=== PATIENT | male | born 1980 | race Caucasian/White ===

== ENCOUNTER → 2018-09-09 14:21 | Outpatient (BNVA) | payer MEDICARE, MEDICAID, SELFPAY | PROVIDERS: PCP Specialist/Technologist Athletic Trainer; Visit Provider Urology | DX: Z87.438 Personal history of other diseases of male genital organs (principal); R45.0 Nervousness | CPT/HCPCS: 99213 ==

== ENCOUNTER 2018-11-23 12:49 | Emergency (ER) | payer MEDICARE, MEDICAID, SELFPAY ==
[2018-11-23 13:04] VITALS: BP 133/83; PULSE 92; RESP 16; TEMP 37.4; O2SAT 95
--- NOTE | 2018-11-23 13:19 | ED.GENADUL_ITS ---
Discharge Plan Disposition Patient Disposition: HOME Condition: Improving Discharge Details Chief Complaint: RespSymp Clinical Impression: Acute bronchitis Primary Care Provider: Geovanny Cuba ED Provider: Provider,Temporary Home Meds and New Rx's Prescriptions: New azithromycin 250 mg tablet See Rx Instructions .ROUTE .COMPLEX Qty: 6 RF: 0 benzonatate [Tessalon Perles] 100 mg capsule 100 mg PO TID PRN (Reason: cough) Qty: 10 RF: 0 No Action Zyrtec 10 MG capsule 10 mg PO DAILY Qty: 1 RF: 0 propranolol 10 MG tablet 20 mg PO as directed Qty: 180 RF: 11 docusate sodium [Colace] 100 MG capsule 100 mg PO HS RF: 0 quetiapine [Seroquel] 200 MG tablet 200 mg PO BID RF: 0 magnesium oxide 400 MG tablet 400 mg PO HS RF: 0 quetiapine [Seroquel] 300 MG tablet 250 mg PO HS RF: 0 omeprazole [Prilosec] 20 MG capsule,delayed release(DR/EC) 40 mg PO DAILY RF: 0 famotidine [Pepcid] 20 MG tablet 20 mg PO DAILY Qty: 20 RF: 0 Ventolin HFA 60 PUFF HFA aerosol inhaler 90 mcg Inhalation PRN PRNRF: 0 ProAir HFA 200 PUFF HFA aerosol inhaler 115 mcg Inhalation RF: 0 fluticasone 16 GM spray,suspension 16 gm Intranasal DAILY RF: 0 Flovent HFA 12 GM HFA aerosol inhaler 165 mcg Inhalation BID RF: 0 loratadine 10 mg Tablet 10 mg PO DAILY RF: 0 Multi-Day Plus Minerals 18 mg iron-400 mcg-25 mcg Tablet 1 tab PO DAILY RF: 0 Discharge Instructions Instructions: Acute Bronchitis (ED) Additional Instructions: Take medications as prescribed. Please put your Zofran on hold while taking azithromycin. Continue all other medications. Tessalon as needed for cough. A teaspoon of honey can also help to decrease the cough. Return for any acute concerns Medical Decision Making 38-year-old male presents from home with cough, congestion, sinus pain and pressure. His exam is consistent with acute bronchitis with a component of sinusitis. Will treat with a course of azithromycin and Tessalon. He is stable for outpatient management HPI General Mode of arrival: ambulatory . Date/Time Provider Initiated Documentation: 11/23/18 13:11 . Limitations to Documentation: no limitations . Information obtained by: patient . History of Present Illness 38 year old M presents to the emergency department with the chief complaint of Cough, congestion, sinus pressure, production of sputum, described as moderate, Quality is described as aching, and is localized to the chest. Patient reports no radiation. Patient started experiencing this day(s) and it has been constant. No relieving factors improve symptom(s), No exacerbating factors reported . Patient notes no other symptoms.. Patient did receive the following treatments prior to arrival, none Related Data Home Medications Medication Instructions Recorded Confirmed docusate sodium [Colace] 100 mg PO HS 11/22/13 11/23/18 magnesium oxide 400 mg PO HS 11/22/13 11/23/18 quetiapine [Seroquel] 200 mg PO BID 11/22/13 11/23/18 quetiapine [Seroquel] 250 mg PO HS 04/22/14 11/23/18 Zyrtec 10 mg PO DAILY #1 04/27/14 11/23/18 omeprazole [Prilosec] 40 mg PO DAILY 09/17/15 11/23/18 famotidine [Pepcid] 20 mg PO DAILY #20 tablet 05/23/17 11/23/18 propranolol 20 mg PO as directed #180 tab-cap 06/26/17 11/23/18 Flovent HFA 165 mcg INHALATION BID 11/21/17 11/23/18 ProAir HFA 115 mcg INHALATION 11/21/17 Ventolin HFA 90 mcg INHALATION PRN PRN 11/21/17 11/23/18 fluticasone 16 gm INTRANASAL DAILY 11/21/17 11/23/18 azithromycin See Rx Instructions .ROUTE 11/23/18 .COMPLEX #6 tab benzonatate [Tessalon Perles] 100 mg PO TID PRN #10 cap 11/23/18 loratadine 10 mg PO DAILY 11/23/18 11/23/18 [id number]-vit K 1 tab PO DAILY 11/23/18 11/23/18 [Multi-Day Plus Minerals] Previous Rx's Medication Instructions Recorded famotidine [Pepcid] 20 mg PO DAILY #20 tablet 05/23/17 azithromycin See Rx Instructions .ROUTE 11/23/18 .COMPLEX #6 tab benzonatate [Tessalon Perles] 100 mg PO TID PRN #10 cap 11/23/18 Allergies Allergy/AdvReac Type Severity Reaction Status Date / Time oxycodone [From Percocet] AdvReac CRANKY Unverified 11/23/18 13:07 environmental Allergy Mild Rhinitis Uncoded 11/23/18 13:07 General Stated Complaint: RespSymp ABHILASH: 4 Review of Systems Review of Systems 8 systems reviewed and otherwise negative PFSH Social History Smoking/Tobacco Use Status: Former Tobacco Use Exam Narrative Exam Narrative: GEN: awake, alert, oriented 3. Pleasant, well groomed, interactive. HEAD: Normocephalic, atraumatic ENT: Mucous membranes moist, oropharynx unremarkable, External ear exam unremarkable. Slightly distended and erythematous left tympanic membrane. Bilateral maxillary sinus tenderness to percussion EYES: PERRL, EOMI NECK: Full ROM, no LEONIDAS, no menigismus CHEST/RESP: Nontender, clear to auscultation bilateral, no wheeze/rhonchi/rales, cough noted CARDIOVASCULAR: RRR, no murmur, rub pal. 2+ Rad pulse bilateral ABDOMEN: Soft, nontender, no mass. +Bowel sounds EXT: Full ROM, no edema, no rash Neuro: Grossly normal neurologic exam, conversant, interactive. Psych: Speech fluent, thoughts congruent, affect normal Course Vital Signs Temperature 37.4 C 11/23/18 13:04 Pulse 92 H 11/23/18 13:04 Respiratory Rate 16 11/23/18 13:04 Blood Pressure 133/83 11/23/18 13:04 Pulse Oximetry 95 11/23/18 13:04 Temperature 37.4 C 11/23/18 13:04 Temperature Source Temporal Artery Scan 11/23/18 13:04 Pulse 92 H 11/23/18 13:04 Respiratory Rate 16 11/23/18 13:04 Respiratory Effort Non-Labored 11/23/18 13:15 Respiratory Depth Normal 11/23/18 13:15 Blood Pressure 133/83 11/23/18 13:04 Blood Pressure Position Sitting 11/23/18 13:04 Pulse Oximetry 95 11/23/18 13:04 Oxygen Delivery Method Room Air 11/23/18 13:04 Oxygen Flow Rate 0 02/03/19 13:04 Pain Level 6 11/23/18 13:04
== END 2018-11-23 13:40 | disposition home or self-care (01) ==
PROVIDERS: Emergency Provider Emergency Medicine; PCP Specialist/Technologist Athletic Trainer
DX: J20.9 Acute bronchitis, unspecified (principal); J01.90 Acute sinusitis, unspecified
CPT/HCPCS: 99283

== ENCOUNTER 2019-01-28 16:14 | Outpatient (REF) | payer MEDICARE, MEDICAID, SELFPAY ==
[2019-01-28 21:44] LABS: Anion Gap 13.2 mmol/L (3-11); BUN 18 mg/dL (7-18); CO2 24.8 mmol/L (21.0-32.0); CREATININE 1.14 mg/dL (0.70-1.30); Calcium 9.6 mg/dL (8.5-10.1); Chloride 103 mmol/L (98-107); Cholesterol 174 mg/dL (50-200); Glucose 101 mg/dL (70-100); HDL Cholesterol 42 mg/dL (40-60); LDL CHOLESTEROL 113 mg/dL (<100); Potassium 3.9 mmol/L (3.5-5.1); Sodium 141 mmol/L (136-145); TSH (W/Ref FT4) 2.84 uIU/mL (0.358-3.74); Triglyceride 144 mg/dL (30-150)
== END 2019-01-28 16:34 ==
LOC: NCHCN 16:14
PROVIDERS: PCP Specialist/Technologist Athletic Trainer; Visit Provider Specialist/Technologist Athletic Trainer
DX: R73.9 Hyperglycemia, unspecified (principal); I10 Essential (primary) hypertension
CPT/HCPCS: 80048; 80061; 83721; 84443

== ENCOUNTER 2019-03-24 18:41 | Emergency (ER) | payer MEDICARE, MEDICAID, SELFPAY ==
[2019-03-24 18:50] VITALS: BP 151/82; PULSE 71; RESP 20; TEMP 36.8; O2SAT 96
--- NOTE | 2019-03-24 18:58 | W.ED.GENAD ---
Discharge Plan Disposition Patient Disposition: HOME Condition: Good Discharge Details Chief Complaint: Orthopedic Clinical Impression: Closed fracture of fourth toe of right foot Primary Care Provider: Elvia Camargo ED Provider: Jamie Tyler Home Meds and New Rx's Prescriptions: No Action Zyrtec 10 MG capsule 10 mg PO DAILY Qty: 1 RF: 0 propranolol 10 MG tablet 20 mg PO as directed Qty: 180 RF: 11 docusate sodium [Colace] 100 MG capsule 100 mg PO HS RF: 0 quetiapine [Seroquel] 200 MG tablet 200 mg PO BID RF: 0 magnesium oxide 400 MG tablet 400 mg PO HS RF: 0 quetiapine [Seroquel] 300 MG tablet 250 mg PO HS RF: 0 omeprazole [Prilosec] 20 MG capsule,delayed release(DR/EC) 40 mg PO DAILY RF: 0 famotidine [Pepcid] 20 MG tablet 20 mg PO DAILY Qty: 20 RF: 0 albuterol sulfate [Ventolin HFA] 60 PUFF HFA aerosol inhaler 90 mcg Inhalation PRN PRNRF: 0 ProAir HFA 200 PUFF HFA aerosol inhaler 115 mcg Inhalation RF: 0 fluticasone propionate 16 GM spray,suspension 16 gm Intranasal DAILY RF: 0 Flovent HFA 12 GM HFA aerosol inhaler 165 mcg Inhalation BID RF: 0 loratadine 10 mg Tablet 10 mg PO DAILY RF: 0 Multi-Day Plus Minerals 18 mg iron-400 mcg-25 mcg Tablet 1 tab PO DAILY RF: 0 azithromycin 250 mg tablet See Rx Instructions .ROUTE .COMPLEX Qty: 6 RF: 0 benzonatate [Tessalon Perles] 100 mg capsule 100 mg PO TID PRN (Reason: cough) Qty: 10 RF: 0 Discharge Instructions Instructions: Toe Fracture (ED) Additional Instructions: Your fourth toe is broken area please keep your toes ramez taped, use the walking boot at all times and the crutches to keep weight off the foot. 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 if you notice any worsening of your symptoms, or any new symptoms such as vomiting, diarrhea, fever, chills, shortness of breath, chest pain, numbness, weakness, or fainting , please return immediately to the emergency department for reevaluation. Please follow up with your primary care provider as soon as possible for reassessment and reevaluation. As always, it was a pleasure participating in your medical care today. Referrals: Elvia Camargo [Primary Care Provider] - Medical Decision Making This is a 38-year-old male who presents for evaluation of pain in his right fourth toe. He kicked a wall 4 days ago, and has had mild pain since then. Minimal swelling is present, patient is able to flex and extend his toe well. No pain over the foot itself. Capillary refill is brisk, sensation is intact. Suspect mild fracture contusion. We will get an x-ray for further evaluation, and recommend continued ramez taping. 7:36 PM X-ray results reveal evidence of a oblique fracture of the fourth proximal phalangeal diaphysis. Minimal angulation. We will continue to ramez tape, give a walking boot and crutches. Recommend orthopedic follow-up. Discussed red flags which to return I have extensively reviewed the treatment plan and discharge instructions with the patient and their family. I have addressed all patient concerns at this time. The patient and family was made aware of what symptoms to monitor for that would warrant a return to the emergency department. Discussed the plan with the patient and family, they demonstrate verbal understanding and agreement with our assessment and plan at this time. TECHNIQUE: Imaging protocol: XR Right foot. Views: 3 or more views. COMPARISON: CR RIGHT ANKLE 2 VIEW 04/27/2014 09:30 FINDINGS: Bones/joints: Acute oblique fracture of fourth proximal phalangeal diaphysis, minimal lateral angulation of the distal fracture fragment. Degenerative changes are partially seen in the hindfoot. Minimal hallux valgus. Plantar calcaneal spur. Posterior calcaneal spur. Soft tissues: Digital soft tissue swelling. IMPRESSION: Acute oblique fracture of fourth proximal phalangeal diaphysis, minimal lateral angulation of the distal fracture fragment. Dictated and Authenticated by: Laureen Ramirez MD. Ordering:TIFF Ayala MD HPI General Date/Time Provider Initiated Documentation: 03/24/19 18:53. HPI Narrative: This is a 38-year-old male who presents today for evaluation of right toe pain. He states that 4 days ago he kicked a wall and hit his right fourth toe. He has had mild pain since then. He has been walking with only mild discomfort. He denies any numbness or tingling. He has not been taking any NSAIDs for pain control. Comes in today for further evaluation. Swelling is very minimal. He denies any fever chills history of diabetes or previous injury to this toe. Related Data Home Medications Medication Instructions Recorded Confirmed docusate sodium [Colace] 100 mg PO HS 11/22/13 03/24/19 magnesium oxide 400 mg PO HS 11/22/13 03/24/19 quetiapine [Seroquel] 200 mg PO BID 11/22/13 03/24/19 quetiapine [Seroquel] 250 mg PO HS 04/22/14 03/24/19 Zyrtec 10 mg PO DAILY #1 04/27/14 03/24/19 omeprazole [Prilosec] 40 mg PO DAILY 09/17/15 03/24/19 famotidine [Pepcid] 20 mg PO DAILY #20 tablet 05/23/17 03/24/19 propranolol 20 mg PO as directed #180 tab-cap 06/26/17 03/24/19 Flovent HFA 165 mcg INHALATION BID 11/21/17 11/23/18 ProAir HFA 115 mcg INHALATION 11/21/17 albuterol sulfate [Ventolin HFA] 90 mcg INHALATION PRN PRN 11/21/17 03/24/19 fluticasone propionate 16 gm INTRANASAL DAILY 11/21/17 03/24/19 azithromycin See Rx Instructions .ROUTE 11/23/18 03/24/19 .COMPLEX #6 tab benzonatate [Tessalon Perles] 100 mg PO TID PRN #10 cap 11/23/18 03/24/19 loratadine 10 mg PO DAILY 11/23/18 03/24/19 qedbonsnjwfh-[id number]-djyo-FA-vit K 1 tab PO DAILY 11/23/18 03/24/19 [Multi-Day Plus Minerals] Previous Rx's Medication Instructions Recorded famotidine [Pepcid] 20 mg PO DAILY #20 tablet 05/23/17 azithromycin See Rx Instructions .ROUTE 11/23/18 .COMPLEX #6 tab benzonatate [Tessalon Perles] 100 mg PO TID PRN #10 cap 11/23/18 Allergies Allergy/AdvReac Type Severity Reaction Status Date / Time oxycodone [From Percocet] AdvReac CRANKY Unverified 03/24/19 18:51 environmental Allergy Mild Rhinitis Uncoded 03/24/19 18:51 General Stated Complaint: Orthopedic ABHILASH: 3 Review of Systems Review of Systems All systems reviewed & are unremarkable except as noted in HPI and below PFSH Social History Smoking/Tobacco Use Status: Former Tobacco Use Alcohol Intake: current Alcohol Intake frequency: a few times a week Drug use: Never Substance use type: does not use Do you feel safe at home: Yes Do you feel safe in your relationship?: Yes Exam Narrative Exam Narrative: 1.Const: Well-nourished, Well-developed, appearing stated age 2.Eyes: PERRL, no conjunctival injection, and symmetrical lids. 3.ENT: Atraumatic external nose and ears. Moist MM. Neck: Symmetric, trachea midline, No thyromegaly. 4.CVS: +S1/S2, No murmurs or gallops. Peripheral pulses 2+ and equal in all extremities. Brisk capillary refill in all extremities. 5.RESP: Unlabored respiratory effort. Clear to auscultation bilaterally. No wheezes rales or rhonchi 6.GI: Soft, Nontender/Nondistended, No hepatosplenomegaly. No guarding or rebound. 7.MSK: Normocephalic/Atraumatic, Extremities w/o deformity. No cyanosis or clubbing, Normal movement of all extremities. Patient has +5 out of 5 strength in the lower extremities in dorsiflexion and plantarflexion, knee flexion and extension, hip flexion and extension. There is +2 over 2 dorsalis pedis pulses bilaterally. There is normal sensation to the skin with light touch at the foot knee and hip. Patient has mild evidence of minimal swelling over the fourth toe on the right foot, he is able to flex and extend. Reproducible tenderness over all aspects of the fourth toe. Minimal bruising is present. Sensation is intact throughout the toe. Brisk capillary refill. 8.Skin: Warm, Dry. No rashes or lesions. 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 Sensation grossly intact, no focal neurologic deficits. 10.Psych: (AAO) x3. Appropriate mood and affect Course Vital Signs Temperature 36.8 C 03/24/19 18:50 Pulse 71 03/24/19 18:50 Respiratory Rate 20 03/24/19 18:50 Blood Pressure 151/82 H 03/24/19 18:50 Pulse Oximetry 96 03/24/19 18:50 Temperature 36.8 C 03/24/19 18:50 Temperature Source Temporal Artery Scan 03/24/19 18:50 Pulse 71 03/24/19 18:50 Respiratory Rate 20 03/24/19 18:50 Respiratory Effort Non-Labored 03/24/19 18:50 Blood Pressure 151/82 H 03/24/19 18:50 Blood Pressure Position Sitting 03/24/19 18:50 Pulse Oximetry 96 03/24/19 18:50 Oxygen Delivery Method Room Air 03/24/19 18:50 Oxygen Flow Rate 0 03/24/19 18:50
--- NOTE | 2019-03-24 19:15 | DI.RAD_ITS ---
SYMPTOM/DIAGNOSIS: PAIN 4TH TOE, ? FX RIGHT FOOT: Three views. There is an oblique fracture of the proximal phalanx of the right fourth toe. There is mild lateral displacement of the distal fracture. No other fracture or dislocation is seen. There is soft tissue swelling of the right fourth toe. IMPRESSION: Mildly displaced oblique fracture of the proximal phalanx of the right fourth toe.
--- NOTE | 2019-03-24 19:22 | DI.VRAD_ITS ---
EXAM: XR Right Foot Complete EXAM DATE/TIME: 03/24/2019 18:57 CLINICAL HISTORY: 38 years old, male; Right; Patient HX: Pain in toes and distal foot after kicking a wall TECHNIQUE: Imaging protocol: XR Right foot. Views: 3 or more views. COMPARISON: CR RIGHT ANKLE 2 VIEW 04/27/2014 09:30 FINDINGS: Bones/joints: Acute oblique fracture of fourth proximal phalangeal diaphysis, minimal lateral angulation of the distal fracture fragment. Degenerative changes are partially seen in the hindfoot. Minimal hallux valgus. Plantar calcaneal spur. Posterior calcaneal spur. Soft tissues: Digital soft tissue swelling. IMPRESSION: Acute oblique fracture of fourth proximal phalangeal diaphysis, minimal lateral angulation of the distal fracture fragment. Dictated and Authenticated by: Laureen Ramirez MD. Ordering:TIFF Ayala MD
[2019-03-24 19:53] VITALS: BP 151/82; PULSE 71; RESP 20
== END 2019-03-24 19:52 | disposition home or self-care (01) ==
PROVIDERS: Emergency Provider Student in an Organized Health Care Education/Training Program; PCP Nurse Practitioner Family
DX: S92.511A Displaced fracture of proximal phalanx of right lesser toe(s), initial encounter for closed fracture (principal); W22.8XXA Striking against or struck by other objects, initial encounter
CPT/HCPCS: 28510; 73630; E0114; L4361

== ENCOUNTER 2019-07-29 11:29 | Outpatient (REF) | payer MEDICARE, MEDICAID, SELFPAY ==
[2019-07-29 20:31] LABS: Abs Immature Grans 0.01 k/cumm (0.0-0.09); Absolute Basophil Count 0.02 k/cumm (0.0-0.2); Absolute Eosinophil Count 0.13 k/cumm (0.0-0.7); Absolute Lymphocyte Count 1.66 k/cumm (1.2-3.4); Absolute Monocyte Count 0.43 k/cumm (0.11-0.7); Basophils % 0.5; Eosinophils % 3.3; HCT 48.5 % (40.0-50.0); HGB 16.4 g/dL (13.5-17.5); Immature Grans % 0.3; Mean Corp. HGB Concentration 33.8 g/dL (32.0-36.0); Mean Corpuscular Hemoglobin 30.2 pg (27.0-33.0); Mean Corpuscular Volume 89.3 fL (80-95); Mean Platelet Volume 10.5 fL (8.0-11.0); Monocytes % 10.9; Platelet Count 218 x1000/uL (130-400); RBC 5.43 m/cumm (4.50-6.00); White Blood Cell Count 3.95 k/cumm (4.4-10.8)
[2019-07-29 20:38] LABS: Magnesium 1.9 mg/dL (1.8-2.4)
== END 2019-07-29 11:49 ==
LOC: NCHCN 11:29
PROVIDERS: PCP Nurse Practitioner Family; Visit Provider Nurse Practitioner Family
DX: F31.9 Bipolar disorder, unspecified (principal); Z79.899 Other long term (current) drug therapy; J45.40 Moderate persistent asthma, uncomplicated; G47.33 Obstructive sleep apnea (adult) (pediatric); F71 Moderate intellectual disabilities; K59.00 Constipation, unspecified
CPT/HCPCS: 83735; 85025

== ENCOUNTER 2019-10-19 14:49 | Emergency (ER) | payer MEDICARE, MEDICAID, SELFPAY ==
[2019-10-19 14:52] VITALS: BP 135/84; PULSE 100; RESP 16; TEMP 37.2; O2SAT 96
--- NOTE | 2019-10-19 15:01 | W.ED.GENAD ---
Discharge Plan Disposition Patient Disposition: HOME Condition: Stable Discharge Details Chief Complaint: Nausea/Vomit/Diar Clinical Impression: Nausea & vomiting Primary Care Provider: Elvia Camargo ED Provider: Celio Mccall Home Meds and New Rx's Prescriptions: New ondansetron 4 mg tablet,disintegrating 4 mg PO Q8H PRN (Reason: nausea and vomiting) Qty: 30 RF: 0 Continued Zyrtec 10 MG capsule 10 mg PO DAILY Qty: 1 RF: 0 propranolol 10 MG tablet 20 mg PO as directed Qty: 180 RF: 11 docusate sodium [Colace] 100 MG capsule 100 mg PO HS RF: 0 quetiapine [Seroquel] 200 MG tablet 200 mg PO BID RF: 0 magnesium oxide 400 MG tablet 400 mg PO HS RF: 0 quetiapine [Seroquel] 300 MG tablet 250 mg PO HS RF: 0 omeprazole [Prilosec] 20 MG capsule,delayed release(DR/EC) 40 mg PO DAILY RF: 0 famotidine [Pepcid] 20 MG tablet 20 mg PO DAILY Qty: 20 RF: 0 albuterol sulfate [Ventolin HFA] 60 PUFF HFA aerosol inhaler 90 mcg Inhalation PRN PRNRF: 0 albuterol sulfate [ProAir HFA] 200 PUFF HFA aerosol inhaler 115 mcg Inhalation RF: 0 fluticasone propionate 16 GM spray,suspension 16 gm Intranasal DAILY RF: 0 Flovent HFA 12 GM HFA aerosol inhaler 165 mcg Inhalation BID RF: 0 loratadine 10 mg Tablet 10 mg PO DAILY RF: 0 Multi-Day Plus Minerals 18 mg iron-400 mcg-25 mcg Tablet 1 tab PO DAILY RF: 0 Discharge Instructions Instructions: Acute Nausea and Vomiting (ED) Additional Instructions: your lab work showed mild elevation in your liver function tests follow up with your primary care provider in 1-2 weeks to possibly have your liver function tests repeated if you feel more ill, have high fevers or abdominal pain return to the emergency department Medical Decision Making 39 yo male with hx of migraines comes in with n/v since noon and abdominal cramping. Denies any sharp pain, fevers, recent travel. No known new foods and no other people in house sick. He states since he has started to have the n/v he has had a slowly worsening generalized head pain similar to his prior migraines and denies worst of his life and no fevers or meningismus on exam. He is in no distress speaking in full sentences with no vomit on exam. Has mild tenderness in all quadrants without gurading or rebound. Suspect gastroenteritis and dehydration which has led to his headache. Will treat with toradol, compazine and fluids and reasssess. Given not worst of his life and not thunderclap do not feel sah likely and do not feel imaging of the head indicated, no findings on hx or physical to suggest production assembler infection, subdural, other ich, cavernous sinus thrombosis or cerebral venous thrombosis pt's has very mild increase in lfts otherwise benign labs. He feels much better and has no abdominal pain, negative guardado's sign. He is requesting d/c. Given he feels better and has no abdominal tendeness at this point feel he can be d/c'd and f/u with his pcp. Will add on hepatitis pane. Return pecautions given Differential Diagnosis Differential Diagnosis: gastroenteritis, food illness, miraine Lab Data Lab results reviewed: Yes I reviewed the patient's lab results. HPI General Mode of arrival: ambulatory. Date/Time Provider Initiated Documentation: 10/19/19 14:54. Limitations to Documentation: no limitations. Information obtained by: patient. History of Present Illness 39 year old M presents to the emergency department with the chief complaint of n/v, described as moderate, Patient started experiencing this hour(s) (3) and it has been constant. No relieving factors improve symptom(s), No exacerbating factors reported . Patient did receive the following treatments prior to arrival, none Related Data Home Medications Medication Instructions Recorded Confirmed docusate sodium [Colace] 100 mg PO HS 11/22/13 10/19/19 magnesium oxide 400 mg PO HS 11/22/13 10/19/19 quetiapine [Seroquel] 200 mg PO BID 11/22/13 10/19/19 quetiapine [Seroquel] 250 mg PO HS 04/22/14 10/19/19 Zyrtec 10 mg PO DAILY #1 04/27/14 10/19/19 omeprazole [Prilosec] 40 mg PO DAILY 09/17/15 10/19/19 famotidine [Pepcid] 20 mg PO DAILY #20 tablet 05/23/17 10/19/19 propranolol 20 mg PO as directed #180 tab-cap 06/26/17 10/19/19 Flovent HFA 165 mcg INHALATION BID 11/21/17 10/19/19 albuterol sulfate [ProAir HFA] 115 mcg INHALATION 11/21/17 albuterol sulfate [Ventolin HFA] 90 mcg INHALATION PRN PRN 11/21/17 10/19/19 fluticasone propionate 16 gm INTRANASAL DAILY 11/21/17 10/19/19 Multi-Day Plus Minerals 1 tab PO DAILY 11/23/18 10/19/19 loratadine 10 mg PO DAILY 11/23/18 10/19/19 ondansetron 4 mg PO Q8H PRN #30 tab 10/19/19 Previous Rx's Medication Instructions Recorded famotidine [Pepcid] 20 mg PO DAILY #20 tablet 05/23/17 ondansetron 4 mg PO Q8H PRN #30 tab 10/19/19 Allergies Allergy/AdvReac Type Severity Reaction Status Date / Time oxycodone [From Percocet] AdvReac CRANKY Unverified 10/19/19 14:54 environmental Allergy Mild Rhinitis Uncoded 10/19/19 14:54 General Stated Complaint: Nausea/Vomit/Diar ABHILASH: 3 Review of Systems All systems reviewed & are unremarkable except as noted in HPI and below Constitutional Constitutional: Denies chills, Denies fever(s) and Denies weakness Eyes Eyes: Denies loss of vision Cardiovascular Cardiovascular: Denies chest pain and Denies dyspnea Respiratory Respiratory: Denies cough and Denies dyspnea Musculoskeletal Musculoskeletal: Denies joint swelling Integumentary/Breasts Skin/Breast: Denies rash Neurologic Neurologic: Denies loss of vision and Denies weakness [facility] Social History Smoking/Tobacco Use Status: Former Tobacco Use Alcohol Intake: current Alcohol Intake frequency: a few times a week Drug use: Never Substance use type: does not use Do you feel safe at home: Yes Do you feel safe in your relationship?: Yes Exam Const General: no acute distress Orientation: alert HENMT Head: normal to inspection Ears: external ears normal General nose exam: external nose normal Mouth: moist mucous membranes Eyes General: appearance normal, both eyes and all related structures Neck Neck: normal visual inspection Resp Effort & Inspection: normal respiratory effort and able to speak in complete sentences Cardio Rate: regular rate Skin General skin exam: no rashes or lesions noted Neuro General: alert and oriented x3 Extrem General: normal to inspection Psych Mental Status: mental status grossly normal Course Vital Signs Vital signs: Vital Signs Temperature 37.2 C 10/19/19 14:52 Pulse 100 H 10/19/19 14:52 Respiratory Rate 16 10/19/19 14:52 Blood Pressure 135/84 10/19/19 14:52 Pulse Oximetry 96 10/19/19 14:52 Temperature 37.2 C 10/19/19 14:52 Temperature Source Temporal Artery Scan 10/19/19 14:52 Pulse 100 H 10/19/19 14:52 Respiratory Rate 16 10/19/19 14:52 Respiratory Effort Non-Labored 10/19/19 14:53 Blood Pressure 135/84 10/19/19 14:52 Blood Pressure Position Sitting 10/19/19 14:52 Pulse Oximetry 96 10/19/19 14:52 Oxygen Delivery Method Room Air 10/19/19 14:52 Oxygen Flow Rate 0 10/19/19 14:52 Pain Level 0 10/19/19 14:52
[2019-10-19] MEDS: Normal Saline Flush 10 ML SYR IVP (15:20)
[2019-10-19 15:30] LABS: Abs Immature Grans 0.02 k/cumm (0.0-0.09); Absolute Basophil Count 0.01 k/cumm (0.0-0.2); Absolute Eosinophil Count 0.07 k/cumm (0.0-0.7); Absolute Lymphocyte Count 0.53 k/cumm (1.2-3.4); Absolute Monocyte Count 0.26 k/cumm (0.11-0.7); Absolute Neutrophil Count 6.34 k/cumm (1.2-6.7); Basophils % 0.1; HGB 17.1 g/dL (13.5-17.5); Immature Grans % 0.3; Lymphocytes % 7.3; Mean Corp. HGB Concentration 34.9 g/dL (32.0-36.0); Mean Corpuscular Hemoglobin 31.4 pg (27.0-33.0); Mean Corpuscular Volume 89.9 fL (80-95); Mean Platelet Volume 9.9 fL (8.0-11.0); Monocytes % 3.6; Neutrophils % 87.7; Platelet Count 205 x1000/uL (130-400); RBC 5.45 m/cumm (4.50-6.00); White Blood Cell Count 7.23 k/cumm (4.4-10.8)
[2019-10-19] MEDS: Prochlorperazine 10 MG/2 ML VIAL IVP (15:31)
[2019-10-19] MEDS: Ketorolac 15 MG/ML VIAL IVP (15:31)
[2019-10-19] MEDS: Normal Saline 1,000 ML 1000 ML IV (15:32)
[2019-10-19 15:45] LABS: ALT 223 U/L (16-63); AST 131 U/L (15-37); Albumin 4.2 g/dL (3.4-5.0); Alkaline Phosphatase 95 U/L (46-116); Anion Gap 9.2 mmol/L (3-11); BUN 15 mg/dL (7-18); Bilirubin, Total 1.1 mg/dL (0.2-1.0); CO2 27.8 mmol/L (21.0-32.0); CREATININE 0.95 mg/dL (0.70-1.30); Calcium 9.1 mg/dL (8.5-10.1); Chloride 102 mmol/L (98-107); Glucose 115 mg/dL (74-106); Lipase 80 U/L (73-393); Magnesium 1.6 mg/dL (1.8-2.4); Potassium 3.9 mmol/L (3.5-5.1); Sodium 139 mmol/L (136-145); Total Protein 8.6 g/dL (6.4-8.2)
[2019-10-20 11:25] LABS: Hepatitis A Antibody IgM Negative (Negative); Hepatitis B Core Antibody Negative (Negative); Hepatitis B surface Ag Negative (Negative); Hepatitis C Ab w Rflx HCV PCR Negative (Negative)
== END 2019-10-19 16:10 | disposition home or self-care (01) ==
PROVIDERS: Emergency Provider Emergency Medicine; PCP Nurse Practitioner Family
DX: R11.2 Nausea with vomiting, unspecified (principal); R51 Headache; R74.8 Abnormal levels of other serum enzymes
CPT/HCPCS: 36415; 80053; 83690; 86704; 86709; 86803; 87340; 96361; 96374; 96375; 99284; 83735; 85025; 99283; J0780; J1885

== ENCOUNTER 2020-02-26 10:37 | Outpatient (REF) | payer MEDICARE, MEDICAID, SELFPAY ==
[2020-02-26 19:00] LABS: HCT 45.5 % (40.0-50.0); HGB 16.1 g/dL (13.5-17.5); Mean Corp. HGB Concentration 35.4 g/dL (32.0-36.0); Mean Corpuscular Hemoglobin 31.1 pg (27.0-33.0); Mean Platelet Volume 10.8 fL (8.0-11.0); Platelet Count 202 x1000/uL (130-400); RBC 5.17 m/cumm (4.50-6.00); RBC Distribution Width 12.6 % (11.8-14.1); White Blood Cell Count 4.36 k/cumm (4.4-10.8)
[2020-02-26 19:14] LABS: ALT 145 U/L (16-63); AST 53 U/L (15-37); Albumin 4.1 g/dL (3.4-5.0); Alkaline Phosphatase 197 U/L (46-116); Anion Gap 5.7 mmol/L (3-11); BUN 8 mg/dL (7-18); Bilirubin, Total 0.6 mg/dL (0.2-1.0); CO2 28.3 mmol/L (21.0-32.0); CREATININE 1.24 mg/dL (0.70-1.30); Calcium 9.2 mg/dL (8.5-10.1); Chloride 98 mmol/L (98-107); Glucose 357 mg/dL (74-106); Potassium 4.5 mmol/L (3.5-5.1); Sodium 132 mmol/L (136-145); Total Protein 7.9 g/dL (6.4-8.2)
== END 2020-02-26 10:57 ==
LOC: NCHCN 10:37
PROVIDERS: PCP Nurse Practitioner Family; Visit Provider Nurse Practitioner Family
DX: R73.9 Hyperglycemia, unspecified (principal)
CPT/HCPCS: 80053; 85027; 83036

== ENCOUNTER 2020-03-09 01:20 | Outpatient (CLI) | payer MEDICARE, MEDICAID, SELFPAY ==
--- NOTE | 2020-03-09 15:00 | DIABASSESS_ITS ---
DESCRIPTION/ASSESSMENT: Referral for DM EDU from [facility]. 39 y/o male newly diagnosed DM2. Arrived w/ caregiver Katey who manages his meals and assists him r/t comprehension issues r/t mild mental retardation. Caregiver reports he has a tendency to overeat at meals that he likes. She will be recording his BG 4x/day and recording food and beverage intake x 7 days. Today his weight was 307lbs. Height is 74. IBW is 190 indicating obesity. He has started walking and light exercise with supervision from caregiver. This RD reviewed risks and benefits of DM diet and medication compliance, explained CHO and CHO counting techniques, desired BG ranges and goals, provided record keeping materials and educational literature to help with self management. Dez's hearing care professional reports that his BG has been~180. Noted: Patient is on seroquel which may effect BG levels. He is also on metformin. INTERVENTION: Recommend Haja contact his PCP to report f/u on this DM consult visit. unix analyst and patient agreed to arrange for followup appointment with RD for monitoring and evaluating food record and BG. Provided DM education and take-home literature along with menu planning advice and materials. unix analyst agreed to help Haja avoid processed foods and eat Protein whenever consuming CHO. She is aware of the 65-70g/meal period guidelines on CHO consumption to help with BG levels. ACTION PLAN: Haja will complete his food record and BG tracking with his hearing care professional and schedule follow up appointment with RD for next week. Haja will continue mild exercise program and take metformin according to MD orders. Individual DSME/T __2__ units billed TIME IN:1500 OUT:1530 No DM group education series being offered at this time.
== END 2020-03-09 01:40 ==
PROVIDERS: PCP Nurse Practitioner Family; Visit Provider Dietitian, Registered
DX: E11.9 Type 2 diabetes mellitus without complications (principal); Z79.84 Long term (current) use of oral hypoglycemic drugs; E66.9 Obesity, unspecified; Z71.3 Dietary counseling and surveillance
CPT/HCPCS: G0108

== ENCOUNTER 2020-03-30 13:43 | Outpatient (REF) | payer MEDICARE, MEDICAID, SELFPAY ==
[2020-03-30 20:58] LABS: Iron 148 ug/dL (65-175); Total Iron Binding Capacity 317 ug/dL (250-450); Transferrin Sat 47 % (20-55)
[2020-03-30 21:06] LABS: Ferritin 546 ng/mL (26-388); TSH (W/Ref FT4) 1.85 uIU/mL (0.36-3.74)
[2020-04-01 09:23] LABS: Hepatitis B Surface Ag Negative (Negative)
== END 2020-03-30 14:03 ==
LOC: NCHCN 13:43
PROVIDERS: PCP Nurse Practitioner Family; Visit Provider Nurse Practitioner Family
DX: E11.9 Type 2 diabetes mellitus without complications (principal); R74.8 Abnormal levels of other serum enzymes
CPT/HCPCS: 87340; 82728; 83540; 83550; 84443

== ENCOUNTER 2020-06-15 11:31 | Outpatient (REF) | payer MEDICARE, MEDICAID, SELFPAY ==
[2020-06-15 21:44] LABS: Abs Immature Grans 0.02 10^3/uL (0.0-0.06); Absolute Basophil Count 0.03 10^3/uL (0.0-0.2); Absolute Eosinophil Count 0.17 10^3/uL (0.0-0.7); Absolute Lymphocyte Count 1.53 10^3/uL (1.2-3.4); Absolute Monocyte Count 0.38 10^3/uL (0.1-0.8); Absolute Neutrophil Count 2.13 10^3/uL (1.2-6.7); Basophils % 0.7; HCT 48.6 % (40.0-50.0); HGB 16.1 g/dL (13.5-17.5); Immature Grans % 0.5; Lymphocytes % 35.9; MCH 30.6 pg (27.0-33.0); MCHC 33.1 % (32.0-36.0); MCV 92.2 fL (80-95); MPV 10.5 fL (8.0-11.0); Monocytes % 8.9; Nucleated RBC 0 %; Platelet Count 225 10^3/uL (130-400); RBC 5.27 10^6/uL (4.36-5.78); RDW 11.9 % (11.8-14.1); RDW-SD 41.1 fL; WBC 4.26 10^3/uL (4.4-10.8)
[2020-06-15 21:58] LABS: ALT 140 U/L (16-63); AST 54 U/L (15-37); Albumin 4.1 g/dL (3.4-5.0); Alkaline Phosphatase 86 U/L (46-116); Amylase 54 U/L (25-115); Anion Gap 9.6 mmol/L (3-11); BUN 17 mg/dL (7-18); Bilirubin, Total 0.6 mg/dL (0.2-1.0); CO2 26.4 mmol/L (21.0-32.0); CREATININE 1.11 mg/dL (0.70-1.30); Calcium 9.4 mg/dL (8.5-10.1); Chloride 102 mmol/L (98-107); Glucose 126 mg/dL (74-106); Lipase 76 U/L (73-393); Potassium 4.5 mmol/L (3.5-5.1); Sodium 138 mmol/L (136-145); Total Protein 7.8 g/dL (6.4-8.2)
== END 2020-06-15 11:51 ==
LOC: NCHCN 11:31
PROVIDERS: PCP Nurse Practitioner Family; Visit Provider Nurse Practitioner Family
DX: R11.2 Nausea with vomiting, unspecified (principal)
CPT/HCPCS: 80053; 83690; 82150; 85025

== ENCOUNTER 2020-07-06 11:01 | Outpatient (REF) | payer MEDICARE, MEDICAID, SELFPAY ==
[2020-07-06 20:35] LABS: Abs Immature Grans 0.04 10^3/uL (0.0-0.06); Absolute Eosinophil Count 0.11 10^3/uL (0.0-0.7); Absolute Lymphocyte Count 1.88 10^3/uL (1.2-3.4); Basophils % 0.3; Eosinophils % 0.9; HGB 16.5 g/dL (13.5-17.5); Immature Grans % 0.3; MCH 30.9 pg (27.0-33.0); MCHC 33.7 % (32.0-36.0); MCV 91.8 fL (80-95); MPV 10.8 fL (8.0-11.0); Monocytes % 6.5; Nucleated RBC 0 %; Platelet Count 201 10^3/uL (130-400); RBC 5.34 10^6/uL (4.36-5.78); RDW 12.2 % (11.8-14.1); RDW-SD 41.4 fL; WBC 11.78 10^3/uL (4.4-10.8)
[2020-07-06 20:41] LABS: Absolute Basophil Count 0.04 10^3/uL (0.0-0.2); Absolute Monocyte Count 0.77 10^3/uL (0.1-0.8); Absolute Neutrophil Count 8.95 10^3/uL (1.2-6.7)
[2020-07-06 20:57] LABS: Uric Acid 6.1 mg/dL (3.5-7.2)
[2020-07-07 17:55] LABS: CRP, High Sensitivity >15.00 mg/L (See Note)
== END 2020-07-06 11:21 ==
LOC: NCHCN 11:01
PROVIDERS: PCP Nurse Practitioner Family; Visit Provider Physician Assistant Medical
DX: M71.021 Abscess of bursa, right elbow (principal)
CPT/HCPCS: 86141; 84550; 85025

== ENCOUNTER 2020-07-07 01:04 | Outpatient (CLI) | payer MEDICARE, MEDICAID, SELFPAY ==
--- NOTE | 2020-07-07 11:00 | DI.RAD_ITS ---
EXAM: XR ELBOW RT COMPLETE CLINICAL HISTORY: ABSCESS OF [place], RT ELBOW,M17.021 TECHNIQUE: COMPARISON: CR RIGHT ELBOW COMPLETE from 07/02/2013 FINDINGS: Three views were obtained. There is marked soft tissue swelling of the elbow which appears to be bot h intra and extra-articular. There are prominent marginal osteophytes the articular margins of the o n its flexor side. There is an apparent fractured osteophyte of the olecranon. IMPRESSION: Degenerative changes and marked soft tissue swelling. RADIATION DOSE DELIVERED: Total DLP
== END 2020-07-07 01:24 ==
PROVIDERS: PCP Nurse Practitioner Family; Visit Provider Physician Assistant Medical
DX: M19.021 Primary osteoarthritis, right elbow (principal); M71.021 Abscess of bursa, right elbow
CPT/HCPCS: 73080

== ENCOUNTER 2020-10-04 10:56 | Emergency (ER) | payer MEDICARE, MEDICAID, SELFPAY ==
[2020-10-04] VITALS (43 sets, daily range): BP systolic 121–166; BP diastolic 68–146; PULSE 60–83; RESP 13–29; TEMP 36.8; O2SAT 93–97
--- NOTE | 2020-10-04 10:45 | RT.EKG_ITS ---
APPROVED REPORT Exam: Resting ECG Patient Location: E HR:70 bpm ECG Measurements Heart Rate 70 AXIS MT 166 P 31 QRSd 115 QRS -14 QT 390 T 16 QTc 421 Conclusion Sinus rhythm...normal P axis, V-rate 60- 99 Nonspecific intraventricular conduction delay
--- NOTE | 2020-10-04 11:15 | ED.GENADUL_ITS ---
Discharge Plan Disposition Patient Disposition: HOME Condition: Improving Discharge Details Clinical Impression: Gastritis Primary Care Provider: Elvia Camargo ED Provider: Kale Kirk Home Meds and New Rx's Prescriptions: Continued propranolol 10 MG tablet 20 mg PO DAILY AM Qty: 180 RF: 11 docusate sodium [Colace] 100 MG capsule 100 mg PO HS RF: 0 quetiapine [Seroquel] 200 MG tablet 400 mg PO HS RF: 0 quetiapine [Seroquel] 300 MG tablet 300 mg PO DAILY AM RF: 0 omeprazole [Prilosec] 20 MG capsule,delayed release(DR/EC) 40 mg PO DAILY RF: 0 albuterol sulfate [ProAir HFA] 200 PUFF HFA aerosol inhaler 115 mcg Inhalation RF: 0 Flovent HFA 12 GM HFA aerosol inhaler 165 mcg Inhalation BID RF: 0 ondansetron 4 mg tablet,disintegrating 4 mg PO Q8H PRN (Reason: nausea and vomiting) Qty: 30 RF: 0 metformin 500 mg Tablet 500 mg PO BID RF: 0 loratadine 10 mg Tablet 10 mg PO DAILY RF: 0 Multi-Day Plus Minerals 18 mg iron-400 mcg-25 mcg Tablet 1 tab PO DAILY RF: 0 Discharge Instructions Instructions: Gastritis (ED) Additional Instructions: Continue your regularly prescribed medications. May add [id number] Tums to be taken with the morning and evening meals. Off work the remainder of the day. Return to the ER for any acute concerns. 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 States that felt in his left side and upper abdomen and feels similar to previous episode of GERD. He did not have diaphoresis, nor shortness of breath. He now is feeling improved. Vital signs are normal and his exam is reassuring with some mild discomfort to palpation of the left upper quadrant. Differential diagnosis includes gastritis, somewhat atypical presentation of acute coronary syndrome, chest wall strain. Patient IV access established, placed on a potline monitor, referred for chest x-ray, EKG, laboratory testing. EKG and chest x-ray unremarkable. CBC within normal limits and chemistries are reassuring. Note magnesium of 1.4. Troponin is negative. Magnesium supplemented patient kept on a potline monitor with repeat troponin obtained and negative. We will have him add Tums to morning and evening meals. He will continue previously prescribed omeprazole. He is stable and appropriate for outpatient management at this time. HPI General Mode of arrival: ambulatory . Date/Time Provider Initiated Documentation: 10/04/20 10:56 . Limitations to Documentation: no limitations . Information obtained by: patient . History of Present Illness 40 year old M presents to the emergency department with the chief complaint of Chest pain and abdominal pain at work today, described as moderate, Quality is described as dull and constant, and is localized to the chest, abdomen and left. Patient reports no radiation. and it has been constant. Rest improves symptom(s), Other factors that worsen symptoms (Worse with lifting heavy objects) . Patient notes denies loss of appetite, nausea/vomiting, shortness of breath, syncope and weakness. Patient did receive the following treatments prior to arrival, other (Tylenol) Related Data Home Medications Medication Instructions Recorded Confirmed docusate sodium [Colace] 100 mg PO HS 11/22/13 10/04/20 quetiapine [Seroquel] 400 mg PO HS 11/22/13 10/04/20 quetiapine [Seroquel] 300 mg PO DAILY AM 04/22/14 10/04/20 omeprazole [Prilosec] 40 mg PO DAILY 09/17/15 10/04/20 propranolol 20 mg PO DAILY AM #180 tab-cap 06/26/17 10/04/20 Flovent HFA 165 mcg INHALATION BID 11/21/17 10/19/19 albuterol sulfate [ProAir HFA] 115 mcg INHALATION 11/21/17 Multi-Day Plus Minerals 1 tab PO DAILY 11/23/18 10/19/19 loratadine 10 mg PO DAILY 11/23/18 10/04/20 ondansetron 4 mg PO Q8H PRN #30 tab 10/19/19 10/04/20 metformin 500 mg PO BID 10/04/20 10/04/20 Previous Rx's Medication Instructions Recorded ondansetron 4 mg PO Q8H PRN #30 tab 10/19/19 Allergies Allergy/AdvReac Type Severity Reaction Status Date / Time oxycodone [From Percocet] AdvReac CRANKY Unverified 10/04/20 11:10 environmental Allergy Mild Rhinitis Uncoded 10/04/20 11:10 General Stated Complaint: Chest Pain ABHILASH: 2 Review of Systems Narrative: No recent illness. No fever, chills, cough. No fall or injury. Feels similar to previous GERD. 8 systems reviewed and otherwise negative. [facility] Social History Smoking/Tobacco Use Status: Former Tobacco Use Smoking risk assessment performed?: Yes Alcohol Intake: current Alcohol Intake frequency: a few times a month Drug use: Never Substance use type: does not use Do you feel safe at home: Yes Do you feel safe in your relationship?: Yes Exam Narrative Exam Narrative: GEN: awake, alert, oriented 3. Pleasant, well groomed, interactive. HEAD: Normocephalic, atraumatic ENT: Mucous membranes moist, oropharynx unremarkable, External ear exam unremarkable EYES: PERRL, EOMI NECK: Full ROM, no LEONIDAS, no menigismus CHEST/RESP: Nontender, clear to auscultation bilateral, no wheeze/rhonchi/rales CARDIOVASCULAR: RRR, no murmur, rub pal. 2+ Rad pulse bilateral ABDOMEN: Soft, tender in the left upper quadrant without rebound or guarding, no mass. +Bowel sounds EXT: Full ROM, no edema, no rash Neuro: Grossly normal neurologic exam, conversant, interactive. Psych: Speech fluent, thoughts congruent, affect normal Course Vital Signs Vital signs: Vital Signs Temperature 36.8 C 10/04/20 11:00 Pulse 71 10/04/20 11:00 Respiratory Rate 20 10/04/20 11:00 Blood Pressure 124/73 10/04/20 11:00 Pulse Oximetry 93 10/04/20 11:00 Temperature 36.8 C 10/04/20 11:00 Temperature Source Temporal Artery Scan 10/04/20 11:00 Pulse 71 10/04/20 11:00 Respiratory Rate 20 10/04/20 11:00 Respiratory Effort Non-Labored 10/04/20 11:07 Blood Pressure 124/73 10/04/20 11:00 Blood Pressure Position Sitting 10/04/20 11:00 Pulse Oximetry 93 10/04/20 11:00 Oxygen Delivery Method Room Air 10/04/20 11:00 Oxygen Flow Rate 0 10/04/20 11:00 Pain Level 7 10/04/20 11:00
[2020-10-04 11:45] LABS: Abs Immature Grans 0.02 10^3/uL (0.0-0.06); Absolute Basophil Count 0.04 10^3/uL (0.0-0.2); Absolute Eosinophil Count 0.19 10^3/uL (0.0-0.7); Absolute Lymphocyte Count 2.08 10^3/uL (1.2-3.4); Absolute Monocyte Count 0.38 10^3/uL (0.1-0.8); Absolute Neutrophil Count 2.53 10^3/uL (1.2-6.7); Basophils % 0.8; Eosinophils % 3.6; HCT 45.8 % (40.0-50.0); HGB 15.6 g/dL (13.5-17.5); Immature Grans % 0.4; Lymphocytes % 39.7; MCH 30.5 pg (27.0-33.0); MCHC 34.1 % (32.0-36.0); MCV 89.5 fL (80-95); MPV 10.2 fL (8.0-11.0); Monocytes % 7.3; Neutrophils % 48.2; Nucleated RBC 0 %; Platelet Count 229 10^3/uL (130-400); RBC 5.12 10^6/uL (4.36-5.78); RDW 12.5 % (11.8-14.1); RDW-SD 41.4 fL; WBC 5.24 10^3/uL (4.4-10.8)
--- NOTE | 2020-10-04 11:45 | DI.RAD_ITS ---
EXAM: XR CHEST 2V PA LATERAL CLINICAL HISTORY: Central to L chest/abd pain TECHNIQUE: 2D digital imaging was performed. COMPARISON: No exams were available for comparison FINDINGS: MEDIASTINUM: Normal. HEART: Normal. PULMONARY VASCULATURE: Normal. LUNGS: Clear. PLEURAL SPACE: No pleural effusion or pneumothorax. BONE:Within normal limits for the patient's age. OTHER FINDINGS:Normal. IMPRESSION: No acute pulmonary findings. DATA REPOSITORY: RADIATION DOSE DELIVERED:
[2020-10-04 12:01] LABS: ALT 94 U/L (16-63); AST 36 U/L (15-37); Alkaline Phosphatase 133 U/L (46-116); Anion Gap 8.8 mmol/L (3-11); BUN 18 mg/dL (7-18); Bilirubin, Total 0.5 mg/dL (0.2-1.0); CO2 24.2 mmol/L (21.0-32.0); CREATININE 1.23 mg/dL (0.70-1.30); Calcium 9.1 mg/dL (8.5-10.1); Chloride 104 mmol/L (98-107); Glucose 162 mg/dL (74-106); Magnesium 1.4 mg/dL (1.8-2.4); Potassium 4.1 mmol/L (3.5-5.1); Sodium 137 mmol/L (136-145); Total Protein 8.1 g/dL (6.4-8.2); Troponin I < 0.05 ng/mL (<0.06)
[2020-10-04] MEDS: Pantoprazole 40 MG VIAL IVP (12:03)
[2020-10-04] MEDS: Ketorolac 15 MG/ML VIAL IVP (12:38)
[2020-10-04] MEDS: MAGNESIUM SULFATE 1 GM/100 ML BAG IVPB (12:41)
[2020-10-04 15:11] LABS: Troponin I < 0.05 ng/mL (<0.06)
== END 2020-10-04 15:38 | disposition home or self-care (01) ==
PROVIDERS: Emergency Provider Emergency Medicine; PCP Nurse Practitioner Family
DX: K29.00 Acute gastritis without bleeding (principal); E83.42 Hypomagnesemia
CPT/HCPCS: 36415; 80053; 93005; 96365; 96375; 99285; 71046; 83735; 84484; 85025; 93010; 99284; J1885; J3475

== ENCOUNTER 2021-03-31 11:10 | Outpatient (REF) | payer MEDICARE, MEDICAID, SELFPAY ==
[2021-03-31 14:46] LABS: ALT 74 U/L (16-63); AST 34 U/L (15-37); Alkaline Phosphatase 114 U/L (46-116); Amylase 54 U/L (25-115); Anion Gap 8.7 mmol/L (3-11); BUN 23 mg/dL (7-18); Bilirubin, Total 0.6 mg/dL (0.2-1.0); CO2 26.3 mmol/L (21.0-32.0); CREATININE 1.1 mg/dL (0.70-1.30); Calcium 9.1 mg/dL (8.5-10.1); Chloride 106 mmol/L (98-107); Glucose 142 mg/dL (74-106); Lipase 90 U/L (73-393); Potassium 4.4 mmol/L (3.5-5.1); Sodium 141 mmol/L (136-145); Total Protein 7.8 g/dL (6.4-8.2)
[2021-03-31 15:05] LABS: Calculated LDL 90 mg/dL (<100); Cholesterol 148 mg/dL (<200); HDL Cholesterol 42 mg/dL (40-60); Triglyceride 80 mg/dL (<150)
[2021-03-31 16:45] LABS: Hemoglobin A1C 6.5 % (<5.7)
== END 2021-03-31 11:11 | disposition home or self-care (01) ==
LOC: NCHCN 11:10
PROVIDERS: PCP Nurse Practitioner Family; Visit Provider Nurse Practitioner Family
DX: E11.9 Type 2 diabetes mellitus without complications (principal); R74.8 Abnormal levels of other serum enzymes; E66.9 Obesity, unspecified
CPT/HCPCS: 80053; 80061; 83690; 82150; 83036

== ENCOUNTER 2021-08-03 08:36 | Emergency (ER) | payer MEDICARE, MEDICAID, SELFPAY ==
[2021-08-03] VITALS (30 sets, daily range): BP systolic 130–136; BP diastolic 79–85; PULSE 65–80; RESP 1–23; TEMP 36.5–37.3; O2SAT 92–99
--- NOTE | 2021-08-03 08:45 | RT.EKG_ITS ---
APPROVED REPORT Exam: Resting ECG Reason for Exam: sob Patient Location: E HR:74 bpm ECG Measurements Heart Rate 74 AXIS KS 170 P 53 QRSd 115 QRS -16 QT 381 T 24 QTc 422 Conclusion Sinus rhythm...normal P axis, V-rate 60- 99 Nonspecific intraventricular conduction delay...QRSd >115mS, not LBBB/RBBB. Sinus. No STEMI. I have reviewed and interpreted ECG and agree with software generated interpretation.
--- NOTE | 2021-08-03 08:51 | ED.GENADUL_ITS ---
Discharge Plan Disposition Patient Disposition: HOME Condition: Stable Discharge Details Clinical Impression: Chest wall pain, Abdominal pain, Arm and leg pain Primary Care Provider: Elvia Camargo ED Provider: Tatyana Manzano Home Meds and New Rx's Prescriptions: Continued propranolol 10 MG tablet 20 mg PO DAILY AM Qty: 180 RF: 11 docusate sodium [Colace] 100 MG capsule 100 mg PO HS RF: 0 quetiapine [Seroquel] 200 MG tablet 400 mg PO HS RF: 0 quetiapine [Seroquel] 300 MG tablet 300 mg PO DAILY AM RF: 0 omeprazole [Prilosec] 20 MG capsule,delayed release(DR/EC) 40 mg PO DAILY RF: 0 albuterol sulfate [ProAir HFA] 200 PUFF HFA aerosol inhaler 115 mcg Inhalation RF: 0 Flovent HFA 12 GM HFA aerosol inhaler 165 mcg Inhalation BID RF: 0 ondansetron 4 mg tablet,disintegrating 4 mg PO Q8H PRN (Reason: nausea and vomiting) Qty: 30 RF: 0 metformin 500 mg Tablet 500 mg PO BID RF: 0 loratadine 10 mg Tablet 10 mg PO DAILY RF: 0 Multi-Day Plus Minerals 18 mg iron-400 mcg-25 mcg Tablet 1 tab PO DAILY RF: 0 Discharge Instructions Instructions: Abdominal Pain (ED), Chest Wall Pain (ED) Additional Instructions: Your lab work, EKGs and CAT scan imaging were reassuring today and did not note evidence of any acute significant findings. Drink plenty of fluids and get plenty of rest. Alternate tylenol and motrin as needed and directed for pain. You were given Valium to go for home to take as needed and directed for pain or muscle spasm. Call your primary care doctor's office today to schedule a follow-up appointment for reevaluation within the next week and for referral for outpatient stress test if your chest pain persists or worsens. You can also consider follow-up with general surgery if your abdominal pain persists for further evaluation and for consideration for upper endoscopy. Return immediately to the emergency department if you develop any worsening or new concerning symptoms. Stand Alone Forms: Work Release Referrals: Tonie Rashid DO [OSTEOPATHIC DOCTOR] - Discharge Data Discharge Date/Time-TO BE ENTERED AT DEPARTURE: 08/03/21 13:20 Discharge Physician: Tatyana Manzano Medical Decision Making 0850 -- 40-year-old male with a history of anxiety, bipolar, asthma, ADHD, migraine, obesity, obstructive sleep apnea, PTSD presents for chest and abdominal pain and shortness of breath that started while driving 2 hours ago. EKG notes a rate of 74, sinus, no STEMI and nondiagnostic. Patient appears comfortable and nontoxic. Oxygen saturation 94% on RA. Slightly diminished breath sounds throughout. No wheezing or crackles. Anterior chest and abdomen tender throughout. No rigidity or guarding. Differential diagnosis includes anxiety, muscular strain, asthma exacerbation. History and presentation not consistent with PE, dissection or ACS, but considering patient's age and comorbidities, will obtain screening labs, CT chest, abdomen and pelvis and give DuoNeb, Toradol and Ativan and reassess. 1000 -- Labs and imaging reviewed and unremarkable. Troponin negative. CT chest abdomen pelvis negative. 1210 -- Patient agreeable to stay for repeat troponin which was negative and and EKG which was unchanged. Patient reassessed and he felt much better. Patient feels comfortable going home. He was sent with Valium to help for feelings of anxiety or muscle strain or spasm. Advised to call his PCP today for follow-up for reevaluation and for referral for outpatient stress test if his chest pain persists or worsens. Usual and customary return precautions given prior to discharge. Medical Records Medical records reviewed: Yes I reviewed the patient's medical records. Imaging Data Radiologic Study: Radiologist's impression: CT CHEST PE ABD PELVIS W TECHNIQUE: CT angiography of the chest, abdomen and pelvis was performed with bolus infusion of 100 cc of Omnipaque 350. Axial CT angiography was performed with multi-slice acquisition and multi-planar and/or 3D reconstructions. COMPARISON: CT ABD PELVIS WO CONTRAST from 05/26/2017 FINDINGS: The lungs are clear. No pleural effusion. No evidence of pulmonary embolic disease. No thoracic aortic dissection or aneurysm. Major branches of the thoracic aorta appear normal. No pleural effusion. No mediastinal or hilar adenopathy. Tracheobronchial tree appears intact. No focal hepatic or renal abnormality seen. Note is made hepatic steatosis. Gallbladder and bile ducts are CT normal. Pancreas is unremarkable. Spleen is unremarkable. No abdominal aortic aneurysm or dissection. Major branches of the abdominal aorta appear normal. No abdominal or pelvic adenopathy. Normal appendix. No significant abdominal wall hernia. No focal bowel pathology. IMPRESSION: No evidence of acute vascular abnormality of the chest, abdomen or pelvis. Hepatic steatosis noted. No other abnormalities are seen. Lab Data Lab results reviewed: Yes I reviewed the patient's lab results. Labs: Laboratory Tests Range/Units 08/03/21 08/03/21 08/03/21 09:05 09:05 09:10 WBC (4.4-10.8) 10^3/uL 5.01 RBC (4.36-5.78) 10^6/uL 5.12 Hgb (13.5-17.5) g/dL 15.4 Hct (40.0-50.0) % 46.6 MCV (80-95) fL 91.0 MCH (27.0-33.0) pg 30.1 MCHC (32.0-36.0) % 33.0 RDW (11.8-14.1) % 12.2 Plt Count (130-400) 10^3/uL 211 MPV (8.0-11.0) fL 9.8 Immature Gran % 0.6 Neutrophils % 58.9 Lymphocytes % 29.3 Monocytes % 8.0 Eosinophils % 2.6 Basophils % 0.6 Nucleated RBC % % 0 Absolute Neutrophils (1.2-6.7) 10^3/uL 2.95 Absolute Lymphocytes (1.2-3.4) 10^3/uL 1.47 Absolute Monocytes (0.1-0.8) 10^3/uL 0.40 Absolute Eosinophils (0.0-0.7) 10^3/uL 0.13 Absolute Basophils (0.0-0.2) 10^3/uL 0.03 Sodium (136-145) mmol/L 138 Potassium (3.5-5.1) mmol/L 4.3 Chloride (98-107) mmol/L 103 Carbon Dioxide (21.0-32.0) mmol/L 27.3 Anion Gap (3-11) mmol/L 7.7 BUN (7-18) mg/dL 17 Creatinine (0.70-1.30) mg/dL 1.3 Estimated GFR/1.73 m2 (mL/min/1.73m2) >= 60.00 Glucose (74-106) mg/dL 221 H Calcium (8.5-10.1) mg/dL 9.1 Magnesium (1.8-2.4) mg/dL 1.7 L Total Bilirubin (0.2-1.0) mg/dL 0.7 AST (15-37) U/L 30 ALT (16-63) U/L 70 H Alkaline Phosphatase (46-116) U/L 101 Troponin I (<0.06) ng/mL < 0.05 Total Protein (6.4-8.2) g/dL 8.1 Albumin (3.4-5.0) g/dL 4.0 Lipase (73-393) U/L 83 COVID-19 Source Nasal/Nares SARS-CoV-2 (PCR) (Negative) Negative Range/Units 08/03/21 12:05 WBC (4.4-10.8) 10^3/uL RBC (4.36-5.78) 10^6/uL Hgb (13.5-17.5) g/dL Hct (40.0-50.0) % MCV (80-95) fL MCH (27.0-33.0) pg MCHC (32.0-36.0) % RDW (11.8-14.1) % Plt Count (130-400) 10^3/uL MPV (8.0-11.0) fL Immature Gran % Neutrophils % Lymphocytes % Monocytes % Eosinophils % Basophils % Nucleated RBC % % Absolute Neutrophils (1.2-6.7) 10^3/uL Absolute Lymphocytes (1.2-3.4) 10^3/uL Absolute Monocytes (0.1-0.8) 10^3/uL Absolute Eosinophils (0.0-0.7) 10^3/uL Absolute Basophils (0.0-0.2) 10^3/uL Sodium (136-145) mmol/L Potassium (3.5-5.1) mmol/L Chloride (98-107) mmol/L Carbon Dioxide (21.0-32.0) mmol/L Anion Gap (3-11) mmol/L BUN (7-18) mg/dL Creatinine (0.70-1.30) mg/dL Estimated GFR/1.73 m2 (mL/min/1.73m2) Glucose (74-106) mg/dL Calcium (8.5-10.1) mg/dL Magnesium (1.8-2.4) mg/dL Total Bilirubin (0.2-1.0) mg/dL AST (15-37) U/L ALT (16-63) U/L Alkaline Phosphatase (46-116) U/L Troponin I (<0.06) ng/mL < 0.05 Total Protein (6.4-8.2) g/dL Albumin (3.4-5.0) g/dL Lipase (73-393) U/L COVID-19 Source SARS-CoV-2 (PCR) (Negative) ECG Data Attestation: I personally reviewed and interpreted this ECG (s) as follows: Interpretation: #1 -- Rate of 39, sinus, no acute ST elevation or depression. NE 170. QTc 422. #2 -- Rate of 63, sinus, no acute ST elevation or depression. NE 189. QTc 408. HPI General Mode of arrival: ambulatory . Date/Time Provider Initiated Documentation: 08/03/21 08:45 . Limitations to Documentation: no limitations . Information obtained by: patient . HPI Narrative: Pt is a 40 yo M who presents to the ED w/ a c/o chest and abdominal pain and shortness of breath that started 2 hours ago while driving in a car this morning. Patient describes the pain as intermittent, stabbing and sharp without aggravating factors. He states he took Tylenol this morning without significant relief. He states his pain also radiates to both arms and legs. He is vaccinated for Covid and denies any known exposure to COVID-19. He denies fever, cough, nausea, vomiting, diarrhea or urinary symptoms. Related Data Home Medications Medication Instructions Recorded Confirmed docusate sodium [Colace] 100 mg PO HS 11/22/13 08/03/21 quetiapine [Seroquel] 400 mg PO HS 11/22/13 08/03/21 quetiapine [Seroquel] 300 mg PO DAILY AM 04/22/14 08/03/21 omeprazole [Prilosec] 40 mg PO DAILY 09/17/15 08/03/21 propranolol 20 mg PO DAILY AM #180 tab-cap 06/26/17 08/03/21 Flovent HFA 165 mcg INHALATION BID 11/21/17 08/03/21 albuterol sulfate [ProAir HFA] 115 mcg INHALATION 11/21/17 Multi-Day Plus Minerals 1 tab PO DAILY 11/23/18 08/03/21 loratadine 10 mg PO DAILY 11/23/18 08/03/21 ondansetron 4 mg PO Q8H PRN #30 tab 10/19/19 08/03/21 metformin 500 mg PO BID 10/04/20 08/03/21 Previous Rx's Medication Instructions Recorded ondansetron 4 mg PO Q8H PRN #30 tab 10/19/19 Allergies Allergy/AdvReac Type Severity Reaction Status Date / Time oxycodone [From Percocet] AdvReac CRANKY Unverified 08/03/21 08:51 environmental Allergy Mild Rhinitis Uncoded 08/03/21 08:51 General Stated Complaint: SOB ABHILASH: 3 Review of Systems All systems reviewed & are unremarkable except as noted in HPI and below Constitutional Constitutional: Reports as per HPI, Denies chills and Denies fever(s) Eyes Eyes: Denies blurry vision ENT Ears, Nose, Mouth, and Throat: Denies dizziness, Denies sore throat and Denies throat swelling Cardiovascular Cardiovascular: Reports chest pain and Reports dyspnea Respiratory Respiratory: Denies cough and Reports dyspnea Gastrointestinal Gastrointestinal: Reports abdominal pain, Denies diarrhea and Denies vomiting Genitourinary Genitourinary: Denies hematuria and Denies dysuria Musculoskeletal Musculoskeletal: Denies back pain and Denies numbness Integumentary/Breasts Skin/Breast: Denies lesions and Denies rash Neurologic Neurologic: Denies dizziness, Denies localized weakness and Denies numbness Allergic/Immunologic Allergic/Immunologic: Denies throat swelling PFSH Medical History (Updated 08/03/21 @ 13:14 by Tatyana Manzano DO) ADHD Anxiety Asthma Bipolar affective disorder Migraine Obesity Obstructive sleep apnea PTSD (post-traumatic stress disorder) Surgical History (Updated 08/03/21 @ 09:08 by Tatyana Manzano DO) History of ankle surgery History of elbow surgery History of knee surgery History of surgical removal of pilonidal cyst Social History Smoking/Tobacco Use Status: Former Tobacco Use Smoking risk assessment performed?: Yes Alcohol Intake: current Alcohol Intake frequency: a few times a month Drug use: Never Substance use type: does not use Do you feel safe at home: Yes Do you feel safe in your relationship?: Yes Exam Const General: cooperative and no acute distress HENMT Head: normal to inspection Face and sinus: normal facial exam Eyes General: appearance normal, both eyes and all related structures EOM: EOM intact bilaterally Neck Neck: normal visual inspection and No submandibular swelling Lymphatic: no lymphadenopathy noted Chest Chest: normal inspection of the chest and tenderness (anterior chest) Resp Effort & Inspection: normal respiratory effort and able to speak in complete sentences Auscultation: diminished lung sounds bilaterally throughout Cardio Rate: regular rate Rhythm: regular rhythm GI Inspection: normal to inspection Palpation: soft, not firm, not rigid and nontender Auscultation: normal bowel sounds Skin General skin exam: no rashes or lesions noted Neuro General: patient alert, patient awake and patient oriented x3 Cognition: normal cognition Speech: speech normal Motor: muscle tone normal throughout Sensory Exam: no sensory deficits noted Extrem General: normal to inspection, full ROM, capillary refill normal, no calf tenderness bilaterally and no edema Psych Appearance: grossly normal Mental Status: mental status grossly normal Speech and Movement: speech and movement normal Affect: normal affect Course Vital Signs Vital signs: Vital Signs Temperature 99.1 F 08/03/21 08:43 Pulse 75 08/03/21 08:43 Respiratory Rate 18 08/03/21 08:43 Blood Pressure 130/79 08/03/21 08:43 Pulse Oximetry 94 08/03/21 08:43 Temperature 99.1 F 08/03/21 08:43 Temperature Source Temporal Artery Scan 08/03/21 08:43 Pulse 75 08/03/21 08:43 Respiratory Rate 18 08/03/21 08:48 Respiratory Effort Non-Labored 08/03/21 08:48 Respiratory Depth Normal 08/03/21 08:48 Respiratory Pattern Normal 08/03/21 08:48 Blood Pressure 130/79 08/03/21 08:43 Blood Pressure Position Sitting 08/03/21 08:43 Pulse Oximetry 94 08/03/21 08:43 Oxygen Delivery Method Room Air 08/03/21 08:43 Oxygen Flow Rate 0 08/03/21 08:43 Pain Level 8 08/03/21 08:48
[2021-08-03 09:17] LABS: Abs Immature Grans 0.03 10^3/uL (0.0-0.06); Absolute Basophil Count 0.03 10^3/uL (0.0-0.2); Absolute Eosinophil Count 0.13 10^3/uL (0.0-0.7); Absolute Lymphocyte Count 1.47 10^3/uL (1.2-3.4); Absolute Neutrophil Count 2.95 10^3/uL (1.2-6.7); Basophils % 0.6; Eosinophils % 2.6; HCT 46.6 % (40.0-50.0); HGB 15.4 g/dL (13.5-17.5); Immature Grans % 0.6; Lymphocytes % 29.3; MCH 30.1 pg (27.0-33.0); MPV 9.8 fL (8.0-11.0); Neutrophils % 58.9; Nucleated RBC 0 %; Platelet Count 211 10^3/uL (130-400); RBC 5.12 10^6/uL (4.36-5.78); RDW 12.2 % (11.8-14.1); RDW-SD 40.9 fL; WBC 5.01 10^3/uL (4.4-10.8)
--- NOTE | 2021-08-03 09:30 | DI.CT_ITS ---
Exam(s) CT CHEST PE ABD PELVIS W EXAM: CT CHEST PE ABD PELVIS W TECHNIQUE: CT angiography of the chest, abdomen and pelvis was performed with bolus infusion of 100 cc of Omnipaque 350. Axial CT angiography was performed with multi-slice acquisition and multi-planar and/or 3D reconstruc tions. COMPARISON: CT ABD PELVIS WO CONTRAST from 05/26/2017 FINDINGS: The lungs are clear. No pleural effusion. No evidence of pulmonary embolic disease. No thoracic aort ic dissection or aneurysm. Major branches of the thoracic aorta appear normal. No pleural effusion. No mediastinal or hilar adenopathy. Tracheobronchial tree appears intact. No focal hepatic or renal abnormality seen. Note is made hepatic steatosis. Gallbladder and bile du cts are CT normal. Pancreas is unremarkable. Spleen is unremarkable. No abdominal aortic aneurysm or dissection. Major branches of the abdominal aorta appear normal. No a bdominal or pelvic adenopathy. Normal appendix. No significant abdominal wall hernia. No focal bowel pathology. IMPRESSION: No evidence of acute vascular abnormality of the chest, abdomen or pelvis. Hepatic steatosis noted. No other abnormalities are seen. RADIATION DOSE DELIVERED: 2,174.05mGy.cm Total DLP 2,174.05mGy.cm Total DLP 26.48mGy CTDIvol DATA REPOSITORY: All CT scans at this facility are submitted to the National Radiology Data Registry (NRDR) Dose Index Registry (DIR) with the [employer] ([employer]). RADIATION OPTIMIZATION: All CT scans at this facility use at least one of these dose optimization te chniques: automated exposure control; mA and/or kV adjustment per patient size (includes targeted exa ms where dose is matched to clinical indication); or iterative reconstruction.
[2021-08-03 09:35] LABS: ALT 70 U/L (16-63); AST 30 U/L (15-37); Alkaline Phosphatase 101 U/L (46-116); Anion Gap 7.7 mmol/L (3-11); BUN 17 mg/dL (7-18); Bilirubin, Total 0.7 mg/dL (0.2-1.0); CO2 27.3 mmol/L (21.0-32.0); CREATININE 1.3 mg/dL (0.70-1.30); Calcium 9.1 mg/dL (8.5-10.1); Chloride 103 mmol/L (98-107); Glucose 221 mg/dL (74-106); Lipase 83 U/L (73-393); Magnesium 1.7 mg/dL (1.8-2.4); Potassium 4.3 mmol/L (3.5-5.1); Sodium 138 mmol/L (136-145); Total Protein 8.1 g/dL (6.4-8.2)
[2021-08-03 09:36] LABS: Troponin I < 0.05 ng/mL (<0.06)
[2021-08-03] MEDS: LORazepam 2 MG/ML VIAL 1 MG IVP (09:47)
[2021-08-03] MEDS: Albuterol/Ipratropium 3 ML UPD VIAL UPD (09:48)
[2021-08-03] MEDS: Ketorolac 30 MG/ML VIAL IVP (09:48)
[2021-08-03] MEDS: Normal Saline 1,000 ML 1000 ML IV (09:48)
[2021-08-03] MEDS: Omnipaque 350 MG/ML 100 ML BTL IJ (10:00)
[2021-08-03] MEDS: Normal Saline - Diluent 50 ML VIAL IV (10:01)
[2021-08-03 10:04] LABS: Source Nasal/Nares
[2021-08-03] MEDS: MAGNESIUM SULFATE 1 GM/100 ML BAG IVPB (10:33)
--- NOTE | 2021-08-03 10:45 | RT.EKG_ITS ---
APPROVED REPORT Exam: Resting ECG Reason for Exam: chest pain Patient Location: E HR:64 bpm ECG Measurements Heart Rate 64 AXIS FL 184 P 43 QRSd 115 QRS -17 QT 404 T 15 QTc 418 Conclusion Sinus rhythm...normal P axis, V-rate 60- 99 Nonspecific intraventricular conduction delay...QRSd >115mS, not LBBB/RBBB. Sinus. No STEMI. I have reviewed and interpreted ECG and agree with software generated interpretation.
[2021-08-03 11:07] LABS: COVID-19 PCR Negative (Negative)
--- NOTE | 2021-08-03 12:15 | RT.EKG_ITS ---
APPROVED REPORT Exam: Resting ECG Reason for Exam: chest pain Patient Location: E HR:63 bpm ECG Measurements Heart Rate 63 AXIS MS 189 P 44 QRSd 118 QRS -17 QT 399 T 9 QTc 408 Conclusion Sinus rhythm...normal P axis, V-rate 60- 99 Nonspecific intraventricular conduction delay...QRSd >115mS, not LBBB/RBBB. Sinus. No STEMI. I have reviewed and interpreted ECG and agree with software generated interpretation.
[2021-08-03 12:29] LABS: Troponin I < 0.05 ng/mL (<0.06)
[2021-08-03] MEDS: diazePAM 5 MG TAB 15 MG PO (13:23)
== END 2021-08-03 13:20 | disposition home or self-care (01) ==
PROVIDERS: Emergency Provider Physician Assistant; PCP Nurse Practitioner Family
DX: R07.89 Other chest pain (principal); R06.02 Shortness of breath; R10.9 Unspecified abdominal pain
CPT/HCPCS: 36415; 71275; 74177; 80053; 83690; 87635; 93005; 94640; 96361; 96365; 96375; 99285; 83735; 84484; 85025; 93010; 99284; J1885; J2060; J3475; J3490; J7620

== ENCOUNTER 2021-10-11 08:14 | Outpatient (CLI) | payer MEDICARE, MEDICAID, SELFPAY ==
--- NOTE | 2021-10-11 | DI.RAD_ITS ---
Exam(s) XR WRIST LT COMPLETE EXAM: XR WRIST LT COMPLETE CLINICAL HISTORY: LT WRIST PAIN, M25.532. TECHNIQUE: 2D digital imaging was performed of the left wrist. Three images were obtained. PA, obl ique and lateral views were obtained. COMPARISON: CR LEFT WRIST COMPLETE from 03/03/2013 CR LEFT HAND COMPLETE from 03/03/2013 CR LEFT HAND COMPLETE from 03/03/2013 CR LEFT WRIST COMPLETE from 03/03/2013 FINDINGS: BONES: No acute fracture is present. No bony destructive lesion is seen. There are tiny cysts again s een within the lunate. There unchanged dating back to 03/03/2013. JOINTS: The carpal bones are normally aligned. The articular surfaces are well maintained. SOFT TISSUE: Normal. IMPRESSION: Unremarkable radiographs of the left wrist. DATA REPOSITORY: RADIATION DOSE DELIVERED:
== END 2021-10-11 08:34 ==
PROVIDERS: PCP Nurse Practitioner Family; Visit Provider Family Medicine
DX: M25.532 Pain in left wrist (principal)
CPT/HCPCS: 73110

== ENCOUNTER 2022-11-17 06:28 | Emergency (ER) | payer MEDICARE, MEDICAID, SELFPAY ==
[2022-11-17 06:31] VITALS: BP 129/79; PULSE 112; RESP 20; TEMP 36.8; O2SAT 95
--- NOTE | 2022-11-17 06:48 | ED.GENADUL_ITS ---
Discharge Plan Disposition Patient Disposition: Home Condition: Improving Discharge Details Clinical Impression: Gastroenteritis Primary Care Provider: Elvia Camargo ED Provider: Kale Kirk Home Meds and New Rx's Prescriptions: Continued propranolol 10 MG tablet 20 mg PO DAILY AM Qty: 180 Rx Instructions: Take 20 mg in the morning and 40 mg at bedtime docusate sodium [Colace] 100 MG capsule 100 mg PO HS quetiapine [Seroquel] 200 MG tablet 400 mg PO HS quetiapine [Seroquel] 300 MG tablet 300 mg PO DAILY AM omeprazole [Prilosec] 20 MG capsule,delayed release(DR/EC) 40 mg PO DAILY albuterol sulfate [ProAir HFA] 200 PUFF HFA aerosol inhaler 115 mcg Inhalation Label Comments: UNKNOWN DOSE 1-2 PUFFS PRN Flovent HFA 12 GM HFA aerosol inhaler 165 mcg Inhalation BID ondansetron 4 mg tablet,disintegrating 4 mg PO Q8H PRN (Reason: nausea and vomiting) Qty: 30 0RF metformin 500 mg Tablet 500 mg PO BID loratadine 10 mg Tablet 10 mg PO DAILY Multi-Day Plus Minerals 18 mg iron-400 mcg-25 mcg Tablet 1 tab PO DAILY Discharge Instructions Instructions: Gastroenteritis (ED) Additional Instructions: Home to rest today. Small, frequent sips of fluids to maintain adequate hydration. May use previously prescribed ondansetron as needed for nausea. Slowly advance a bland diet. Your work-up in the emergency department included CT imaging of the abdomen and pelvis, negative influenza test, screening blood work and urinalysis. Follow-up with regular doctor if not improving in 3 days time. Return for any acute concerns. Discharge Data Discharge Date/Time-TO BE ENTERED AT DEPARTURE: 11/17/22 09:31 Medical Decision Making <Tatyana Manzano DO - Last Filed: 11/21/22 12:36> Dr. Manzano 0720 -- 42-year-old male with a history of developmental delay, obesity, an xiety, depression, PTSD, sleep apnea, migraines presents for vomiting and abdominal pain since yesterday after eating pizza. Endorses that his abdominal pain is mainly in the upper quadrants but on exam is diffusely tender, worse across upper abdomen. His abdomen is obese but otherwise soft without rigidity or guarding. His heart rate is elevated into the 110s. Remainder of vitals within normal limits. Would suspect relation to food, gastritis or food poisoning as he had no symptoms prior to eating pizza, but also consider other viral illness as he recently traveled out of the [place]. We will place an IV, bolus IV fluids, screening labs, CT abdomen and pelvis and give IV Tylenol, IV Pepcid, IV Zofran and reassess. 0800 -- Case endorsed to Dr. Kirk to follow-up on labs and imaging and final disposition. Dr. Kirk Addendum: I assumed care of the patient from Dr. Manzano, please see her comments above. The patient improved, CT imaging was without acute intra-abdominal findings. Patient's laboratories were reassuring with a white count of 10, hematocrit that appeared slightly hemoconcentrated at 53, platelets 236. Electrolytes unremarkable, BUN 20, creatinine 1.1. The patient has had previous mild transaminitis and this is again demonstrated today. Lipase was negative. Urinalysis notes ketones. Patient was able to tolerate p.o. with a popsicle. His abdomen was examined and found to be soft without tenderness. He is stable and appropriate for discharge to home. Medical Records Medical records reviewed: Yes I reviewed the patient's medical records. Lab Data Lab results reviewed: Yes I reviewed the patient's lab results. Labs: Laboratory Tests Range/Units 11/17/22 11/17/22 11/17/22 07:40 07:40 07:40 WBC (4.4-10.8) 10^3/uL 10.54 RBC (4.36-5.78) 10^6/uL 6.03 H Hgb (13.5-17.5) g/dL 17.9 H Hct (40.0-50.0) % 53.6 H MCV (80-95) fL 89 MCH (27.0-33.0) pg 29.7 MCHC (32.0-36.0) % 33.4 RDW (11.8-14.1) % 12.4 Plt Count (130-400) 10^3/uL 236 MPV (8.0-11.0) fL 10.3 Immature Gran % 0.4 Neutrophils % 88.4 Lymphocytes % 5.9 Monocytes % 3.7 Eosinophils % 1.3 Basophils % 0.3 Nucleated RBC % (0.0-0.3) % 0.0 Absolute Neutrophils (1.2-6.7) 10^3/uL 9.32 H Absolute Lymphocytes (1.2-3.4) 10^3/uL 0.62 L Absolute Monocytes (0.1-0.8) 10^3/uL 0.39 Absolute Eosinophils (0.0-0.7) 10^3/uL 0.14 Absolute Basophils (0.0-0.2) 10^3/uL 0.03 Sodium (136-145) mmol/L 138 Potassium (3.5-5.1) mmol/L 3.9 Chloride (98-107) mmol/L 103 Carbon Dioxide (21.0-32.0) mmol/L 24.3 Anion Gap (3-11) mmol/L 10.7 BUN (7-18) mg/dL 20 H Creatinine (0.70-1.30) mg/dL 1.1 Est GFR (CKD-EPI 2020) (mL/min/1.73m2) 86.49 Glucose (74-106) mg/dL 164 H Calcium (8.5-10.1) mg/dL 9.2 Total Bilirubin (0.2-1.0) mg/dL 1.1 H AST (15-37) U/L 42 H ALT (16-63) U/L 84 H Alkaline Phosphatase (46-116) U/L 98 Total Protein (6.4-8.2) g/dL 8.5 H Albumin (3.4-5.0) g/dL 4.5 Lipase (73-393) U/L 60 Urine Color (Yellow) Yellow Urine Clarity (Clear) Clear Urine pH (5-8) 5.5 Ur Specific [place] (1.005-1.025) 1.020 Urine Protein (Negative) mg/dL Trace H Urine Ketones (Negative) mg/dL 40 H Urine Blood (Negative) Negative Urine Nitrite (Negative) Negative Urine Bilirubin (Negative) Negative Urine Urobilinogen (Up TO 0.2) EU/dL 0.2 Ur Leukocyte Esterase (Negative) Negative Urine RBC (0-2) HPF 0-2 Urine WBC (0-5) HPF 3-5 Ur Epithelial Cells (Negative) HPF Few Urine Crystals (Negative) HPF Negative Urine Bacteria (Negative) HPF Negative Urine Casts (Negative) LPF Negative Urine Mucus (Negative) Trace Ur Culture Indicated? No Urine Glucose (Negative) mg/dL >=1000 H Path Cons Comment SEE COMMENT <Kale Kirk MD - Last Filed: 11/17/22 08:49> 0720 -- 42-year-old male with a history of developmental delay, obesity, anxiety, depression, PTSD, sleep apnea, migraines presents for vomiting and abdominal pain since yesterday after eating [employer] pizza. Endorses that his abdominal pain is mainly in the upper quadrants but on exam is diffusely tender, worse across upper abdomen. His abdomen is obese but otherwise soft without rigidity or guarding. His heart rate is elevated into the 110s. Remainder of vitals within normal limits. Would suspect relation to food, gastritis or food poisoning as he had no symptoms prior to eating pizza, but also consider other viral illness as he recently traveled out of the country. We will place an IV, bolus IV fluids, screening labs, CT abdomen and pelvis and give IV Tylenol, IV Pepcid, IV Zofran and reassess. 0800 --is endorsed to Dr. Kirk to follow-up on labs and imaging and final disposition. Addendum: I assumed care of the patient from Dr. Manzano, please see her comments above. The patient improved, CT imaging was without acute intra-abdominal findings. Patient's laboratories were reassuring with a white count of 10, hematocrit that appeared slightly hemoconcentrated at 53, platelets 236. Electrolytes unremarkable, BUN 20, creatinine 1.1. The patient has had previous mild transaminitis and this is again demonstrated today. Lipase was negative. Urinalysis notes ketones. Patient was able to tolerate p.o. with a popsicle. His abdomen was examined and found to be soft without tenderness. He is stable and appropriate for discharge to home. HPI <Tatyana Manzano DO - Last Filed: 11/21/22 12:36> General Mode of arrival: ambulatory . Date/Time Provider Initiated Documentation: 11/17/22 06:45 . Limitations to Documentation: no limitations . Information obtained by: patient . HPI Narrative: Patient is a 42-year-old male with history of developmental delay, obesity, anxiety, depression, ADHD, PTSD, sleep apnea, migraines presents for nausea vomiting and abdominal pain since yesterday since eating [employer]. Patient states he and his ate Maddie morris yesterday afternoon and he has been vomiting since then. She vomited for a short period of time but is now improved. Patient states he has vomited multiple times and noticed that had been red but does not appear consistent with blood. Denies any bilious vomiting. He has not taken any medication for his symptoms. He denies any diarrhea or urinary symptoms. Home caregiver at bedside states that patient was in the [facility] earlier this month. Patient denies any recent antibiotics. Related Data Home Medications Medication Instructions Recorded Confirmed docusate sodium 100 mg capsule 100 mg PO HS 11/22/13 08/03/21 (Colace) quetiapine 200 mg tablet (Seroquel) 400 mg PO HS 11/22/13 08/03/21 quetiapine 300 mg tablet (Seroquel) 300 mg PO DAILY AM 04/22/14 08/03/21 omeprazole 20 mg capsule,delayed 40 mg PO DAILY 09/17/15 08/03/21 release (Prilosec) propranolol 10 mg tablet 20 mg PO DAILY AM #180 tab-caps 06/26/17 08/03/21 albuterol sulfate 90 mcg/actuation 115 mcg inhalation 11/21/17 aerosol inhaler (ProAir HFA) fluticasone propionate 110 165 mcg inhalation BID 11/21/17 08/03/21 mcg/actuation HFA aerosol inhaler (Flovent HFA) loratadine 10 mg tablet 10 mg PO DAILY 11/23/18 08/03/21 multivit with minerals-iron 18 1 tab PO DAILY 11/23/18 08/03/21 mg-folic ac 400 mcg-vit K 25 mcg tablet (Multi-Day Plus Minerals) ondansetron 4 mg disintegrating 4 mg PO Q8H PRN nausea and 10/19/19 08/03/21 tablet vomiting #30 tabs metformin 500 mg tablet 500 mg PO BID 10/04/20 08/03/21 Previous Rx's Medication Instructions Recorded ondansetron 4 mg disintegrating 4 mg PO Q8H PRN nausea and 10/19/19 tablet vomiting #30 tabs Allergies Allergy/AdvReac Type Severity Reaction Status Date / Time oxycodone [From Percocet] AdvReac CRANKY Unverified 08/03/21 08:51 environmental Allergy Mild Rhinitis Uncoded 08/03/21 08:51 General Stated Complaint: Abd Prob ABHILASH: 3 Review of Systems <Tatyana Manzano DO - Last Filed: 11/21/22 12:36> All systems reviewed & are unremarkable except as noted in HPI and below Constitutional Constitutional: Reports as per HPI, Denies chills and Denies fever(s) Eyes Eyes: Denies blurry vision ENT Ears, Nose, Mouth, and Throat: Denies dizziness, Denies sore throat and Denies throat swelling Cardiovascular Cardiovascular: Denies chest pain and Denies dyspnea Respiratory Respiratory: Denies cough and Denies dyspnea Gastrointestinal Gastrointestinal: Reports abdominal pain, Denies diarrhea and Denies vomiting Genitourinary Genitourinary: Denies hematuria and Denies dysuria Musculoskeletal Musculoskeletal: Denies back pain and Denies numbness Integumentary/Breasts Skin/Breast: Denies lesions and Denies rash Neurologic Neurologic: Denies dizziness, Denies localized weakness and Denies numbness Allergic/Immunologic Allergic/Immunologic: Denies throat swelling PFSH <Tatyana Manzano DO - Last Filed: 11/21/22 12:36> All Active Problems (Updated 11/17/22 @ 08:48 by Kale Kirk MD) Chest wall pain (Acute) Abdominal pain (Acute) Arm and leg pain (Acute) Gastroenteritis (Acute) Right varicocele (Acute 10/22/17) Migraine without aura and without status migrainosus, not intractable (Acute 08/22/16) Maxillary pain (Acute 10/04/16) Medical History (Updated 11/17/22 @ 08:48 by Kale Kirk MD) ADHD Anxiety Asthma Bipolar affective disorder Migraine Obesity Obstructive sleep apnea PTSD (post-traumatic stress disorder) Surgical History (Updated 08/03/21 @ 09:08 by Tatyana Manzano DO) History of ankle surgery History of elbow surgery History of knee surgery History of surgical removal of pilonidal cyst Social History Smoking/Tobacco Use Status: Former Tobacco Use Smoking risk assessment performed?: Yes Alcohol Intake: current Alcohol Intake frequency: a few times a month Drug use: Never Substance use type: does not use Do you feel safe at home: Yes Do you feel safe in your relationship?: Yes Exam <DO Ismael Wilhelm Last Filed: 11/21/22 12:36> Const General: cooperative and uncomfortable (mildly, appears mostly related to nausea, holding vomit bag) Orientation: alert, awake and oriented x3 HENMT Head: normal to inspection Face and sinus: normal facial exam Eyes General: appearance normal, both eyes and all related structures Pupils: PERRL EOM: EOM intact bilaterally Neck Neck: normal visual inspection and No submandibular swelling Lymphatic: no lymphadenopathy noted Chest Chest: normal inspection of the chest and no tenderness Resp Effort & Inspection: normal respiratory effort and able to speak in complete sentences Auscultation: clear to auscultation bilaterally Cardio Rate: regular rate Rhythm: regular rhythm GI Inspection: normal to inspection and obesity Palpation: soft, not firm, not rigid and tender (diffuse, worse across upper abdomen) Auscultation: hypoactive bowel sounds Skin General skin exam: no rashes or lesions noted Neuro General: patient alert, patient awake and patient oriented x3 Cognition: normal cognition Speech: speech normal Motor: muscle tone normal throughout Sensory Exam: no sensory deficits noted Extrem General: normal to inspection, full ROM, capillary refill normal, no calf tenderness bilaterally and no edema Psych Appearance: grossly normal Mental Status: mental status grossly normal Speech and Movement: speech and movement normal Affect: blunted Course <DO Ismael Wilhelm Last Filed: 11/21/22 12:36> Vital Signs Vital signs: Vital Signs Temperature 98.2 F 11/17/22 06:31 Pulse 112 H 11/17/22 06:31 Respiratory Rate 20 11/17/22 06:31 Blood Pressure 129/79 11/17/22 06:31 Pulse Oximetry 95 11/17/22 06:31 Temperature 98.2 F 11/17/22 06:31 Temperature Source Oral 11/17/22 06:31 Pulse 112 H 11/17/22 06:31 Respiratory Rate 20 11/17/22 06:31 Blood Pressure 129/79 11/17/22 06:31 Blood Pressure Position Sitting 11/17/22 06:31 Pulse Oximetry 95 11/17/22 06:31 Oxygen Delivery Method Room Air 11/17/22 06:31 Oxygen Flow Rate 0 11/17/22 06:31 Pain Level 9 11/17/22 06:31 Sign Out <DO Ismael Wilhelm Last Filed: 11/21/22 12:36> Sign Out Data: Sign Out Comment: Upper abdominal pain and vomiting since eating pizza yesterday. Follow-up on labs and CT imaging and final disposition. Last updated by Tatyana Manzano DO at 11/17/22 07:57
--- OUTSIDE RECORDS SUMMARY | 2022-11-17 06:49 | XMS_ITS ---
:1980 Author Organization [facility] Address [address] [place], [place] [id number] Care Team Providers Name Role Phone Diego Ruiz Unavailable Unavailable PROBLEMS Type Condition ICD9-CM Code [id number] Onset Condition SNOMED Code Code Dates Status Problem Impacted H61.23 Active 34479924 cerumen, bilateral Problem History of Z78.9 Active excessive cerumen Problem Maxillary pain R68.84 Active 69119 7000 Problem Referred H92.03 Active [id number] 582477 otalgia of both ears ALLERGIES Substance Reaction Event Type Date Status pollen Unknown Non Drug Allergy Nov, Active ENCOUNTERS Encounter Location Date Diagnosis [address] Nov, Excessive cerumen in Otolaryngology [address] [place], [place] both ear canals H61.23 [id number] and Ear itch L29 .[address] Aug, Otolaryngology [address] [place], [place] [id number] [address] Jul, Otolaryngology [address] [place], [place] [id number] [address] Jul, Cerumen im paction Otolaryngology [address] [place], [place] H61.20 ; Abnormal [id number] auditory percept ion H93.299 ; Histor y of excessive cerume n Z78.9 and Dysfunction of both eustachian tubes H69.[address] February, Referred o talgia of Otolaryngology [address] [place], [place] both ears H92.03 and [id number] History of exces sive cerumen Z78.9 [facility] [address] [facility] Nov, Impacted c erumen, Otolaryngology [address] [place], [place] bilateral H61.23 [id number] [facility] [address] Oct, Otolaryngology [address] [place], [place] [id number] [address] Aug, Impacted c erumen, Otolaryngology [address] [place], [place] bilateral H61.[id number] Jun, Impacted c erumen, Otolaryngology [address] [place], [place] bilateral H61.[id number] Mar, Referred o talgia of Otolaryngology [address] [place], [place] both ears H92.[id number], Sep, Maxill turner pain R68.84 [facility] [address] [place], [place] [id number] [address], Aug, [facility] [address] [place], [place] [id number] IMMUNIZATIONS No Known Immunizations SOCIAL HISTORY Qualifiers Date Former Smoker 1999 REASON FOR REFERRAL FUNCTIONAL STATUS PLAN OF CARE Activity Details Follow Up 3 Months Reason:Cerumen VITAL SIGNS Height 6 ft 1 in in 2021-12-11 Height 6 ft 1 in in 2021-07-21 Height 6 ft 1 in in 2021-03-01 Height 6 ft 1 in in 2019-12-02 Height 6 ft 1 in in 2019-09-02 Height 6 ft 1 in in 2019-07-13 Height 6 ft 1 in in 2018-04-16 Height 6 ft 1 in in 2016-10-04 Weight 290 lbs 2021-12-11 Weight 294 lbs 2021-07-21 Weight 294 lbs 2021-03-01 Weight 290 lbs 2019-12-02 Weight 290 stated lbs 2019-09-02 Weight 280 stated lbs 2019-07-13 Weight 280 lbs 2018-04-16 Weight 268 lbs 2016-10-04 Temperature 98.3 degrees Fahrenheit 2021-07-21 Heart Rate 80 /min 2021-07-21 Heart Rate 82 /min 2021-03-01 Heart Rate 72 /min 2019-12-02 Heart Rate 67 /min 2019-09-02 Heart Rate 80 /min 2019-07-13 Heart Rate 72 /min 2018-04-16 Oximetry 94 2021-07-21 Oximetry 95 2021-03-01 Oximetry 97 2019-09-02 Respiratory Rate 18 /min 2021-07-21 Respiratory Rate 16 /min 2019-07-13 BMI 38.26 kg/m2 2021-12-11 BMI 38.78 kg/m2 2021-07-21 BMI 38.78 kg/m2 2021-03-01 BMI 38.26 kg/m2 2019-12-02 BMI 38.26 kg/m2 2019-09-02 BMI 36.94 kg/m2 2018-04-16 BMI 35.35 kg/m2 2016-10-04 Blood pressure systolic 128 mm Hg 2021-12-11 Blood pressure diastolic 82 mm Hg 2021-12-11 MEDICATIONS Medication Instructions Dosage Frequency Start End Duration Statu s Date Date ZyrTEC Allergy 10 Orally Once a 1 tablet 24h Active MG day Fluticasone Nasally bid 1 spray in 12h Jul, day(s) Act nia Propionate 50 each nostril 2020 MCG/ACT Naproxen 375 MG Orally Twice a 1 tablet 12h Active day Vitamin B-1 100 MG Orally Once a 1 tablet 24h Active day Fiber Laxative 625 Orally Four 1 tablet as 6h Active MG times a day needed Omeprazole 20 MG Orally Once a 1 capsule 24h Active day Colace 100 MG Orally Once a 1 capsule as 24h Active day needed Magnesium Oxide Orally Once a 1 tablet 24h A ctive 400 MG day Tylenol 325 MG Orally every 6 2 tablets as 6h Active hrs needed Excedrin Extra Orally every 6 2 tablets as 6h Active Strength hrs needed 250-250-65 MG SEROquel 100 MG Orally three 2 tabs am, 2 8h Active times a day tabs noon, 3 tabs pm Nystatin 509079 Externally 1 application 12h Active UNIT/GM Twice a day to affected area Tums 500 MG Orally Four 1 tablet 6h Active times a day Propranolol HCl 10 Orally Twice a 2 tablet 12h Active MG day Senna 8.6 MG Orally Once a 1 tablets at 24h Active day bedtime as needed Bisacodyl 10 MG Rectal Once a 1 suppository 24h Active day as needed ProAir HFA 108 (90 Inhalation 2 puffs as 4h Active Base) MCG/ACT every 4 hrs needed Fish Oil 1000 MG Orally three 1 capsule 8h Active times a day Pseudoephedrine Orally qd 1 tablet 24h 07 Jul, 7 days Activ e HCl 60 MG 2020 QUEtiapine TAKE ONE 30 Active Fumarate 200 MG TABLET BY MOUTH THREE TIMES A DAY Fluocinolone APPLY 5 DROPS 32 Activ e Acetonide 0.01 % INTO AFFECTED EAR TWO TIMES A DAY FOR 7 DAYS PROCEDURES Procedure Date Ordered Result Body Site CERUMEN DEBRIDE - UNILATERIAL Jul 21, 2021 CERUMEN DEBRIDE - UNILATERIAL Jul 21, 2021 CERUMEN DEBRIDE - UNILATERIAL Nov 17, 2021 CERUMEN DEBRIDE - UNILATERIAL February 23, 2022 CERUMEN DEBRIDE - UNILATERIAL February 23, 2022 CERUMEN DEBRIDE - UNILATERIAL Nov 17, 2021 RESULTS No Results REASON FOR VISIT ENT Cerumen removal, ENT cerumen, ENT CERUMEN, PFP Est Patient (L), PFP Cerumen, ENT Ear cleaning, *ENT n/s #09/11/21, ENT- bilateral ear pain, Nasal [place]-want script sent, ENT ear cleaning, ENT 4MO F/U, Ear discomfort, ENT 3 month follow up, ent 6 mo fu , Ears are beginning to feel waxy, ENT-continued right ear pain, ear pain , Ears feel full, ears feel full, bilateral otalgia, left maxillary pain - intermittent, preload chart Insurance Providers [facility] Member Patient Patient Patient Patient Patient Subscriber Subscriber Subscriber Group Insurance Plan Plan Plan Plan ID Relationship Address Phone Name Date of ID Name Date of No Type Insurance Insurance Insurance Coverage to Subscriber Address Phone Name Dates [place] [phone] [place] lizett Smyth [id number] [place] [address] [place] [id number] MEDICARE [address] MEDICARE self [place] 30 [id number] [place] [address] MEDICARE [address] MEDICARE self [place] [id number] [place] [address]
--- NOTE | 2022-11-17 07:15 | DI.CT_ITS ---
Exam(s) CT ABDOMEN PELVIS W EXAM: CT ABDOMEN PELVIS W CLINICAL HISTORY: diffuse abd pain, worse in epigastric area. TECHNIQUE: Imaging Protocol: Axial computed tomography images with coronal and sagittal reformatted images were created and reviewed CONTRAST MATERIAL: Intravenous: Omnipaque 350 Contrast volume:100 ml Oral: no COMPARISON: No exams were available for comparison FINDINGS: ABDOMEN: Lung Bases: Normal where visualized. Mild bilateral gynecomastia. Liver: Enlarged with moderate to severe steatosis. No measurable mass. Gallbladder and biliary tract: No radiodense calculus or dilation. Pancreas: Normal density, no abnormal calcifications or inflammatory process. Spleen: Normal. Kidneys: Normal size, contour and axis. No radiodense stones or obstructive uropathy. No masses seen. Retroaortic left renal vein. Adrenal glands: No masses seen. Abdominal Aorta: Abdominal portion non-dilated. PELVIS: Bladder: No gross wall thickening. No calculi.No focal mass. Bowel: No obstruction or bowel wall thickening. Appendix normal. Peritoneal cavity: No ascites, collection or mesenteric inflammatory response. Bones: Degenerative changes in the lumbar spine with prominent osteophytes projecting posteriorly at L1-2 through L3-4. Reproductive organs: Within normal limits. Lymph nodes: Unremarkable. Impression: Hepatic steatosis. No acute abnormality RADIATION DOSE DELIVERED: 1,559.46mGy.cm Total DLP DATA REPOSITORY: All CT scans at this facility are submitted to the National Radiology Data Registry (NRDR) Dose Index Registry (DIR) with the [employer] (A[employer]). RADIATION OPTIMIZATION: All CT scans at this facility use at least one of these dose optimization te chniques: automated exposure control; mA and/or kV adjustment per patient size (includes targeted exa ms where dose is matched to clinical indication); or iterative reconstruction.
[2022-11-17] MEDS: Omnipaque 350 MG/ML 100 ML BTL IJ (07:46)
[2022-11-17] MEDS: Normal Saline - Diluent 50 ML VIAL IV (07:47)
[2022-11-17 07:48] LABS: Bilirubin Negative (Negative); Blood Negative (Negative); Clarity Clear (Clear); Glucose >=1000 mg/dL (Negative); Ketones 40 mg/dL (Negative); Leukocyte Esterase Negative (Negative); Nitrite Negative (Negative); Urobilinogen 0.2 EU/dL (Up TO 0.2); pH 5.5 (5-8)
[2022-11-17] MEDS: Normal Saline Flush 10 ML SYR IVP ×2 (07:48→07:55)
[2022-11-17] MEDS: Normal Saline 1,000 ML 1000 ML IV (07:53)
[2022-11-17] MEDS: Famotidine 20 MG/2 ML VIAL IVP (07:54)
[2022-11-17] MEDS: Normal Saline 50 ML 200 ML (07:54)
[2022-11-17] MEDS: ACETAMINOPHEN 1,000 MG/100 ML BTL 400 MG IVPB (07:54)
[2022-11-17] MEDS: Ondansetron 4 MG/2 ML VIAL IVP (07:55)
[2022-11-17 07:57] LABS: Bacteria Negative HPF (Negative); Crystals Negative HPF (Negative); Epithelial Cells Few HPF (Negative); RBC 0-2 HPF (0-2)
[2022-11-17 07:58] LABS: C & S Indicated? No; Casts Negative LPF (Negative); Mucus Trace (Negative)
--- NOTE | 2022-11-17 08:08 | DI.VRAD_ITS ---
PROCEDURE INFORMATION: Exam: CT Abdomen And Pelvis With Contrast Exam date and time: 11/17/2022 7:38 AM Age: 42 years old Clinical indication: Other: Diffuse abd pain, worse in epigastric area TECHNIQUE: Imaging protocol: Computed tomography of the abdomen and pelvis with contrast. Radiation optimization: All CT scans at this facility use at least one of these dose optimization techniques: automated exposure control; mA and/or kV adjustment per patient size (includes targeted exams where dose is matched to clinical indication); or iterative reconstruction. Contrast material: OMNIPAQUE 350; Contrast volume: 100 ml; Contrast route: INTRAVENOUS (IV); COMPARISON: CT CHEST PE ABD PELVIS W 08/03/2021 10:13 AM FINDINGS: Liver: Hepatic steatosis is present. Gallbladder and bile ducts: Normal. No calcified stones. No ductal dilation. Pancreas: Normal. No ductal dilation. Spleen: Normal. No splenomegaly. Adrenal glands: Normal. No mass. Kidneys and ureters: Normal. No hydronephrosis. Stomach and bowel: Unremarkable. No obstruction. No mucosal thickening. Appendix: No evidence of appendicitis. Intraperitoneal space: Unremarkable. No free air. No significant fluid collection. Vasculature: Unremarkable. No abdominal aortic aneurysm. Lymph nodes: Unremarkable. No enlarged lymph nodes. Urinary bladder: Unremarkable as visualized. Reproductive: Unremarkable as visualized. Bones/joints: No aggressive appearing bony lesions. Soft tissues: Unremarkable. IMPRESSION: No CT findings of an acute intra-abdominal process Dictated and Authenticated by: Jimmy Reyes MD. Ordering:MARIAA Joe MD
[2022-11-17 08:10] LABS: Abs Immature Grans 0.04 10^3/uL (0.0-0.06); Absolute Basophil Count 0.03 10^3/uL (0.0-0.2); Absolute Eosinophil Count 0.14 10^3/uL (0.0-0.7); Absolute Lymphocyte Count 0.62 10^3/uL (1.2-3.4); Absolute Monocyte Count 0.39 10^3/uL (0.1-0.8); Absolute Neutrophil Count 9.32 10^3/uL (1.2-6.7); Basophils % 0.3; Eosinophils % 1.3; HCT 53.6 % (40.0-50.0); HGB 17.9 g/dL (13.5-17.5); Immature Grans % 0.4; Lymphocytes % 5.9; MCH 29.7 pg (27.0-33.0); MCHC 33.4 % (32.0-36.0); MCV 89 fL (80-95); MPV 10.3 fL (8.0-11.0); Monocytes % 3.7; Neutrophils % 88.4; Platelet Count 236 10^3/uL (130-400); RBC 6.03 10^6/uL (4.36-5.78); RDW 12.4 % (11.8-14.1); WBC 10.54 10^3/uL (4.4-10.8)
[2022-11-17 08:29] LABS: ALT 84 U/L (16-63); AST 42 U/L (15-37); Albumin 4.5 g/dL (3.4-5.0); Alkaline Phosphatase 98 U/L (46-116); Anion Gap 10.7 mmol/L (3-11); BUN 20 mg/dL (7-18); Bilirubin, Total 1.1 mg/dL (0.2-1.0); CO2 24.3 mmol/L (21.0-32.0); CREATININE 1.1 mg/dL (0.70-1.30); Calcium 9.2 mg/dL (8.5-10.1); Chloride 103 mmol/L (98-107); Estimated GFR 86.49 (mL/min/1.73m2); Glucose 164 mg/dL (74-106); Lipase 60 U/L (73-393); Potassium 3.9 mmol/L (3.5-5.1); Sodium 138 mmol/L (136-145); Total Protein 8.5 g/dL (6.4-8.2)
[2022-11-17 09:19] VITALS: BP 126/76; PULSE 102; TEMP 37.1; O2SAT 92
== END 2022-11-17 09:31 | disposition home or self-care (01) ==
PROVIDERS: Physician Assistant; Emergency Provider Emergency Medicine; PCP Nurse Practitioner Family
DX: K52.9 Noninfective gastroenteritis and colitis, unspecified (principal); R00.0 Tachycardia, unspecified; R74.01 Elevation of levels of liver transaminase levels; J45.909 Unspecified asthma, uncomplicated; Z79.51 Long term (current) use of inhaled steroids
CPT/HCPCS: 80053; 83690; 96361; 96365; 99285; 74177; 81003; 81015; 85025; 99284; J0131; J2405; J3490

== ENCOUNTER 2023-02-11 20:02 | Emergency (ER) | payer MEDICARE, MEDICAID, SELFPAY ==
[2023-02-11 20:05] VITALS: BP 116/75; PULSE 89; RESP 16; TEMP 35.8; O2SAT 96
--- NOTE | 2023-02-11 20:12 | ED.GENADUL_ITS ---
Discharge Plan Disposition Patient Disposition: Home Condition: Good Discharge Details Clinical Impression: Bilateral knee pain Primary Care Provider: Elvia Camargo ED Provider: Bailee Guzman Home Meds and New Rx's Prescriptions: Continued propranolol 10 MG tablet 20 mg PO DAILY AM Qty: 180 Rx Instructions: Take 20 mg in the morning and 40 mg at bedtime docusate sodium [Colace] 100 MG capsule 100 mg PO HS quetiapine [Seroquel] 200 MG tablet 400 mg PO HS quetiapine [Seroquel] 300 MG tablet 300 mg PO DAILY AM omeprazole [Prilosec] 20 MG capsule,delayed release(DR/EC) 40 mg PO DAILY albuterol sulfate [ProAir HFA] 200 PUFF HFA aerosol inhaler 115 mcg Inhalation PRN Patient Comments: UNKNOWN DOSE 1-2 PUFFS PRN fluticasone propionate [Flovent HFA] 12 GM HFA aerosol inhaler 165 mcg Inhalation BID ondansetron 4 mg tablet,disintegrating 4 mg PO Q8H PRN (Reason: nausea and vomiting) Qty: 30 0RF metformin 500 mg Tablet 500 mg PO BID loratadine 10 mg Tablet 10 mg PO DAILY Multi-Day Plus Minerals 18 mg iron-400 mcg-25 mcg Tablet 1 tab PO DAILY Discharge Instructions Instructions: Knee Pain (ED) Additional Instructions: Your exam is reassuring here today. Do not have suspicion at this time for fracture, dislocation or ligament tear. Please encourage rest, ice, elevation. Tylenol and ibuprofen as needed for discomfort. Attached is a referral for physical therapy. Please continue to work and perform your normal activities of daily living to help increase your range of motion and leg strength. If you develop fever/chills, swelling, increased pain or other new/worsening symptoms please seek care urgently once again. Stand Alone Forms: Physical Therapy Referral Referrals: Elvia Camargo [Primary Care Provider] - Medical Decision Making Patient is a pleasant 42-year-old male with past medical history pertinent for ADHD, anxiety, asthma, bipolar, obesity, GAUTAM, PTSD, presenting today with friend with chief complaint of bilateral knee pain. Reports that the bilateral knee pain began about 2 weeks ago and has been consistent particular when walking. Has intermittently taken some medications, last took ibuprofen this morning. Denies any trauma. No fevers or chills. States that he did have previous s urgery which she believes is on the left knee but he is not sure what this was as it occurred when he was in high school. Had not had any complications postoperatively or continued discomfort until recently. On exam, patient appears anxious but otherwise nontoxic. He is neurovascularly intact bilaterally extremities. No evidence of ligamentous injury. Did not see any evidence of acute fracture, dislocation or ligament tear. Advised that with this being bilateral over the past several weeks, this is likely associated with overuse to her being overweight. I encouraged him to do gentle exercising. Encourage elevation, compression, Tylenol and ibuprofen to help with discomfort. We discussed physical therapy and patient has had good luck with this historically, will refer today. Encourage follow-up with primary care. Return precautions discussed. All of his questions and concerns were addressed and he is in agreement this plan. At this time, given the chronicity of this discomfort as well as physical exam findings, I do not feel that imaging is warranted at this point. HPI General Date/Time Provider Initiated Documentation: 02/11/23 20:05 . Limitations to Documentation: no limitations . Information obtained by: patient, family (with friend that works with him) and RN notes reviewed . History of Present Illness 42 year old M presents to the emergency department with the chief complaint of bilateral knee pain, described as moderate, with intensity rated at 7. Quality is described as aching, and is localized to the left, right and lower extremity. Patient reports no radiation. Patient started experiencing this week(s) and it has been constant. Immobilization improves symptom(s), Movement worsens symptoms . Patient notes no other symptoms.. Patient did receive the following treatments prior to arrival, NSAID (one dose of Ibuprofen this AM) Related Da ta Home Medications Medication Instructions Recorded Confirmed docusate sodium 100 mg capsule 100 mg PO HS 11/22/13 02/11/23 (Colace) quetiapine 200 mg tablet (Seroquel) 400 mg PO HS 11/22/13 02/11/23 quetiapine 300 mg tablet (Seroquel) 300 mg PO DAILY AM 04/22/14 02/11/23 omeprazole 20 mg capsule,delayed 40 mg PO DAILY 09/17/15 02/11/23 release (Prilosec) propranolol 10 mg tablet 20 mg PO DAILY AM #180 tab-caps 06/26/17 02/11/23 albuterol sulfate 90 mcg/actuation 115 mcg inhalation PRN 11/21/17 aerosol inhaler (ProAir HFA) fluticasone propionate 110 165 mcg inhalation BID 11/21/17 02/11/23 mcg/actuation HFA aerosol inhaler (Flovent HFA) loratadine 10 mg tablet 10 mg PO DAILY 11/23/18 02/11/23 multivit with minerals-iron 18 1 tab PO DAILY 11/23/18 02/11/23 mg-folic ac 400 mcg-vit K 25 mcg tablet (Multi-Day Plus Minerals) ondansetron 4 mg disintegrating 4 mg PO Q8H PRN nausea and 10/19/19 02/11/23 tablet vomiting #30 tabs metformin 500 mg tablet 500 mg PO BID 10/04/20 02/11/23 Previous Rx's Medication Instructions Recorded ondansetron 4 mg disintegrating 4 mg PO Q8H PRN nausea and 10/19/19 tablet vomiting #30 tabs Allergies Allergy/AdvReac Type Severity Reaction Status Date / Time oxycodone [From Percocet] AdvReac CRANKY Unverified 08/03/21 08:51 environmental Allergy Mild Rhinitis Uncoded 08/03/21 08:51 General Stated Complaint: Orthopedic ABHILASH: 5 Review of Systems Constitutional Constitutional: Reports as per HPI, Denies chills, Denies fever(s) and Denies weakness Respiratory Respiratory: Reports as per HPI and Denies cough Musculoskeletal Musculoskeletal: Reports as per HPI and Denies tingling Integumentary/Breasts Skin/Breast: Reports as per HPI, Denies rash and Denies wounds Neurologic Neurologic: Reports as per HPI, Denies tingling, Denies paresthesias and Denies weakness PFSH All Active Problems (Updated 02/11/23 @ 20:35 by ASHIA Devlin) Chest wall pain (Acute) Abdominal pain (Acute) Arm and leg pain (Acute) Bilateral knee pain (Acute) Right varicocele (Acute 10/22/17) Migraine without aura and without status migrainosus, not intractable (Acute 08/22/16) Maxillary pain (Acute 10/04/16) Medical History (Updated 02/11/23 @ 20:35 by ASHIA Devlin) ADHD Anxiety Asthma Bipolar affective disorder Migraine Obesity Obstructive sleep apnea PTSD (post-traumatic stress disorder) Surgical History (Updated 08/03/21 @ 09:08 by Tatyana Manzano DO) History of ankle surgery History of elbow surgery History of knee surgery History of surgical removal of pilonidal cyst Social History Smoking/Tobacco Use Status: Never Smoking risk assessment performed?: Yes Alcohol Intake: current Alcohol Intake frequency: a few times a month Drug use: Never Substance use type: does not use Do you feel safe at home: Yes Do you feel safe in your relationship?: Yes Exam Const General: cooperative, healthy appearing, comfortable, no acute distress, well developed and well groomed Nutritional Appearance: average body habitus and well nourished Orientation: alert and awake Resp Effort & Inspection: normal respiratory effort, able to speak in complete sentences and no respiratory distress Cardio Rate: regular rate Rhythm: regular rhythm Skin General skin exam: no rashes or lesions noted Lesions: no lesions Rashes: no rashes Trauma: no lacerations or abrasions Neuro General: patient alert and patient awake Cognition: normal cognition Speech: speech normal Gait: normal gait Motor: muscle tone normal throughout Sensory Exam: no sensory deficits noted Extrem General: normal to inspection, full ROM, capillary refill normal, no joint enlargement, no clubbing, cyanosis or edema, no pedal edema, no calf tenderness, normal gait and no calf tenderness bilaterally Knee images: 1. 2. Patient has bilateral knee pain. He has 2+ distal pulses. Intact reflexes, full range of motion of the knee, hip, ankle and toes. Sensation is intact. Calf is soft and nontender with no palpable cord, negative Homans' sign, no edema. Patient has no effusion bilaterally. No erythema or warmth. No break in the skin. No surgical incision sites are noted. Again, full range of motion. Ligamentously intact bilaterally with varus valgus stress testing as well as with anterior posterior drawer testing. Able to straight leg raise bilaterally. The left side does have some discomfort along the anterior joint line both medially and laterally but no palpable defect or point tenderness is elicited. Psych Appearance: grossly normal and well kempt Mental Status: mental status grossly normal Speech and Movement: speech and movement normal Course Vital Signs Vital signs: Vital Signs Temperature 35.8 C L 02/11/23 20:05 Pulse 89 02/11/23 20:05 Respiratory Rate 16 02/11/23 20:05 Blood Pressure 116/75 02/11/23 20:05 Pulse Oximetry 96 02/11/23 20:05 Temperature 35.8 C L 02/11/23 20:05 Temperature Source Temporal Artery Scan 02/11/23 20:05 Pulse 89 02/11/23 20:05 Respiratory Rate 16 02/11/23 20:05 Blood Pressure 116/75 02/11/23 20:05 Blood Pressure Position Supine 02/11/23 20:05 Pulse Oximetry 96 02/11/23 20:05 Oxygen Delivery Method Room Air 02/11/23 20:05 Oxygen Flow Rate 0 02/11/23 20:05 Pain Level 7 02/11/23 20:05
--- OUTSIDE RECORDS SUMMARY | 2023-02-11 20:12 | XMS_ITS ---
Author Name Diego Ruiz Address [address], [place] [id number] Organization [facility] Address [address], [place] [id number] Care Team Providers Care Manager [place] Name Role Phone Diego Ruiz Unavailable [phone] PROBLEMS Type Condition ICD9-CM Code PUZ22-UG Code Onset Dates Condition Status SNOMED Code Problem Impacted cerumen, bilateral H61.23 Active 43779502 Problem History of excessive cerumen Z78.9 Active Problem Maxillary pain R68.84 Active 294859896 Problem Referred otalgia of both ears H92.03 Active [id number] 6 ALLERGIES Substance Reaction Event Type Date Status pollen Unknown Non Drug Allergy Nov, Active ENCOUNTERS Encounter Location Date Diagnosis [facility] [address] [place] [id number] Nov, Excessive cerumen in both ear canals H61.23 and Ear itch L29.9 [facility] [address] [place] [id number] Aug, [facility] [address] [place] [id number] Jul, [facility] [address] [place] [id number] Jul, Cerumen impaction H61.20 ; Abnormal auditory perception H93.299 ; History of excessive cerumen Z78.9 and Dysfunction of both eustachian tubes H69.83 [facility] [address] [place], [place] [id number] February, Referred otalgia of both ears H92.03 and History of excessive cerumen Z78.9 [facility] [address] [place], [place] [id number] Nov, Impacted cerumen, bilateral H61.23 [facility] [address] [place], [place] [id number] Oct, [facility] [address] [place] [address] [address] [place], [place] [id number] Aug, Impacted cerumen, bilateral H61.23 [facility] [address] [place] [address] [address] [place], [place] [id number] Jun, Impacted cerumen, bilateral H61.23 [facility] [place], [place] [id number] Mar, Referred otalgia of both ears H92.03 [facility] [address], [address] [place], [place] [id number] Sep, Maxillary pain R68.84 [facility] [address] [place], [place] [id number] Aug, IMMUNIZATIONS No Known Immunizations SOCIAL HISTORY Qualifiers Date Former Smoker 1999 REASON FOR REFERRAL FUNCTIONAL STATUS PLAN OF CARE Activity Details VITAL SIGNS Height 6 ft 1 in [...] 268 lbs 2016-10-04 Temperature 98.3 degrees Fahrenheit Heart Rate 80 /min 2021-07-21 Heart Rate [...] 2016-10-04 Blood pressure systolic 128 mm Hg Blood pressure diastolic 82 mm Hg 2021-11 MEDICATIONS Medication Instructions Dosage Frequency Start Date End Date Duration Status ZyrTEC Allergy 10 MG Orally Once a day 1 tablet 24h Active Fluticasone Propionate 50 MCG/ACT Nasally bid 1 spray in each nostril 12h Jul, 30 day(s) Active Naproxen 375 MG Orally Twice a day 1 tablet 12h Active Vitamin B-1 100 MG Orally Once a day 1 tablet 24h Active Fiber Laxative 625 MG Orally Four times a day 1 tablet as needed 6h Active Omeprazole 20 MG Orally Once a day 1 capsule 24h Active Colace 100 MG Orally Once a day 1 capsule as needed 24h Active Magnesium Oxide 400 MG Orally Once a day 1 tablet 24h Active Tylenol 325 MG Orally every 6 hrs 2 tablets as needed 6h Active Excedrin Extra Strength 250-250-65 MG Orally every 6 hrs 2 tablets as needed 6h Active SEROquel 100 MG Orally three times a day 2 tabs am, 2 tabs noon, 3 tabs pm 8h Active Nystatin 648160 UNIT/GM Externally Twice a day 1 application to affected area 12h Active Tums 500 MG Orally Four times a day 1 tablet 6h Active Propranolol HCl 10 MG Orally Twice a day 2 tablet 12h Active Senna 8.6 MG Orally Once a day 1 tablets at bedtime as needed 24h Active Bisacodyl 10 MG Rectal Once a day 1 suppository as needed 24h Active ProAir HFA 108 (90 Base) MCG/ACT Inhalation every 4 hrs 2 puffs as needed 4h Active Fish Oil 1000 MG Orally three times a day 1 capsule 8h Active Pseudoephedrine HCl 60 MG Orally qd 1 tablet 24h Jul, 7 days Active QUEtiapine Fumarate 200 MG TAKE ONE TABLET BY MOUTH THREE TIMES A DAY 30 Active Fluocinolone Acetonide 0.01 % APPLY 5 DROPS INTO AFFECTED EAR TWO TIMES A DAY FOR 7 DAYS 32 Active PROCEDURES Procedure Date Ordered Result Body Site CERUMEN DEBRIDE - UNILATERIAL February 23, 2022 CERUMEN DEBRIDE - UNILATERIAL February 23, 2022 CERUMEN DEBRIDE - UNILATERIAL Nov 17, 2021 CERUMEN DEBRIDE - UNILATERIAL Jul 21, 2021 CERUMEN DEBRIDE - UNILATERIAL Nov 17, 2021 CERUMEN DEBRIDE - UNILATERIAL Jul 21, 2021 RESULTS No Results REASON FOR VISIT ENT Cerumen removal, ENT cerumen, ENT CERUMEN, PFP Est Patient (L), PFP Cerumen, ENT Ear cleaning, *ENT n/s #09/11/21, ENT- bilateral ear pain, Nasal [place]-want script sent, ENT ear cleaning, ENT 4MOF/U, Ear discomfort, ENT 3 month follow up, ent 6 mo fu , Ears are beginning to feel waxy, ENT-continued right ear pain, ear pain , Ears feel full, ears feel full, bilateral otalgia, left maxillary pa in - intermittent, preload chart Insurance Providers Health Insurance Type Health Plan Insurance Address Health Plan Insurance Phone Health Plan Insurance Name Health Plan Coverage Dates Member ID Patient Relationship to Subscriber Patient Address Patient Phone Patient Name Patient Date of Subscriber ID Subscriber Name Subscriber Date of Group No [place] [address] [facility] [id number] [place] self [place] Walker [id number] MEDICARE [address] [place] [address] MEDICARE self [place]aja Walker [id number] MEDICARE [address] [place] [id number] MEDICARE self Haja Walker [id number]
== END 2023-02-11 20:44 | disposition home or self-care (01) ==
PROVIDERS: Emergency Provider Physician Assistant; PCP Nurse Practitioner Family
DX: M25.561 Pain in right knee (principal); M25.562 Pain in left knee
CPT/HCPCS: 99281; 99282

== ENCOUNTER 2023-08-12 09:34 | Emergency (ER) | payer MEDICARE, MEDICAID, SELFPAY ==
[2023-08-12 09:52] VITALS: BP 136/101; PULSE 72; RESP 18; TEMP 37.1; O2SAT 97
--- NOTE | 2023-08-12 11:00 | DI.RAD_ITS ---
Exam(s) XR KNEE RT 3V AP,LAT,BRAXTON EXAM: XR KNEE RT 3V AP,LAT,BRAXTON CLINICAL HISTORY: right knee pain. TECHNIQUE: 2D digital imaging was performed. COMPARISON: No exams were available for comparison FINDINGS: 3 views No evidence of fracture but there does appear to be a small joint effusion. No joint space narrowing . Bone density normal. No osseous lesions. IMPRESSION: No acute osseous findings but there does appear to be a joint effusion which may signify an internal derangement. DATA REPOSITORY: RADIATION DOSE DELIVERED:
--- NOTE | 2023-08-12 11:14 | ED.GENADUL_ITS ---
Discharge Plan Disposition Patient Disposition: Home Condition: Good Discharge Details Clinical Impression: Right knee sprain Primary Care Provider: Elvia Camargo ED Provider: Jud eBthea Home Meds and New Rx's Prescriptions: No Action propranolol 10 MG tablet 20 mg PO DAILY AM Qty: 180 Rx Instructions: Take 20 mg in the morning and 40 mg at bedtime docusate sodium [Colace] 100 MG capsule 100 mg PO HS quetiapine [Seroquel] 200 MG tablet 400 mg PO HS quetiapine [Seroquel] 300 MG tablet 300 mg PO DAILY AM omeprazole [Prilosec] 20 MG capsule,delayed release(DR/EC) 40 mg PO DAILY albuterol sulfate [ProAir HFA] 200 PUFF HFA aerosol inhaler 115 mcg Inhalation PRN PRN Patient Comments: UNKNOWN DOSE 1-2 PUFFS PRN fluticasone propionate [Flovent HFA] 12 GM HFA aerosol inhaler 115 mcg Inhalation BID ondansetron 4 mg tablet,disintegrating 4 mg PO Q8H PRN (Reason: nausea and vomiting) Qty: 30 0RF metformin 500 mg Tablet 500 mg PO BID cetirizine 10 mg tablet 10 mg PO DAILY Patient Comments: TAKE 1 TABLET BY MOUTH DAILY famotidine 40 mg tablet 40 mg PO DAILY rosuvastatin 5 mg tablet 5 mg PO DAILY Jardiance 10 mg tablet 10 mg PO DAILY loratadine 10 mg Tablet 10 mg PO DAILY Multi-Day Plus Minerals 18 mg iron-400 mcg-25 mcg Tablet 1 tab PO DAILY Discharge Instructions Instructions: Knee Sprain (ED) Additional Instructions: Take tylenol and ibuprofen at home for pain. You can use ice. Use the knee brace. Call your primary care doctor today to schedule an appointment within one week to followup on your visit here. Return to the emergency department for new or worsening symptoms, including inability to walk, worsening pain, or if you have any other concerns. Stand Alone Forms: Work Release Referrals: Elvia Camargo [Primary Care Provider] - Medical Decision Making 42yo M with T2DM, asthma, presenting with right knee pain. History from patient and home care provider; 3 days ago twisted his right knee and fell. Right knee pain, no pain or injury elsewhere. Able to ambulate since then. Vital signs a nd physical exam reassuring, does have knee tenderness and effusion. Not concerning for septic joint; would not get CBC/ESR/CRP. Given toradol here. Knee xray independently reviewed, no displaced fracture on my view, agree with radiology read below. On reassessment pain improved, remains non-toxic appearing. Advised continued symptomatic treatment at home, PCP followup. Discharged home; discharge instructions including return precautions were reviewed with patient who verbalized understanding. All questions were answered and they are in full agreement with the plan. Imaging Data Radiologic Study: Imaging: X-Ray Radiologist's impression: IMPRESSION: No acute osseous findings but there does appear to be a joint effusion which may signify an internal derangement. HPI General Mode of arrival: ambulatory . Date/Time Provider Initiated Documentation: 08/12/23 10:03 . Limitations to Documentation: no limitations . Information obtained by: patient (and home care provider) . HPI Narrative: 42yo M with T2DM, asthma, presenting with right knee pain. History from patient and home care provider. 3 days ago twisted his right knee and fell, landed on his buttocks. Able to walk after the event. Since then has had pain and s welling in his right knee, pain worse with ambulation. Has been using a knee brace and taking ibuprofen at home which has been helping. No numbness, tingling, or weakness. He is otherwise in his usual state of health with no fevers, chills, rash, chest pain, shortness of breath, malaise, or other concerns. Related Data Home Medications Medication Instructions Recorded Confirmed docusate sodium 100 mg capsule 100 mg PO HS 11/22/13 08/12/23 (Colace) quetiapine 200 mg tablet (Seroquel) 400 mg PO HS 11/22/13 08/12/23 quetiapine 300 mg tablet (Seroquel) 300 mg PO DAILY AM 04/22/14 08/12/23 omeprazole 20 mg capsule,delayed 40 mg PO DAILY 09/17/15 08/12/23 release (Prilosec) propranolol 10 mg tablet 20 mg PO DAILY AM #180 tab-caps 06/26/17 08/12/23 albuterol sulfate 90 mcg/actuation 115 mcg inhalation PRN PRN 11/21/17 08/12/23 aerosol inhaler (ProAir HFA) fluticasone propionate 110 115 mcg inhalation BID 11/21/17 08/12/23 mcg/actuation HFA aerosol inhaler (Flovent HFA) loratadine 10 mg tablet 10 mg PO DAILY 11/23/18 08/12/23 multivit with minerals-iron 18 1 tab PO DAILY 11/23/18 08/12/23 mg-folic ac 400 mcg-vit K 25 mcg tablet (Multi-Day Plus Minerals) ondansetron 4 mg disintegrating 4 mg PO Q8H PRN nausea and 10/19/19 08/12/23 tablet vomiting #30 tabs metformin 500 mg tablet 500 mg PO BID 10/04/20 08/12/23 cetirizine 10 mg tablet 10 mg PO DAILY 08/12/23 08/12/23 empagliflozin 10 mg tablet 10 mg PO DAILY 08/12/23 08/12/23 (Jardiance) famotidine 40 mg tablet 40 mg PO DAILY 08/12/23 08/12/23 rosuvastatin 5 mg tablet 5 mg PO DAILY 08/12/23 08/12/23 Previous Rx's Medication Instructions Recorded ondansetron 4 mg disintegrating 4 mg PO Q8H PRN nausea and 10/19/19 tablet vomiting #30 tabs Allergies Allergy/AdvReac Type Severity Reaction Status Date / Time oxycodone [From Percocet] AdvReac CRANKY Unverified 08/12/23 09:55 environmental Allergy Mild Rhinitis Uncoded 08/12/23 09:55 General Stated Complaint: Orthopedic ABHILASH: 4 Review of Systems Narrative: see HPI PFSH All Active Problems (Updated 08/12/23 @ 12:03 by Jud Bethea MD) Right knee sprain (Acute) Arm and leg pain (Acute) Abdominal pain (Acute) Chest wall pain (Acute) Right varicocele (Acute 10/22/17) Migraine without aura and without status migrainosus, not intractable (Acute 08/22/16) Maxillary pain (Acute 10/04/16) Medical History (Updated 08/12/23 @ 12:03 by Jud Bethea MD) ADHD PTSD (post-traumatic stress disorder) Obstructive sleep apnea Obesity Migraine Bipolar affective disorder Anxiety Asthma Surgical History (Updated 08/03/21 @ 09:08 by Tatyana Manzano DO) History of surgical removal of pilonidal cyst History of ankle surgery History of elbow surgery History of knee surgery Social History Smoking/Tobacco Use Status: Never Smoking risk assessment performed?: Yes Alcohol Intake: current Alcohol Intake frequency: a few times a month Drug use: Never Substance use type: does not use Do you feel safe at home: Yes Do you feel safe in your relationship?: Yes Exam Narrative Exam Narrative: General: Alert, well appearing, well nourished, in no acute distress. Head: Normocephalic, atraumatic Neck: Trachea midline, Neck supple. Cardiac: No cyanosis. Resp: No respiratory distress. Speaking in full sentences. Abd: Non-distended Extremities: No deformities. No peripheral edema. Anterior ight knee mildly TTP with palpable superior-medial swelling, mild pain with passive ROM. No warmth or erythema. Distal pulses, sensation, and motion intact. Neurologic: GCS 15. Moves all extremities freely against gravity. Ambulates steadily independently. Course Vital Signs Vital signs: Vital Signs Temperature 37.1 C 08/12/23 09:52 Pulse 72 08/12/23 09:52 Respiratory Rate 18 08/12/23 09:52 Blood Pressure 136/101 H 08/12/23 09:52 Pulse Oximetry 97 08/12/23 09:52 Temperature 37.1 C 08/12/23 09:52 Temperature Source Temporal Artery Scan 08/12/23 09:52 Pulse 72 08/12/23 09:52 Respiratory Rate 18 08/12/23 09:52 Respiratory Effort Normal, Non-Labored 08/12/23 09:55 Blood Pressure 136/101 H 08/12/23 09:52 Blood Pressure Position Sitting 08/12/23 09:52 Pulse Oximetry 97 08/12/23 09:52 Oxygen Delivery Method Room Air 08/12/23 09:52 Oxygen Flow Rate 0 08/12/23 09:52 Pain Level 6 08/12/23 11:06
[2023-08-12] MEDS: Acetaminophen 325 MG TAB 650 MG PO (11:17)
[2023-08-12] MEDS: Ketorolac 15 MG/ML VIAL IM (11:18)
[2023-08-12 12:16] VITALS: BP 126/84; PULSE 72; RESP 18; TEMP 37.1; O2SAT 97
== END 2023-08-12 12:18 | disposition home or self-care (01) ==
PROVIDERS: Emergency Provider Student in an Organized Health Care Education/Training Program; PCP Nurse Practitioner Family
DX: M25.561 Pain in right knee (principal); M25.462 Effusion, left knee; S83.92XA Sprain of unspecified site of left knee, initial encounter; X50.1XXA Overexertion from prolonged static or awkward postures, initial encounter; Y93.89 Activity, other specified; Y92.018 Other place in single-family (private) house as the place of occurrence of the external cause; Y99.9 Unspecified external cause status; E11.9 Type 2 diabetes mellitus without complications; Z79.84 Long term (current) use of oral hypoglycemic drugs
CPT/HCPCS: 73562; 96372; 99283; J1885

== ENCOUNTER 2024-03-02 14:03 | Outpatient (REF) | payer MEDICARE, MEDICAID, SELFPAY ==
[2024-03-02 20:06] LABS: COMMENT (LAB VIEW ONLY) 25.59 mg/dL; Microalb ug/mg Crea 31.7 ug/mg Cr
[2024-03-02 20:25] LABS: ALT 38 U/L (16-63); AST 18 U/L (15-37); Albumin 4.4 g/dL (3.4-5.0); Alkaline Phosphatase 178 U/L (46-116); Anion Gap 11.1 mmol/L (3-11); BUN 13 mg/dL (7-18); Bilirubin, Total 0.9 mg/dL (0.2-1.0); CO2 28.9 mmol/L (21.0-32.0); CREATININE 1.1 mg/dL (0.70-1.30); Calcium 9.6 mg/dL (8.5-10.1); Calculated LDL 70 mg/dL (<100); Chloride 98 mmol/L (98-107); Cholesterol 144 mg/dL (<200); Estimated GFR 85.95 (mL/min/1.73m2); Glucose 296 mg/dL (74-106); HDL Cholesterol 45 mg/dL (40-60); Potassium 4.3 mmol/L (3.5-5.1); Sodium 138 mmol/L (136-145); Total Protein 8.3 g/dL (6.4-8.2); Triglyceride 149 mg/dL (<150); Vitamin B12 642 pg/mL (193-986)
[2024-03-02 20:47] LABS: Hemoglobin A1C > 13.0 % (<5.7)
== END 2024-03-02 14:04 | disposition home or self-care (01) ==
LOC: NCHCN 14:03
PROVIDERS: PCP Nurse Practitioner Family; Visit Provider Nurse Practitioner Family
DX: E11.9 Type 2 diabetes mellitus without complications (principal); K76.0 Fatty (change of) liver, not elsewhere classified; Z79.899 Other long term (current) drug therapy; Z86.39 Personal history of other endocrine, nutritional and metabolic disease
CPT/HCPCS: 80053; 80061; 87491; 87591; 82043; 82570; 82607; 83036; 87480; 87510; 87660

== ENCOUNTER 2024-05-20 20:10 | Emergency (ER) | payer MEDICARE, MEDICAID, SELFPAY ==
[2024-05-20 20:12] VITALS: BP 127/70; PULSE 86; RESP 16; TEMP 37.3; O2SAT 98
--- NOTE | 2024-05-20 20:42 | DI.RAD_ITS ---
Exam(s) XR FINGER LT INDEX EXAM: XR FINGER LT INDEX CLINICAL HISTORY: Crush injury. TECHNIQUE: 2D digital imaging was performed. Three views. COMPARISON: None. FINDINGS: BONES: No acute fracture is present. No bony destructive lesion is seen. JOINTS: No dislocation present. SOFT TISSUE: Swelling over the nail bed. No for IMPRESSION: Soft tissue swelling. DATA REPOSITORY: RADIATION DOSE DELIVERED:
--- OUTSIDE RECORDS SUMMARY | 2024-05-20 20:52 | XMS_ITS | Encounter Summary ---
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 05/31/2009 194 EDT Music Group : Patient in music group for 60min Patient listened, played guitar some, sang and socialized with peers. A. Engaged, social and pleasant, enjoys singing and playing the guital. * Sita Alfaro MD - 05/31/2009 9868 EDT Attending Progress Note Date: Sunday, May 31, 2009 Chief Complaint: Self Harm, Placement Status: Voluntary Locus Risk of Harm: 4 Observation Level: Constant (history of sexual aggression) Attending: Dr. Alfaro Subjective Clinical Update: Pt. is affable and says it is intermittently hard to be here but he is weathering it well. Looks forward to the visit by Gaudencio, his social media developer later today. Has no complaints. Going to groups and socializing appropriately. Ate more reasonably this AM (just some extra saltines, not a whole extra meal). Medication Ziprasodone 20mg qHS Olanzapine 5mg qHS Trazodone 50mg qHS Pramoxine/Mineral Oil/Zinc, Rectal, BID Mental Status Exam: Tall young man with glasses, dressed casually with some abdominal weight. Affect euthymic and smiles easily. Appropriate behavior. TC: no SI. No delusions. Perc: no hallucinations. Insight/judgment: good Assessment Patient is a 28 y.o. year old male who has impulse control disorder combined with mild/moderate MR.Remains in control of his behaviors at this time. Awaiting placement with various levels of understandable frustration with the process. [place] I: Impulse Control d/o, ADHD [place] II: Moderate MR [place] III: Anal fissure, healing self inflicted cuts to R hand and R foot. Plan 1. Impulse Control - Cross-taper to Geodon (reduce Olazapine to 2.5mg with increase Geodon to 20 BID), with additional Olanzapine 5mg given PO for aggressive behaviors. Changing regimen to Ziprasidone to avoid weight gain. 2. Anxiety - con't PRN Lorazepam 3. Sleep Disturbance - con't Trazodone 150mg 4. Anal Fissure - Pramoxine/Mineral Oil/Zinc per rectum, Dr. Damon to see 5. Await placement at appropriate facility, con't milieu therapy and 1:1 for safety of unit. Disposition: Awaiting discharge to appropriate facility. I have seen and examined the patient. I agree with the findings and plan of care as documented in the resident's note. I personally spent 25 minutes on this patient, greater than 50% time spent in counseling and/or coordination of care. Sita Castanon M.D. Attending, Inpatient Psychiatry, [address] * Iraida Ortiz - 05/31/2009 1610 EDT Pt attended Garden Group. Pt played friTittate. Pt laughed, socialized and engaged in group. Very supportive to others. Pt talked about being ready to leave on Saturday and going back to his home until they find him a new place to live. Pt talked with another pt about movies and related around jobs. * Jud Villalobos RN - 05/31/2009 1452 EDT Active Multi-Disciplinary problems: HIGH RISK FOR VIOLENCE TOWARD SELF OR OTHERS [[id number]] () Pain Data: Ct reported no pain this morning at 0830 but at around 1300 c/o 10/10 pain in right sided anterior rib cage. He stated that he does not know what it is from but started two days ago and that MD's are aware. Action: gave ct heating pad and 500mg Tylenol Response: Ct reported 5/10 pain at 1500. Jud Villalobos RN 05/31/2009 2:53 PM * Iraida Ortiz - 05/31/2009 1307 EDT Pt attended Process group around fear and Anger this Group focused on how anger effects our behaviors and how fear can make a person isolate, display anger, sadness, all emotions and feel unsafe with themselves. Learning Coping Skills on better ways to take care of self. Increasing strategies anddecreasing anger and Feelings of being out of control. Pt reports he need to distract himself or keep busy because if not his thoughts ruminate and he cant control them. Pt reported I finally talked with my dad and told him that I am hurt when he doesn't see me, I could of just got angry and that would of not worked. * Cassi Lyle. - 05/31/2009 0614 EDT Active Multi-Disciplinary problems: HIGH RISK FOR VIOLENCE TOWARD SELF OR OTHERS [[id number]] () Data: Pt asleep for majority of shift, awake only for toileting. Action: Continue to monitor on constant obs. Response: Pt asleep for 8 + hour, appeared comfortable. Cassi Lyle RN 05/31/2009 6:14 AM * Heather Fleming - 05/30/2009 1511 EDT Seeking Safety: Patient in group for 55min. Patient states that he would like to be back to work and also be kinder. He was interactive and jovial with peers. A. Patient responded well to activity and positive activity. . * Akash Damon MD - 05/30/2009 1046 EDT TP rectal Bleeding Chest pain Onset of rt sided chest pain yesterday. Hurts with deep inspiration and stretch Obj- clear lungs, point tenderness under rt nipple Normal vitals A- chest wall pain. Plan- hot pack as needed Reassure Onset last few days rectal bleeding on paper and stool. Had previous anal fissure repair. Feels thesame Obj. Blood on paper. Has small posterior fissure. A. Small fissure Plan Hydrocortisone 0.5% cream qid, colace 100 mg day to soften stool May need surgicall consul at OP * Iraida Ortiz - 05/30/2009 1026 EDT Pt attended Open Art Pt worked on building a truck.Pt at the beginning of working on it felt frustrated and felt he couldn't do it another pt said to him you can do this just take your time. Pt smiled and started to work on it and pt was able to finish it. Pt reported I feel really good for doing this and glad I did it . Brighter affect. * Ryan Up RN - 05/30/2009 0944 EDT Active Multi-Disciplinary problems: HIGH RISK FOR VIOLENCE TOWARD SELF OR OTHERS [[id number]] () Data: Patient has not had any violent outbursts this morning, he has been clear and appropriet withgood bounderies Action: Will continue to monitor patient Response: Patient is at [employer] group doing a project and socializing RYAN FELDMAN RN 05/30/2009 9:44 AM * Sita Alfaro MD - 05/30/2009 0845 EDT Cripple Worker Progress Note Date: Saturday, May 30, 2009 Chief Complaint: Self Harm, Placement Status: Voluntary Locus Risk of Harm: 4 Observation Level: Constant (history of sexual aggression) Attending: Dr. Alfaro Subjective Clinical Update: The patient today states he is well, but still frustrated with not knowing where he will end up after this admission. He has been talking to his OP team daily with no success in finding any locations that will take him. There is some hope for placement at a facility that meets his needs, but it is not in [place]. He reports anxiety levels rise and fall throughout the day, with nopredictable pattern to it. He has no urges towards violence or self harm at this point, and he recognizes that if he had any impulses, he'd act on them without any foresight. Eager to have his anal fissure examined by Dr. Damon's team, and have it taken care of. ROS: Pain with bowel movements and uncomfortable when sitting. Positive for anxiety. No fatigue. Appetite good. Describes vague right sided abd pain. Objective Blood pressure 114/65, pulse 78, temperature 36.3 ??C (97.3 ??F), temperature source Tympanic, resp. rate 18, height 1.88 m (6' 2), weight 116.121 kg (256 lb), SpO2 96%. Medication Ziprasodone 20mg qHS Olanzapine 5mg qHS Trazodone 50mg qHS Pramoxine/Mineral Oil/Zinc, Rectal, BID Mental Status Exam: Tall male presenting with scruffy hartley and mustache, attired in dirty clothes and with appropriate behavior. Some mild psychomotor agitation. Constant shifts weight, constantly standing. Gait stable. Speech is baseline dysarthric, of normal rate and volume. Alert and Oriented. Mood Worried about after I leave Affect broad and euthymic. Thought Process is goal oriented, but anxious when placements are mentioned. Denies HI and SI, denies any aggressive thoughts. Denies AVH.No obvious delusional content. Concentration intact. Attends well to discussion. Insight and Judgement remain poor. Assessment Patient is a 28 y.o. year old male who has impulse control disorder combined with mild/moderate MR.Remains in control of his behaviors at this time, which is a critical for his safety and unit safety. His primary concern at this time are placement to a facility appropriate to his needs. Risk Evaluation: Moderate. Patient has been safe over the weekend, but has significant potential toact out. [place] I: Impulse Control d/o, ADHD [place] II: Moderate MR [place] III: Anal fissure, healing self inflicted cuts to R hand and R foot. Plan 1. Impulse Control - Cross-taper Ziprasodone 20mg qHS and Olanzapine 5mg qHS, with additional Olanzapine 5mg given PO for aggressive behaviors. Changing regimen to Ziprasidone to avoid weight gain. 2. Anxiety - con't PRN Lorazepam 3. Sleep Disturbance - con't Trazodone 150mg 4. Anal Fissure - Pramoxine/Mineral Oil/Zinc per rectum, Dr. Damon to see 5. Await placement at appropriate facility, con't milieu therapy and 1:1 for safety of unit. Disposition: Awaiting discharge to appropriate facility. Case discussed and plan reviewed with Dr. Dominic Blancas, DO PGY1, [phone] I have seen and examined the patient. I agree with the findings and plan of care as documented in the resident's note. I personally spent 25 minutes on this patient, greater than 50% time spent in counseling and/or coordination of care. Sita Castanon M.D. Attending, Inpatient Psychiatry, [address] * Kitty Allen RN - 05/30/2009 0453 EDT Active Multi-Disciplinary problems: HIGH RISK FOR VIOLENCE TOWARD SELF OR OTHERS [[id number]] () Data: Patient on 1:1 observations and has been asleep all shift so far. No complaints heard. Action: Obvserve, Monitor for s/s of pain, behaviors. Response: Slept. Kitty Allen RN 05/30/2009 4:53 AM * Lakshmi Walker - 05/29/2009 2053 EDT Active Multi-Disciplinary problems: HIGH RISK FOR VIOLENCE TOWARD SELF OR OTHERS [[id number]] () Data: Patient denied SI/HI. Around 16:15 he began to make many requests: to use a guitar, to have his shoes & at 1630 he requested prn ativan and zyprexa -- saying he was restless and agitated. After eating a large dinner he had complaints of RUQ abdominal pain and was given tums and mylanta. He agreed to rest in bed at 1830 in order to calm his abdominal pain. After one hour he said he felt a lot better.He has been mostly resting ever since. Action: On 1:1 constant. Offered 1:1. Administered medications. Response: Patient is asleep and appears not to be in pain. He has remained nonviolent to himself and others. Will continue to monitor t/o shift. Lakshmi Walker RN 05/29/2009 8:53 PM * Iraida Ortiz - 05/29/2009 1619 EDT Pt attended Pet therapy. Pt played with Polar Bear. Pt engaged with the volunteer and others aroundtalking about love of animals. improved mood. Socialized, engaged. Laughing, got on the floor and played with polar bear. * Iraida Ortiz - 05/29/2009 1248 EDT Pt attended Self refection. Pt worked on a collage around positive affirmations.Pt also put golf pictures and talked with others about loving to play golf also pt had a picture of snow where reportedthe winter is always calming like the kayaks picture I picked. I am trying to find things that bring calming to myself. Pt worked really hard on his collage and was insightful around his affirmations. * Charo Crane RN - 05/29/2009 1128 EDT Active Multi-Disciplinary problems: HIGH RISK FOR VIOLENCE TOWARD SELF OR OTHERS [[id number]] () Data: Pt A&Ox3. Pt denies SI/HI. Pt pleasant and cooperative. Pt social with peers. Pt played cards in the milieu this am. Pt reports RUQ pain, chest pain. Pt has been eating multiple entrees per meal. notified. Pt also reports mucus/a little blood with his BM. Pt restless and anxious for his father to visit today. Action: Encourage groups. Encourage decrease in food intake. Monitor for safety. Continue 1:1 due to impulsive aggressive and sexual history of behavior. Response: Pt wants to go outside for group later. Pt dealing with his anxiety r/t his father visiting. Pt received a call from his father, and his father is not able to come visit today. Pt dealing with his disappointment r/t this by talking to staff and distracting himself. Pt played with a hacky-sack with peers. Pt received bid tucks and prn Pepto chewable at 1313. Pt went outside to garden group for 45 minutes. Pt played cards with peers. Pt also played frisbee. Pt slightly intrusive, but appropriate. Pt affect indifferent. Mood bright. Charo CraneJONH 05/29/2009 11:28 AM * Markos Vicente - 05/29/2009 0637 EDT Active Multi-Disciplinary problems: HIGH RISK FOR VIOLENCE TOWARD SELF OR OTHERS [[id number]] () Data:Pt awake X 1,up for food and fluids. Action: constant observation Response:cont Constant observation. Markos Vicente RN 05/29/2009 6:38 AM * Eduardo Davis - 05/28/2009 1848 EDT Active Multi-Disciplinary problems: HIGH RISK FOR VIOLENCE TOWARD SELF OR OTHERS [[id number]] () Data: Pt quietly used T. V room, also in his room looking at reading material, Patiently waiting for a charged telephone to contact his father about visiting tomorrow. Asked about discharge he said he was waiting for a new place to live. Action: Continue 1:1 as pt remains a high risk for harmful behavior. Response: Accepting limits on behavior while in tx, Quiet day so far. Eduardo Davis RN 05/28/2009 6:48 PM * Sandra Boss - 05/28/2009 1229 EDT S/O/A: Pt participated in the last 20 min of open art. Pt came in after taking a nap and asked to join. Pt worked on coloring a earth science professor. Pt mostly quiet, but interactive at times with peers. Pt engaged in coloring, affect bright, behavior appropriate. * Charo Crane RN - 05/28/2009 1115 EDT Active Multi-Disciplinary problems: HIGH RISK FOR VIOLENCE TOWARD SELF OR OTHERS [[id number]] () Data: Pt A&Ox3. Pt denies SI/HI. Pt pleasant and cooperative. Pt social with peers. Pt out in milieu. Pt ate 2 breakfasts and reported he was still hungry. Action: Pt encouraged to attend groups. Pt encouraged to continue to control his behavior and use coping skills. Monitor for safety. Response: Pt played cards in the milieu. Pt attended open art group. Pt keeping behavior in control. Pt continues to be social and pleasant, joking around with certain patients. Pt slept after lunch. Charo Crane RN 05/28/2009 11:15 AM * Markos Vicente - 05/28/2009 0637 EDT Active Multi-Disciplinary problems: HIGH RISK FOR VIOLENCE TOWARD SELF OR OTHERS [[id number]] () Data: Pt. Awake @ 02 and 0230. Action:constant observation Response: cont with constant observation Markos Vicente RN 05/28/2009 6:38 AM * Cheryl Culver RN - 05/27/2009 2301 EDT Active Multi-Disciplinary problems: HIGH RISK FOR VIOLENCE TOWARD SELF OR OTHERS [[id number]] () Data: No violence this evening . Occassional anxiety and restlessness noted. Action: Continues constant observation. Ativan 2 mg x 1 for restlessness and anxiety. Response: Pt's behaviour acceptable this evening with continuing presence of constant obs. Occassional reminders by staff of plans for future, and behaviour expected in the meantime. Ativan x 1 effective to help pt control restlessness and anxiety. Cheryl Culver RN 05/27/2009 11:02 PM * Imelda Price - 05/27/2009 1434 EDT S/O Pt went out to the Garden and played Speaktoit and then sat and Socialized. At the end of the group pt stated that he really enjoyed being out in the garden. A/ engagedabel in activity, improvedmoabel sanchez in relaxation. * Ryan Up, JONH - 05/27/2009 1330 EDT Active Multi-Disciplinary problems: HIGH RISK FOR VIOLENCE TOWARD SELF OR OTHERS [[id number]] () Data: PT has been appropriate and polite today with good boundaries, no violent outbursts. Action: Offered patient positive feedback for his good behavior this shift, will continue to monitor. Response: Patient is waiting with 1:1 to go to [facility]in. RYAN FELDMAN RN 05/27/2009 1:51 PM * Luz Rondon - 05/27/2009 1114 EDT Social Work Progress Note Intervention/Service: Coordination of care and Discharge planning Phone call to [facility]. He spoke with Haja to update him about housing and that he would not be out of the hospital by the weekend. [facility] is still waiting to hear back about the [facility].He call back this afternoon with an update. Spoke with Simone. He was asking if there was anywhere he could go temporarily. Reminded him that he spoke with [facility]hat Hunter earlier and that the plan is to find a permanent place for him. I informedhim that as soon as I knew more I would update him. Received call back from [facility]. He said that they are hopeful that Simone will be in his new residence early next week. Luz Rondon, COAL TRIMMER MACHINE OPERATOR [id number] * Sita Alfaro MD - 05/27/2009 0828 EDT Cripple Worker Progress Note Date: Wednesday, May 27, 2009 Chief Complaint: Self harm Status: Voluntary Locus Risk of Harm: 4 Observation: Constant Attending: Dr. Alfaro Clinical Update: Violent outburst yesterday featuring chair throwing and threatening staff. Reported stressor leading to this behavior was frustration about not knowing where he will be living after discharge. Per social work, who spoke to his outpatient team, they simply do not have a secure housing arrangement for him at this juncture, but are working to develop a plan. The patient calmed aftera time in locked seclusion and receiving Olanzapine 5mg and Lorazepam 2mg. This AM he reports still being frustrated about the lack of progress on establishing housing, but he says he will be more patient today and over the weekend. He recognizes today that these things take time and that he will be here over the weekend. States that he ideally would like his own supervised apartment. I took some time to encourage him to have controlled behavior so that others will see him as being able to handle responsibility of taking care of himself. He expresses no aggressive, violent or homicidal intent at the time of interview. Objective: Blood pressure 118/65, pulse 78, temperature 36.3 ??C (97.3 ??F), temperature source Tympanic, resp. rate 16, height 1.88 m (6' 2), weight 109.317 kg (241 lb), SpO2 97%. Medicine: Olanzapine 10mg qHS Trazodone 50mg qHS Olanzapine Zydis 5mg BID PRN for agitation Lorazepam 2mg q6h PRN for anxiety/agitation Mental Status Exam: Patient is a tall male with glasses and some mild gynecomastia. Cleanly shaved today, but in unwashed clothes. Manner is conversational, with good bounderies at this time. His behavior is appropriatethroughout the interview but has some psychomotor agitation and visible anxiety. Gait is stable. Speech is slightly dysarthric (which is his baseline), but of normal rate and volume. Fund of knowledge excellent for his diagnosed level of MR. Mood: I still don't know, and it makes me worry and affect is restricted and dysthymic. Process is goal- oriented with no pathology evident. Content displays no current SI or HI, and no violent or self harm behavior. No obvious AVH. No obvious paranoia or delusion. Attends well to exam and concentration appropriate Insight fair, Judgement poor. Assessment: Patient is a 28 y.o. year old male with mild to moderate MR, impulse control disorder and a historyof sexual aggression against targets of opportunity. No medication modification is indicated at this time. The patient has been calm prior to last nights outburst. It is clear that he is becoming frustrated with this current hospitalization and his ability to control his behavior is significantly impaired. Risk assessment: Moderate-high. Recent outburst with episode of violence against property. No acuterisk of further self harm, however, patient historically is quite violent, aggressive and a sexual predator. Plan: Our goal is to maintain patient safety and improve his capacity for impulse control. 1. Impulse Control - Continue scheduled olanzapine, add Olanzapine Zydis 5mg BID to allow for better management of any future aggressive outbursts. 2. Anxiety - increase Lorazepam to 2mg q6h PRN for anxiety/agitation. 3. Behavioral - 1:1 due to history of violence and sexual predation 4. Sleep disorder - stable, con't Trazodone 5. Continue therapy in the milieu as tolerated. Disposition: Continue therapy on this unit. Attempt to find placement for patient per SW. Case discussed and plan reviewed with Dr. Dominic Blancas, PGY1, [phone] I have seen and examined the patient. I agree with the findings and plan of care as documented in the resident's note. I personally spent 25 minutes on this patient, greater than 50% time spent in counseling and/or coordination of care. Sita Castanon M.D. Attending, Inpatient Psychiatry, [address] * Mckenzie Gonzales - 05/27/2009 0672 EDT Active Multi-Disciplinary problems: HIGH RISK FOR VIOLENCE TOWARD SELF OR OTHERS [[id number]] () Data: pt slept all night Action: pt being monitored on constant observation Response: pt sleeping, no signs of distress. Will continue to monitor Mckenzie Gonzales RN 05/27/2009 5:39 AM * Cheryl Culver RN - 05/26/2009 6117 EDT Active Multi-Disciplinary problems: HIGH RISK FOR VIOLENCE TOWARD SELF OR OTHERS [[id number]] () Data: Pt continuing on constant observation at start of shift. At about 1600 pt threw chair in hallway in an aggressive manner and was deemed to be a threat to others . Code 8 called -security here. Pt initially uncooperative but allowed security to escort him to the seclusion room where he took ativan 1 mg po and zyprexa zydis 5 mg po x 1 as well. Action: Pt remained in locked seclusion until 1637 until his behaviour was calmer and he was able to state he would not throw anything else and would not be a threat to himself or others. He was released from the seclusion room at that time and went to his room, still on constant observation. Pt spent short time in the milieu, behaviour acceptable, but ate his supper in room and fell asleep soon after eating meal. Response: Pt took hs meds as scheduled . He was easy to awake at that time and went back to sleep following meds. Slept for remainder of shift. Cheryl Culver RN 05/26/2009 10:59 PM * Luz Rondon - 05/26/2009 1551 EDT Social Work Progress Note Intervention/Service: Coordination of care and Discharge planning Left message with Simone Dietrich's case maker re: temporary housing. Received call from [facility]hat [facility] at the [facility]. He reports that there is no secure temporary housing option for Simone. They are still looking at placement and do not have a specific place yet. Apparently Simone called Medhat to ask him about placement and he informed him that they are still working on it but there was no temporary housing. Luz Rondon, COAL TRIMMER MACHINE OPERATOR 0429 Spoke with Medhat Hunter after the Code 8. He had not spoke with Simone about housing. He will not call until he hears from me tomorrow. Simone asked me if I had spoken with Kaur but I informed him that I had left a message but not heardback from her. * Iraida Ortiz - 05/26/2009 1116 EDT Pt attended [employer]. Pt sang songs and interacted with others. Pt singing in front of group. Dancing and interacting with others. Improved mood. * Tash Dennis RN - 05/26/2009 0903 EDT Active Multi-Disciplinary problems: HIGH RISK FOR VIOLENCE TOWARD SELF OR OTHERS [[id number]] () Data: pt noted to be kicking trash can in his room. Action: Give patient 1:1 time and give space for patient to voice concerns. Response: pt has gone to groups, has constant observation, took PRN's, without complaints. Took napin room. Tash Dennis RN 05/26/2009 9:03 AM * Sita Alfaro MD - 05/26/2009 0837 EDT Cripple Worker Progress Note Date: , May 26, 2009 Chief Complaint: Self harm Status: Voluntary Locus Risk of Harm: 4 Observation: Constant Attending: Dr. Alfaro Clinical Update: Patient becoming somewhat frustrated with his inpatient stay. Feels on edge because he wishes he knew what was going to happen with his living situation. Still expressing wishes that [facility]. He is hopeful that we will find him a better living arrangement. States that he feels like he would still continue NSSH if he was outside and had the chance, but no suicidal or homicidal ideation. Objective: Blood pressure 109/66, pulse 77, temperature 36.8 ??C (98.2 ??F), temperature source Tympanic, resp. rate 20, height 1.88 m (6' 2), weight 109.317 kg (241 lb), SpO2 96%. Medicine: Olanzapine 10mg qHS Trazodone 50mg qHS Mental Status Exam: Patient is a tall male with glasses, scruffy hartley and some mild gynecomastia. Manner is open and friendly, with good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 5 mg 5 mg, oral, Once (Without Time Specified), 1 dose, Starting on Nieves 05/26/09 at 1614, Until Nieves 05/26/09 at 1615, Routine Given 05/26/2009 16:15 EDT 5 mg Pramoxine-Mineral Oil-Zinc 1-12.5 % Oint rectal, 2 TIMES DAILY, First dose on 05/29/09 at 1230, Until Discontinued Given 06/03/2009 9:00 EDT Given 06/02/2009 21:00 EDT Given 06/02/2009 9:00 EDT senna (SENOKOT) tablet 1 Tab 1 Tablet, oral, AT BEDTIME, First dose on Sat05/30/09 at 2100, Until Discontinued, Routine Given 06/02/2009 21:0 0 EDT 1 Tablet Given 06/01/2009 21:26 EDT 1 Tablet Given 05/31/2009 21:59 EDT 1 Tablet trazodone (DESYREL) tablet 50 mg 50 mg, oral, AT BEDTIME, First dose on Sat05/22/09 at 2100, Until Discontinued, Routine Given 06/02/2009 21:00 EDT 50 mg Given 06/01/2009 21:26 EDT 50 mg Given 05/31/2009 21:59 EDT 50 mg ziprasidone (GEODON) capsule 20 mg 20 mg, oral, AT BEDTIME, First dose on Sat05/30/09 at 2100, Until Discontinued, Routine Given 05/31/2009 21:59 EDT 2 0 mg Given 05/30/2009 20:37 EDT 20 mg ziprasidone (GEODON) capsule 20 mg 20 mg, oral, 2 TIMES DAILY, First dose (after last modification) on Sat06/01/09 at 1015, Until Discontinued, Routine Given 06/03/2009 9:00 EDT 20 mg Given 06/02/2009 21:00 EDT 20 mg Given 06/02/2009 9:00 EDT 20 mg documented in this encounter Discontinued Medications Medication Sig Discontinue Reason Start Date End Da te olanzapine (ZYPREXA) 10 mg tablet Take 1 Tab by mouth at bedtime. 05/17/2009 06/03/2009 olanzapine (ZYPREXA) 5 mg tablet Take 1 Tab by mouth daily as needed. 05/17/2009 06/03/2009 documented as of this encounter Active and Recently Administered Medications Times are shown in EDT. Scheduled Medication Order 06/01/2009 06/02/2009 06/03/2009 docusate sodium (COLACE) capsule 100 mg (CANCELED) 100 mg, oral, DAILY, First dose on Sat05/30/09 at 1200, Until Discontinued, Routine 0900 (Given - Provider: Jud Villalobos RN) 0900 (Given - Provider: Charo Crane RN) 0900 (Given - Provider: Charo Crane RN) hydrocortisone 0.5 % cream (CANCELED) topical (top), 4 TIMES DAILY, First dose on Sat05/30/09 at 1200, Until Discontinued 0900 (Not Given - Provider: Jud Villalobos RN - Reason: Patient/family refused)1200 (Not Given - Provider: Jud Villalobos RN - Reason: Patient/family refused)1700 (Not Given - Provider: Dharmesh Watters - Reason: Patient/family refused)2127 (Given - Provider: Dharmesh Watters) 0800 (Given - Provider: Charo Crane RN)1200 (Given - Provider: Charo Crane RN)1645 (Given - Provider: Jeff Saucedo)2100 (Given - Provider: Jeff Saucedo) 0800 (Given - Provider: Charo Crane RN)1200 (Given - Provider: Charo Crane RN) olanzapine (ZYPREXA) tablet 2.5 mg (CANCELED) 2.5 mg, oral, AT BEDTIME, First dose on Sat06/01/09 at 2100, Until Discontinued, Routine 2125 (Given - Provider: Dharmesh Watters) 2100 (Given - Provider: Jeff Saucedo) Pramoxine-Mineral Oil-Zinc 1-12.5 % Oint (CANCELED) rectal, 2 TIMES DAILY, First dose on Sat05/29/09 at 1230, Until Discontinued 0900 (Not Given - Provider: Jud Villalobos RN - Reason: Patient/family refused)2125 (Given - Provider: Dharmesh Watters) 0900 (Given - Provider: Charo Crane, JONH)2099 (Given - Provider: Jeff Saucedo) 0900 (Given - Provider: Charo Crane, JONH) senna (SENOKOT) tablet 1 Tab (CANCELED) 1 Tablet, oral, AT BEDTIME, First dose on Sat05/30/09 at 2100, Until Discontinued, Routine 2125 (Given - Provider: Dharmesh Watters) 2099 (Given - Provider: Jeff Saucedo) trazodone (DESYREL) tablet 50 mg (CANCELED) 50 mg, oral, AT BEDTIME, First dose on Sat05/22/09 at 2100, Until Discontinued, Routine 2125 (Given - Provider: Dharmesh Watters) 2100 (Given - Provider: Jeff Saucedo) ziprasidone (GEODON) capsule 20 mg 20 mg, oral, 2 TIMES DAILY, First dose (after last modification) on Sat06/01/09 at 1015, Until Discontinued, Routine 1210 (Given - Provider: Jud Villalobos RN)2125 (Given - Provider: Dharmesh Watters) 09 (Given - Provider: Charo Crane, JONH)2099 (Given - Provider: Jeff Saucedo) 0900 (Given - Provider: Charo Crane, JONH) documented in this encounter Orders Medications Ordered That Teddy ht Not Have Been Administered Count Last Ordered Date First Ordered Date docusate sodium (COLACE) capsule 100 mg 1 0 05/30/2009 lorazepam (ATIVAN) tablet 1 mg 1 05/26/2009 olanzapine zydis (ZYPREXA) d isintegrating tablet 5 mg 1 05/26/2009 Diet Count Last Ordered Date First Orde red Date DIET REGULAR 1 05/24/2009 Nursing Count Last Ordered Date First Orde red Date APPLY HEAT TO AFFECTED AREA 1 05/30/2009 CONSTANT OBSERVATION PSYCHIATRY 1 9 NURSING COMMUNICATION 1 05/23/2009 Admission Count Last Ordered Date First Orde red Date NOTIFY PPS OF DISCHARGE COMPLETE 1 06/03/20 09 ADMIT TO INPATIENT 1 05/24/2009 PPS NOTIFICATION OF PATIENT ARRIVAL ON UNIT 1 05/22/2009 Transfer Count Last Ordered Date First Orde red Date CHANGE ATTENDING TO: 05/23/2009 documented in this encounter Care Teams Care Provider Relationship Specialty Start Date End Date Se Smith MD 1 [facility] [address] [place] [id number] PCP - General 02/24/09 02/11/13 documented as of this encounter
--- OUTSIDE RECORDS SUMMARY | 2024-05-20 20:52 | XMS_ITS | Encounter Summary ---
Author Organization [facility] Address [address] [place] [address] Care Team Providers Care Healthcare Economics Manager Name Role Phone Se Smith MD Primary Care Provider [phone] Encounter Details Date Type Department Care Team (Late st Contact Info) Description 10/31/2009 Abstract [facility] Adult Primary Care - [address] [address] Se Smith MD 1 [facility] [address] [place] [id number] ADHD (attention deficit hyperactivity disorder); HSV-1 infection; Allergic rhinitis; Syncopal episodes Social History Tobacco Use Types Packs/Day Years Used Date Smoking Tobacco: Never Alcohol Use Standard Drinks/Week Comments No 0 (1 standard drink = 0.6 oz pur e alcohol) Sex and Gender Information Value Date Recorded Sex Assigned at Not on file Gender Identity Not on file Sexual Orientation Not on file documented as of this encounter Functional Status Cognitive Status Response Date of Assessm ent Because of a physical, menta l, or emotional condition, do you have serious difficulty concentrating, remembering, or making decisions? (5 years old or older) Yes 05/22/2009 documented as of this encounter Plan of Treatment Not on file documented as of this encounter Visit Diagnoses Diagnosis ADHD (attention deficit hyperactivity disorder) Attention deficit disorder with hyperactivity HSV-1 infection Herpes simplex without mention of complication Allergic rhinitis Allergic rhinitis, cause unspecified Syncopal episodes Syncope and collapse documented in this encounter Historical Medications * This list may reflect changes made after this encounter. Medication Sig Dispensed Refills Start Date End Date acetaminophen (APAP) 325 mg tablet Take 325 mg by mouth as needed for Pain. CALCIUM CARBONATE (CALCIUM 500 ORAL) Take by mouth 2 times daily. leuprolide (LUPRON DEPOT) 3.75 mg injection Inject 3.75 mg into the muscle every 30 days. quetiapine (SEROQUEL) 50 mg tablet Take 50 mg by mouth at bedtime. METHYLCELLULOSE (CITRUCEL ORAL) Take by mouth 2 times daily. 1 tsp. 11/11/2009 added in this encounter Care Teams Healthcare Economics Manager Relationship Specialty Start Date End Date Se Smith MD 1 [facility] [address] [place] [phone] PCP - General 02/24/09 02/11/13 documented as of this encounter
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
--- OUTSIDE RECORDS SUMMARY | 2024-05-20 20:52 | XMS_ITS | Referral Summary ---
Author Organization [facility] Address [address] [place] [address] Care Team Providers Care Pediatric Dental Assistant Name Role Phone Unknown, Provider Primary Care Provider [phone] Allergies No known active allergies Medications Medication Sig Dispensed Refills Start Date End Date Status fluoxetine (PROZAC) 10 mg capsule Take 40 mg by mouth daily. Active trazodone (DESYREL) 50 mg tablet Take 50 mg by mouth at bedtime. Active lorazepam (ATIVAN) 1 mg tablet Take 1 mg by mouth daily as needed for Anxiety. Active ziprasidone (GEODON) 20 mg capsule Take 1 Cap by mouth 2 times daily. 60 0 06/01/2009 Active quetiapine (SEROQUEL) 50 mg tablet Take 50 mg by mouth at bedtime. Active leuprolide (LUPRON DEPOT) 3.75 mg injection Inject 3.75 mg into the muscle every 30 days. Active CALCIUM CARBONATE (CALCIUM 500 ORAL) Take by mouth 2 times daily. Active acetaminophen (APAP) 325 mg tablet Take 325 mg by mouth as needed for Pain. Active witch pratima-glycerin (TUCKS) pad Place 1 Each rectally as needed for Pain. 20 Each 3 11/09/2009 Active Hydrocortisone Acetate (ANUSOL HC-1) 1 % Oint Place 1 Inch rectally 2 times daily. 1 Tube 0 11/09/2009 Active docusate sodium (COLACE) 100 mg capsule Take 1 Cap by mouth daily. 30 Cap 11 11/09/2009 Active valacyclovir (VALTREX) 1 g tablet Take 2 Tabs by mouth 2 times daily. 4 Tab 0 02/10/2010 Active Active Problems Problem Noted Date Diagnosed Date ADHD (attention deficit hyperactivity disorder) 10/31/2009 Overview: Mental delay, hx behavorial issues, OCD, sexual fantasies, paraphilic. Herpes simplex type 1 infection 10/31/2009 Overview: Oral. Allergic rhinitis 10/31/2009 Impulse control disorder 06/02/2009 Anal fissure 06/01/2009 Overview: Posterior Superficial Lacerations to Hands and Legs 2008 Syncope 03/21/2001 Immunizations Name Administration Dates Next Due Influenza (whole) 09/10/2008 Td 05/12/2009 Tetanus Vaccine IM, Historical 10/21/2006 Social History Tobacco Use Types Packs/Day Years Used Date Smoking Tobacco: Never Alcohol Use Standard Drinks/Week Comments No 0 (1 standard drink = 0.6 oz pur e alcohol) Sex and Gender Information Value Date Recorded Sex Assigned at Not on file Gender Identity Not on file Sexual Orientation Not on file Last Filed Vital Signs Vital Sign Reading Time Taken Comments Blood Pressure 140/78 06/13/20092051 EDT Pulse 91 06/13/20092051 EDT Temperature 37.1 ??C (98.8 ??F) 06/13/20092051 EDT Respiratory Rate 18 06/13/20092051 EDT Oxygen Saturation 97% 06/03/2009 0806 EDT Inhaled Oxygen Concentration - - Weight 116.1 kg (256 lb) 05/29/2009 1020 EDT Height 188 cm (6' 2) 05/22/2009 1654 EDT Body Mass Index 32.87 05/22/2009 1654 EDT Functional Status Cognitive Status Response Date of Assessm ent Because of a physical, menta l, or emotional condition, do you have serious difficulty concentrating, remembering, or making decisions? (5 years old or older) Yes 05/22/2009 Plan of Treatment Not on file Advance Directives For more information, please contact: [phone] * Full Code (Latest Code Status on File) Date Activated Date Inactivated Comments 05/24/2009 14:24 06/03/2009 17:31 * Full Code Date Activated Date Inactivated Comments 05/22/2009 12:53 05/24/2009 14:24 * Full Code Date Activated Date Inactivated Comments 05/12/2009 23:41 05/17/2009 15:15 Care Teams Pediatric Dental Assistant Relationship Specialty Start Date End Date Unknown, Provider, PCP - General 10/09/13
--- OUTSIDE RECORDS SUMMARY | 2024-05-20 20:52 | XMS_ITS | Encounter Summary ---
Author Organization [facility] Address [address] [place] [address] Care Team Providers Care Flying I Instructor Name Role Phone Unknown, Provider Primary Care Provider [phone] Encounter Details Date Type Department Care Team (Late st Contact Info) Description 10/19/2019 Lab Requisition [facility] Pathology & Laboratory Medicine - [facility] [address] [place] [address] Unknown, Provider, Social History Tobacco Use Types Packs/Day Years [...] Procedure Name Priority Date/Time Associated Diagnosis Comments ACUTE HEPATITIS PROFILE Routine 10/19/2019 15:20 EST documented in this encounter Results * ACUTE HEPATITIS PROFILE (10/19/2019 15:20 EST) Hep B Surface Ag Negative Negative 10/20/2019 11:21 EST [facility] Hep C Antibody Negative Negative 10/20/2019 11:21 EST [facility] Hepatitis A Antibody, IgM Negative Negative 10/20/2019 11:21 EST [facility] Hepatitis B Core Ab, Total Negative Negative 10/20/2019 11:21 EST [facility] Blood VENOUS BLOOD / Unknown 10/19/2019 15:20 EST 10/19/2019 21:22 EST Provider Unknown CHEMISTRY & BLOOD GA S ORDERABLES Performing Organization Address City/State/[facility] Co de Phone Number [facility] [address] [place] [address] documented in this encounter Visit Diagnoses Not on filedocumented in this encounter Care Teams Flying I Instructor Relationship Specialty Start Date End Date Unknown, Provider, PCP - General 10/09/13 documented as of this encounter
--- OUTSIDE RECORDS SUMMARY | 2024-05-20 20:52 | XMS_ITS | Continuity of Care Document ---
Author Organization [facility] Address [address] [place] [address] Care Team Providers Care Sulky Driver Name Role Phone Polly Bradley Primary Care Physician [phone] Encounter [facility] Date(s): 02/19/24 - 02/19/24 [facility] [address] [place] [address] Discharge Disposition: Home Allergies, Adverse Reactions, Alerts Substance Reaction Severity Status POLLEN EXTRACTS Unknown Active Assessment and Plan Future Appointments Medications acetaminophen 325 mg oral tablet 650 mg = 2 tab, Oral, every 6 hr Start Date: 07/02/22 Status: Ordered Advair HFA 115 mcg-21 mcg/inh inhalation aerosol 2 puffs, Inhale, BID Start Date: 07/02/22 Status: Ordered calcium (as carbonate) 500 mg oral tablet 500 mg = 1 tab, Oral, Daily Start Date: 07/02/22 Status: Ordered cetirizine 10 mg oral tablet 10 mg = 1 tab, Oral, Daily Start Date: 07/02/22 Status: Ordered EMBRACE TALK TEST STRIP EMBRACE TALK TEST STRIP, See Instructions, use 1 strip two times a day as directed, 0 Refill(s) Start Date: 07/02/22 Status: Ordered famotidine 40 mg oral tablet 40 mg = 1 tab, Oral, As Directed, Take every day 30 minutes before dinner time. Start Date: 07/02/22 Status: Ordered Fiberlax 625 mg oral tablet 625 mg = 1 tab, Oral, Daily Start Date: 07/02/22 Status: Ordered Jardiance 10 mg oral tablet Start Date: 07/02/22 Status: Ordered magnesium oxide 1 tab, Oral, Daily Start Date: 07/02/22 Status: Ordered MetFORMIN (Eqv-Glucophage XR) 500 mg oral tablet, extended release 1,000 mg = 2 tab, Oral, Daily Start Date: 07/02/22 Status: Ordered mineral oil Daily Start Date: 07/02/22 Status: Ordered omeprazole 40 mg oral delayed release capsule 40 mg = 1 cap, Oral, Daily Start Date: 07/02/22 Status: Ordered propranolol 20 mg oral tablet take one tablet by mouth every morning and 2 tablets in the evening Start Date: 07/02/22 Status: Ordered QUEtiapine 400 mg oral tablet 400 mg = 1 tab, Oral, every night at bedtime Start Date: 07/02/22 Status: Ordered SM MELATONIN 3 MG TABLET SM MELATONIN 3 MG TABLET, 1 tab, Oral, every evening, PRN for sleep Start Date: 07/02/22 Status: Ordered Tab-A-Alan oral tablet Start Date: 07/02/22 Status: Ordered Vitamin B-1 100 mg tablet Vitamin B-1 100 mg tablet, 1 tab, Oral, Daily Start Date: 07/02/22 Status: Ordered Vitamin D 2,000 unit capsule Vitamin D 2,000 unit capsule, 1 cap, Oral, Daily Start Date: 07/02/22 Status: Ordered ZyrTEC 10 mg oral tablet 10 mg = 1 tab, Oral, Daily Start Date: 07/02/22 Status: Ordered Problem List Condition Confirmation Course Effective Dates Status H ealth Status Informant Anxiety disorder Confirmed 11/21/18 Active Attention deficit hyperactivity disorder Confirmed 11/21/18 Active FH: Manic-depressive state Confirmed 11/21/18 Active Foot pain Confirmed 11/21/18 Active Indigestion Confirmed 11/21/18 Active Intellectual functioning disability Confirmed 11/21/18 Active Low back pain Confirmed 11/21/18 Active Obesity Confirmed 11/21/18 Active Obstructive sleep apnea syndrome Confirmed Active Posttraumatic stress disorder Confirmed 11/21/18 Active Sexualized behavior Confirmed 11/21/18 Active History of tobacco use Confirmed 11/21/18 Active Social History Social History Type Response Tobacco Never tobacco user T obacco Use:. Sex Male Patient Care team information Care Team Personnel Name: Polly Bradley Position: No Access Member Role: Primary Care Physician Address: Address: [address] [place] [address]- Care Team Related Persons Name: RORO WILSON Name: REBEKA ALMANZAR
--- OUTSIDE RECORDS SUMMARY | 2024-05-20 20:52 | XMS_ITS | Encounter Summary ---
Author Organization [facility] Address [address] [place] [address] Care Team Providers Care Sap Bw Architect Name Role Phone Se Smith MD Primary Care Provider [phone] Reason for Visit * Reason Onset Date Comments Anal Itching 11/08/2009 Encounter Details Date Type Department Care Team (Late st Contact Info) Description 11/08/2009 Telephone [facility] Adult Primary Care - [address] [address] Se Smith MD 1 [facility] [address] [place] [id number] Anal Itching Social History Tobacco Use Types Packs/Day Years [...] Yes 05/22/2009 documented as of this encounter Ordered Prescriptions Prescription Sig Dispensed Refills Start Date End Da te docusate sodium (COLACE) 100 mg capsule Take 1 Cap by mouth daily. 30 Cap 11 11/09/2009 Hydrocortisone Acetate (ANUSOL HC-1) 1 % Oint Place 1 Inch rectally 2 times daily. 1 Tube 0 11/09/2009 witch pratima-glycerin (TUCKS) pad Place 1 Each rectally as needed for Pain. 20 Each 3 11/09/2009 documented in this encounter Miscellaneous Notes * Telephone Encounter - Claudia Bass, RN - 11/09/2009 0940 EST Talked with Mary Gupta, case management rn for the patient. She is requesting a stool softener that his insurance will cover. I suggested to the caregiver that she treat the fissure with otc anusol cream and witch pratima pads as needed for comfort. she will monitor the situation and call us if no improvement after a few dayson the stool softener. Patient Education Topic: anal fissure Method: Verbal Taught to: Caregiver Barriers: None Outcomes: independent. Signature: * Telephone Encounter - Sophia Shetty LPN - 11/08/2009 1538 EST Called and left message for caregiver to call back and please give name of caregiver. * Telephone Encounter - Earline Ruth - 11/08/2009 1448 EST Is having symptoms of anal itching. 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 documented in this encounter Plan of Treatment Not on file documented as of this encounter Visit Diagnoses Not on filedocumented in this encounter Care Teams Sap Bw Architect Relationship Specialty Start Date End Date Se Smith MD 1 [facility] [address] [place] [address] PCP - General 02/24/09 02/11/13 documented as of this encounter
--- OUTSIDE RECORDS SUMMARY | 2024-05-20 20:52 | XMS_ITS | Encounter Summary ---
Author Organization [facility] Address [address] [place] [address] Care Team Providers Care Material Man Name Role Phone Se Smith MD Primary Care Provider [phone]- [phone] Reason for Visit * Reason Onset Date Comments Medication Problem 11/11/2009 Citracal not covered by insurance. Wants to try Metamucil Capsule Encounter Details Date Type Department Care Team (Late st Contact Info) Description 11/11/2009 Refill [facility] Adult Primary Care - [place] [address] [place] [address] Se Smith MD 1 [facility] [address] [place] [address] Medication Problem (Citracal not covered by insurance. Wants to try Metamucil Capsule) Social History Tobacco Use Types Packs/Day Years [...] Dispensed Refills Start Date End Da te polycarbophil (FIBERCON) 625 mg tablet Take 1 Tab by mouth daily. 30 Tab 2 11/11/2009 02/16/2010 documented in this encounter Miscellaneous Notes * Telephone Encounter - Claudia Bass RN - 11/11/2009 1324 EST Left message for Mary. We will call in rx for metamucil. call and let us know if we need anything. * Telephone Encounter - Radha Walker - 11/11/2009 1246 EST Metamucil not covered. Wants to try Metamucil Capsules. documented in this encounter Plan of Treatment Not on file documented as of this encounter Visit Diagnoses Not on filedocumented in this encounter Discontinued Medications Medication Sig Discontinue Reason Start Date End Da te METHYLCELLULOSE (CITRUCEL ORAL) Take by mouth 2 times daily. 1 tsp. 11/11/2009 documented as of this encounter Care Teams Material Man Relationship Specialty Start Date End Date Se Smith MD 1 [facility] [address] [place] [address] PCP - General 02/24/09 02/11/13 documented as of this encounter
--- OUTSIDE RECORDS SUMMARY | 2024-05-20 20:52 | XMS_ITS | Encounter Summary ---
Author Organization [facility] Address [address] [place] [address] Care Team Providers Care Central Service Supply Distributor Name Role Phone Unavailable Primary Care Provider Unavailabl e Encounter Details Date Type Department Care Team (Late st Contact Info) Description 01/25/2009 10:07 EDT Hospital Encounter [address] [address] Kale Schuster MD MPH [address] [place] [phone] Social History Tobacco Use Types Packs/Day Years Used Date Smoking Tobacco: Never Alcohol Use Standard Drinks/Week Comments No 0 (1 standard drink = 0.6 oz pur e alcohol) Sex and Gender Information Value Date Recorded Sex Assigned at Not on file Gender Identity Not on file Sexual Orientation Not on file documented as of this encounter Plan of Treatment Not on file documented as of this encounter Visit Diagnoses Not on filedocumented in this encounter
--- OUTSIDE RECORDS SUMMARY | 2024-05-20 20:52 | XMS_ITS | Encounter Summary ---
Author Organization [facility] Address [address] [place] [address] Care Team Providers Care Fire Control Technician Name Role Phone Se Smith MD Primary Care Provider [phone]- [phone] Reason for Visit * Reason Onset Date Comments Medications Refill 02/10/2010 Herpes 02/10/2010 Encounter Details Date Type Department Care Team (Late st Contact Info) Description 02/10/2010 Telephone [facility] Adult Primary Care - [address] [id number] Se Smith MD 1 [facility] Level [address] [place] [phone] Medications Refill; Herpes Social History Tobacco Use Types Packs/Day Years [...] Dispensed Refills Start Date End Da te valacyclovir (VALTREX) 1 g tablet Take 2 Tabs by mouth 2 times daily. 4 Tab 0 02/10/2010 documented in this encounter Miscellaneous Notes * Telephone Encounter - Emma Mahmood, RN - 02/10/2010 1600 EDT Called RX into pharmacy. Called and spoke with Mary and gave her info about medication. 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 Can this be called in? Patient is in [place] and it is very difficult for him to come in. Please call Mary to discuss this or let her know when it is done. documented in this encounter Plan of Treatment Not on file documented as of this encounter Visit Diagnoses Not on filedocumented in this encounter Care Teams Fire Control Technician Relationship Specialty Start Date End Date Se Smith MD 1 [facility] [address] [place] [address] PCP - General 02/24/09 02/11/13 documented as of this encounter
--- OUTSIDE RECORDS SUMMARY | 2024-05-20 20:52 | XMS_ITS | Encounter Summary ---
Author Organization [facility] Address [address] [place] [address] Care Team Providers Care Money Market Dealer Name Role Phone Niles Smith MD Primary Care Provider +1- [phone] Reason for Visit * Reason Comments Suicidal Pt reports that he i s here to see CRISIS. He states that he is feeling suicidal and these feelings started a few minutes ago. Pt has a self inflicted lac to his left hand Encounter Details Date Type Department Care Team (Late st Contact Info) Description 06/13/2009 20:48 EDT - 06/14/2009 1:55 EDT Emergency [facility] Emergency Department - [facility] [address] [place] [address] José Ayoub MD Emergency, MD Anny Impulse Control Disorder Discharge Disposition: Home or Self Care Social [...] Respiratory Rate 18 06/13/20092051 EDT Oxygen Saturation - - Inhaled Oxygen Concentration - - Weight - - Height - - Body Mass Index - - documented in this encounter Functional Status Cognitive Status Response Date of Assessm ent Because of a physical, menta l, or emotional condition, do you have serious difficulty concentrating, remembering, or making decisions? (5 years old or older) Yes 05/22/2009 documented as of this encounter Discharge Instructions * Discharge Instructions* José Ayoub - 06/14/2009 0:58 EDT * Attachments The following attachments cannot be sent through Care Everywhere. * DEPRESSION TREATMENT: AFTER YOUR VISIT ([facility]) documented in this encounter Medications at Time [...] 0 06/01/2009 documented as of this encounter Discharge Disposition Disposition Code Departure Means Destination Home or Self Care Walk-out Other documented in this encounter Progress Notes * Inpatient, Physician - 06/15/2009 1007 EDT documented in this encounter ED Notes * Emily Jean-Baptiste RN - 06/14/2009 0154 EDT [facility] home pt resides phone number [phone]. * Emily Jean-Baptiste RN - 06/14/2009 0141 EDT Left message with [facility] for pts return to hospital to receive trazadone. * Deepika Trinh - 06/13/2009 2331 EDT LATE ENTRY: 2215- Crisis in to see pt. Offered blankets to pt. Pt refused. NAD. Will monitor. * José Ayoub - 06/13/2009 2206 EDT DOS: 06/13/2009 Chief Complaint Patient presents with ??? Suicidal Pt reports that he is here to see CRISIS. He states that he is feeling suicidal and these feelings started a few minutes ago. Pt has a self inflicted lac to his left hand Patient is a 28 y.o. male presenting with suicidal attempt. The history is provided by the patient and a caregiver. Suicidal The primary symptoms include dysphoric mood (pt cutting himself and being increasingly aggressive in senior care.). The current episode started this week. The dysphoric mood began this week. The mood has been unchanged since its onset. The mood includes feelings of sadness. The degree of incapacity that he is experiencing as a consequence of his illness is moderate. Additional symptoms of the illness include agitation. Additional symptoms of the illness do not include no headaches or no abdominal pain. He admits to suicidal ideas. He does not have a plan to commit suicide. He contemplates harming himself. He has already injured self (cut hand with pen). He does not contemplate injuring another person. Risk factors that are present for mental [...] Negative for headaches. Psychiatric/Behavioral: Positive for dysphoric mood (pt cutting himself and being increasingly aggressive in senior care.) and agitation. Negative for confusion. All other systems reviewed and are negative. Past Medical History Diagnosis Date ??? Mental Disability ??? Psychiatric Problem ??? ADHD ??? Depressed No past surgical history on file. No Known Allergies History Substance Use Topics ??? Tobacco Use: Never ??? Alcohol Use: No No family history on file. BP 140/78 Pulse 91 Temp(Src) 37.1 ??C (98.8 ??F) (Tympanic) Resp 18 Physical Exam Nursing note and vitals reviewed. [...] No tenderness. Musculoskeletal: Normal range of motion. Neurological: He is alert. He has normal strength. He is not disoriented. No sensory deficit. Skin: Skin is warm and dry. No rash noted. Psychiatric: Flat affect Radiology orders: None Procedures Consult orders: CONSULT CRISIS SERVICE ED Course: Pt seen by crisis who recommended discharge. MDM Number of Diagnoses and Management Options Impulse Control Disorder: Amount and/or Complexity of Data Reviewed Discuss the patient with other providers: yes Patient Progress Patient progress: stable Encounter Diagnoses Code Name Primary? Qualifier ??? 312.30F Impulse Control Disorder PCP: NILES SMITH MD 06/14/2009 1:03 AM * Rosa Elena Davis RN - 06/13/20092 EDT Constant observer, Frankie, with patient documented in this encounter Miscellaneous Notes * Scanned Note-Null - Inpatient, Physician - 06/15/2009 1007 EDT documented in this encounter Plan of Treatment Not on file documented as of this encounter Visit Diagnoses Diagnosis Impulse control disorder Impulse control disorder, unspecified documented in this encounter Administered Medications Inactive Administered Medications - up to 3 most recent administrations Medication Order MAR Action Action Date Dose Rate Site lorazepam (ATIVAN) tablet 1 mg 1 mg, oral, NOW X1, 1 dose, On Sat06/14/09 at 0115, STAT Given 06/14/2009 1:11 EDT 1 mg tramadol (ULTRAM) 50 mg tablet 1 dose, Starting on Sat06/14/09 at 0111, Until Sat06/14/09 at 0118 Given 06/14/2009 1:18 EDT mg documented in this encounter Active and Recently Administered Medications Times are shown in EDT. Scheduled Medication Order 06/12/2009 06/13/2009 06/14/2009 lorazepam (ATIVAN) tablet 1 mg (COMPLETED) 1 mg, oral, NOW X1, 1 dose, On 06/14/09 at 0115, STAT 0111 (Given - Provid er: Emily Jean-Baptiste RN) No Frequency Medication Order 06/12/2009 06/13/2009 06/14/2009 tramadol (ULTRAM) 50 mg tablet (COMPLETED) 1 dose, Starting on e 06/14/09 at 0111, Until e 06/14/09 at 0118 0118 (Given - Provid er: Emily Jean-Baptiste RN) documented in this encounter Orders Medications Ordered That Teddy ht Not Have Been Administered Count Last Ordered Date First Ordered Date trazodone (DESYREL) tablet 50 mg 1 06/14/20 09 Consult Count Last Ordered Date First Orde red Date CONSULT CRISIS SERVICE 1 06/13/2009 documented in this encounter Care Teams Money Market Dealer Relationship Specialty Start Date End Date Niles Smith MD 1 [facility] Level [address] [place] [address] PCP - General 02/24/09 02/11/13 documented as of this encounter
--- OUTSIDE RECORDS SUMMARY | 2024-05-20 20:52 | XMS_ITS | Encounter Summary ---
Author Organization [facility] Address [address] [place] [address] Care Team Providers Care Fabricator Foam Rubber Name Role Phone Unknown, Provider Primary Care Provider [phone] Encounter Details Date Type Department Care Team (Late st Contact Info) Description 07/07/2020 Lab Requisition [facility] Pathology & Laboratory Medicine - [facility] [address] [place] [address] Outr Resulting Lab, Provider Social History Tobacco Use Types Packs/Day Years [...] Procedure Name Priority Date/Time Associated Diagnosis Comments HIGH SENSITIVITY C-REACTIVE PROTEIN (CARDIOVASCULAR DISEASE) Routine 07/06/2020 10:05 EDT documented in this encounter Results * HIGH SENSITIVITY C-REACTIVE PROTEIN (CARDIOVASCULAR DISEASE) (07/06/2020 10:05 EDT) High Sensitivity CRP >15.00 See Note mg/L 07/07/2020 17:50 EDT [facility] Comment: Suggest ordering C-Reactive Protein Reference Range: ??Source: The [place] [employer] Clinical Practice Recommendations, 2003 ??Low Risk: ? <1.0 mg/L ??Average Risk: ?? 1.0 - 3.0 mg/L ??High Risk: ?>3.0 mg/L ??Indeterminate*: >10.0 mg/L ??*May be an indication of another source of inflammation or infection Blood VENOUS BLOOD / Unknown 07/06/2020 10:05 EDT 07/07/2020 17:32 EDT Provider Outr Resulting Lab CHEMISTRY & BLOOD GAS ORDERABLES [facility] [address] [place] [address] documented in this encounter Visit Diagnoses Not on filedocumented in this encounter Care Teams Fabricator Foam Rubber Relationship Specialty Start Date End Date Unknown, Provider, PCP - General 10/09/13 documented as of this encounter
--- OUTSIDE RECORDS SUMMARY | 2024-05-20 20:52 | XMS_ITS | Encounter Summary ---
Author Organization [facility] Address [address] [place] [address] Care Team Providers Care Personnel Interviewer Name Role Phone Se Smith MD Primary Care Provider +1- [phone] Reason for Visit * Reason Onset Date Comments Other 03/31/2010 letter for tums use Encounter Details Date Type Department Care Team (Late st Contact Info) Description 03/31/2010 Telephone [facility] Adult Primary Care - [address] [address] Se Smith MD [address] [facility] [address] [place] [phone] Other (letter for tums use) Social History Tobacco Use Types Packs/Day Years [...] Yes 05/22/2009 documented as of this encounter Miscellaneous Notes * Telephone Encounter - Danay Jackson - 03/31/2010 1618 EDT Faxed letter to the below number. * Telephone Encounter - Danay Jackson - 03/31/2010 1316 EDT Feroz the patient's community case manager with [facility]. Patient is complaining of choudhury burn. He has seen the agency's nurse. They would like to have a Notefor Tums PRN Signed by TECHNICAL BUSINESS ANALYST or doctor. They can not administer any medication without a note. Fax to :[phone] documented in this encounter Plan of Treatment Not on file documented as of this encounter Visit Diagnoses Not on filedocumented in this encounter Care Teams Personnel Interviewer Relationship Specialty Start Date End Date Se Smith MD 1 [facility] Level [address] [place] [phone] PCP - General 02/24/09 02/11/13 documented as of this encounter
--- OUTSIDE RECORDS SUMMARY | 2024-05-20 20:52 | XMS_ITS | Encounter Summary ---
Author Organization [facility] Address [address] [place] [address] Care Team Providers Care Model Maker Scale Name Role Phone Se Smith MD Primary Care Provider [phone]- [phone] Reason for Visit * Reason Onset Date Comments Medications Refill 02/16/2010 Encounter Details Date Type Department Care Team (Late st Contact Info) Description 02/16/2010 Refill [facility] Adult Primary Care - [address] [phone] Se Smith MD 1 [facility] 1 [place] [phone] Medications Refill Social History Tobacco Use Types Packs/Day Years [...] tablet Take 1 Tab by mouth daily. 90 Tab 3 02/16/2010 02/16/2011 polycarbophil (FIBERCON) 625 mg tablet Take 1 Tab by mouth daily. 90 Tab 3 02/16/2010 02/16/2010 documented in this encounter Miscellaneous Notes * Telephone Encounter - Ruby Chakraborty - 02/17/2010 0854 EDT Script was called in to [facility] pharmacy. * Telephone Encounter - Claudette Ulrich RN - 02/16/2010 1703 EDTAddended by: CLAUDETTE ULRICH on: 02/16/2010 Modules accepted: Orders * Telephone Encounter - Claudette Ulrich RN - 02/16/2010 1703 EDT Cant escribe to this pharmacy. Hard copy of rx destroyed and to be phoned in instead. * Telephone Encounter - Danay Jackson - 02/16/2010 1620 EDT Faxed request for: fiber Laxative tabs, one daily. documented in this encounter Plan of Treatment Not on file documented as of this encounter Visit Diagnoses Not on filedocumented in this encounter Discontinued Medications Medication Sig Discontinue Reason Start Date End Da te polycarbophil (FIBERCON) 625 mg tablet Take 1 Tab by mouth daily. Reorder 11/11/2009 02/16/2010 polycarbophil (FIBERCON) 625 mg tablet Take 1 Tab by mouth daily. Reorder 02/16/2010 02/16/2010 documented as of this encounter Care Teams Model Maker Scale Relationship Specialty Start Date End Date Se Smith MD 1 [facility] Level 1 [place] [address] PCP - General 02/24/09 02/11/13 documented as of this encounter
--- OUTSIDE RECORDS SUMMARY | 2024-05-20 20:52 | XMS_ITS | Clinical Summary ---
Author Organization [facility] Address [address] [place] [address] Care Team Providers Care Screen Cleaner Name Role Phone Unknown, Provider Primary Care Provider [phone] Allergies No known active allergies Medications Medication [...] Td 05/12/2009 Tetanus Vaccine IM, Historical 10/21/2006 Surgical History Surgery Date Site/Laterality Comments ELBOW SURGERY Left. VASECTOMY 2004 Medical History Medical History Date Comments Mental disability Psychiatric problem Adhd Depressed Family History Medical History Relation Comments Diabetes Father NIDDM. Cancer Mother Lung Cancer, d at age 46. Relation Status Comments Father Mother Social History Tobacco Use Types Packs/Day Years Used Date Smoking Tobacco: Never Alcohol Use Standard Drinks/Week Comments No 0 (1 standard drink = 0.6 oz pur e alcohol) Sex and Gender Information Value Date Recorded Sex Assigned at Not on file Gender Identity Not on file Sexual Orientation Not on file Obstetrics History Last Filed Vital Signs Vital Sign Reading [...] Body Mass Index 32.87 05/22/2009 1654 EDT Plan of Treatment Health Maintenance Due Date Last Done Comments Hepatitis C Screen 1981 Hepatitis B Vaccine (1 of 3 - 19+ 3-dose series) 08/19 COVID-19 Vaccine ( - 2022-24 season) 2023 Advance Directives For more information, please contact: [phone] * Full Code (Latest Code Status on File) Date Activated Date Inactivated Comments 05/24/2009 14:24 06/03/2009 17:31 * Full Code Date Activated Date Inactivated Comments 05/22/2009 12:53 05/24/2009 14:24 * Full Code Date Activated Date Inactivated Comments 05/12/2009 23:41 05/17/2009 15:15 Care Teams Screen Cleaner Relationship Specialty Start Date End Date Unknown, Provider, PCP - General 10/09/13
--- OUTSIDE RECORDS SUMMARY | 2024-05-20 20:52 | XMS_ITS | Encounter Summary ---
Author Organization [facility] Address [address] [place] [address] Care Team Providers Care Mule Operator Name Role Phone Unknown, Provider Primary Care Provider [phone] Encounter Details Date Type Department Care Team (Late st Contact Info) Description 03/31/2020 Lab Requisition [facility] Pathology & Laboratory Medicine - [facility] [address] [place] [address] Outr Resulting Lab, Provider Social History Tobacco [...] Procedure Name Priority Date/Time Associated Diagnosis Comments HEPATITIS B SURFACE ANTIGEN Routine 03/30/2020 12:30 EDT documented in this encounter Results * HEPATITIS B SURFACE ANTIGEN (03/30/2020 12:30 EDT) Hep B Surface Ag Negative Negative 04/01/2020 9:[address] [facility] Blood VENOUS BLOOD / Unknown 03/30/2020 12:30 EDT 03/31/2020 16:56 EDT Provider Outr Resulting Lab CHEMISTRY & BLOOD GAS ORDERABLES [facility] [address] [place] [address] documented in this encounter Visit Diagnoses Not on filedocumented in this encounter Care Teams Mule Operator Relationship Specialty Start Date End Date Unknown, Provider, PCP - General 10/09/13 documented as of this encounter
--- OUTSIDE RECORDS SUMMARY | 2024-05-20 20:53 | XMS_ITS | Encounter Summary ---
Author Organization [facility] Address [address] [place] [address] Care Team Providers Care Fire Control Assistant Name Role Phone Se Smith MD Primary Care Provider [phone]- [phone] Encounter Details Date Type Department Care Team (Late st Contact Info) Description 08/06/2007 Before PRISM Converted Visit (Maple) [facility] - Maple conversion [address] [place] [address] Nerissa Palma FNP 1 [place], [place] [phone] Social History Tobacco Use Types Packs/Day Years Used Date Smoking Tobacco: Never Assessed Sex and Gender Information Value Date Recorded Sex Assigned at Not on file Gender Identity Not on file Sexual Orientation Not on file documented as of this encounter Progress Notes * Nerissa Goss - 08/29/2009 0392 EST GDU?? PROGRESS/FOLLOWUP NOTE - 08/06/2007 PROBLEM: Folliculitis. PROBLEM: Tinea cruris. SUBJECTIVE Haja is complaining of a hard painful bump on his right buttock. He does have problems with a lot of bumps back there, but this one is kind of painful. He has been scratching at it. It is not draining. He says he was seen for this before. He has been using spring brand soap. He does not know if it is antibacterial or not. He also has a rash in his right groin. It is red, very sore and there is no drainage. This rash hasbeen there for several weeks and is just gettingworse. He does sweat a lot and he does not know whythis happened. He has had this before as well. I had given him a cream for this in the past and he wonders if he could have the cream again. CURRENT MEDICATIONS 1. Cetirizine 10 mg a day as needed. 2. Quetiapine: He does not know his dose. 3. Calcium 600 mg daily. 4. Lupron Depo 11 ?? mg injected every three months. Problem list was reviewed. OBJECTIVE Pleasant, cooperative, learning disabled gentleman neatly groomed. Blood pressure is 102/64, pulse 76and regular, temperature 98, respiratory rate 16, weight is 239. He is complaining of 5/10 pain inhis butt. Buttocks have scattered papules and pustules, some of which are excoriated. He also has this on his lower back. There is one area in the middle ofhis right buttock that is slightly erythematous, mildly tender to palpation. There is a firm cystic mass about five millimeters in size, round,firm, mobile. There is no drainage at this time. It is excoriated. His right groin has a bright red, moist confluent papular rash and he does have shotty inguinal adenopathy, on the right side, not the left. ASSESSMENT 1. Tinea cruris. 2. Folliculitis with a furuncle on his right buttock. PLAN 1. Patient education was done. I asked him to switch to Dial antibacterial soap. 2. He is to use a warm compress twice a day for 10-15 minutes on that cyst. I asked him not to pickit or scratch it. If it starts to drain, he can increase the frequency of the warm packs until it is cleared up. He is to let me know if it becomes more painful or increases in size. If he has recurrent furuncles, we may need to put him on prophylactic antibiotics although I prefer not to do that. 3. A prescription was provided for Nystatin cream to apply twice daily to clean dry skin. I asked him not to scrub that area. He should keep it clean and dry. Followup as needed. 4. A flu shot was given today. Signed by LEXI Horner 08/12/2007 08:33 Dictated by: LEXI Horner - LEXI Horner A - lfb Job ID: [id number] Document ID: [id number] cc: documented in this encounter Plan of Treatment Not on file documented as of this encounter Visit Diagnoses Not on filedocumented in this encounter Care Teams Fire Control Assistant Relationship Specialty Start Date End Date Se Smith MD 1 [facility] 1 [place] [phone] PCP - General 02/24/09 02/11/13 documented as of this encounter
--- OUTSIDE RECORDS SUMMARY | 2024-05-20 20:53 | XMS_ITS | Encounter Summary ---
Author Organization [facility] Address [address] [place] [address] Care Team Providers Care Clothes Ironer Name Role Phone Se Smith MD Primary Care Provider [phone]- [phone] Encounter Details Date Type Department Care Team (Late st Contact Info) Description 06/28/2007 Office Visit [facility] - Maple conversion [address] [place] [address] Ben Britton Jr., LOCKSTITCH WAISTLINE JOINER Social History Tobacco Use Types Packs/Day Years Used Date Smoking Tobacco: Never Assessed Sex and Gender Information Value Date Recorded Sex Assigned at Not on file Gender Identity Not on file Sexual Orientation Not on file documented as of this encounter Progress Notes * Ben Britton Jr., LOCKSTITCH WAISTLINE JOINER - 12/11/2009 0357 EST [facility] - Physician Summary Registration Date/Time: 06/28/2007 14:14 AMMENDED REPORT - SEE ADDENDA BELOW Time Seen: 15:51. Arrived- By private vehicle. Historian- patient. HISTORY OF PRESENT ILLNESS Chief Complaint- BOIL. This started 2 days and is still present. It is described as mildly painful.Not itchy. It has been located on the trunk (lower abdomen). The patient has had similar symptoms previously. Not recently seen/assessed. REVIEW OF SYSTEMS No fever or chills. PAST HISTORY Medications: The patient's medications have not been reviewed. Allergies: No known drug allergies. SOCIAL HISTORY Nonsmoker. PHYSICAL EXAM Skin: Rash present on the trunk (there is 1 small fluctuant superficial abscess just above the pubic hair ,there is another over the L hip crest that has already drained out.The intact lesion was prepped with betadine ,lanced with a 25g and most of contents(purulent was expressed. This was cultured). (no regional lymphadenopathy.). PROGRESS AND PROCEDURES ED Attending on duty and available for supervision (Shira Liang MD). CLINICAL IMPRESSION Superficial abscess to the abdominal wall. INSTRUCTIONS Prescription Medications: Doxycycline 100 mg: Take 1 capsule orally every 12 hours for 10 days. No refill. Follow-up: Return to the emergency department if not better. (Electronically signed by Reyna Britton P.A.-C 06/28/2007 21:19) Addenda for JACQUELINE WALKER VisitID: [id number] Date: 06/28/2007 07/03/2007 22:04 wound culture shows mod staph, coag neg. patient on doxy. awaiting sensitivities. signed by Thalia Haider N.P. - 07/03/2007 22:04) Care Center - Nursing Summary Registration Date/Time: 06/28/2007 14:14 TRIAGE Initial Assessment Triage time 14:48. BP: 120 / 82. HR: 100. RR: 18. Temp: 97.4. --1456 Sophia Castillo L.P.N.. Medications Calcium Supplement. Trazodone. --1456 Sophia Castillo L.P.N.. Allergies No known drug allergies. --1456 Yenny Thomason.P.N.. History Chief Complaint: BOIL. Reported as (abdomen (below umbilicus) and right hip). Onset (2 days ago). Pain level now: 6/10. (No drainage or bleeding. H/o similar sx in the past that resolved without treatment.). Treatment MAINTENANCE ADVISOR: None. PAST HX: Negative. No infectious disease exposure. (Left elbow fx). FAMILY HX: (Lives in [facility], followed by [facility]). SOCIAL HX: Occasional alcohol use. Nonsmoker. Abuse assessment: The patient was asked Do you feel safe in your home?. No report of abuse. Arrived by private vehicle and accompanied by friend. Historian: patient. --4252 Sophia Castillo L.P.N.. PAST HX: FAMILY HX. PHYSICAL ASSESSMENT Ambulatory to room. Alert. The patient does not appear to be in acute distress. Oriented X 3. Respirations not labored. Skin lesion with erythema and tenderness on the abdomen- right hip. --1457 Ashley Calderon. NURSING PROGRESS NOTES Patient ready for evaluation- chart flagged. --1457 Sophia Castillo L.P.N. (suprapubic wound cx sent to lab). --1552 Nupur Stewart R.N.. DISPOSITION / DISCHARGE Patient reports pain level on departure as 6/10. Condition at departure: stable. Fall risk assessment completed. No fall risk identified. No learning barriers present. Discharge instructions reviewedwith the patient and medical receptionist assistant. Reviewed medication dosing and course; prescription (s) given to the patient. Patient and medical receptionist assistant verbalized understanding. Written instructions provided in Thai.The patient was discharged home and accompanied by medical receptionist assistant. The patient left the Emergency Department ambulatory and via private vehicle. Vehicle Technician driving. Patient has no belongings. --6730 Sophia Castillo L.P.N.. Locked/Released at 06/28/2007 16:11 by Sophia Castillo L.P.N. documented in this encounter Plan of Treatment Not on file documented as of this encounter Visit Diagnoses Not on filedocumented in this encounter Care Teams Clothes Ironer Relationship Specialty Start Date End Date Se Smith MD 1 [facility] 1 [place] [address] PCP - General 02/24/09 02/11/13 documented as of this encounter
--- OUTSIDE RECORDS SUMMARY | 2024-05-20 20:53 | XMS_ITS | Encounter Summary ---
Author Organization [facility] Address [address] [place] [address] Care Team Providers Care Manufacturing Test Engineer Name Role Phone Unavailable Primary Care Provider Unavailabl e Encounter Details Date Type Department Care Team (Late st Contact Info) Description 01/10/2009 15:36 EDT Hospital Encounter [address] [address] Akash Damon MD Weaver, Curtis R, MD [facility] [address] [place] [address] Discharge Disposition: Auto Discharge Social History Tobacco Use Types Packs/Day Years Used Date Smoking Tobacco: Never Assessed Sex and Gender Information Value Date Recorded Sex Assigned at Not on file Gender Identity Not on file Sexual Orientation Not on file documented as of this encounter Discharge Disposition Disposition Code Departure Means Destination Auto Discharge documented in this encounter Plan of Treatment Not on file documented as of this encounter Visit Diagnoses Not on filedocumented in this encounter
--- OUTSIDE RECORDS SUMMARY | 2024-05-20 20:53 | XMS_ITS | Encounter Summary ---
Author Organization [facility] Address [address] [place] [address] Care Team Providers Care [employer] Maintenance Worker Name Role Phone Unavailable Primary Care Provider Unavailabl e Encounter Details Date Type Department Care Team (Latest Contact Info) Description 10/26/2006 14:[address] [facility] Hospital Encounter [address] [address] Serena Grace MD [address] [place] [phone] Ben Britton Jr., CURING PICKLING PACKER Discharge Disposition: Auto Discharge Social History Tobacco [...]
--- OUTSIDE RECORDS SUMMARY | 2024-05-20 20:53 | XMS_ITS | Encounter Summary ---
Author Organization [facility] Address [address] [place] [address] Care Team Providers Care Career Development Coordinator Name Role Phone Se Smith MD Primary Care Provider +1- [phone] Encounter Details Date Type Department Care Team (Late st Contact Info) Description 04/21/2007 Before PRISM Converted Visit (Maple) [facility] - Maple conversion [address] [place] [address] Carrie Liao MD [address] [place] [phone] Social History Tobacco Use Types Packs/Day Years Used Date Smoking Tobacco: Never Assessed Sex and Gender Information Value Date Recorded Sex Assigned at Not on file Gender Identity Not on file Sexual Orientation Not on file documented as of this encounter Plan of Treatment Not on file documented as of this encounter Visit Diagnoses * Evaluation - Carrie Liao - 08/28/2009 2116 EST DIVISION OF GENERAL SURGERY NEW PATIENT EVALUATION - 04/21/2007 PROBLEM Posterior anal fissure. SUBJECTIVE Patient is a 26-year-old male who is under the care of the [facility] and here with a staff submarine warfare officer. He had recently been seen in Dr. Roberto office for bright red blood per rectum. The natureof his symptoms are of perianal pain and bright red blood per rectum with defecation. He does have one to two bowel movements daily but does often strain to move bowels. He had been advised to increase fiber in his diet and fluids to help with straining and sitz baths and, I believe, topical hydrocortisone for perianal treatment. He has had no relief in his symptoms over the last few months. He apparently has had a history of putting foreign objects up his anus a few years ago but denied to and myself that he is currently doing that and denies any anal sex. PAST MEDICAL HISTORY Medical: Significant for injury of his arm in the past for which he had surgery. MEDICATIONS Calcium, Lupron, Seroquel, and Gabi. REVIEW OF SYSTEMS Negative for respiratory, cardiac, ENT, endocrine, GI other than HPI, urinary, skin, hematologic, or musculoskeletal problems. He does have headaches and a history of seizures which are controlled with medication. FAMILY HISTORY He has a mother with breast cancer, unknown age. No history of colonic polyps or cancer. PHYSICAL EXAM Patient is in no acute distress. Weight is 245.4, height is 73 inches. BP 126/68, pulse 68. He was placed in the knee jackknife position. The perianal exam showed no external hemorrhoids, sentinel tags, or dermatitis. Digital rectal exam showed some sphincter spasm and tenderness but no blood or brown stool in the rectal vault. No mass. Anoscopy confirmed posterior anal fissure, no distal rectal masses, or hemorrhoids. ASSESSMENT His symptomatology and physical exam findings are typical and consistent with posterior anal fissure. PLAN 1. Add Citrucel to his current regimen to decrease the straining at stool. 2. Nifedipine 0.2% ointment t.i.d. 3. Followup on a p.r.n. basis. Signed by Carrie Liao MD, FACS 04/28/2007 13:04 Deshawn Liao MD, [id number] Spaulding, MD, FACS Carrie Liao MD, FACS [phone] -Carrie Liao MD, FACS -cd Job ID: [id number] Doc ID: [id number] cc: MD Jose Enrique Ortiz MD documented in this encounter Care Teams Career Development Coordinator Relationship Specialty Start Date End Date Se Smith MD 1 [facility] 1 [place] [address] PCP - General 02/24/09 02/11/13 documented as of this encounter
--- OUTSIDE RECORDS SUMMARY | 2024-05-20 20:53 | XMS_ITS | Encounter Summary ---
Author Organization [facility] Address [address] [place] [address] Care Team Providers Care Senior Agricultural Assistant Name Role Phone Se Smith MD Primary Care Provider +1- [phone] Encounter Details Date Type Department Care Team (Late st Contact Info) Description 02/01/[address] [facility] - Maple conversion [address] [place] [address] Haim Sotelo, MARCIA [address] [address] Social History Tobacco Use Types Packs/Day Years Used Date Smoking Tobacco: Never Assessed Sex and Gender Information Value Date Recorded Sex Assigned at Not on file Gender Identity Not on file Sexual Orientation Not on file documented as of this encounter Progress Notes * Haim Sotelo - 12/09/2009 1224 EST Department - Physician Summary Registration Date/Time: 02/01/2008 11:19 Time Seen: 12:23. Arrived- By private vehicle. Historian- patient. HISTORY OF PRESENT ILLNESS Chief Complaint: RECTAL PAIN and HEMORRHOIDS. This started severalweeks ago, has been moderate and is still present. He has had rectal pain and hard stools. REVIEW OF SYSTEMS No dizziness, faintingepisodes, weakness or fever. All systems otherwise negative, except as recorded above. PAST HISTORY See nurses notes. Medications: The patient's medications have been reviewed. Allergies: The patient's allergies have been reviewed. ADDITIONAL NOTES The nursing notes have been reviewed. PHYSICAL EXAM Appearance: Alert. Oriented X3. Anxious. Patient in mild distress. Vital Signs: Have been reviewed. Respiratory:No respiratory distress. Back: Normal inspection. Rectal: Inflamed external and internal hemorrhoids. Skin: Normal skin color and turgor. Skin warm and dry. No rash. Extremities: Extremities exhibit normal ROM. No lower extremity edema. Neuro: Oriented X 3. PROGRESS AND PROCEDURES ED Attending on duty and available for supervision: Subhash March. Disposition: Condition: good. Discharged home. Discharged home in good condition. CLINICAL IMPRESSION External and internal hemorrhoids. INSTRUCTIONS Your Current Medications: Your current home medications have been reviewed by the Emergency Department physician ward assistant. No changes in your current home medications are recommended at this time. OTC Medications: Take OTC medications according to label instructions. Available over the counter (Preparation H, Tucks Medicated Pads ). Follow-up: Follow up with your doctor as needed. Understanding of the discharge instructions verbalized by patient. Discharge instructions reviewed with and understanding was verbalized by staff. (Electronically signed by Rosa Mujica 02/01/2008 15:05) Department - Nursing Summary Registration Date/Time: 02/01/2008 11:19 TRIAGE Initial Assessment Triage time 11:21 AM. Acuity: LEVEL 4. BP: 118 / 64. HR: 88. RR: 22. Temp: 36.9 tympanic. Alert. --1125 Vidhya Kirk R.N.. Medications (Calcium, Prozac, Citracel, Trazadone). --1125 Vidhya Kirk R.N.. Allergies No known drug allergies. --1125 Vidhya Kirk R.N.. History PAST HX: No infectious disease exposure. SOCIAL HX: Nonsmoker. No alcohol use. Functional assessment performed: wears glasses. Arrived by private vehicle and accompanied by (Karl lucas). Historian: patient. --1125 Vidhya Kirk R.N.. NURSING PROGRESS NOTES (first observed pt resting on stretcher , case packer and sealer from [facility] states pt herefor eval BRBPR ? hemorrhoids ). --1202 Misti Sprague R.N. (pt seen by Mandeep Weathers. --1213 Misti Sprague R.N.. DISPOSITION / DISCHARGE Condition at departure: improved. Patient reports pain level on departure as 2/10. No learning barriers present. Discharge instructions reviewed with the patient and (case packer and sealer ). Reviewed medication (OTC Preparation H or Tucks Medicated pads ). Reviewed referrals (PMD as needed). Patient verbalized understanding. Written instructions provided in Italian. The patient was discharged home and accompanied by case packer and sealer . The patient left the Emergency Department via private vehicle. Driving (case packer and sealer). --1231 Misti Sprague R.N.. Vidhya Sprague R.N. Locked/Released at 02/01/2008 15:41 by Marti Meehan R.N. documented in this encounter Plan of Treatment Not on file documented as of this encounter Visit Diagnoses Not on filedocumented in this encounter Care Teams Senior Agricultural Assistant Relationship Specialty Start Date End Date Se Smith MD 1 [facility] 1 [place] [address] PCP - General 02/24/09 02/11/13 documented as of this encounter
--- OUTSIDE RECORDS SUMMARY | 2024-05-20 20:53 | XMS_ITS | Encounter Summary ---
Author Organization [facility] Address [address] [place] [address] Care Team Providers Care Hematology Technician Name Role Phone Unavailable Primary Care Provider Unavailabl e Encounter Details Date Type Department Care Team (Late st Contact Info) Description 12/20/2008 13:14 [facility] Hospital Encounter [address] [address] Kale Schuster MD [facility] [address] [phone] Social History Tobacco Use Types Packs/Day Years [...]
--- OUTSIDE RECORDS SUMMARY | 2024-05-20 20:53 | XMS_ITS | Encounter Summary ---
Author Organization [facility] Address [address] [place] [address] Care Team Providers Care Block Splitter Operator Name Role Phone Se Smith MD Primary Care Provider +1- [phone] Encounter Details Date Type Department Care Team (Late st Contact Info) Description 09/03/2007 Before PRISM Converted Visit (Maple) [facility] - Maple conversion [address] [place] [address] Justus Watson MD [employer] [address] [place], [place] [id number] Social History Tobacco Use Types Packs/Day Years Used Date Smoking Tobacco: Never Assessed Sex and Gender Information Value Date Recorded Sex Assigned at Not on file Gender Identity Not on file Sexual Orientation Not on file documented as of this encounter Progress Notes * Justus Watson - 08/31/2009 1043 EST Primary Care Internal Medicine [address] [place], [place] [id number] PROGRESS/FOLLOWUP NOTE - 09/03/2007 CURRENT PROBLEM LIST 1. Mental delay. 2. Herpes simplex virus 1. 3. Recurrent folliculitis. CURRENT MEDICATIONS Zyrtec, trazodone at bedtime, Valtrex, and nystatin cream. SUBJECTIVE The patient is a 27-year-old male here for followup from [facility] for folliculitis on bilateral buttocks. The patient was given oral erythromycin, seven-day course, as well as advised to use antibacterial soap. The patients symptoms have improved, but not completely resolved, still with a tender area on the right buttock. REVIEW OF SYSTEMS Review of systems also significant for recent nausea and vomiting for a 48-hour period now resolved. Other people in the retirement also had similar symptoms. See previous notes for past medical, family and social history. OBJECTIVE General: Patient was alert and oriented x3. No acute distress. Cooperative with exam and affect euthymic. Extraocular eye movements are intact. Pupils are equal, round and reactive to light. Moist mucous membranes. No erythema. Neck was supple, no masses, no thyromegaly. There is no cervical or suprascapular lymphadenopathy. Cardiovascular: Regular rate and rhythm, no murmurs, rubs or gallops. Pulmonary: Lungs are clear to auscultation bilaterally. Abdomen was not tender, not distended, positive bowel sounds. Extremities: Normal bulk, 5/5 strength bilateral upper and lower extremities. Skin: There was a mild follicular rash on bilateral buttocks with area of erythema and tenderness on the right buttock. Neuro: Cranial nerves II-XII were intact grossly. Normal gait. Genitourinary: Small amount of erythema in the folds of the groin. ASSESSMENT/PLAN The patient is a 27-year-old male with recurrent folliculitis. Has improved on oral erythromycin treatment, but not completely resolved. The patient is advised to continue wearing loose-fitting clothing, to continue his antibacterial soap. Also use an astringent such as rubbing alcohol to affected area. The patient is to continue nystatin for tinea cruris, and if the folliculitis symptoms worsen, the patient will consider doing nasal swabs for methicillin resistant Staph aureus as well as possible Bactrim treatment. Also physical form was completed for the patient for his retirement. Patient is to followup in the future with Dr. Smith and considering Lupron injections. The patient was discussed with and seen by Dr. Gregg. saw and examined the patient with the resident/fellow. I agree with the findings and plan of care documented in the resident's/fellow's note. I saw and examined the patient with the resident/fellow. I agree with the findings and plan of caredocumented in the resident's/fellow's note. Signed by Deepak Gregg MD 09/10/2007 08:09 Justus Watson MD Deepak Gregg MD - Justus Watson MD - [facility] Job ID: [id number] Doc ID: [id number] cc: - Justus Watson MD - [facility] Job ID: [id number] Doc ID: [id number] cc: documented in this encounter Plan of Treatment Not on file documented as of this encounter Visit Diagnoses Not on filedocumented in this encounter Care Teams Block Splitter Operator Relationship Specialty Start Date End Date Se Smith MD 1 [facility] 1 [place] [address] PCP - General 02/24/09 02/11/13 documented as of this encounter
--- OUTSIDE RECORDS SUMMARY | 2024-05-20 20:53 | XMS_ITS | Encounter Summary ---
Author Organization [facility] Address [address] [place] [address] Care Team Providers Care Pairer Inspector Name Role Phone Se Smith MD Primary Care Provider +1- [phone] Encounter Details Date Type Department Care Team (Late st Contact Info) Description 12/07/2008 Before PRISM Converted Visit (Maple) [facility] - Maple conversion [address] [place] [address] Miri Smith MD [address] [place] [phone] Social History Tobacco Use Types Packs/Day Years Used Date Smoking Tobacco: Never Assessed Sex and Gender Information Value Date Recorded Sex Assigned at Not on file Gender Identity Not on file Sexual Orientation Not on file documented as of this encounter Progress Notes * Miri Smith MD - 05/14/2009 2320 EDT Primary Care Internal Medicine [address] [place] [id number] PROGRESS/FOLLOWUP NOTE - 12/07/2008 CHIEF COMPLAINT Ear pain. SUBJECTIVE Haja comes in today with one week of offand on ear pain in both ears, the left greater than right. Sometimes the pain disappears, but other times it returns. He is currently having some mild discomfort today. He has not had any recent URIs and has not had any fevers or chills. He does not have any change in his hearing or any tinnitus. Otherwise, he is feeling well. He is accompanied today by someone from the health center who works with him. Medical history, medications and allergies were reviewed and updated in the chart. OBJECTIVE In general he is well appearing. Temperature 97.4. Pulse 56. Respirations 12. Blood pressure 114/75. Weight 233 pounds. Pain 2/10 located in both ears. On examination his left and right tympanic membranes both appear, overall within normal limits, although there may be a small amount of fluid bilaterally. There is no erythema. The ear canals appear normal. Oropharynx is clear. There is no sinus tenderness or nasal discharge. ASSESSMENT AND PLAN Ear pain. He has had off and on ear pain over the last week. On exam he may have a very mild serousotitis, but there is no evidence for an acute otitis media at this time. He is recommended to use decongestants and/or his Gabi as needed for his symptoms. His symptoms should be resolving gradually over the next week or two. If he does not having any improving symptoms, or if he has any worsening symptoms, such as fever or increased ear pain, he will call or return. Signed by Miri Smith MD 12/16/2008 10:36 Miri Smith MD - Miri Smith MD - [facility] Job ID: [id number] Doc ID: [id number] cc: documented in this encounter Plan of Treatment Not on file documented as of this encounter Visit Diagnoses Not on filedocumented in this encounter Care Teams Pairer Inspector Relationship Specialty Start Date End Date Se Smith MD 1 [facility] 1 [place] [phone] PCP - General 02/24/09 02/11/13 documented as of this encounter
--- OUTSIDE RECORDS SUMMARY | 2024-05-20 20:53 | XMS_ITS | Encounter Summary ---
Author Organization [facility] Address [address] [place] [address] Care Team Providers Care Form Setter Name Role Phone Unavailable Primary Care Provider Unavailabl e Encounter Details Date Type Department Care Team (Late st Contact Info) Description 10/31/2006 13:32 EST Hospital Encounter [address] [address] Unknown, Provider, Social History Tobacco Use Types [...]
--- OUTSIDE RECORDS SUMMARY | 2024-05-20 20:53 | XMS_ITS | Encounter Summary ---
Author Organization [facility] Address [address] [place] [address] Care Team Providers Care Screen Operator Name Role Phone Unavailable Primary Care Provider Unavailabl e Encounter Details Date Type Department Care Team (Late st Contact Info) Description 02/04/2008 10:56 EDT Hospital Encounter [address] [address] Kale Schuster MD MPH [address] [place] [phone] Social History Tobacco Use Types Packs/Day [...]
--- OUTSIDE RECORDS SUMMARY | 2024-05-20 20:53 | XMS_ITS | Encounter Summary ---
Author Organization [facility] Address [address] [place] [address] Care Team Providers Care Blasting Clay Miner Name Role Phone Unavailable Primary Care Provider Unavailabl e Encounter Details Date Type Department Care Team (Latest Contact Info) Description 11/01/2006 13:03 [facility] Hospital Encounter [address] [address] Se Smith MD [address] [place] [phone] Discharge Disposition: Auto Discharge Social History Tobacco [...]
--- OUTSIDE RECORDS SUMMARY | 2024-05-20 20:53 | XMS_ITS | Encounter Summary ---
Author Organization [facility] Address [address] [place] [address] Care Team Providers Care Oracle Soa Consultant Name Role Phone Se Smith MD Primary Care Provider +1- [phone] Encounter Details Date Type Department Care Team (Late st Contact Info) Description 09/24/2006 Results Only [facility] Pulmonology & Critical Care - [facility] [address] [place] [address] Aleks Galo MD [address] [place] [address] Social History Tobacco Use Types Packs/Day Years Used Date Smoking Tobacco: Never Assessed Sex and Gender Information Value Date Recorded Sex Assigned at Not on file Gender Identity Not on file Sexual Orientation Not on file documented as of this encounter Plan of Treatment Not on file documented as of this encounter Procedures Procedure Name Priority Date/Time Associated Diagnosis Comments THYROID CASCADE Routine 09/24/2006 10:06 EST HIV 1/2 ANTIGEN AND ANTIBODY, 4TH GENERATION Routine 09/24/2006 10:06 EST GLUCOSE, SERUM Routine 09/24/2006 10:06 EST documented in this encounter Results * THYROID CASCADE (09/24/2006 10:06 EST) TSH 2.65 0.35 - 5.00 uIU/mL [facility] Comment: TSH cascade is not recommended for patients in which pituitary or hypothalamic disorders are suspected. 09/24/2006 10:0 6 EST 09/24/2006 10:17 EST Aleks Galo MD CHEMISTRY & BLOOD G ORDERABLES Performing Organization Address [facility] Phone Number [facility] [address] [place] [address] * GLUCOSE, SERUM (09/24/2006 10:06 EST) Glucose, Serum 95 70 - 100 mg/dl [facility] 09/24/2006 10:0 6 EST 09/24/2006 10:17 EST Aleks Galo MD CHEMISTRY & BLOOD G ORDERABLES Performing Organization Address [facility] Phone Number [facility] [address] [address] * HIV ANTIBODY (MIKALA) (09/24/2006 10:06 EST) HIV 1/2 Antibody NONREACT. NR [facility] 09/24/2006 10:0 6 EST 09/24/2006 10:17 EST Aleks Galo MD IMMUNOLOGY AND SERO LOGY ORDERABLES Performing Organization Address [facility] Phone Number [facility] [address] [address] documented in this encounter Visit Diagnoses Not on filedocumented in this encounter Care Teams Oracle Soa Consultant Relationship Specialty Start Date End Date Se Smith MD 1 [facility] 1 [place] [address] PCP - General 02/24/09 02/11/13 documented as of this encounter
--- OUTSIDE RECORDS SUMMARY | 2024-05-20 20:53 | XMS_ITS | Encounter Summary ---
Author Organization [facility] Address [address] [place] [address] Care Team Providers Care Caser [employer] Name Role Phone Unavailable Primary Care Provider Unavailabl e Encounter Details Date Type Department Care Team (Latest Contact Info) Description 06/20/2007 14:46 EDT Hospital Encounter [address] [address] Nerissa Palma FNP [address] [place] [address] Discharge Disposition: Auto Discharge Social History Tobacco [...]
--- OUTSIDE RECORDS SUMMARY | 2024-05-20 20:53 | XMS_ITS | Encounter Summary ---
Author Organization [facility] Address [address] [place] [address] Care Team Providers Care Knit Goods Press Hand Name Role Phone Unavailable Primary Care Provider Unavailabl e Encounter Details Date Type Department Care Team (Latest Contact Info) Description 03/27/2007 14:32 EDT Hospital Encounter [address] [address] Se Smith MD [address] [place] [phone] Discharge Disposition: Auto Discharge Social History Tobacco [...]
--- OUTSIDE RECORDS SUMMARY | 2024-05-20 20:53 | XMS_ITS | Encounter Summary ---
Author Organization [facility] Address [address] [place] [address] Care Team Providers Care Assistant County Attorney Name Role Phone Unavailable Primary Care Provider Unavailabl e Encounter Details Date Type Department Care Team (Latest Contact Info) Description 09/24/2006 10:01 EST - 09/24/2006 11:59 EST Hospital Encounter [address] [address] Se Smith MD [address] [place] [phone] Aleks Galo MD [address] [place] [address] [address] [place] [phone] Discharge Disposition: Auto Discharge Social History Tobacco [...]
--- OUTSIDE RECORDS SUMMARY | 2024-05-20 20:53 | XMS_ITS | Encounter Summary ---
Author Organization [facility] Address [address] [place] [address] Care Team Providers Care Help Desk Support Specialist Name Role Phone Unavailable Primary Care Provider Unavailabl e Encounter Details Date Type Department Care Team (Late st Contact Info) Description 07/02/2008 9:05 EDT - 07/02/2008 11:59 EDT Hospital Encounter [address] [address] Geovanny Garcia MD [address] [place] [address] [address] [place] [phone] Discharge Disposition: Auto Discharge Social History Tobacco [...]
--- OUTSIDE RECORDS SUMMARY | 2024-05-20 20:53 | XMS_ITS | Encounter Summary ---
Author Organization [facility] Address [address] [place] [address] Care Team Providers Care Mushroom Cultivator Name Role Phone Se Smith MD Primary Care Provider +1- [phone] Encounter Details Date Type Department Care Team (Late st Contact Info) Description 02/04/2008 Before PRISM Converted Visit (Maple) [facility] - Maple conversion [address] [place], [place] [phone] Lewis Sandoval MD [address] [place], [place] [address] Social History Tobacco Use Types Packs/Day Years Used Date Smoking Tobacco: Never Assessed Sex and Gender Information Value Date Recorded Sex Assigned at Not on file Gender Identity Not on file Sexual Orientation Not on file documented as of this encounter Progress Notes * Lewis Sandoval - 07/22/2009 0126 EDT Primary Care Internal Medicine [address] [place] [address] PROGRESS/FOLLOWUP NOTE - 02/04/2008 CHIEF COMPLAINT Hemorrhoids. SUBJECTIVE The patient was recently seen in the emergency department three days ago for a chief complaint of rectal pain. He was examination and found to have internal and external hemorrhoids. It was recommended that he use TUCKS pads. The patient reports that he has had good results with using the pads and is here as a followup to that emergency room visit. REVIEW OF SYSTEMS Resolving rectal pain, minimal bleeding. No fevers, chills, nausea, vomiting, MEDICATIONS 1. Cetirizine 10 mg a day, p.r.n. 2. Quetiapine. 3. Calcium supplement. 4. Lupron Depot 11.25 mg. OBJECTIVE Vitals: Pulse 78 and regular. Respiratory rate 20. Blood pressure 120/62. Weight 244 pounds. General: Patient is comfortable in no apparent distress, sitting in his chair. External anal exam: Shows no fissure and no hemorrhoids. Anoscopy was not performed as it was just performed three days ago. ASSESSMENT AND PLAN A 27-year-old withinternal and external hemorrhoids that is responding well to TUCKS medicated pads. I recommended that he continue using them as needed. I explained to him that should his hemorrhoids create a lot of discomfort or if they are unresponsive to TUCKS medicated pads, or if they bleed alot, then I would be happy to refer him to a surgeon. The patient was discussed with Dr. Kale Schuster. discussed the patient with the resident/fellow at the time of the visit. I agree with the findings and the plan of care. Signed by Kale Schuster MD 02/24/2008 11:08 Lewis Sandoval MD Kale Schuster MD - Lewis Sandoval MD - [facility] Job ID: [id number] Doc ID: [id number] cc: Kale Schuster MD documented in this encounter Plan of Treatment Not on file documented as of this encounter Visit Diagnoses Not on filedocumented in this encounter Care Teams Mushroom Cultivator Relationship Specialty Start Date End Date Se Smith MD 1 [facility] Level [address] [place] [address] PCP - General 02/24/09 02/11/13 documented as of this encounter
--- OUTSIDE RECORDS SUMMARY | 2024-05-20 20:53 | XMS_ITS | Encounter Summary ---
Author Organization [facility] Address [address] [place] [address] Care Team Providers Care Assistant Attorney General Name Role Phone Unavailable Primary Care Provider Unavailabl e Encounter Details Date Type Department Care Team (Late st Contact Info) Description 06/15/2008 9:30 EDT - 06/15/2008 11:59 EDT Hospital Encounter [facility] Perioperative Services- [address] [address] Geovanny Garcia MD [address] [place] [address], [address] 5 [place] [phone] Discharge Disposition: Home or Self Care Social History Tobacco Use Types Packs/Day Years Used Date Smoking Tobacco: Never Assessed Sex and Gender Information Value Date Recorded Sex Assigned at Not on file Gender Identity Not on file Sexual Orientation Not on file documented as of this encounter Discharge Disposition Disposition Code Departure Means Destination Home or Self Care documented in this encounter OR Notes * OR Surgeon - Geovanny Garcia MD - 06/15/2008 0000 EDT PROCEDURE REPORT PT TYPE: OPPROC SERVICE DATE: SURGEON: Moisés Garcia MD, FACS LEAD SCIENTIST: PREOPERATIVE DIAGNOSIS Posterior anal fissure and hematochezia. POSTOPERATIVE DIAGNOSIS Posterior anal fissure and normal flexible sigmoidoscopy. PROCEDURE 1. Lateral internal sphincterotomy and fissurectomy. 2. Flexible sigmoidoscopy. ANESTHESIA INDICATIONS Patient is a gentleman with hematochezia and a painful posterior anal fissure scheduled for surgery. FINDINGS 1. Normal flexible sigmoidoscopy to splenic flexure with good prep. 2. Hypertonic internal anal sphincter. 3. Chronic posterior anal fissure. 4. Internal sphincter cut for 5 mm. 5. No trauma to external sphincter. NARRATIVE satisfactory intravenous sedation, the patient was placed in the left lateral decubitus position and a standard local block was performed. After this, flexible sigmoidoscopy was performed to the splenic flexure without difficulty. The scope was withdrawn. The mucosa was inspected. The patient was then prepped and draped in standard fashion,and careful anal and perianal examination was performed digitally and with a Hill-Levine retractor. The fissure was identified in the posterior midline. Local anesthetic was infiltrated underneath it. Following that, local anesthetic was infiltrated in the intersphincteric groove in the left lateral position. A small incision was made in the intersphincteric groove in the left lateral position, and the internal sphincter was identified. It was grasped with an Allis, pulled through the wound, and cut for 5mm. There was no trauma to the external sphincter. The wound was left open. The fissure was then excised with electrocautery. Local anesthetic-soaked gauze and dry sterile dressing were applied. The patient tolerated the procedure well. All needle and sponge counts were correct. Signed by Geovanny Garcia MD, FACS 07/15/2008 11:57 Geovanny Gacria MD, FACS [phone] D: - Geovanny Garcia MD, FACS P - CS Job ID: [id number] Document ID: [id number] cc: Geovanny Garcia MD, FACS Se Smith MD documented in this encounter Plan of Treatment Not on file documented as of this encounter Visit Diagnoses Not on filedocumented in this encounter
--- OUTSIDE RECORDS SUMMARY | 2024-05-20 20:53 | XMS_ITS | Encounter Summary ---
Author Organization [facility] Address [address] [place] [address] Care Team Providers Care Food Production Associate Name Role Phone Se Smith MD Primary Care Provider +1- [phone] Encounter Details Date Type Department Care Team (Late st Contact Info) Description 06/15/2007 Office Visit [facility] - Maple conversion [address] [place] [address] Kale March MD Social History Tobacco Use Types Packs/Day Years Used Date Smoking Tobacco: Never Assessed Sex and Gender Information Value Date Recorded Sex Assigned at Not on file Gender Identity Not on file Sexual Orientation Not on file documented as of this encounter Progress Notes * Sheridan March MD (Richard) - 12/11/2009 1102 EST Department - Physician Summary Registration Date/Time: 06/15/2007 8:51 Time Seen: 09:15. Arrived- By private vehicle. Historian- patient. HISTORY OF PRESENT ILLNESS Chief Complaint- Injury to the left index finger. The injury happened yesterday. He sustained a laceration. Patient is experiencing mild pain. No other injury. REVIEW OF SYSTEMS No swelling, tingling or weakness. PAST HISTORY The patient's dominant hand is the right. SOCIAL HISTORY Nonsmoker. ADDITIONAL NOTES The nursing notes have been reviewed. PHYSICAL EXAM Appearance: Alert. No acute distress. Vital Signs: Have been reviewed. Extremities: Left index finger (1 cm lac on volar service). No wrist injury. No hand injury. Neuro, Vascular and Tendons: Vascular status intact. Sensation intact. Motor intact. Tendon function intact. CLINICAL IMPRESSION Laceration (mid index volar laceration). INSTRUCTIONS 1. Keep the wound clean and dry 2. Wear the splint for comfort. 3. Please take the bandage off and let your wound dry every day. 4. Recheck if swelling or pain or redness to finger.. (Electronically signed by Sheridan March M.D. 06/15/2007 10:47) Department - Nursing Summary Registration Date/Time: 06/15/2007 8:51 TRIAGE Initial Assessment Acuity: LEVEL 4. BP: 118 / 75. HR: 67. RR: 16. Temp: 36.6 tympanic. Alert. No acute distress. --58 Alyssa Batista R.N.. Medications (takes many meds, no list, meds change frequently). --857 Alyssa Batista R.N.. Allergies No known drug allergies. --857 Alyssa Batista R.N.. History Chief Complaint: INJURY TO THE LEFT INDEX FINGER. This occurred yesterday. The patient sustained a laceration (drilled finger while woodworking yesterday). Pain level now: 6/10. PAST HX: Hemorrhoids. Last tetanus: (11/1999). (mental disability). SOCIAL HX: Nonsmoker. No alcohol use. Arrived by private vehicle and accompanied by (staff from [facility]). Historian: patient. --857 Alyssa Batista R.N.. NURSING PROGRESS NOTES (Assumed care of patient at this time. Dr. March in to speak with/eval pt. ). --0903 Lacey Barrow R.N. Wound cleansed with sterile saline and Betadine. Clean dressing consisting of gauze was applied, following the application of antibiotic ointment. Secured with tape. The patient reports no complaintsand the patient is calm. Patient reports current pain level as 1/10. Overall patient status is improved- the patient states feels better. Alert. Oriented X 3. Capillary refill less than 2 seconds. Skin is warm and dry. --09 Ana GardnerN.. DISPOSITION / DISCHARGE Patient reports pain level on departure as 0/10. Condition at departure: improved. Fall risk assessment completed. No fall risk identified. No learning barriers present. Discharge instructions reviewed with the patient and cone operator. Reviewed wound care and splint care instructions. Reviewed referral to family practice for followup. Patient and cone operator verbalized understanding. Written instructions provided in Nepali. The patient was discharged home and accompanied by cone operator. The patient left the Emergency Department ambulatory and via private vehicle. Turret Punch Operator driving. Patient has no belongings. --0924 Lacey Barrow R.N.. Alyssa Lynne Barrow R.N. Locked/Released at 06/15/2007 9:24 by Lacey Barrow R.N. documented in this encounter Plan of Treatment Not on file documented as of this encounter Visit Diagnoses Not on filedocumented in this encounter Care Teams Food Production Associate Relationship Specialty Start Date End Date Se Smith MD 1 [facility] Level [address] [place] [phone] PCP - General 02/24/09 02/11/13 documented as of this encounter
--- OUTSIDE RECORDS SUMMARY | 2024-05-20 20:53 | XMS_ITS | Encounter Summary ---
Author Organization [facility] Address [address] [place] [address] Care Team Providers Care Car Lot Attendant Name Role Phone Se Smith MD Primary Care Provider +1- [phone] Encounter Details Date Type Department Care Team (Late st Contact Info) Description 04/16/2007 Results Only [facility] Adult Primary Care - [address] [address] Se Smith MD 1 [facility] 1 [place] [address] Social History Tobacco Use Types Packs/Day Years Used Date Smoking Tobacco: Never Assessed Sex and Gender Information Value Date Recorded Sex Assigned at Not on file Gender Identity Not on file Sexual Orientation Not on file documented as of this encounter Plan of Treatment Not on file documented as of this encounter Procedures Procedure Name Priority Date/Time Associated Diagnosis Comments TESTOSTERONE Routine 04/16/2007 13:02 EDT documented in this encounter Results * TESTOSTERONE (04/16/2007 13:02 EDT) Testosterone, Total 290 241 - 827 ng/dL [facility] 04/16/2007 13:0 2 EDT 04/16/2007 13:04 EDT Se Smith MD CHEMISTRY & BLOOD GAS ORDERABLES [facility] [address] [place] [address] documented in this encounter Visit Diagnoses Not on filedocumented in this encounter Care Teams Car Lot Attendant Relationship Specialty Start Date End Date Se Smith MD 1 [facility] 1 [place] [phone] PCP - General 02/24/09 02/11/13 documented as of this encounter
--- OUTSIDE RECORDS SUMMARY | 2024-05-20 20:53 | XMS_ITS | Encounter Summary ---
Author Organization [facility] Address [address] [place] [address] Care Team Providers Care Lease Buyer Name Role Phone Niles Smith MD Primary Care Provider +1- [phone] Encounter Details Date Type Department Care Team (Late st Contact Info) Description 06/01/2008 Office Visit [place] - Maple conversion [address] [place] [address] Angelito Chou MD [address] [place] [address], [address] [place] [address] Social History Tobacco Use Types Packs/Day Years Used Date Smoking Tobacco: Never Assessed Sex and Gender Information Value Date Recorded Sex Assigned at Not on file Gender Identity Not on file Sexual Orientation Not on file documented as of this encounter Progress Notes * Angelito Chou MD - 12/09/2009 1812 EST Department - Physician Summary Registration Date/Time: 06/01/2008 12:59 Time Seen: 1350. Arrived- (from [facility]). 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 Referred ([facility]). Note (h/o depression). HISTORY OF PRESENT ILLNESS Chief Complaint- SELF INJURY. This started just prior to arrival. He has exhibited a behavior change. The patient has been angryand violent. Pt got angry about not being able to buy a cell phone, went to his room, smashed a money jar and started cutting his right arm with the shards.. Has been depressed and angry. The patient has had mild visual hallucinations (4 weeks ago). An injury is present.Location- right arm. Pt feel nervous about upcoming anal fissure repair, anxious about family situation (brother in long-term) and about finding placement. Pt denies past suicide attempt, and admits that he only wanted to hurt myself, not kill myself. Pt now denies suicidal and homicidal ideation.. REVIEW OF SYSTEMS The patient has had a mild nonproductive cough (improving from cold had last week). No headache, chest pain or abdominal pain. All systems otherwise negative, except as recorded above. PAST HISTORY Depression. Depression (sexual fantasies (takes Lupron)). Medications: Calcium Supplement - (600mg BID). (Citrucel BID). Fluoxetine (30mg daily). Lupron Depot : 3.75mg (/ month). Trazodone: 50mg at bedtime. The patient's medications have been reviewed with the caregiver. Allergies: No known drug allergies. SOCIAL HISTORY Nonsmoker. No alcohol use or drug use. Has social support (lives at [facility]). Has place to stay ([facility]). FAMILY HISTORY Denies family medical history. ADDITIONAL NOTES The nursing notes have been reviewed. PHYSICAL EXAM Appearance: Alert. No acute distress. Appearance is normal. Anxious. Vital Signs: Have been reviewed. CVS: heart rate and rhythm. Heart sounds normal. Respiratory: Breath sounds normal. Chest nontender. Back: No back tenderness. Skin: Normal skin color. Skin warm and dry. Extremities: Extremities exhibit normal ROM. multiple superficial lacerations on dorsal aspect of right forearm, edges in opposition. Psych / Neuro: Oriented X 3. Speech normal. Cognition normal. Thought process normal. Appears to have visual hallucinations (1 episode of seeing two women talking to each other about him about 4 weeks ago, they went away when he asked them to.). Appears to have delusions (sexual). Denies suicidal thoughts. Patient expresses no phobias or does not express homicidal thoughts or obsessions or compulsions. Insight and judgement normal. PROGRESS AND PROCEDURES PROCEDURES Cleaned wounds on right forearm with sterile saline, applied Bacitracin and dressed withbandaids. E.D. Course: 14:40- discussed case with Kwame from [facility]- will see pt soon.. Consult obtained. Crisis. Consultation performed in ED. Old ED records reviewed. (Discussed with Lars from Crisis who agrees withpt being discharged back to [facility].). Disposition: Discharged home in stable condition (to [facility]). CLINICAL IMPRESSION Multiple superficial abrasions to the right forearm (self-inflicted). INSTRUCTIONS Warnings: GENERAL WARNINGS: Return or contact your physician immediately if your condition worsens or changesunexpectedly, if not improving as expected, or if other problems arise. Your Current Medications: Continue current medications. Follow-up: NILES SMITH MD, , [facility], [address] [place] [address]. Follow up as needed. (Electronically signed by Angelito Chou M.D. 06/02/2008 9:37) Department - Nursing Summary Registration Date/Time: 06/01/2008 12:59 TRIAGE Initial Assessment Triage time 13:01. Acuity: LEVEL 3. BP: 130 / 74. HR: 88. RR: 12. Temp: 36 C. --1302 Rhonda Kelley R.N.. Medications (trazadone 50 mg hs fluoxitine lupron inj ). --1302 Rhonda Kelley R.N.. History Chief Complaint: DEPRESSED and SELF-INJURY. This occurred just prior to arrival. Pain level now: 03/30. 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 PAST HX: Previous psychiatric treatment and suicide attempts. (with case making machine operator ). Arrived by private vehicle. --1302 Rhonda Kelley R.N.. NURSING PROGRESS NOTES ([facility] with pt to see kwame). --1314 Rhonda Kelley R.N. Pt. placed in paper scrubs, charge nurse aware of need for sitter.. --1322 Yehuda Astudillo R.N. Pt. sitting on stretcher, crisis and psychiatric social worker at bedside.. The patientreports no complaints and the patient is calm and resting quietly. --1401 Yehuda Astudillo R.N. 1:1 sitter.. --1429 Ana LionNKaushal late entry - 1600. (Pt w/ crisis team counseler). --1637 Luci Watters R.N. (Per Dr. Escobar- for d/c). The patient is calm. Patient reports current pain level as 2/10. --1637 Luci Watters R.N.. DISPOSITION / DISCHARGE BP: 140 / 70 sitting. HR: 74. RR:18. Temp: 98.4 oral. Condition at departure: stable. Patient reports pain level on departure as 2/10. Fall risk assessment completed. No fall risk identified. No learning barriers present. Discharge instructions reviewed with the patient. Reviewedwound care instructions (for abrasions on right arm). Reviewed referrals (psychiatric per crisis team). Patient verbalized understanding. Written instructions provided in Japanese. The patient was discharged home and accompanied by civil process server. The patient left the Emergency Department ambulatory and via private vehicle.Physician Office Secretary driving. --1636 Luci Watters R.N.. Evelio Bob R.N., R.N. Locked/Released at 06/02/2008 6:11 by Elaine Oliva R.N. documented in this encounter Plan of Treatment Not on file documented as of this encounter Visit Diagnoses Not on filedocumented in this encounter Care Teams Lease Buyer Relationship Specialty Start Date End Date Niles Smith MD 1 [facility] 1 [place] [phone] PCP - General 02/24/09 02/11/13 documented as of this encounter
--- OUTSIDE RECORDS SUMMARY | 2024-05-20 20:53 | XMS_ITS | Encounter Summary ---
Author Organization [facility] Address [address] [place] [address] Care Team Providers Care Shop Tailor Name Role Phone Unavailable Primary Care Provider Unavailabl e Encounter Details Date Type Department Care Team (Late st Contact Info) Description 05/24/2006 13:55 EDT Hospital Encounter [address] [address] Se Smith MD [address] [place] [phone] Social History Tobacco Use Types Packs/Day Years [...]
--- OUTSIDE RECORDS SUMMARY | 2024-05-20 20:53 | XMS_ITS | Encounter Summary ---
Author Organization [facility] Address [address] [place] [address] Care Team Providers Care Joy Operator Helper Name Role Phone Se Smith MD Primary Care Provider +1- [phone] Encounter Details Date Type Department Care Team (Late st Contact Info) Description 03/28/2008 Before PRISM Converted Visit (Maple) [facility] - Maple conversion [address] [place], [place] [address] Jc North MD [address] [place], [place] [address] Social History Tobacco Use Types Packs/Day Years Used Date Smoking Tobacco: Never Assessed Sex and Gender Information Value Date Recorded Sex Assigned at Not on file Gender Identity Not on file Sexual Orientation Not on file documented as of this encounter Progress Notes * Jc North MD - 07/22/2009 0650 EDT Primary Care Internal Medicine [address] [place] [id number] PROGRESS/FOLLOWUP NOTE - 03/28/2008 CHIEF COMPLAINT Rectal bleed. SUBJECTIVE The patient presents today for evaluation of one episode of rectal bleeding he had earlier today after taking a bowel movement. The patient has a long history of intermittent rectal bleeding and as diagnosed with internal and external hemorrhoids in January of 2008 during a visit to the [facility] emergency department. At that time he was placed on a high fiber diet, provided with fiber supplementation and had recommendation to use Tuckpads for symptomatic relief. The patient reports improvement of his symptoms, diminishment of rectal bleeding over the past two months until today. Todays episode included a ???large amount of bright red blood in the toilet.?? The patient was concerned that something different was going on and wanted to be evaluated. He denies pain either in the rectal anal region or in his abdomen. He also denies nausea, fever, chills, night sweats. REVIEW OF SYSTEMS GI see above. Constitutional no fever, chills, night sweats. Cardiovascular no chest pain, palpitations. Respiratory no cough, wheezing, shortness of breath. Neuro no weakness, numbness, tingling. Musculoskeletal friedman no arthralgias, myalgias. MEDICATIONS 1. Lupron. 2. Depo 11.25 mg every three weeks. 3. Metamucil supplementation once a day. 4. Calcium supplementation. 5. Quetiapine. OBJECTIVE Vitals: Temperature 98.9, pulse 80 and regular respiratory rate 18, blood pressure 120/70. His weight is 241??. In general the patient is a young man who appears comfortable and is appropriately interactive, somewhat blunt in affect but no apparent distress. Cardiovascular regular rate and rhythm, no murmurs, rubs or gallops. Respiratory lungs clear to auscultation bilaterally, no wheeze, rhonchi or rales. GI Abdomen is soft and nontender and nondistended, quiet bowel sounds, no hepatosplenomegaly present. Anal exam remarkable for dried blood round anal verge as well as multiple small external hemorrhoids, no fissures, ulcers, growths, red blood present however. No digital rectal exam was performed at this time. ASSESSMENT/PLAN This is a 27-year-old gentleman whose past medical history is significant for developmental delay, history of behavioral issues on Lupron for addressing behavioral issues and long history of intermittent rectal bleeding and other associated issues presenting today with one episode of bright red blood per rectum likely associated with internal hemorrhoidal bleed. The patient is currently afebrile,stable, asymptomatic but concerned about ongoing management of this problem. 1. Rectal bleed. Will increase his fiber supplementation, i.e., Metamucil to twice a day. Also encouraged patient to continue eating a diet high in fiber. Will refer patient to general surgery today for further evaluation of his hemorrhoids and assessment for possible banding. The patient is to followup in this office as necessary. His case was discussed with Dr. Ortiz. I discussed the patient with the resident/fellow at the time of the visit. I agree with the findings and the plan of care. Signed by Mathieu Ortiz MD 05/21/2008 18:24 Jc North MD Mathieu Ortiz MD - Porfirio North MD - DAVID Job ID: [id number] Doc ID: [id number] cc: - Jc North MD - david Job ID: [id number] Doc ID: [id number] cc: documented in this encounter Plan of Treatment Not on file documented as of this encounter Visit Diagnoses Not on filedocumented in this encounter Care Teams Joy Operator Helper Relationship Specialty Start Date End Date Se Smith MD 1 [facility] 1 [place] [phone] PCP - General 02/24/09 02/11/13 documented as of this encounter
--- OUTSIDE RECORDS SUMMARY | 2024-05-20 20:53 | XMS_ITS | Encounter Summary ---
Author Organization [facility] Address [address] [place] [address] Care Team Providers Care Trim Operator Name Role Phone Unavailable Primary Care Provider Unavailabl e Encounter Details Date Type Department Care Team (Latest Contact Info) Description 11/22/2008 13:06 [facility] Hospital Encounter [address] [address] Akash Damon MD [place], Heather Todd, [facility] Discharge Disposition: Auto Discharge Social History Tobacco [...]
--- OUTSIDE RECORDS SUMMARY | 2024-05-20 20:53 | XMS_ITS | Encounter Summary ---
Author Organization [facility] Address [address] [place] [address] Care Team Providers Care Auto Clocks Repairer Name Role Phone Unavailable Primary Care Provider Unavailabl e Encounter Details Date Type Department Care Team (Latest Contact Info) Description 02/01/2008 11:21 EDT - 02/01/2008 11:59 EDT Hospital Encounter [facility] Emergency Department - [facility] [address] [place] [address] Emergency, Default, MD Discharge Disposition: Home or Self Care Social History Tobacco Use Types Packs/Day Years Used Date Smoking Tobacco: Never Assessed Sex and Gender Information Value Date Recorded Sex Assigned at Not on file Gender Identity Not on file Sexual Orientation Not on file documented as of this encounter Discharge Disposition Disposition Code Departure Means Destination Home or Self Care documented in this encounter Plan of Treatment Not on file documented as of this encounter Visit Diagnoses Not on filedocumented in this encounter
--- OUTSIDE RECORDS SUMMARY | 2024-05-20 20:53 | XMS_ITS | Encounter Summary ---
Author Organization [facility] Address [address] [place] [address] Care Team Providers Care Drilling Engineering Manager Name Role Phone Unavailable Primary Care Provider Unavailabl e Encounter Details Date Type Department Care Team (Latest Contact Info) Description 09/10/2008 15:52 EST Hospital Encounter [address] [address] Se Smith MD [address] [place] [phone] Unknown, Provider, Discharge Disposition: Auto Discharge Social History Tobacco [...]
--- OUTSIDE RECORDS SUMMARY | 2024-05-20 20:53 | XMS_ITS | Encounter Summary ---
Author Organization [facility] Address [address] [place] [address] Care Team Providers Care Game Tester Name Role Phone Se Smith MD Primary Care Provider +1- [phone] Encounter Details Date Type Department Care Team (Late st Contact Info) Description 07/02/2008 Before PRISM Converted Visit (Maple) [facility] - Maple conversion [address] [place] [address] Geovanny Garcia MD [address] [facility], [address] [place] [phone] Social History Tobacco Use Types Packs/Day Years Used Date Smoking Tobacco: Never Assessed Sex and Gender Information Value Date Recorded Sex Assigned at Not on file Gender Identity Not on file Sexual Orientation Not on file documented as of this encounter Progress Notes * Geovanny Garcia MD - 05/12/2009 0951 EDT DIVISION OF GENERAL SURGERY PROGRESS/FOLLOWUP NOTE - 07/02/2008 PROBLEM Status post sphincterotomy for anal fissure. SUBJECTIVE He is doing well, less anal pain, occasional bleeding. OBJECTIVE Perianal examination reveals the sphincterotomy site to be healing with some granulation tissue. Itis treated with silver nitrate today. There is also a slightly inflamed pimple on the right buttocks. IMPRESSION/PLAN 1. Doing well status post sphincterotomy. Patient encouraged to avoid constipation and follow up p.r.n. 2. Slight red pimple in the right buttocks. Patient informed that this should resolve on itown. He states he has had several of these in the past. I have encouraged him and his care worker to perhapsfollowup with primary care and have educated him about methicillin resistant Staphylococcus aureus. Signed by Geovanny Garcia MD, FACS 07/15/2008 12:00 Geoavnny Garcia MD, FACS [phone] - Geovanny Garcia MD, FACS - Job ID: [id number] Doc ID: [id number] cc: Se Smith MD documented in this encounter Plan of Treatment Not on file documented as of this encounter Visit Diagnoses Not on filedocumented in this encounter Care Teams Game Tester Relationship Specialty Start Date End Date Se Smith MD 1 [facility] 1 [place] [phone] PCP - General 02/24/09 02/11/13 documented as of this encounter
--- OUTSIDE RECORDS SUMMARY | 2024-05-20 20:53 | XMS_ITS | Encounter Summary ---
Author Organization [facility] Address [address] [place] [address] Care Team Providers Care Bell Attendant Name Role Phone Unavailable Primary Care Provider Unavailabl e Encounter Details Date Type Department Care Team (Late st Contact Info) Description 11/27/2007 11:[address] [facility] Hospital Encounter [address] [address] Se Smith MD [address] [place] [phone] Social History Tobacco Use Types Packs/Day Years [...]
--- OUTSIDE RECORDS SUMMARY | 2024-05-20 20:53 | XMS_ITS | Encounter Summary ---
Author Organization [facility] Address [address] [place] [address] Care Team Providers Care Bleach Chlorinator Name Role Phone Se Smith MD Primary Care Provider +1- [phone] Encounter Details Date Type Department Care Team (Late st Contact Info) Description 09/10/2008 Before PRISM Converted Visit (Maple) [facility] - Maple conversion [address] [place] [address] Jose Enrique Maguire MD [address] [facility] [address] [place] [phone] Social History Tobacco Use Types Packs/Day Years Used Date Smoking Tobacco: Never Assessed Sex and Gender Information Value Date Recorded Sex Assigned at Not on file Gender Identity Not on file Sexual Orientation Not on file documented as of this encounter Plan of Treatment Not on file documented as of this encounter Visit Diagnoses * Evaluation - Jose Enrique Maguire MD - 05/14/2009 0602 EDT Primary Care Internal Medicine [address] [place] [address] [id number] HEALTH MAINTENANCE EXAMINATION - 09/10/2008 REASON FOR VISIT Physical exam, annual. 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 He presents to clinic today for his annualphysical exam. The patient has absolutely no complaints, and says he is doing quite well. He reports that he has recently had some mild chills and a mild sore throat as well as a cough without any significant production. He denies any GI or symptoms. I asked him about vaccinations and I reviewed the record. It appears that he is due for a flu shot this year, but his tetanus vaccination is completely up to date. He completed the hepatitis B vaccine series in 1994. His cholesterol was last checked in 2005, and therefore he is not due at this time. He had HIV screening in 2005, as well. Of note, in May 2008, the patient was seen by Dr Farris and had a lateral internal sphincterotomy and fissurectomy, as well as a flexible sigmoidoscopy for a posterior anal fissure. He states that he has been doing quite well since the operation and no longer has any bright red blood per rectum or anal pain, of which he had been complaining previously. 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 The patient denies any significant alcohol use at this time. MEDICATIONS 1. Cetirizine 10 mg p.o. daily. 2. Calcium 600 mg p.o. b.i.d. 3. Lupron Depot 3.75 mg IM monthly. 4. Citrucel b.i.d. 5. Trazodone 50 mg p.o. at bedtime. 6. Rubbing alcohol to buttocks b.i.d. ALLERGIES No known drug allergies. EXAM Vital signs: Pulse 80, respiratory rate 20, and blood pressure 118/62. Weight 234 pounds. HEENT: Pupils equal, round, and reactive to light. Extraocular movements intact. Mucous membranes moist. No oropharyngeal lesions. Bilateral external auditory canals are clear without significant cerumen. Bilateral tympanic membranes show evidence of scarring consistent with prior tympanostomy tubes that were removed as a child. Lungs: Clear to auscultation bilaterally; no wheezes, rales, or rhonchi appreciated. Cardiac: Regular rate and rhythm, S1 and S2; no murmurs, gallops, or rubs; no elevated JVD; no lower extremity edema. Abdomen: Soft, nontender all four quadrants, no organomegaly, normoactive bowel sounds. Neuro: Cranial nerves II-XII functionally intact. Strength, sensation, and reflexes intact, bilateral upper and lower extremities. ASSESSMENT AND PLAN The patient is a 28-year-old male with medical problems as described above who presents to clinic today for physical exam. PROBLEM 1: HEALTH MAINTENANCE. The patient has an essentially normal physical exam today. I reviewed his shot records and he is due for a flu shot today, which he will get. I discussed with the patient the importance of wearing a seatbelt while in a vehicle as well as a bike helmet while riding a bike. The patient expresses understanding. He should return in one year for a followup physical exam. I filled out a record for the [facility] reflecting this examination, which I returned to the patient. The patient was discussed in full with Dr Se Smith. discussed the patient with the resident/fellow at the time of the visit. I agree with the findings and the plan of care. Signed by Se Smith MD 10/21/2008 15:22 Jose Enrique Maguire MD Se Smith MD - Jose Enrique Maguire MD - Job ID: [id number] Doc ID: [id number] cc: documented in this encounter Care Teams Bleach Chlorinator Relationship Specialty Start Date End Date Se Smith MD 1 [facility] [place] 1 [place] [address] PCP - General 02/24/09 02/11/13 documented as of this encounter
--- OUTSIDE RECORDS SUMMARY | 2024-05-20 20:53 | XMS_ITS | Encounter Summary ---
Author Organization [facility] Address [address] [place] [address] Care Team Providers Care Computer Technical Specialist Name Role Phone Se Smith MD Primary Care Provider +1- [phone] Encounter Details Date Type Department Care Team (Late st Contact Info) Description 06/16/2007 Before PRISM Converted Visit (Maple) [facility] - Maple conversion [address] [place] [address] Carrie Liao MD [address] [place] [phone] Social History Tobacco Use Types Packs/Day Years Used Date Smoking Tobacco: Never Assessed Sex and Gender Information Value Date Recorded Sex Assigned at Not on file Gender Identity Not on file Sexual Orientation Not on file documented as of this encounter Progress Notes * Carrie Liao - 08/26/2009 1812 EST DIVISION OF GENERAL SURGERY PROGRESS/FOLLOWUP NOTE - 06/16/2007 PROBLEM Perianal pain. SUBJECTIVE The patient was seen by me about two months ago for posterior anal fissure. He has been on nifedipine ointment and then switched to nitroglycerin ointment recently. He says his pain had resolved for a period of time and then recurred. He complains of headaches with the nitroglycerin ointment. OBJECTIVE On physical examination the patient is in no acute distress. He is placed in the knee chest position. His perianal exam shows approximately 3 centimeter rim of erythematous skin around the perianal area. There was no evidence of persistent anal fissure. ASSESSMENT Resolved anal fissure. His current pain may be either related to this mild dermatitis which could possibly be secondary to reaction to the topical medications that he has been on. He may also have some persistent sphincter spasm, although there is no clinical evidence of this. PLAN 1. Discontinue any topical ointments in the area and perhaps if the erythema doesnt resolve try hydrocortisone in the future. Signed by Carrie Liao MD, FACS 06/18/2007 14:24 Deshawn Liao MD, [id number] Spaulding, MD, FACS Carrie Liao MD, FACS [phone] -Carrie Liao MD, FACS -cmd Job ID: [id number] Doc ID: [id number] cc: MD Se Persaud MD documented in this encounter Plan of Treatment Not on file documented as of this encounter Visit Diagnoses Not on filedocumented in this encounter Care Teams Computer Technical Specialist Relationship Specialty Start Date End Date Se Smith MD 1 [facility] 1 [place] [phone] PCP - General 02/24/09 02/11/13 documented as of this encounter
--- OUTSIDE RECORDS SUMMARY | 2024-05-20 20:53 | XMS_ITS | Encounter Summary ---
Author Organization [facility] Address [address] [place] [address] Care Team Providers Care Fiberglass Boat Assembly Supervisor Name Role Phone Unavailable Primary Care Provider Unavailabl e Encounter Details Date Type Department Care Team (Latest Contact Info) Description 06/28/2007 14:10 EDT Hospital Encounter [address] [address] Alayna Liang MD Discharge Disposition: Auto Discharge Social History Tobacco [...]
--- OUTSIDE RECORDS SUMMARY | 2024-05-20 20:53 | XMS_ITS | Encounter Summary ---
Author Organization [facility] Address [address] [place] [address] Care Team Providers Care Department Supervisor Name Role Phone Se Smith MD Primary Care Provider +1- [phone] Encounter Details Date Type Department Care Team (Late st Contact Info) Description 09/02/2006 Before PRISM Converted Visit (Maple) [facility] - Maple conversion [address] [place] [address] Aleks Galo MD [address] [place] [address] Social History Tobacco Use Types Packs/Day Years Used Date Smoking Tobacco: Never Assessed Sex and Gender Information Value Date Recorded Sex Assigned at Not on file Gender Identity Not on file Sexual Orientation Not on file documented as of this encounter Progress Notes * Aleks Galo - 10/14/2009 1505 EST Primary Care Internal Medicine [address] [place] [id number] PROGRESS/FOLLOWUP NOTE - 09/02/2006 SUBJECTIVE: This is a 26-year-old white male who presents to [facility] clinic complaining of episodic dizziness, especially when he is in a car. The patient details that he actually feels a sense of nauseawhen he is driving in a car consistent with motion sickness. He states that he was instructed to use Dramamine, but has never tried it before, and would like a second opinion. The patient also statesthat occasionally, he gets symptoms of dizziness that are characterized by vertigo episodes where he feels like the room is spinning. He details that the door locks or the TV will start spinning. He states that those symptoms are accompanied by nausea, and there is no evidence of tinnitus. The patient states that these acute episodes of dizziness started within the last 2 weeks, and is not associated with any upper respiratory symptoms, fevers, chills, or night sweats. REVIEW OF SYSTEMS: Constitutional: No fevers, chills or night sweats. Eyes: No visual changes. ENT: No sore throat, mouth pain or dysphagia. Cardiovascular: No chest pain or palpitations. Respiratory: No shortness of breath, cough. GI: Positive for nausea during episodes of vertigo, no vomiting, diarrhea, constipation, or abdominal pain. : No bowel or bladder dysfunction. Musculoskeletal: No myalgias or arthralgias. Skin and breasts: No new rashes. Neurologic: No weakness. 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 Heme and lymph: No history of anemia. Allergies and immunology: No history of immunodeficiency disorder. ALLERGIES: MEDICATIONS PLEASE SEE PRIOR DICTATED NOTES OR PRIOR NOTES IN CHART. PAST MEDICAL HISTORY, FAMILY HISTORY, SOCIAL HISTORY: Please see prior notes in chart. OBJECTIVE: Vital signs: Afebrile at 98 degrees, blood pressure 126/72, pulse 88, respiratory rate 16, General: No acute distress. Alert and oriented x3. HEENT: Normocephalic, atraumatic. Pupils equal, round and reactive to light and accommodation with thick glasses. Neck: No JVD, no LAD, no thyromegaly. Cardiovascular: Regular rate and rhythm, S1, S2 present with prominent A2P2. Lungs clear to auscultation bilaterally. Abdomen nontender, nondistended, soft, positive bowel sounds. Extremities: No clubbing, cyanosis or edema. Neurologic: Cranial nerves II-XII are intact. Motor and sensory: Strength intact in upper and lower extremities. Sensory intact in upper and lower extremities, includingfine motor skills. Cerebellar examination is also intact. Mtaook-mwqa-nezizbcxhuaq. Alternating hands intact, and heel-mix intact. Gait was tested, but limited to walking on toes, and regular gait was normal. ASSESSMENT/PLAN: A 26-year-old old white male with a significant past medical history of behavioraldisorder on Lupron and recently discontinued Seroquel who presents with a history of motion sickness intermittently from sitting in a car and also (BPPV) benign paroxysmal positional vertigo. 1.The patient's history is consistent with vertigo that is alleviated by keeping his head still andworsened with particular positions. The patient states that these are most characteristically described as the room spinning. The patient is recommended to use Dramamine [id number], and the patient is instructed to return to clinic if symptoms worsen. This patient was discussed with Dr. Karena Moss. Attending: Primary Care exemption: I discussed case with resident during patient visit and I agree with above. Signed by Karena Moss MD 09/21/2006 18:55 Natacha Gilbert MDUrsula A McVeigh, MD Dictated by: Aleks Galo MD Karena Moss MD - MD [facility] - LT Job ID: [id number] Document ID: [id number] cc: documented in this encounter Plan of Treatment Not on file documented as of this encounter Visit Diagnoses Not on filedocumented in this encounter Care Teams Department Supervisor Relationship Specialty Start Date End Date Se Smith MD 1 [facility] 1 [place] [phone] PCP - General 02/24/09 02/11/13 documented as of this encounter
--- OUTSIDE RECORDS SUMMARY | 2024-05-20 20:53 | XMS_ITS | Encounter Summary ---
Author Organization [facility] Address [address] [place] [address] Care Team Providers Care Stock Analyst Name Role Phone Unavailable Primary Care Provider Unavailabl e Encounter Details Date Type Department Care Team (Latest Contact Info) Description 07/13/2006 13:56 EDT Hospital Encounter [address] [address] Mariela Sosa MD Discharge Disposition: Auto Discharge Social History [...]
--- OUTSIDE RECORDS SUMMARY | 2024-05-20 20:53 | XMS_ITS | Encounter Summary ---
Author Organization [facility] Address [address] [place] [address] Care Team Providers Care International Project Manager Name Role Phone Se Smith MD Primary Care Provider +1- [phone] Encounter Details Date Type Department Care Team (Late st Contact Info) Description 05/07/2008 Before PRISM Converted Visit (Maple) [facility] - Maple conversion [address] [place] [address] Geovanny Garcia MD 111 [facility] 5 [place] [phone] Social History Tobacco Use Types Packs/Day Years Used Date Smoking Tobacco: Never Assessed Sex and Gender Information Value Date Recorded Sex Assigned at Not on file Gender Identity Not on file Sexual Orientation Not on file documented as of this encounter Consult Notes * Geovanny Garcia MD - 07/22/2009 1143 EDT DIVISION OF GENERAL SURGERY CONSULTATION - 05/07/2008 Requesting physician: Se Smith MD Consulting physician: Geovanny Garcia MD INDICATION FOR CONSULTATION Pain and bleeding with defecation. HISTORY OF PRESENT ILLNESS Patient is a 27-year-old gentleman with pain and bleeding with defecation. Patient has had this intermittently in the past and has been diagnosed with an anal fissure and with hemorrhoids. He has been treated with nifedipine without any significant improvement. Patient is intermittently constipation. He does not have change in bowel habits. He has occasional bright red blood per rectum. He does not have diarrhea, fatigue, weight loss or other systemic symptoms. He does not have fecal incontinence. CURRENT MEDICATIONS Calcium, Lupron injections, ibuprofen, Seroquel, and Gabi. ALLERGIES No known drug allergies. SOCIAL HISTORY Patient lives in assisted living facility and is here today with a international project manager. PAST MEDICAL HISTORY Positive for some type of sexual fantasies, which are suppressed by Lupron. FAMILY HISTORY Noncontributory but is negative for colorectal cancer. PHYSICAL EXAM HEENT exam is unremarkable. Lungs are clear. Cardiac exam is regular rate and rhythm. Abdomen is soft, nontender, no palpable masses. Extremity, neurologic, and vascular exams are normal. Skin exam reveals no rashes. Groin exam reveals no lymphadenopathy. External anal exam reveals a posterior anal fissure. Digital exam confirms normal sphincter tone and tenderness in the posterior midline. IMPRESSION Symptomatic chronic posterior anal fissure. Options discussed with the patient and his international project manager. Options include nifedipine, Botox, or lateralinternal sphincterotomy. After significant discussion, we will likely plan lateral internal sphincterotomy. Risks, including hemorrhage, infection, incontinence, and recurrence, explained to the patient and to his caregiver. He will discuss this with his father and we will tentatively plan surgery for the end of the summer or early June. Signed by Geovanny Garcia MD, FACS 05/20/2008 10:48 Geovanny Garcia MD, FACS [phone] - Geovanny Garcia MD, FACS - Job ID: [id number] Doc ID: [id number] cc: Se Smith MD documented in this encounter Plan of Treatment Not on file documented as of this encounter Visit Diagnoses Not on filedocumented in this encounter Care Teams International Project Manager Relationship Specialty Start Date End Date Se Smith MD [address] [facility] 1 [place] [phone] PCP - General 02/24/09 02/11/13 documented as of this encounter
--- OUTSIDE RECORDS SUMMARY | 2024-05-20 20:53 | XMS_ITS | Encounter Summary ---
Author Organization [facility] Address [address] [place] [address] Care Team Providers Care Cigar Roller Name Role Phone Unavailable Primary Care Provider Unavailabl e Encounter Details Date Type Department Care Team (Latest Contact Info) Description 04/21/2007 9:44 EDT - 04/21/2007 11:59 EDT Hospital Encounter [facility] [address] [place] [address] Carrie Liao MD [address] [place] [phone] Discharge Disposition: Auto Discharge Social History Tobacco [...]
--- OUTSIDE RECORDS SUMMARY | 2024-05-20 20:53 | XMS_ITS | Encounter Summary ---
Author Organization [facility] Address [address] [place] [address] Care Team Providers Care Photogrammetrist Name Role Phone Unavailable Primary Care Provider Unavailabl e Encounter Details Date Type Department Care Team (Late st Contact Info) Description 03/26/2008 14:41 EDT Hospital Encounter [address] [address] Mathieu Ortiz MD 1 [place] [phone] Jc North MD [address] [place] [address] Discharge Disposition: Auto Discharge Social History Tobacco [...]
--- OUTSIDE RECORDS SUMMARY | 2024-05-20 20:53 | XMS_ITS | Encounter Summary ---
Author Organization [facility] Address [address] [place] [address] Care Team Providers Care Technician Assistant Name Role Phone Unavailable Primary Care Provider Unavailabl e Encounter Details Date Type Department Care Team (Latest Contact Info) Description 04/21/2008 12:33 EDT Hospital Encounter [address] [address] Se Smith MD [address] [place] [phone] Discharge Disposition: Auto Discharge Social History Tobacco [...]
--- OUTSIDE RECORDS SUMMARY | 2024-05-20 20:53 | XMS_ITS | Encounter Summary ---
Author Organization [facility] Address [address] [place] [address] Care Team Providers Care Training Mgr Name Role Phone Se Smith MD Primary Care Provider +1- [phone] Encounter Details Date Type Department Care Team (Late st Contact Info) Description 03/27/2007 Before PRISM Converted Visit (Maple) [facility] - Maple conversion [address] [place] [address] Jose Enrique Maguire MD [address] [facility] [address] [place] [phone] Social History Tobacco Use Types Packs/Day Years Used Date Smoking Tobacco: Never Assessed Sex and Gender Information Value Date Recorded Sex Assigned at Not on file Gender Identity Not on file Sexual Orientation Not on file documented as of this encounter Progress Notes * Jose Enrique Maguire MD - 08/28/20092040 EST Primary Care Internal Medicine [address] [place] [id number] PROGRESS/FOLLOWUP NOTE - 03/27/2007 CHIEF COMPLAINT Rectal bleeding. SUBJECTIVE The patient is a 26-year-old male who presents to clinic today complaining of rectal bleeding for the past three weeks. The patient reports that he notices blood on his toilet paper, and states that the amount of blood is significant. The patient denies bright red blood in the toilet or mixedin thestool. The patient does have a history of putting objects in his anus, and reports that he was seenby a unit manager convenience stores two years ago. The patient reports at that time, he had been putting pens in his anus. He states that he has not participatedin this behavior for the past two years. He deniesany recent anal trauma, and denies any receptive anal sex. The patient does report that his bowel movements are occasionally hard, and states that they sometimes burn while having a bowel movement. The patient was seen recently at this clinic with the same complaint, on February 10, 2007. At that time, an examination was done externally, and no fissures, skin tags, or hemorrhoids were identified. The thought at that time was that the patientsymptoms are most likely secondary to bleeding internal he morrhoids. Sitz bath and topical hemorrhoidal ointment were recommended. The patient reports that his symptoms are about the same as they were, when he was here last. OBJECTIVE Exam: Temperature 99.0, pulse 86, respiratory rate 16, blood pressure 120/60. Rectal Exam: On external exam there are no visible fissures, external hemorrhoids, masses, skin tags. There are several small skin tears in the perianal region, which are mildly tender. The skin tears are superficial and are not bleeding. Internal rectal exam was deferred at this time. ASSESSMENT AND PLAN A 26-year-old male with a three week history of bright red blood per rectum on the paper. The patient does have a history of placing foreign bodies in his anus. Examination significant for small superficial skin tears, but no external hemorrhoids are identified, no fissures or skin tags are identified. At this time, we recommend that patient continue sitz baths at home. We offered to refer patient to colorectal surgeon clinic for further evaluation, if he is concerned, although we expressed that his findings are very nonspecific and not necessarily concerning for a malignant process. The patient does relate that he would prefer to be evaluated by a colorectal specialist. We will refer patient to colorectal surgery clinic for further internal examination. Patient did present to clinic today accompanied by a [facility] case management assistant. Recommendations were discussed with patient and with the case management assistant at patients request. The patient discussed in full with Dr. Se Smith. saw and examined the patient with the resident/fellow. I agree with the findings and plan of care documented in the resident's/fellow's note. Signed by Se Smith MD 07/04/2007 11:00 Lidia Lackey, Dawn Smith MD Dictated by: Jose Enrique Maguire MD Se Smith MD - Jose Enrique Maguire MD - william Job ID: [id number] Doc ID: [id number] cc: - Jose Enrique Maguire MD - william Job ID: [id number] Doc ID: [id number] cc: documented in this encounter Plan of Treatment Not on file documented as of this encounter Visit Diagnoses Not on filedocumented in this encounter Care Teams Training Mgr Relationship Specialty Start Date End Date Se Smith MD 1 [facility] 1 [place] [address] PCP - General 02/24/09 02/11/13 documented as of this encounter
--- OUTSIDE RECORDS SUMMARY | 2024-05-20 20:53 | XMS_ITS | Encounter Summary ---
Author Organization [facility] Address [address] [place] [address] Care Team Providers Care Pipe Coverer And Insulator Name Role Phone Unavailable Primary Care Provider Unavailabl e Encounter Details Date Type Department Care Team (Latest Contact Info) Description 12/07/2008 10:56 EST - 12/07/2008 11:59 EST Hospital Encounter [address] [address] Miri Smith MD [address] [place] [phone] Discharge Disposition: Auto Discharge Social History Tobacco [...]
--- OUTSIDE RECORDS SUMMARY | 2024-05-20 20:53 | XMS_ITS | Encounter Summary ---
Author Organization [facility] Address [address] [place] [address] Care Team Providers Care Supervisor Sintering Plant Name Role Phone Unavailable Primary Care Provider Unavailabl e Encounter Details Date Type Department Care Team (Latest Contact Info) Description 11/19/2006 10:58 EST - 11/19/2006 11:59 EST Hospital Encounter [address] [address] Se Smith MD [address] [place] [phone] Discharge Disposition: Auto Discharge Social History [...] Procedure Name Priority Date/Time Associated Diagnosis Comments N. GONORRHOEAE AMPLIFIED PROBE Routine 11/19/2006 11:44 EST ZZCHLAMYDIA TRACHOMATIS AMPLIFIED PROBE Routine 11/19/2006 11:44 EST documented in this encounter Results * N. GONORRHOEAE AMPLIFIED PROBE (11/19/2006 11:44 EST) Result No Neisseria gonorrhoeae DNA detected by awning spreader mediated amplification. [facility] Report Status Final [id number] [facility] Specimen Description Urine [facility] 11/19/2006 11:4 4 EST 11/19/2006 14:01 EST Se Smith MD MICROBIOLOGY - GEN ERAL ORDERABLES Performing Organization Address [facility] Co de Phone Number [facility] [address] [place] [address] * CHLAMYDIA TRACHOMATIS AMPLIFIED PROBE (11/19/2006 11:44 EST) Specimen Description Urine [facility] Result No Chlamydia trachomatis DNA detected by awning spreader mediated amplification. [facility] Report Status Final [id number] [facility] 11/19/2006 11:4 4 EST 11/19/2006 14:01 EST Se Smith MD MICROBIOLOGY - GEN ERAL ORDERABLES Performing Organization Address [facility] Co de Phone Number [facility] [address] [place] [address] documented in this encounter Visit Diagnoses Not on filedocumented in this encounter
--- OUTSIDE RECORDS SUMMARY | 2024-05-20 20:53 | XMS_ITS | Encounter Summary ---
Author Organization [facility] Address [address] [place] [address] Care Team Providers Care Dope Heater Name Role Phone Unavailable Primary Care Provider Unavailabl e Encounter Details Date Type Department Care Team (Latest Contact Info) Description 04/25/2006 12:53 EDT Hospital Encounter [address] [address] Se Smith MD [address] [place] [phone] Discharge Disposition: Auto Discharge Social History Tobacco [...]
--- OUTSIDE RECORDS SUMMARY | 2024-05-20 20:53 | XMS_ITS | Encounter Summary ---
Author Organization [facility] Address [address] [place] [address] Care Team Providers Care Archeology Professor Name Role Phone Unavailable Primary Care Provider Unavailabl e Encounter Details Date Type Department Care Team (Latest Contact Info) Description 01/22/2008 9:41 EDT - 01/22/2008 11:59 EDT Hospital Encounter [address] [address] Se Smith MD [address] [place] [phone] Discharge Disposition: Auto Discharge Social History [...]
--- OUTSIDE RECORDS SUMMARY | 2024-05-20 20:53 | XMS_ITS | Encounter Summary ---
Author Organization [facility] Address [address] [place] [address] Care Team Providers Care Fiberglass Model Maker Name Role Phone Unavailable Primary Care Provider Unavailabl e Encounter Details Date Type Department Care Team (Latest Contact Info) Description 06/19/2006 12:33 EDT Hospital Encounter [facility] [address] [place] [address] Inder Mathias MD Discharge Disposition: Auto Discharge Social History [...]
--- OUTSIDE RECORDS SUMMARY | 2024-05-20 20:53 | XMS_ITS | Encounter Summary ---
Author Organization [facility] Address [address] [place] [address] Care Team Providers Care Public Policy Mediator Name Role Phone Unavailable Primary Care Provider Unavailabl e Encounter Details Date Type Department Care Team (Latest Contact Info) Description 08/06/2007 12:39 EDT Hospital Encounter [address] [address] Nerissa Palma FNP 1 [place] [address] Discharge Disposition: Auto Discharge Social History Tobacco [...]
--- OUTSIDE RECORDS SUMMARY | 2024-05-20 20:53 | XMS_ITS | Encounter Summary ---
Author Organization [facility] Address [address] [place] [address] Care Team Providers Care Hide Tanner Name Role Phone Se Smith MD Primary Care Provider +1- [phone] Encounter Details Date Type Department Care Team (Late st Contact Info) Description 08/16/2007 Office Visit [facility] - Maple conversion [address] [place] [address] Alayna Liang MD Social History Tobacco Use Types Packs/Day Years Used Date Smoking Tobacco: Never Assessed Sex and Gender Information Value Date Recorded Sex Assigned at Not on file Gender Identity Not on file Sexual Orientation Not on file documented as of this encounter Progress Notes * Alayna Liang - 12/11/2009 0517 EST [facility] - Physician Summary Registration Date/Time: 08/16/2007 10:42 Arrived- By private vehicle. 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 HISTORY OF PRESENT ILLNESS Chief Complaint- SKIN RASH and BOIL. This started yesterday Chronic folliculitis on buttocks. Instructed by PCP 10 days ago to use antibacterialsoap and wear loose clothing and consider starting on prophylactic antibiotics. Yesterday began having painful areas again on buttocks. It is described as painful. A cause has been identified. The patient has had similar symptoms many times previously. REVIEW OF SYSTEMS No fever. PAST HISTORY See nurses notes. Medications: The patient's medications have been reviewed. Allergies: No known drug allergies. SOCIAL HISTORY Nonsmoker. No alcohol use. Resides in an assisted living center. ADDITIONAL NOTES The nursing notes have been reviewed. PHYSICAL EXAM Appearance: Alert. Oriented X3. No acute distress. Vital Signs: Have been reviewed. Skin: (Buttocks covered with pinpoint hyperpigmented scars. 7cm area erythema at left gluteal fold-tender but no induration/fluctuance. 1cm faintly erythematous tender areas upper gluteous each side. Skin genitalia/inguinal folds no discoloration/lesions.). CLINICAL IMPRESSION Cellulitis (gluteal fold on left.). Chronic folliculitis. INSTRUCTIONS Continue wearing loose cotton clothing. Wash with antibacterial soap on back side of body. Dry groin area and apply Nystatin 2x/day as previously instructed.. Prescription Medications: Erythromycin Base 333 mg: Take 1 tablet orally every 8 hours for seven (7) days. Dispense 21. No refills. Follow-up: Return to the emergency department in two days if not better. Follow up with your doctor to discussfurther antibiotics. in seven days even if well. (Electronically signed by Alayna Liang MD 08/16/2007 21:56) Care Center - Nursing Summary Registration Date/Time: 08/16/2007 10:42 TRIAGE Initial Assessment BP: 120 / 70. HR: 72. RR: 16. Temp: 97.8. --1124 Fatemeh Daley R.N.. Medications Calcium Supplement. Trazodone. --1124 Fatemeh Daley R.N.. Allergies No history of allergy to LATEX. No known drug allergies. --1124 Fatemeh Daley R.N.. History Chief Complaint: (CYST ON RIGHT BUTTOCK AND RASH BI-LAT BUTTOCKS). Onset (10 DAYS AGO; SAW PCP AND DX WAS CHRONIC FALLICULITIS (SEE SHEET)). Pain level now: 01/28. 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 PAST HX: (ELBOW SURG). (CHRONIC FALLICULITIS , YEAST INF). SOCIAL HX: Nonsmoker. No alcohol use. No report of abuse. Arrived by private vehicle. Historian: patient. --1124 Fatemeh Daley R.N.. PAST HX. PHYSICAL ASSESSMENT Ambulatory to room. Patient gowned. Alert. Oriented X 3. --1125 Fatemeh Daley, R.N.. DISPOSITION / DISCHARGE Patient reports pain level on departure as 4/10. Condition at departure: unchanged and stable. No learning barriers present. Discharge instructions reviewed with the patient and parent. Reviewed medication dosing and course; prescription (s) given to the patient (pt sent home with a script for po abx). Patient and parent verbalized understanding. Written instructions provided in Arabic. The patient was discharged home and accompanied by parent. The patient left the Emergency Department ambulatory and via private vehicle. Parent driving. Departure time: 12:10. --1210 Claudia Benton L.P.N.. Locked/Released at 08/16/2007 12:10 by Claudia Benton L.P.N. documented in this encounter Plan of Treatment Not on file documented as of this encounter Visit Diagnoses Not on filedocumented in this encounter Care Teams Hide Tanner Relationship Specialty Start Date End Date Se Smith MD 1 [facility] Level [address] [place] [phone] PCP - General 02/24/09 02/11/13 documented as of this encounter
--- OUTSIDE RECORDS SUMMARY | 2024-05-20 20:53 | XMS_ITS | Encounter Summary ---
Author Organization [facility] Address [address] [place] [address] Care Team Providers Care Aircraft Refueler Name Role Phone Unavailable Primary Care Provider Unavailabl e Encounter Details Date Type Department Care Team (Latest Contact Info) Description 03/24/2008 13:08 EDT Hospital Encounter [address] [address] Se Smith MD [address] [place] [phone] Discharge Disposition: Auto Discharge Social History Tobacco [...]
--- OUTSIDE RECORDS SUMMARY | 2024-05-20 20:53 | XMS_ITS | Encounter Summary ---
Author Organization [facility] Address [address] [place] [address] Care Team Providers Care Supervisor Assembly Room Name Role Phone Unavailable Primary Care Provider Unavailabl e Encounter Details Date Type Department Care Team (Latest Contact Info) Description 10/22/2008 13:05 [facility] Hospital Encounter [address] [address] Se Smith MD [address] [place] [phone] Unknown, Provider, Discharge Disposition: Auto Discharge Social [...]
--- OUTSIDE RECORDS SUMMARY | 2024-05-20 20:53 | XMS_ITS | Encounter Summary ---
Author Organization [facility] Address [address] [place] [address] Care Team Providers Care Judge Name Role Phone Unavailable Primary Care Provider Unavailabl e Encounter Details Date Type Department Care Team (Late st Contact Info) Description 09/03/2006 11:15 EST - 09/03/2006 11:59 EST Hospital Encounter [facility] [address] [address] Karena Moss MD [address] [address] Discharge Disposition: Auto Discharge Social History Tobacco [...]
--- OUTSIDE RECORDS SUMMARY | 2024-05-20 20:53 | XMS_ITS | Encounter Summary ---
Author Organization [facility] Address [address] [place] [address] Care Team Providers Care Underground Roof Bolter Name Role Phone Unavailable Primary Care Provider Unavailabl e Encounter Details Date Type Department Care Team (Latest Contact Info) Description 12/25/2007 10:17 EST - 12/25/2007 11:59 EST Hospital Encounter [address] [address] Se Smith MD [address] [place] [phone] Unknown, Provider, Discharge Disposition: Auto Discharge Social [...]
--- OUTSIDE RECORDS SUMMARY | 2024-05-20 20:53 | XMS_ITS | Encounter Summary ---
Author Organization [facility] Address [address] [place] [address] Care Team Providers Care Timber Deadener Name Role Phone Unavailable Primary Care Provider Unavailabl e Encounter Details Date Type Department Care Team (Late st Contact Info) Description 09/17/2007 10:45 EST Hospital Encounter [address] [address] Se Smith MD [address] [place] [phone] Social History Tobacco Use Types Packs/Day Years [...]
--- OUTSIDE RECORDS SUMMARY | 2024-05-20 20:53 | XMS_ITS | Encounter Summary ---
Author Organization [facility] Address [address] [place] [address] Care Team Providers Care Petroleum Supply Specialist Name Role Phone Se Smith MD Primary Care Provider +1- [phone] Encounter Details Date Type Department Care Team (Late st Contact Info) Description 06/12/2006 Before PRISM Converted Visit (Maple) [facility] - Maple conversion [address] [place] [address] Se Smith MD [address] [place] [phone] Social History Tobacco Use Types Packs/Day Years Used Date Smoking Tobacco: Never Assessed Sex and Gender Information Value Date Recorded Sex Assigned at Not on file Gender Identity Not on file Sexual Orientation Not on file documented as of this encounter Progress Notes * Se Smith MD - 10/14/2009 6756 EST Primary Care Internal Medicine [address] [place] [phone] PROGRESS/FOLLOWUP NOTE - 06/12/2006 #4 ALLERGIC RHINITIS S: Comes in to have his allergies rechecked. Thinks in fact they were doing a bit better but then perhaps a bit more active of late. Heusing some over the counter eye drops. He has been taking his Gabi. Not bothering him terribly but mentions. O: Blood pressure 130/62, heart rate 76, respirations 20, temperature 98.2, weight 231 ??, 0/10 pain. The eyes are not injected at all and his tympanic membranes and lungs are clear. A: Recent problems with allergic rhinitis that have not responded well to a variety of different antihistamines. Kathleen talked about Patanol or Zaditor for eye drops but at this point Ijust going to have him get some contact lens solution and keep his eyes clear. Expect his seasonal allergies to start settling down soon and he realizes this is likely the case. P; 1. Continue non-sedating antihistamines systemically. 2. Contact lens saline solution to keep eyes irrigated on a regular basis. 3. If hes really miserable he will let me know and will think about modification of this plan. Signed by Se Smith MD 07/01/2006 16:28 Sterling Smith MDMark Inez Smith MD Se Smith MD - Se Smith MD P - lfb Job ID: [id number] Document ID: [id number] cc: documented in this encounter Plan of Treatment Not on file documented as of this encounter Visit Diagnoses Not on filedocumented in this encounter Care Teams Petroleum Supply Specialist Relationship Specialty Start Date End Date Se Smith MD 1 [facility] 1 [place] [phone] PCP - General 02/24/09 02/11/13 documented as of this encounter
--- OUTSIDE RECORDS SUMMARY | 2024-05-20 20:53 | XMS_ITS | Encounter Summary ---
Author Organization [facility] Address [address] [place] [address] Care Team Providers Care Strand And Binder Controller Name Role Phone Unavailable Primary Care Provider Unavailabl e Encounter Details Date Type Department Care Team (Late st Contact Info) Description 08/20/2008 13:18 EDT Hospital Encounter [address] [address] Se Smith MD [address] [place] [phone] Unknown, Provider, Social History Tobacco Use Types [...]
--- OUTSIDE RECORDS SUMMARY | 2024-05-20 20:53 | XMS_ITS | Encounter Summary ---
Author Organization [facility] Address [address] [place] [address] Care Team Providers Care Crystal Evaluator Name Role Phone Unavailable Primary Care Provider Unavailabl e Encounter Details Date Type Department Care Team (Latest Contact Info) Description 03/13/2007 10:33 EDT - 03/13/2007 11:59 EDT Hospital Encounter [address] [address] Se Smith MD [address] [place] [phone] Discharge Disposition: Auto Discharge Social History [...]
--- OUTSIDE RECORDS SUMMARY | 2024-05-20 20:53 | XMS_ITS | Encounter Summary ---
Author Organization [facility] Address [address] [place] [address] Care Team Providers Care Sand Mill Operator Facing Sand Name Role Phone Unavailable Primary Care Provider Unavailabl e Encounter Details Date Type Department Care Team (Latest Contact Info) Description 02/27/2007 9:35 EDT - 02/27/2007 11:59 EDT Hospital Encounter [address] [address] Se Smith MD [address] [place] [phone] Discharge Disposition: Auto Discharge Social History [...]
--- OUTSIDE RECORDS SUMMARY | 2024-05-20 20:53 | XMS_ITS | Encounter Summary ---
Author Organization [facility] Address [address] [place] [address] Care Team Providers Care Rfid Technician Name Role Phone Unavailable Primary Care Provider Unavailabl e Encounter Details Date Type Department Care Team (Late st Contact Info) Description 05/07/2008 12:48 EDT Hospital Encounter [facility] [address] [place] [address] Geovanny Garcia MD 111 [facility], [address] [place] [phone] Discharge Disposition: Auto Discharge Social History Tobacco [...]
--- OUTSIDE RECORDS SUMMARY | 2024-05-20 20:53 | XMS_ITS | Encounter Summary ---
Author Organization [facility] system Address [address] [place] [address] Care Team Providers Care Laundry Equipment Operator Name Role Phone Unavailable Primary Care Provider Unavailabl e Encounter Details Date Type Department Care Team (Late st Contact Info) Description 06/23/2008 13:09 EDT Hospital Encounter [address] [address] Se Smith MD [address] [place] [phone] Social History Tobacco Use Types Packs/Day Years [...]
--- OUTSIDE RECORDS SUMMARY | 2024-05-20 20:53 | XMS_ITS | Encounter Summary ---
Author Organization [facility] Address [address] [place] [address] Care Team Providers Care Ribbon Cutter Name Role Phone Se Smith MD Primary Care Provider +1- [phone] Encounter Details Date Type Department Care Team (Late st Contact Info) Description 01/10/2009 Before PRISM Converted Visit (Maple) [facility] [place] - Maple conversion [address] [place] [address] Justus Watson MD FA [employer] [address] [place], [place] [phone] Social History Tobacco Use Types Packs/Day Years Used Date Smoking Tobacco: Never Assessed Sex and Gender Information Value Date Recorded Sex Assigned at Not on file Gender Identity Not on file Sexual Orientation Not on file documented as of this encounter Progress Notes * Justus Watson - 11/23/2009 0301 EST Primary Care Internal Medicine [address] [place] [phone] PROGRESS/FOLLOWUP NOTE - 01/10/2009 CHIEF COMPLAINT Depression/self-harm. HISTORY OF PRESENT ILLNESS Patient is a 28-year-old male with a history of mental delay, behavioral issues, ADHD, and sexual disinhibitions who is currently residing at [facility] through the [facility], [facility], and for the past several weeks has had problems with depression and cutting. Patient initially cut himself on the dorsal side of the right hand a couple of months ago with a razor blade but recently cut his right forearm with a thumb tack, a piece of glass, as well as stabbed his left leg with a mechanical pencil. Patient also admits to suicidal ideation and thoughts of stabbing himself in the stomach though has not acted on these. Is under 24-hour supervision through the [facility] and has been discussing his feelings and thoughts with therapists as well as case management and will be seeing his psychiatrist for a medication review soon. Patient has no thoughts or feelings of hurting others. His psychiatrist through the [facility] is Dr. Lujan. Patient also today has upper respiratory symptoms including headache, sore throat, and congestion that has been going on for about two weeks. Patient was initially getting better but now symptoms have worsened over the past few days. He states that multiple people at the house have been getting sick. PAST MEDICAL HISTORY 1. Mental delay. 2. History of behavioral issues. 3. ADHD. 4. OCD. 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 7. Allergic rhinitis. 8. History of anal fissure in 04/2007. 9. Vasectomy in 2004. Patient's current medications include: 1. Zyrtec 10 mg p.o. daily. 2. Calcium 500 mg p.o. daily. 3. Lupron Depot every month. 4. Fiber supplement. 5. Fluoxetine 40 mg daily. 6. Trazodone 50 mg at bedtime. 7. Rubbing alcohol. ALLERGIES No known drug allergies. OBJECTIVE Vital signs in the office today: Pulse 68 and regular, respirations 16, blood pressure 114/60, weight 232 pounds. General: Patient is in no acute distress, alert and oriented times three. Comfortablein the exam room with his escort from [facility] present. HEENT: Extraocular eye movements intact. Pupils equal, round, react to light. Moist mucous membranes, no erythema. Tympanic membranes show a large amount of scarring. Ear canals are not erythematous. No tenderness to palpation of the bilateral mastoids. Neck is supple, no thyromegaly. Trachea is midline. Lymph system: No cervical, supraclavicular, preauricular, or postauricular lymphadenopathy is noted. Cardiovascular: Regular rateandrhythm; no rubs, murmurs, or gallops. Lungs clear to auscultation bilaterally. Abdomen soft, nondistended, nontender to palpation. Skin: There are healing scrapes and excoriations on the right forearm as well as a scar on the right dorsal side of the hand as well as a scabbed over but healing lesion on the left lower leg medial side. No erythema or warmth. None of these lesions seem to be infected. ASSESSMENT AND PLAN Patient is a 28-year-old male with what appears to be severe depression with self-harm. Currently receiving therapy through the [facility] including therapy case management as well as a psychiatrist. He is due for a medication review with the psychiatrist so we will leave any medication changes to him. We did discuss with the patient the possible physical complications of this type of behavior and possible risks to himself. Also we feel that the patient has a viral upper respiratory infection. Discussed with the patient that this is likely viral and will go away with time and to continue symptomatic relief, fluids, as well as rest. Patient was discussed with and seen by Dr. Damon. saw and examined the patient with the resident/fellow. I agree with the findings and plan of care documented in the resident's/fellow's note. Signed by Akash Damon MD 01/18/2009 12:56 Justus Watson MD Akash Damon MD - Justus Watson MD - ALEX Job ID: [id number] Doc ID: [id number] cc: documented in this encounter Plan of Treatment Not on file documented as of this encounter Visit Diagnoses Not on filedocumented in this encounter Care Teams Ribbon Cutter Relationship Specialty Start Date End Date Se Smith MD 1 [facility] Level [address] [place] [phone] PCP - General 02/24/09 02/11/13 documented as of this encounter
--- OUTSIDE RECORDS SUMMARY | 2024-05-20 20:53 | XMS_ITS | Encounter Summary ---
Author Organization [facility] Address [address] [place] [address] Care Team Providers Care Director Multimedia Name Role Phone Unavailable Primary Care Provider Unavailabl e Encounter Details Date Type Department Care Team (Late st Contact Info) Description 12/22/2008 9:32 EST Hospital Encounter [address] [address] Zohra White MD [address] [phone] Social History Tobacco Use Types Packs/Day Years [...]
--- OUTSIDE RECORDS SUMMARY | 2024-05-20 20:53 | XMS_ITS | Encounter Summary ---
Author Organization [facility] Address [address] [place] [address] Care Team Providers Care Squash Centre Manager Name Role Phone Unavailable Primary Care Provider Unavailabl e Encounter Details Date Type Department Care Team (Late st Contact Info) Description 09/02/2006 16:06 [facility] Hospital Encounter [facility] - [address] [address] Karena Moss MD [address] [place] [address] Aleks Galo MD [address] [place] [address] Discharge Disposition: Auto Discharge Social History [...]
--- OUTSIDE RECORDS SUMMARY | 2024-05-20 20:53 | XMS_ITS | Encounter Summary ---
Author Organization [facility] Address [address] [place] [address] Care Team Providers Care Senior Director Creative Services Name Role Phone Unavailable Primary Care Provider Unavailabl e Encounter Details Date Type Department Care Team (Latest Contact Info) Description 10/16/2006 11:20 EST - 10/16/2006 11:59 EST Hospital Encounter [address] [address] Miri Smith MD [address] [place] [phone] Discharge Disposition: Auto Discharge Social History [...]
--- OUTSIDE RECORDS SUMMARY | 2024-05-20 20:53 | XMS_ITS | Encounter Summary ---
Author Organization [facility] Address [address] [place] [address] Care Team Providers Care Box Office Attendant Name Role Phone Unavailable Primary Care Provider Unavailabl e Encounter Details Date Type Department Care Team (Late st Contact Info) Description 08/16/2007 10:41 EDT Hospital Encounter [address] [address] Alayna Liang MD Reback, Ashley Flores MD [address] [place] [phone] Social History Tobacco Use Types Packs/Day Years [...]
--- OUTSIDE RECORDS SUMMARY | 2024-05-20 20:53 | XMS_ITS | Encounter Summary ---
Author Organization [facility] Address [address] [place] [address] Care Team Providers Care Centrifugal Casting Machine Tender Name Role Phone Se Smith MD Primary Care Provider +1- [phone] Encounter Details Date Type Department Care Team (Late st Contact Info) Description 06/20/2007 Before PRISM Converted Visit (Maple) [facility] - Maple conversion [address] [place] [address] Nerissa Palma FNP [address] [place], [place] [address] Social History Tobacco Use Types Packs/Day Years Used Date Smoking Tobacco: Never Assessed Sex and Gender Information Value Date Recorded Sex Assigned at Not on file Gender Identity Not on file Sexual Orientation Not on file documented as of this encounter Progress Notes * Nerissa Goss - 08/26/2009 1315 EST Primary Care Internal Medicine [address] [place], [place] [address] PROGRESS/FOLLOWUP NOTE - 06/20/2007 PROBLEM: Laceration on the first finger of his left hand. PROBLEM: Two rashes. SUBJECTIVE He was doing some woodworking three days ago and the drill slipped and cut the palmar surface of his first finger on his left hand. It bled quite freely and he put a bandage on it. He is wondering ifhe could have stitches on it because it is still leaking and it is bothersome to him. He denies anyswelling or redness. He has a little bit of bloody discharge. No problems with movement of his finger except for restriction by the Band-Aid. He reports his pain as 4-5/10 onhis hand. He also has two rashes that he is concerned about. The first is in his groin area. It is red, itchyand fairly uncomfortable, almost burning. He said he often has to go into the bathroom and rearrange his underwear because it is so uncomfortable. He noticed this rash about a week ago. He has not noticed any drainage or bleeding from the groin, but it getting more uncomfortable to walk or ride hisbicycle. The other rash is on his buttocks. It is all pimples and occasionally drains yellow/green on his underwear. That is slightly itchy and burning. It does not bother him to sit down or to walk in terms of the buttock rash. It is bilateral, on his buttocks, not in his gluteal fold. He is not having anyproblems with his bowel movements. He did have some painful bowel movements with some blood and this was discovered to be an anal fissure. He was placed on nitroglycerin ointment and an [id number]-uwm-frvdcji hemorrhoid cream and he needs awritten prescription to stop these for his long term. Simone does not know when his last tetanus shot was. CURRENT MEDICATIONS 1. Cetirizine 10 mg a day as needed for allergies. 2. Calcium 600 mg daily. 3. Lupron Depo injections every three months, 11.25 mg. 4. Quetiapine. He does not know what the dose is of that. OBJECTIVE Pleasant, cooperative, sometimes a poor historian. He is developmentally delayed. Blood pressure is120/70, pulse 80 and regular, temperature 99.2, respiratory rate is 18, weight is 238 1/2 . Pain is4-5/10 on his finger and 6 for the groin rash. He has a one centimeter straight laceration with a central deepened area on the first finger of the left hand, palmar surface and it runs between the distal and midmiddle joints. There is a small amount of serous anginous drainage, no edema, no redness. The skin is normal temperature. He has brisk capillary refill and has good movement, full range ofmotion in that finger. He has an erythematous, moist papular rash in the upper thighs and groin area and into the top of his scrotum. There is no discharge. The surrounding skin is normal and the area of erythema is not hot. His buttocks have multiple papules and pustules right around hair follicles. Some of these are excoriated and one pustule had drained a small amount of purulent material. These do not look infected. The surrounding skin is normal color and temperature. Last tetanus is 1996. ASSESSMENT 1. Laceration of the first finger of his left hand. 2. Tinea cruris. 3. Folliculitis on his buttocks. PLAN 1. After Haja was dressed we called in the staff member who accompanied him from the long term to talk about treatment of all of these. The finger laceration was cleaned and Bacitracin and a clean bandage wereapplied. He was instructed to place a small amount of Bacitracin on that twice a day for the next four days. Keep it covered with a bandage during that time, then leave it to air. He is to let us know if there is swelling, increased pain or any purulent discharge. That was defined for him and I was specific about what he should look for. 2. A prescription was provided for Nystatin cream to apply to the groin rash twice a day, apply sparingly until the rash clears up. Personal care and management to avoid these rashes were reviewed with Simone and the staff person. 3. The patient and staff member were education about folliculitis. At this point it does not look infective and I asked him to start using an antibacterial soap. If it does not improve in the next ten days to two weeks, or if the rash gets worse, he will return. 4. Prescription was provided to discontinue the nitroglycerin ointment and change the xvab-sln-upzcnbb hemorrhoid cream to as needed. 5. TDAP was given today. 6. Careful patient education was done. Haja was able to verbalize understanding about managing his rashes and his finger laceration and the staff person also had notes. Written information was provided for them. Followup as needed. Signed by LEXI Horner 06/25/2007 16:24 LEXI TaoFamily Nurse PractitionerLEXI Horner LEXI Goss Family NursePractitioner - LEXI Horner - ryan Job ID: [id number] Doc ID: [id number] cc: documented in this encounter Plan of Treatment Not on file documented as of this encounter Visit Diagnoses Not on filedocumented in this encounter Care Teams Centrifugal Casting Machine Tender Relationship Specialty Start Date End Date Se Smith MD 1 [facility] 1 [place] [phone] PCP - General 02/24/09 02/11/13 documented as of this encounter
--- OUTSIDE RECORDS SUMMARY | 2024-05-20 20:53 | XMS_ITS | Encounter Summary ---
Author Organization [facility] Address [address] [place] [address] Care Team Providers Care Jack Frame Tender Name Role Phone eS Smith MD Primary Care Provider +1- [phone] Encounter Details Date Type Department Care Team (Late st Contact Info) Description 10/16/2006 Before PRISM Converted Visit (Maple) [facility] - Maple conversion [address] [place] [address] Miri Smith MD [address] [place] [phone] Social History Tobacco Use Types Packs/Day Years Used Date Smoking Tobacco: Never Assessed Sex and Gender Information Value Date Recorded Sex Assigned at Not on file Gender Identity Not on file Sexual Orientation Not on file documented as of this encounter Progress Notes * Miri Smith MD - 10/27/2009 1533 EST Primary Care Internal Medicine [address] [place], [place] [phone] PROGRESS/FOLLOWUP NOTE - 10/16/2006 REASON FOR VISIT: Right testicular pain SUBJECTIVE: Mr. Walker comes in today with 2 weeks of off and on pain in his right testicle. He describes it as feeling squished. He notes that right now the discomfort is 6/10, but at times it is as low a 1/10. He has not noted any testicular swelling. He denies any penile discharge. He notes that he has not been sexually active for over a year. His review of systems is negative for fevers, chills or weight loss. He has not had any abdominal pain or discomfort. He has not had any nausea or vomiting. His past medical history is notable for mental delay, HSV I and allergic rhinitis. Current medications include Lupron injections, calcium, Gabi p.r.n. and trazodone. No known drugallergies. OBJECTIVE: Temperature 97.8, pulse 76, respirations 20, blood pressure 114/62, weight 247.5 pounds.In general, he is a pleasant male in no acute distress. Abdomen: Soft and nontender, normoactive bowel sounds, no hepatosplenomegaly. : There is no evidence ron inguinal hernia. He has normal appearing external genitalia. There is no penile discharge noted. There is no penile or testicular erythema or warmth. There was possibly a small amount of swelling along the right epididymis posteriorly. This is also anarea of moderate tenderness on exam. ASSESSMENT/PLAN: Right testicular pain. He has had 2 weeks of off and on right testicular pain. On exam, he has tenderness over the epididymitis with mild local swelling there. There was no generalized testicular swelling or pain. There is no evidence for testicular torsion at this time. A urinalysis was not done secondary to the patient's inability to void at this time. He will be treated empirically for subacute epididymitis. We will treat him empirically with ofloxacin 300 mg p.o. twice daily times 10 days. He was advised to call or return if he has any worsening symptoms, especially fevers, chills or increasing pain. He will also return if his symptoms are not completely resolved after the course of antibiotics. For the discomfort, he can use ibuprofen as needed and he could also ice the area as needed. A note was also given for him to take to his senior living explaining his medical condition and the treatment. Addendum: call received by the pharmacy reporting ofloxacin not covered by his insurance; switched to levofloxacin 750 mg po qd for ten days. Signed by Miri Smith MD 10/25/2006 12:43 Xochilt Baltazar MD Miri Smith MD - Juan Smith MD A [facility] Job ID: [id number] Document ID: [id number] cc: documented in this encounter Plan of Treatment Not on file documented as of this encounter Visit Diagnoses Not on filedocumented in this encounter Care Teams Jack Frame Tender Relationship Specialty Start Date End Date Se Smith MD 1 [facility] 1 [place] [phone] PCP - General 02/24/09 02/11/13 documented as of this encounter
--- OUTSIDE RECORDS SUMMARY | 2024-05-20 20:53 | XMS_ITS | Encounter Summary ---
Author Organization [facility] Address [address] [place] [address] Care Team Providers Care Getter Operator Name Role Phone Unavailable Primary Care Provider Unavailabl e Encounter Details Date Type Department Care Team (Latest Contact Info) Description 09/23/2006 13:54 EST Hospital Encounter [address] [address] Se Smith MD [address] [place] [phone] Aleks Galo MD [address] [place] [address] [address] [place] [address] Discharge Disposition: Auto Discharge Social [...]
--- OUTSIDE RECORDS SUMMARY | 2024-05-20 20:53 | XMS_ITS | Encounter Summary ---
Author Organization [facility] Address [address] [place] [address] Care Team Providers Care Morning News Anchor Name Role Phone Unavailable Primary Care Provider Unavailabl e Encounter Details Date Type Department Care Team (Latest Contact Info) Description 05/20/2008 9:50 EDT - 05/20/2008 11:59 EDT Hospital Encounter [facility] - [address] [address] Rebecca Dooley [facility] [address] [address] Discharge Disposition: Auto Discharge Social History Tobacco [...]
--- OUTSIDE RECORDS SUMMARY | 2024-05-20 20:53 | XMS_ITS | Encounter Summary ---
Author Organization [facility] Address [address] [place] [address] Care Team Providers Care Product Delivery Specialist Name Role Phone Unavailable Primary Care Provider Unavailabl e Encounter Details Date Type Department Care Team (Late st Contact Info) Description 02/23/2008 9:54 EDT Hospital Encounter [address] [address] Se Smith MD [address] [place] [phone] Social History Tobacco Use Types Packs/Day Years [...]
--- OUTSIDE RECORDS SUMMARY | 2024-05-20 20:53 | XMS_ITS | Encounter Summary ---
Author Organization [facility] Address [address] [place] [address] Care Team Providers Care Tailor Fitter Name Role Phone Unavailable Primary Care Provider Unavailabl e Encounter Details Date Type Department Care Team (Latest Contact Info) Description 06/04/2007 14:05 EDT Hospital Encounter [address] [address] Deepak Gregg MD [address] [place] [phone] Nichole Croft MD [address] [place] [phone] Discharge Disposition: Auto Discharge Social History Tobacco [...]
--- OUTSIDE RECORDS SUMMARY | 2024-05-20 20:53 | XMS_ITS | Encounter Summary ---
Author Organization [facility] Address [address] [place] [address] Care Team Providers Care Retail Greeting Card Merchandiser Name Role Phone Se Smith MD Primary Care Provider +1- [phone] Encounter Details Date Type Department Care Team (Late st Contact Info) Description 12/22/2008 Before PRISM Converted Visit (Maple) [facility] - Maple conversion [address] [place] [address] Zohra White MD [address] [place] [phone] Social History Tobacco Use Types Packs/Day Years Used Date Smoking Tobacco: Never Assessed Sex and Gender Information Value Date Recorded Sex Assigned at Not on file Gender Identity Not on file Sexual Orientation Not on file documented as of this encounter Progress Notes * Zohra White MD - 04/19/2009 1037 EDT Primary Care Internal Medicine [address] [place] [phone] PROGRESS/FOLLOWUP NOTE - 12/22/2008 PROBLEM: Right ear pain. PROBLEM: Diarrhea. SUBJECTIVE Haja Walker is a 28single male who is accompanied by a therapeutic case manager from [facility]. He comesin with a couple week history of pain in the right ear. He was in on December 07, 2008, and diagnosed with a serous otitis and encouraged to take some decongestants and Gabi. He has run out of hisAllegra and would like some more. There is not any drainage. He has not been running a fever. He does not have pain in the left ear. He does not have other cold-like symptoms. He has had diarrhea he states for three days, but then he states the first episode of loose stool was this morning and so he is somewhat of a difficult historian. He states there are some sharp painsin his abdomen. It sounds as if he lives in a care home and other residents have been sickwith similar symptoms. He has not eaten any unusual foods lately and there was no blood in the stool. He is not vomiting and there are no fevers. He is drinking a lot of water. MEDICATIONS Medicine list reviewed. REVIEW OF SYSTEMS He has not had fevers, chills, night sweats, or weight loss. OBJECTIVE The temperature is 97.1. Pulse 76. Respiratory rate 12. Blood pressure 128/68. Weight is 232. A pleasant male, but does not appear to be acutely ill. The right ear canal, as well as the left, has some erythema but no bulging or erythema of the tympanic membrane. Pinna appears normal. The neck is supple. The oropharynx is moist. Eyes are unremarkable. The abdomen is soft, positive bowel sounds, the y are slightly hypoactive. He is tender to very mild palpation. No rebound, guarding, or peritonealsigns. ASSESSMENT AND PLAN 1. Viral illness causing the diarrhea. I told him this is present in the community. He should eat somewhat of a bland diet, including soups, broth, other bland foodssuch as rice and drink plenty of fluids. He will let us know if symptoms do not improve. 2. Ear canal irritation. Trial of VoSoL drops to the right ear, five drops q.i.d. for seven days. Signed by Zohra White MD 12/27/2008 09:15 Zohra White MD - Zohra White MD - [facility] Job ID: [id number] Doc ID: [id number] cc: documented in this encounter Plan of Treatment Not on file documented as of this encounter Visit Diagnoses Not on filedocumented in this encounter Care Teams Retail Greeting Card Merchandiser Relationship Specialty Start Date End Date Se Smith MD 1 [facility] Level [address] [place] [phone] PCP - General 02/24/09 02/11/13 documented as of this encounter
--- OUTSIDE RECORDS SUMMARY | 2024-05-20 20:53 | XMS_ITS | Encounter Summary ---
Author Organization [facility] Address [address] [place] [address] Care Team Providers Care Account Manager Employee Benefits Name Role Phone Unavailable Primary Care Provider Unavailabl e Encounter Details Date Type Department Care Team (Latest Contact Info) Description 06/01/2008 13:18 EDT Hospital Encounter [facility] Emergency Department - [facility] [address] [place] [address] Emergency, Default, MD Discharge Disposition: Home or [...]
--- OUTSIDE RECORDS SUMMARY | 2024-05-20 20:53 | XMS_ITS | Encounter Summary ---
Author Organization [facility] Address [address] [place] [address] Care Team Providers Care Senior Tableau Developer Name Role Phone Unavailable Primary Care Provider Unavailabl e Encounter Details Date Type Department Care Team (Latest Contact Info) Description 11/02/2006 10:39 EST - 11/02/2006 11:59 EST Hospital Encounter [facility] - [address] [address] Jud Eng MD [address] [place] [phone] Discharge Disposition: Auto Discharge Social History Tobacco [...]
--- OUTSIDE RECORDS SUMMARY | 2024-05-20 20:53 | XMS_ITS | Encounter Summary ---
Author Organization [facility] Address [address] [place] [address] Care Team Providers Care Meeting Manager Name Role Phone Unavailable Primary Care Provider Unavailabl e Encounter Details Date Type Department Care Team (Late st Contact Info) Description 07/21/2008 13:07 EDT Hospital Encounter [address] [address] Se Smith MD [address] [place] [phone] Social History Tobacco Use Types Packs/Day Years [...]
--- OUTSIDE RECORDS SUMMARY | 2024-05-20 20:53 | XMS_ITS | Encounter Summary ---
Author Organization [facility] Address [address] [place] [address] Care Team Providers Care Forecast Analyst Name Role Phone Unavailable Primary Care Provider Unavailabl e Encounter Details Date Type Department Care Team (Latest Contact Info) Description 11/04/2006 10:38 EST - 11/04/2006 11:59 EST Hospital Encounter [facility] - [address] [address] Geovanny Mendes MD [address] [place] [phone] Unknown, Provider, Discharge Disposition: Auto Discharge Social [...]
--- OUTSIDE RECORDS SUMMARY | 2024-05-20 20:53 | XMS_ITS | Encounter Summary ---
Author Organization [facility] Address [address] [place] [address] Care Team Providers Care Factory Superintendent Name Role Phone Unavailable Primary Care Provider Unavailabl e Encounter Details Date Type Department Care Team (Late st Contact Info) Description 10/22/2007 13:20 [facility] Hospital Encounter [address] [address] Deepak Gregg MD [address] [place] [phone] Unknown, Provider, Social History Tobacco Use Types [...]
--- OUTSIDE RECORDS SUMMARY | 2024-05-20 20:53 | XMS_ITS | Encounter Summary ---
Author Organization [facility] Address [address] [place] [address] Care Team Providers Care Microbiology Teacher Name Role Phone Se Smith MD Primary Care Provider +1- [phone] Encounter Details Date Type Department Care Team (Late st Contact Info) Description 06/28/2007 Results Only [facility] [address] [address] Ben Britton Jr., NP Social History Tobacco Use Types Packs/Day Years Used Date Smoking Tobacco: Never Assessed Sex and Gender Information Value Date Recorded Sex Assigned at Not on file Gender Identity Not on file Sexual Orientation Not on file documented as of this encounter Plan of Treatment Not on file documented as of this encounter Procedures Procedure Name Priority Date/Time Associated Diagnosis Comments BACTERIAL CULTURE, OTHER Routine 06/28/2007 15:53 EDT documented in this encounter Results * BACTERIAL CULTURE, OTHER (06/28/2007 15:53 EDT) Specimen Description Sump Drainage Specimen submitted on a swab [facility] Result Mod STAPHYLOCOCCU S, COAGULASE NEGATIVE [facility] Report Status Final [id number] [facility] 06/28/2007 15:5 3 EDT 06/28/2007 17:13 EDT Ben Britton Jr., NP MICROBIOLOGY - GENERAL ORDERABLES [facility] [address] [place] [address] documented in this encounter Visit Diagnoses Not on filedocumented in this encounter Care Teams Microbiology Teacher Relationship Specialty Start Date End Date Se Smith MD 1 [facility] 1 [place] [phone] PCP - General 02/24/09 02/11/13 documented as of this encounter
--- OUTSIDE RECORDS SUMMARY | 2024-05-20 20:53 | XMS_ITS | Encounter Summary ---
Author Organization [facility] Address [address] [place] [address] Care Team Providers Care Pullman Car Clerk Name Role Phone Unavailable Primary Care Provider Unavailabl e Encounter Details Date Type Department Care Team (Late st Contact Info) Description 09/20/2008 13:04 [facility] Hospital Encounter [address] [address] Se Smith MD [address] [place] [phone] Social History Tobacco Use Types Packs/Day Years [...]
--- OUTSIDE RECORDS SUMMARY | 2024-05-20 20:53 | XMS_ITS | Encounter Summary ---
Author Organization [facility] Address [address] [place] [address] Care Team Providers Care Facilities Custodian Name Role Phone Unavailable Primary Care Provider Unavailabl e Encounter Details Date Type Department Care Team (Latest Contact Info) Description 06/16/2007 9:43 EDT - 06/16/2007 11:59 EDT Hospital Encounter [facility] [address] [place] [address] Carrie Liao MD [address] [place] [phone] Discharge Disposition: Auto Discharge Social History [...]
--- OUTSIDE RECORDS SUMMARY | 2024-05-20 20:53 | XMS_ITS | Encounter Summary ---
Author Organization [facility] Address [address] [place] [address] Care Team Providers Care Food And Beverage Assistant Name Role Phone Unavailable Primary Care Provider Unavailabl e Encounter Details Date Type Department Care Team (Late st Contact Info) Description 09/03/2007 15:39 EST Hospital Encounter [address] [address] Justus Watson MD [facility] [address] [place] [address] Discharge Disposition: Auto Discharge Social History Tobacco [...]
--- OUTSIDE RECORDS SUMMARY | 2024-05-20 20:53 | XMS_ITS | Encounter Summary ---
Author Organization [facility] Address [address] [place] [address] Care Team Providers Care Shirt Bander Name Role Phone Unavailable Primary Care Provider Unavailabl e Encounter Details Date Type Department Care Team (Latest Contact Info) Description 06/12/2006 11:12 EDT - 06/12/2006 11:59 EDT Hospital Encounter [address] [address] Se Smith MD [address] [place] [phone] Discharge Disposition: Auto Discharge Social History [...]
--- OUTSIDE RECORDS SUMMARY | 2024-05-20 20:53 | XMS_ITS | Encounter Summary ---
Author Organization [facility] Address [address] [place] [address] Care Team Providers Care Carpet Sewer Name Role Phone Se Smith MD Primary Care Provider +1- [phone] Encounter Details Date Type Department Care Team (Late st Contact Info) Description 06/04/2007 Before PRISM Converted Visit (Maple) [facility] - Maple conversion [address] [place] [address] Nichole Croft MD [address] [place] [phone] Social History Tobacco Use Types Packs/Day Years Used Date Smoking Tobacco: Never Assessed Sex and Gender Information Value Date Recorded Sex Assigned at Not on file Gender Identity Not on file Sexual Orientation Not on file documented as of this encounter Progress Notes * Nichole Croft MD - 08/24/2009 0458 EST Primary Care Internal Medicine [address] [place] [id number] PROGRESS/FOLLOWUP NOTE - 06/04/2007 SUBJECTIVE This is a 26-year-old patient who presents today with ongoing anal pain. He was reviewed by surgeryfive weeks ago. An anoscopy revealed a posterior anal fissure with no hemorrhoids or external skin tears. He was treated initially with nifedipine 0.2% topically t.i.d. and advised to take frequent sitz baths and to use a dietary fiber supplement. He presents today with ongoing severe anal pain, which he describes as 9/10. He noticed an initial small improvement with topical nifedipine followed by recurrence of his symptoms. He had one episodeof bright, red blood per rectum today. He has not had any pusper rectum or any fevers or chills. Hehas one to two bowel movements per day, which are soft. He denies any straining at stool. He deniesany trauma to the anus and is not currently sexually active. Medications include Lupron, calcium, and Seroquel. OBJECTIVE Vital signs today, blood pressure 104/66, pulse rate 72 and regular, temperature 97.5, respiration 18. Pain currently 4/10 located in the anus. On general examination today, he is a pleasant gentleman. He is concerned about the level of his pain and is requesting surgical intervention. Anal examination was deferred. ASSESSMENT A 26-year-old male with pain related to posterior anal fissure, with minimal improvement with topical nifedipine. PLAN 1. Change nifedipine to topical nitroglycerin 0.2%, apply topically b.i.d. 2. Anusol HC ointment topically b.i.d. 3. Use of sitz baths encouraged. 4. He will phone for a repeat appointment with Dr. Liao for further assessment. saw and examined the patient with the resident/fellow. I agree with the findings and plan of care documented in the resident's/fellow's note. Signed by Deepak Gregg MD 06/09/2007 12:38 Dc Acosta MBBCHScott Luria, MD Dictated by: SISSY Guzmán Deepak Gregg MD -SISSY Guzmán -mr Job ID: [id number] Doc ID: [id number] cc: - mr Job ID: [id number] Doc ID: [id number] cc: documented in this encounter Plan of Treatment Not on file documented as of this encounter Visit Diagnoses Not on filedocumented in this encounter Care Teams Carpet Sewer Relationship Specialty Start Date End Date Se Smith MD 1 [facility] 1 [place] [phone] PCP - General 02/24/09 02/11/13 documented as of this encounter
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
--- OUTSIDE RECORDS SUMMARY | 2024-05-20 20:54 | XMS_ITS | Encounter Summary ---
Author Organization [facility] Address [address] [place] [address] Care Team Providers Care Server Engineer Name Role Phone Se Smith MD Primary Care Provider +1- [phone] Encounter Details Date Type Department Care Team (Late st Contact Info) Description 01/28/2006 Office Visit [facility] Adult Primary Care - [address] [address] Se Smith MD [address] [phone] Social History Tobacco Use Types Packs/Day Years Used Date Smoking Tobacco: Never Assessed Sex and Gender Information Value Date Recorded Sex Assigned at Not on file Gender Identity Not on file Sexual Orientation Not on file documented as of this encounter Plan of Treatment Not on file documented as of this encounter Visit Diagnoses Not on filedocumented in this encounter Care Teams Server Engineer Relationship Specialty Start Date End Date Se Smith MD [address] [phone] PCP - General 02/24/09 02/11/13 documented as of this encounter
--- OUTSIDE RECORDS SUMMARY | 2024-05-20 20:54 | XMS_ITS | Encounter Summary ---
Author Organization [facility] Address [address] [place] [address] Care Team Providers Care Pediatric Nurse Name Role Phone Se Smith MD Primary Care Provider +1- [phone] Encounter Details Date Type Department Care Team (Late st Contact Info) Description 07/25/2005 Before PRISM Converted Visit (Maple) [facility] - Maple conversion [address] [place] [address] Rome Munoz MD [address] [place] [address] Social History Tobacco Use Types Packs/Day Years Used Date Smoking Tobacco: Never Assessed Sex and Gender Information Value Date Recorded Sex Assigned at Not on file Gender Identity Not on file Sexual Orientation Not on file documented as of this encounter Progress Notes * Rome Munoz MD - 12/22/2009 1119 EST DIVISION OF ENT PROGRESS/FOLLOWUP NOTE - 07/25/2005 Requesting Physician: Se Smith M.D. PROBLEM: # : Left otitis externa. SUBJECTIVE: Haja is a 24-year-old gentleman with a longstanding history of chronic otitis media as a child. He was assessed by Dr. Colon in August 2004 and most recently in June 2005. Unfortunately, the most recent note is not available. My understanding is that he was diagnosed with left otitis externa. Dr. Smith was concerned regarding some findings he noted one week ago and he is referred for re-evaluation. He complains of blockage. No pain, drainage, or diminution of his hearing. He was treated with Cortisporin otic drops. OBJECTIVE: Right ear reveals some pasty cerumen and crusting. This was debrided with curette and suction. The tympanicmembrane revealed moderate tympanosclerosis. There was no obvious middle ear fluid. The tympanic membrane was freely mobile on pneumatic otoscopy. The left ear canal revealed some dark, pasty cerumen and crusting debrided with suction and curette. Again, the tympanic membrane reveals tympanosclerosis and was freely mobile without evidence of middle ear fluid. Tympanograms were bilateral Type A normal consistent with clinical findings. IMPRESSION: 1. Right otitis externa, resolved. 2. Bilateral cerumen, debrided. 3. Bilateral chronic otitis media. No acute disease. PLAN: He is discharged with reassurance. No further treatment required at this time. He will followup as needed. Signed by Rome Munoz MD 08/10/2005 13:26 Kya Randall MD Rome Munoz MD D: - Rome Munoz MD A - mld Job ID: Document ID: [id number] cc: Se Smith MD documented in this encounter Plan of Treatment Not on file documented as of this encounter Visit Diagnoses Not on filedocumented in this encounter Care Teams Pediatric Nurse Relationship Specialty Start Date End Date Se Smith MD [address] [place] [address] 1 [place] [phone] PCP - General 02/24/09 02/11/13 documented as of this encounter
--- OUTSIDE RECORDS SUMMARY | 2024-05-20 20:54 | XMS_ITS | Encounter Summary ---
Author Organization [facility] Address [address] [place] [address] Care Team Providers Care Budget And Policy Analyst Name Role Phone Se Smith MD Primary Care Provider +1- [phone] Encounter Details Date Type Department Care Team (Late st Contact Info) Description 01/03/2006 Office Visit [facility] Adult Primary Care - [address] [phone] Nerissa Palma FNP 1 [place], [place] [phone] Social History Tobacco Use Types Packs/Day Years Used Date Smoking Tobacco: Never Assessed Sex and Gender Information Value Date Recorded Sex Assigned at Not on file Gender Identity Not on file Sexual Orientation Not on file documented as of this encounter Plan of Treatment Not on file documented as of this encounter Visit Diagnoses Not on filedocumented in this encounter Care Teams Budget And Policy Analyst Relationship Specialty Start Date End Date Se Smith MD [address] [phone] PCP - General 02/24/09 02/11/13 documented as of this encounter
--- OUTSIDE RECORDS SUMMARY | 2024-05-20 20:54 | XMS_ITS | Encounter Summary ---
Author Organization [facility] Address [address] [place] [address] Care Team Providers Care Heavy Truck Driver Name Role Phone Unavailable Primary Care Provider Unavailabl e Encounter Details Date Type Department Care Team (Latest Contact Info) Description 01/09/2003 12:05 EST Hospital Encounter [facility] Emergency Department - [facility] [address] [place] [address] Emergency, Default, MD Discharge Disposition: Home or [...] Procedure Name Priority Date/Time Associated Diagnosis Comments CREATININE Routine 01/09/2003 15:19 EST HEMAGRAM & DIFF Routine 01/09/2003 15:19 EST BUN Routine 01/09/2003 15:19 EST GLUCOSE, SERUM Routine 01/09/2003 15:19 EST ELECTROLYTES Routine 01/09/2003 15:19 EST documented in this encounter Results * GLUCOSE, SERUM (01/09/2003 15:19 EST) Glucose, Serum 86 70 - 110 mg/dl [facility] Comment: Results may be affected due to hemolysis. Slight hemolysis 01/09/2003 15:1 9 EST 01/09/2003 15:21 EST Default Emergency MD CHEMISTRY & BLOOD G ORDERABLES Performing Organization Address [facility] de Phone Number [facility] [address] [place] [address] * ELECTROLYTES (01/09/2003 15:19 EST) Sodium 138 136 - 145 mEq/L [facility] Comment:Slight hemolysis Potassium 4.2 3.5 - 5.0 mEq/L [facility] Comment: Hemolysis may elevate potassium result. Slight hemolysis Chloride 99 96 - 110 mEq/L [facility] Comment:Slight hemolysis CO2 25 24 - 30 mEq/L [facility] Comment:Slight hemolysis 01/09/2003 15:1 9 EST 01/09/2003 15:21 EST Default Emergency MD CHEMISTRY & BLOOD G ORDERABLES Performing Organization Address [facility] de Phone Number [facility] [address] [place] [address] * CREATININE (01/09/2003 15:19 EST) Creatinine 1.0 0.7 - 1.5 mg/dl [facility] Comment:Slight hemolysis 01/09/2003 15:1 9 EST 01/09/2003 15:21 EST Default Emergency MD HISTORICAL LAB FOR SQ LOAD Performing Organization Address [facility] de Phone Number [facility] [address] [place] [address] * (ABNORMAL) HEMAGRAM & DIFF (01/09/2003 15:19 EST) WBC 8.77 4.0 - 10.4 K/cmm [facility] RBC 4.58 4.36 - 5.78 M/cmm [facility] Hemoglobin 14.0 13.8 - 17.3 gm/dl [facility] HCT 40.1 39.5 - 50.2 % [facility] MCV 87 81 - 95 fl [facility] MCH 30.5 27.6 - 33.0 pg [facility] MCHC 34.9 32.8 - 36.4 gm/dl [facility] PLT 205 141 - 320 K/cmm [facility] RDW-CV 12.8 11.8 - 14.1 % [facility] % Neutrophils 73.6 45.5 - 79.7 % [facility] % Lymphocytes 17.5 15.0 - 46.8 % [facility] % Monocytes 8.3 1.8 - 12.0 % [facility] % Eosinophils 0.3(L) 0.6 - 6.9 % [facility] % Basophils 0.3 0.2 - 1.4 % [facility] ABS Neutrophils 6.47 2.20 - 8.85 K/cmm [facility] ABS Lymphs 1.53 1.09 - 3.30 K/cmm [facility] ABS Monocytes 0.73 0.1 - 0.8 K/cmm [facility] ABS Eosinophils 0.02(L) 0.03 - 0.61 K/cmm [facility] ABS Basophils 0.02 0.01 - 0.11 K/cmm [facility] Type of Diff: Automated [facility] 01/09/2003 15:1 9 EST 01/09/2003 15:21 EST Default Emergency HISTORICAL LAB FOR SQ LOAD Performing Organization Address [facility] de Phone Number [facility] [address] [place] [address] * BUN (01/09/2003 15:19 EST) BUN 19 10 - 26 mg/dl [facility] Comment: Results may be affected due to hemolysis. Slight hemolysis 01/09/2003 15:1 9 EST 01/09/2003 15:21 EST Default Emergency MD CHEMISTRY & BLOOD G ORDERABLES Performing Organization Address [facility] Co de Phone Number [facility] [address] [place] [address] documented in this encounter Visit Diagnoses Not on filedocumented in this encounter
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
--- OUTSIDE RECORDS SUMMARY | 2024-05-20 20:54 | XMS_ITS | Encounter Summary ---
Author Organization [facility] Address [address] [place] [address] Care Team Providers Care Central Control Room Operator Name Role Phone Se Smith MD Primary Care Provider +1- [phone] Encounter Details Date Type Department Care Team (Late st Contact Info) Description 10/26/2003 Results Only [facility] Adult Primary Care - [address] [address] Se Smith MD 1 [facility] [address] [place] [address] Social History Tobacco Use Types [...] Priority Date/Time Associated Diagnosis Comments TESTOSTERONE Routine 10/26/2003 9:30 EST LIPID PROFILE (INCLUDES CHOLESTEROL, TRIGLYCERIDES, HDL, LDL) Routine 10/26/2003 9:30 EST documented in this encounter Results * (ABNORMAL) TESTOSTERONE (10/26/2003 9:30 EST) Testosterone, Total 46(L) 241 - 827 ng/dl [facility] 10/26/2003 9:30 EST 10/26/2003 15:22 EST Se Smith MD CHEMISTRY & BLOOD GAS ORDERABLES [facility] [address] [place] [address] * LIPID PROFILE (INCLUDES CHOLESTEROL, TRIGLYCERIDES, HDL, LDL) (10/26/2003 9:30 EST) Cholesterol 146 mg/dl [facility] Comment: Desirable:<200 Borderline:200-239 High Risk:>bx=522 Triglycerides 48 35 - 160 mg/dl [facility] HDL 55 mg/dl [facility] Comment: Highly Desirable:>60 Desirable:35-60 High Risk:<35 LDL, Calculated 81 mg/dl [facility] Comment: Desirable:<130 Borderline:130-159 High Risk:>gc=296 Chol/HDL Ratio 2.7 [facility] 10/26/2003 9:30 EST 10/26/2003 15:22 EST Se Smith MD CHEMISTRY & BLOOD GAS ORDERABLES Performing Organization Address City/State/[facility] Co de Phone Number [facility] [address] [place] [address] documented in this encounter Visit Diagnoses Not on filedocumented in this encounter Care Teams Central Control Room Operator Relationship Specialty Start Date End Date Se Smith MD 1 [facility] [address] [place] [address] PCP - General 02/24/09 02/11/13 documented as of this encounter
--- OUTSIDE RECORDS SUMMARY | 2024-05-20 20:54 | XMS_ITS | Encounter Summary ---
Author Organization [facility] Address [address] [place] [address] Care Team Providers Care Cigar Head Pegger Name Role Phone Se Smith MD Primary Care Provider +1- [phone] Encounter Details Date Type Department Care Team (Late st Contact Info) Description 10/27/[address] [facility] Adult Primary Care - [address] [address] Se Smith MD 1 [facility] 1 [place] [address] Social History Tobacco Use Types Packs/Day Years Used Date Smoking Tobacco: Never Assessed Sex and Gender Information Value Date Recorded Sex Assigned at Not on file Gender Identity Not on file Sexual Orientation Not on file documented as of this encounter Plan of Treatment Not on file documented as of this encounter Procedures Procedure Name Priority Date/Time Associated Diagnosis Comments QUANT BETA HCG, Routine 10/27/2004 10:47 EST TESTOSTERONE Routine 10/27/2004 10:47 EST LH Routine 10/27/2004 10:47 EST LIPID PROFILE (INCLUDES CHOLESTEROL, TRIGLYCERIDES, HDL, LDL) Routine 10/27/2004 10:47 EST documented in this encounter Results * (ABNORMAL) TESTOSTERONE (10/27/2004 10:47 EST) Testosterone, Total 30(L) 241 - 827 ng/dl [facility] 10/27/2004 10:4 7 EST 10/27/2004 13:00 EST Se Smith MD CHEMISTRY & BLOOD GAS ORDERABLES Performing Organization Address [facility] de Phone Number [facility] [address] [place] [address] * LIPID PROFILE (INCLUDES CHOLESTEROL, TRIGLYCERIDES, HDL, LDL) (10/27/2004 10:47 EST) Cholesterol 116 mg/dl [facility] Comment: Desirable:<200 Borderline:200-239 High Risk:>hi=309 Triglycerides 41 35 - 160 mg/dl [facility] HDL 52 mg/dl [facility] Comment: Highly Desirable:>60 Desirable:35-60 High Risk:<35 LDL, Calculated 56 mg/dl [facility] Comment: Desirable:<130 Borderline:130-159 High Risk:>ok=367 Chol/HDL Ratio 2.2 [facility] Fasting? No [facility] 10/27/2004 10:4 7 EST 10/27/2004 13:00 EST Se Smith MD CHEMISTRY & BLOOD GAS ORDERABLES Performing Organization Address [facility] de Phone Number [facility] [address] [place] [address] * (ABNORMAL) LH (10/27/2004 10:47 EST) LH <0.1(L) 2 - 9 mIU/ml [facility] 10/27/2004 10:4 7 EST 10/27/2004 13:00 EST Se Smith MD CHEMISTRY & BLOOD GAS ORDERABLES Performing Organization Address [facility] Co de Phone Number [facility] [address] [place] [address] * HCG (10/27/2004 10:47 EST) HCG <4 <4 mIU/ml [facility] Comment: Reference Range: Positive = >10 Borderline = 4-10 recommend repeat. Negative = <4 10/27/2004 10:4 7 EST 10/27/2004 13:00 EST Se Smith MD CHEMISTRY & BLOOD GAS ORDERABLES Performing Organization Address City/State/[facility] Co de Phone Number [facility] [address] [place] [address] documented in this encounter Visit Diagnoses Not on filedocumented in this encounter Care Teams Cigar Head Pegger Relationship Specialty Start Date End Date Se Smith MD 1 [facility] 1 [place] [address] PCP - General 02/24/09 02/11/13 documented as of this encounter
--- OUTSIDE RECORDS SUMMARY | 2024-05-20 20:54 | XMS_ITS | Encounter Summary ---
Author Organization [facility] Address [address] [place] [address] Care Team Providers Care Casing Inspector Name Role Phone Se Smith MD Primary Care Provider +1- [phone] Encounter Details Date Type Department Care Team (Late st Contact Info) Description 01/09/2006 Office Visit [facility] Adult Primary Care - [address] [address] Se Smith MD [address] [address] Social History Tobacco Use Types [...] on filedocumented in this encounter Care Teams Casing Inspector Relationship Specialty Start Date End Date Se Smith MD [address] [address] PCP - General 02/24/09 02/11/13 documented as of this encounter
--- OUTSIDE RECORDS SUMMARY | 2024-05-20 20:54 | XMS_ITS | Encounter Summary ---
Author Organization [facility] Address [address] [place] [address] Care Team Providers Care Dyed Raw Stock Blower Feeder Name Role Phone Unavailable Primary Care Provider Unavailabl e Encounter Details Date Type Department Care Team (Late st Contact Info) Description 07/25/2005 13:08 EDT Hospital Encounter [facility] [address] [place] [address] Rome Munoz MD [address] [place] [address] Social History Tobacco Use Types Packs/Day Years [...]
--- OUTSIDE RECORDS SUMMARY | 2024-05-20 20:54 | XMS_ITS | Encounter Summary ---
Author Organization [facility] Address [address] [place] [address] Care Team Providers Care Mechanic Recovery Name Role Phone Unavailable Primary Care Provider Unavailabl e Encounter Details Date Type Department Care Team (Latest Contact Info) Description 07/14/2003 10:20 EDT - 07/14/2003 11:59 EDT Hospital Encounter [facility] Emergency Department - [facility] [address] [place] [address] Emergency, Default, MD Discharge Disposition: Home or [...]
--- OUTSIDE RECORDS SUMMARY | 2024-05-20 20:54 | XMS_ITS | Encounter Summary ---
Author Organization [facility] Address [address] [place] [address] Care Team Providers Care Cotton Roll Packer Name Role Phone Unavailable Primary Care Provider Unavailabl e Encounter Details Date Type Department Care Team (Late st Contact Info) Description 05/16/2005 15:12 EDT Hospital Encounter [facility] - Other [address] [place] [address] Haim Hoffman, WELDER/FITTER [address] [place] [phone] Social History Tobacco Use Types Packs/Day Years [...]
--- OUTSIDE RECORDS SUMMARY | 2024-05-20 20:54 | XMS_ITS | Encounter Summary ---
Author Organization [facility] Address [address] [place] [address] Care Team Providers Care State Federal Relations Deputy Director Name Role Phone Se Smith MD Primary Care Provider +1- [phone] Encounter Details Date Type Department Care Team (Late st Contact Info) Description 08/24/2004 Office Visit [facility] - [facility] [address] [place] [address] Ashley Uribe MD [address] [place] [phone] Social History Tobacco Use Types Packs/Day Years Used Date Smoking Tobacco: Never Assessed Sex and Gender Information Value Date Recorded Sex Assigned at Not on file Gender Identity Not on file Sexual Orientation Not on file documented as of this encounter Progress Notes * Ashley Uribe MD - 12/23/2009 1411 EST [facility] ??? Physician Summary Registration Date/Time 08/24/2004 17:35 Time Seen (19:08 ). Arrived- By private vehicle. Historian- patient and historian (case management manager). Evaluation limited by Pt here with case management manager from [facility] History limited by mental retardation. HISTORY OF PRESENT ILLNESS Chief Complaint- tender area. This started 1 weeks It is described as painful. It has been located on the right lower extremity. A cause has been identified. The patient has had similar symptoms many times previously. These were as bad. The patient was seen recently at another facility in a clinic (today). Seen for mastoiditis REVIEW OF SYSTEMS No fever, sorethroat, cough, difficulty breathing or enlarged lymph nodes. No nausea or vomiting. PAST HISTORY mental retardation Calcium Supplement. Lupron Depot. Risperdal. Allergies: No known drug allergies. SOCIALHISTORY Is a local resident. Has good social support. . ADDITIONAL NOTES The nursing notes have been reviewed. PHYSICAL EXAM Appearance: Alert. No acute distress. Vital Signs: The vital signs have been reviewed. Skin: Single small abscess with drainage to left foot. (no red streaking). No cellulitis. Neuro: Oriented X 3. PROGRESS AND PROCEDURES Incision & Drainage of Abscess: The abscess is located in the left first toe (s). Skin cleansedwith Betadine. The abscess was incised with a #11 surgical blade. A small amount of pus was drained. good hemostasis no complications Patient and family counseled regarding the patient's diagnosis and need for follow-up. Disposition: Discharged home in stable condition (19:37 ). CLINICAL IMPRESSION Paronychia left great toe. INSTRUCTIONS See instructions for paronychia. Avoid wearing any tight shoes. If you cut your toenails, then cut them straight across. Ashley Uribe M.D. (Electronically signed Ashley Uribe M.D. 08/24/2004 19:40) Physician's Clinical Report [facility] ??? Nursing Summary Registration Date/Time 08/24/2004 17:35 TRIAGE Initial Assessment Triage time 18:41 BP: 120 / 76 sitting L arm manual (reg adult cuff). HR: 88 regular RR: 18 Temp: F 97.0 oral --1848 Georgia MerchantP.N. Medications Calcium Supplement : daily (1200mg ). Lupron Depot (x1 a month). Risperdal: 1mg daily. --1847 Georgia MerchantP.N. Allergies No known drug allergies. --1848 Georgia MerchantP.N. History Chief Complaint: (ingrown toenail). (1 weeks). Pain level now: 7/10. (pt notes that the area has been bleeding.). No fever. No treatment prior to arrival. PAST HX: Immunizations: up-to-date. pt broke his left arm SOCIAL HX: Nonsmoker. Denies alcohol use. Visual impairment present- wears glasses. Arrived by private vehicle and accompanied by (insurance case manager.). Historian: patient and (with insurance case manager). Primary care physician not notified of patient's arrival. --1847 Claudia Benton L.P.N. PHYSICAL ASSESSMENT Appears anxious. Oriented X 3. Abnormal gait. No facial asymmetry noted. Respirations not labored. (some swelling in the toe left great.). Abdomen nontender. Skin is warm. (?infected toe nail). --1850 Claudia Benton L.P.N. NURSING PROGRESS NOTES Progress (pt soaking foot in basin of warm water and betidine.). Call light placed in reach. Bed placed in lowest position. Brakes of bed on. Patient ready for evaluation- chart flagged. --1850 Claudia Benton L.P.N. IBUPROFEN 800 mg for toe pain , post md draining the infection. PO. --1946 Claudia Benton L.P.N. (pt toe with bacitracin and a bandaide applied.). --2001 Claudia Benton L.P.N. DISPOSITION / DISCHARGE Patient reports pain level on departure as 4/10. Condition at departure: stable. No barriers to learning present. Discharge instructions reviewed with the patient. Patient verbalized understanding. (pt and insurance case manager with no further questions.). The patient was discharged home and accompanied by academic adviser. The patient left the Emergency Department ambulatory and via private vehicle. Departure time: 20:01 --2001 Ashley Merchant L.P.N. Locked/Released at 08/24/2004 20:02 by Claudia Benton L.P.N. documented in this encounter Plan of Treatment Not on file documented as of this encounter Visit Diagnoses Not on filedocumented in this encounter Care Teams State Federal Relations Deputy Director Relationship Specialty Start Date End Date Se Smith MD 1 [facility] 1 [place] [address] PCP - General 02/24/09 02/11/13 documented as of this encounter
--- OUTSIDE RECORDS SUMMARY | 2024-05-20 20:54 | XMS_ITS | Encounter Summary ---
Author Organization [facility] Address [address] [place] [address] Care Team Providers Care Mechanical Design Engineer Name Role Phone Unavailable Primary Care Provider Unavailabl e Encounter Details Date Type Department Care Team (Late st Contact Info) Description 05/16/2004 17:26 EDT Hospital Encounter [facility] - Other [address] [place] [address] Se Smith MD 1 [facility] Level [address] [place] [address] Social History Tobacco Use Types [...]
--- OUTSIDE RECORDS SUMMARY | 2024-05-20 20:54 | XMS_ITS | Encounter Summary ---
Author Organization [facility] Address [address] [place] [address] Care Team Providers Care Literacy Teacher Name Role Phone Unavailable Primary Care Provider Unavailabl e Encounter Details Date Type Department Care Team (Late st Contact Info) Description 10/27/2004 17:04 [facility] Hospital Encounter [facility] - Other [address] [place] [address] Se Smith MD 1 [facility] Level [address] [place] [phone] Social History Tobacco Use Types Packs/Day Years [...]
--- OUTSIDE RECORDS SUMMARY | 2024-05-20 20:54 | XMS_ITS | Encounter Summary ---
Author Organization [facility] Address [address] [place] [address] Care Team Providers Care Gameroom Technician Name Role Phone Unavailable Primary Care Provider Unavailabl e Encounter Details Date Type Department Care Team (Latest Contact Info) Description 04/01/2006 10:02 EDT - 04/01/2006 11:59 EDT Hospital Encounter [address] [address] Se Smith MD [address] [place] [address] Discharge Disposition: Auto Discharge Social History [...] Procedure Name Priority Date/Time Associated Diagnosis Comments TESTS ADDED BY PHONE Routine 04/01/2006 13:16 EDT COMPLETE BLOOD COUNT Routine 04/01/2006 13:16 EDT TESTOSTERONE Routine 04/01/2006 13:16 EDT LH Routine 04/01/2006 13:16 EDT GLUCOSE, SERUM Routine 04/01/2006 13:16 EDT LIPID PROFILE (INCLUDES CHOLESTEROL, TRIGLYCERIDES, HDL, LDL) Routine 04/01/2006 13:16 EDT documented in this encounter Results * (ABNORMAL) TESTOSTERONE (04/01/2006 13:16 EDT) Testosterone, Total 16(L) 241 - 827 ng/dL [facility] 04/01/2006 13:1 6 EDT 04/01/2006 13:23 EDT Se Smith MD CHEMISTRY & BLOOD GAS ORDERABLES Performing Organization Address [facility] de Phone Number [facility] [address] [place] [address] * GLUCOSE, SERUM (04/01/2006 13:16 EDT) Glucose, Serum 82 70 - 100 mg/dl [facility] 04/01/2006 13:1 6 EDT 04/01/2006 13:23 EDT Se Smith MD CHEMISTRY & BLOOD GAS ORDERABLES Performing Organization Address [facility] de Phone Number [facility] [address] [place] [address] * LIPID PROFILE (INCLUDES CHOLESTEROL, TRIGLYCERIDES, HDL, LDL) (04/01/2006 13:16 EDT) Cholesterol 132 mg/dl [facility] Comment: Desirable:<200 Borderline:200-239 High Risk:>qk=395 Triglycerides 68 35 - 160 mg/dl [facility] HDL 65 mg/dl [facility] Comment: Highly Desirable:>60 Desirable:35-60 High Risk:<35 LDL, Calculated 53 mg/dl [facility] Comment: Desirable:<130 Borderline:130-159 High Risk:>sz=400 Chol/HDL Ratio 2.0 [facility] Fasting? No [facility] 04/01/2006 13:1 6 EDT 04/01/2006 13:23 EDT Se Smith MD CHEMISTRY & BLOOD GAS ORDERABLES Performing Organization Address [facility] de Phone Number [facility] [address] [place] [address] * (ABNORMAL) LH (04/01/2006 13:16 EDT) LH 0.1(L) 2 - 9 mIU/ml [facility] 04/01/2006 13:1 6 EDT 04/01/2006 13:23 EDT Se Smith MD CHEMISTRY & BLOOD GAS ORDERABLES Performing Organization Address [facility] Co de Phone Number [facility] [address] [place] [address] * HEMAGRAM (04/01/2006 13:16 EDT) WBC 4.80 4.0 - 10.4 K/cmm [facility] RBC 4.79 4.36 - 5.78 M/cmm [facility] Hemoglobin 14.3 13.8 - 17.3 gm/dl [facility] HCT 42.2 39.5 - 50.2 % [facility] MCV 88 81 - 95 fl [facility] MCH 29.8 27.6 - 33.0 pg [facility] MCHC 33.9 32.8 - 36.4 gm/dl [facility] PLT 222 141 - 320 K/cmm [facility] RDW-CV 13.2 11.8 - 14.1 % [facility] 04/01/2006 13:1 6 EDT 04/01/2006 13:23 EDT Se Smith MD HEMATOLOGY & PF4 O RDERABLES Performing Organization Address City/[facility]/ZIP Co de Phone Number [facility] [address] [place] [address] * TESTS ADDED BY PHONE (04/01/2006 13:16 EDT) Tests to be added SGL [facility] Diagnosis Code SAME [facility] 04/01/2006 13:1 6 EDT 04/01/2006 13:23 EDT Se Smith MD CHEMISTRY & BLOOD GAS ORDERABLES Performing Organization Address City/State/[facility] Co de Phone Number [facility] [address] [place] [address] documented in this encounter Visit Diagnoses Not on filedocumented in this encounter
--- OUTSIDE RECORDS SUMMARY | 2024-05-20 20:54 | XMS_ITS | Encounter Summary ---
Author Organization [facility] [place] [address] Care Team Providers Care Dry Transfer Man Name Role Phone Polly Bradley Primary Care Provider [phone] Reason for Referral * Consultation (Routine) - Authorized Specialty Diagnoses / Procedures Referred By Romeo bhatt Referred To Contact Dermatology Diagnoses Tinea corporis Polly Bradley [address] [place] [address] [facility] Dermatology [address] [place] [address] Referral ID Status Reason Start Date Expiration Date Visits Requested Visits Authorized [id number] Authorized Consult, Test & Treat PCP Updated and/or Approved 03/19/2024 03/19/2025 6 6 Encounter Details Date Type Department Care Team (Late st Contact Info) Description 03/19/2024 Transcribe Orders eDH Incoming Referrals [phone] Polly Bradley [address] [place], [place] [address] Tinea corporis Social History Tobacco Use Types Packs/Day Years Used Date Smoking Tobacco: Never Assessed Sex and Gender Information Value Date Recorded Sex Assigned at Not on file Gender Identity Not on file Sexual Orientation Not on file documented as of this encounter Plan of Treatment Upcoming Encounters Date Type Department Care Team (Late st Contact Info) Description 06/08/2024 3:00 PM EDT Office Visit Dermatology at [address] [place] [address] [facility] [address] [place] [address] Scheduled Referrals Name Type Priority Associated Diagnoses Order Schedule Referral to Dermatology Outpatient Referral Routine Tinea corporis Ordered: 03/19/2024 documented as of this encounter Visit Diagnoses Diagnosis Tinea corporis Dermatophytosis of the body documented in this encounter Care Teams Dry Transfer Man Relationship Specialty Start Date End Date Polly Bradley [address] [place] [address] PCP - General Family Medicine 03/19/24 documented as of this encounter
--- OUTSIDE RECORDS SUMMARY | 2024-05-20 20:54 | XMS_ITS | Encounter Summary ---
Author Organization [facility] Address [address] [place] [address] Care Team Providers Care Lumite Injector Name Role Phone Se Smith MD Primary Care Provider [phone] Encounter Details Date Type Department Care Team (Late st Contact Info) Description 07/06/2005 Before PRISM Converted Visit (Maple) [facility] - Maple conversion [address] [place] [address] Thaddeus Colon MD Social History Tobacco Use Types Packs/Day Years Used Date Smoking Tobacco: Never Assessed Sex and Gender Information Value Date Recorded Sex Assigned at Not on file Gender Identity Not on file Sexual Orientation Not on file documented as of this encounter Progress Notes * Thaddeus Colon MD - 12/22/2009 194 EST DIVISION OF OTOLARYNGOLOGY PROGRESS/FOLLOWUP NOTE - 07/06/2005 S: Haja comes in today for some discomfort that hehad in the left ear. I had seen him in the past and did not define any pathology. O:on examination today under the microscope there is some crusting in the ear canal and on careful inspection he has some myringitis of the anterior tympanic membrane. He did have PE tubes as a childand I suspect that that is what this is all related to. A: P:have placed him on Cortisporin Otic Suspension to be used for ten days time and continue water precautions as well. Hopefully this will resolve the process but we will have to wait and see where things go if he doesnt respond to the topical drops. There really not much else to do other than to follow him along. It is possible that it might produce a problem that requires skin grafting but that often is not as reliable. I suspect that this is from the previous PE tube. Signed by Thaddeus Colon MD 08/17/2005 18:00 Margie Harp MD Thaddeus Colon MD D: - Thaddeus Colon MD P - kmb Job ID: Tape Document ID: [id number] cc: Se Smith MD documented in this encounter Plan of Treatment Not on file documented as of this encounter Visit Diagnoses Not on filedocumented in this encounter Care Teams Lumite Injector Relationship Specialty Start Date End Date Se Smith MD 1 [facility] 1 [place] [address] PCP - General 02/24/09 02/11/13 documented as of this encounter
--- OUTSIDE RECORDS SUMMARY | 2024-05-20 20:54 | XMS_ITS | Encounter Summary ---
Author Organization [facility] Address [address] [place] [address] Care Team Providers Care Web Manager Name Role Phone Unavailable Primary Care Provider Unavailabl e Encounter Details Date Type Department Care Team (Latest Contact Info) Description 09/07/2005 20:39 EST Hospital Encounter [facility] Emergency Department - [facility] [address] [place] [address] Emergency, Default, MD Discharge Disposition: Home or [...] Procedure Name Priority Date/Time Associated Diagnosis Comments CT HEAD WO CONTRAST 09/07/2005 2 1:36 EST documented in this encounter Results * CT HEAD WO CONTRAST (09/07/2005 21:36 EST) Anatomical Region Laterality Modality Other 09/07/2005 21:3 6 EST Narrative 05/20/2009 3:53 EDT HEAD INJURY R/O BLEED HEAD CT WITHOUT CONTRAST INDICATION: Headache following fall. TECHNIQUE: Transverse non-contrast CT scans of the brain were performed from the foramen magnum to the vertex. COMPARISON: ??None. FINDINGS: No intracranial mass, hemorrhage or extra-axial fluid collection is seen. ??No midline shift or mass effect is present. IMPRESSION: No CT evidence of acute intracranial hemorrhage. ??If symptoms persist, MR may be helpful for further evaluation as this is a more sensitive study for exclusion of intracranial pathology. D: ? 09/08/05 T: ? 09/10/05 /amn Procedure Note Jalil Bolton MD - 05/20/2009 HEAD INJURY R/O BLEED HEAD CT WITHOUT CONTRAST INDICATION: Headache following fall. TECHNIQUE: Transverse non-contrast CT scans of the brain were performed from the foramen magnum to the vertex. COMPARISON: None. FINDINGS: No intracranial mass, hemorrhage or extra-axial fluid collection is seen. No midline shift or mass effect is present. IMPRESSION: No CT evidence of acute intracranial hemorrhage. If symptoms persist, MR may be helpful for further evaluation as this is a more sensitive study for exclusion of intracranial pathology. / Yong Armenta MD IMG CT ORDERABLES documented in this encounter Visit Diagnoses Not on filedocumented in this encounter
--- OUTSIDE RECORDS SUMMARY | 2024-05-20 20:54 | XMS_ITS | Encounter Summary ---
Author Organization [facility] Address [address] [place] [address] Care Team Providers Care Supervisor Commissary Production Name Role Phone Unavailable Primary Care Provider Unavailabl e Encounter Details Date Type Department Care Team (Late st Contact Info) Description 01/09/2005 13:26 [facility] Encounter [address] [address] Vernon Arana MD [address] [place] [phone] Social History Tobacco Use Types Packs/Day Years [...]
--- OUTSIDE RECORDS SUMMARY | 2024-05-20 20:54 | XMS_ITS | Encounter Summary ---
[place] [address] Care Team Providers Care Process Development Manager Name Role Phone Unavailable Primary Care Provider Unavailabl e Encounter Details Date Type Department Care Team (Late st Contact Info) Description 11/29/2021 Interpretation Only [address] [address] Sam Hedrick, DPM [address] [place] [address] Social History Tobacco Use Types Packs/Day Years [...] 3:00 PM EDT Office Visit Dermatology at [facility] [address] [place] [address] Sierra Nielson MD [facility] [place] [address] documented as of this encounter Procedures Procedure Name Priority Date/Time Associated Diagnosis Comments XR FOOT MIN 3 VIEWS BILAT Routine 11/29/2021 11:03 AM EST documented in this encounter Results * XR Foot Min 3 views Bilat (Generic) (11/29/2021 11:03 AM EST) PT CLASS O DH RAD ADMITDTTM DH RAD PT LISSET GALICIA MD INFO [id number]^W BAILEY^SAM^ P RAD EXAM DESC [id number]^XR RIGHT FOOT ROUTINE^RIS RAD Anatomical Region Laterality Modality Foot Bilateral Radiographic Kami ging Impressions 11/29/2021 11:22 AM EST Degenerative changes as above. No acute fracture or dislocation. Thank you for letting us participate in the care of this patient. ??If you are a health care provider and have any questions regarding this report, please contact the number below. ??For patients who have questions please contact the health rn home care that requested your imaging first. ? Narrative 11/29/2021 11:22 AM EST EXAMINATION: XR RIGHT FOOT ROUTINE CLINICAL HISTORY: Pain in right foot TECHNIQUE: 3 views of the right foot COMPARISON: December 21, 2019 FINDINGS: Healed fracture deformity through the proximal phalanx of the fourth digit. No acute fracture or dislocation is seen. Maintained longitudinal arch. Superior and inferior calcaneal spurring. Procedure Note Jabier Gonsales MD - 11/29/2021 EXAMINATION: XR RIGHT FOOT ROUTINE CLINICAL HISTORY: Pain in right foot TECHNIQUE: 3 views of the right foot COMPARISON: December 21, 2019 FINDINGS: Healed fracture deformity through the proximal phalanx of the fourthdigit. No acute fracture or dislocation is seen. Maintained longitudinal arch.Superior and inferior calcaneal spurring. IMPRESSION Degenerative changes as above. No acute fracture or dislocation. Thank you for letting us participate in the care of this patient. If youare a health care provider and have any questions regarding this report,please contact the number below. For patients who have questions please contactthe health rn home care that requested your imaging first. Sam Hedrick DPM IMG DX ORDERABLES documented in this encounter Visit Diagnoses Not on filedocumented in this encounter
--- OUTSIDE RECORDS SUMMARY | 2024-05-20 20:54 | XMS_ITS | Encounter Summary ---
Author Organization [facility] Address [address] [place] [address] Care Team Providers Care Educational Administrator Name Role Phone Se Smith MD Primary Care Provider [phone]- [phone] Encounter Details Date Type Department Care Team (Late st Contact Info) Description 05/16/2004 Results Only [facility] - [address] [address] Se Smith MD 1 [facility] [address] [place] [address] Social History Tobacco Use Types Packs/Day Years Used Date Smoking Tobacco: Never Assessed Sex and Gender Information Value Date Recorded Sex Assigned at Not on file Gender Identity Not on file Sexual Orientation Not on file documented as of this encounter Plan of Treatment Not on file documented as of this encounter Procedures Procedure Name Priority Date/Time Associated Diagnosis Comments TSH Routine 05/16/2004 9:44 EDT documented in this encounter Results * TSH (05/16/2004 9:44 EDT) TSH 2.70 0.35 - 5.50 uIU/ml [facility] 05/16/2004 9:44 EDT 05/16/2004 13:36 EDT Se Smith MD CHEMISTRY & BLOOD GAS ORDERABLES [facility] [address] [place] [address] documented in this encounter Visit Diagnoses Not on filedocumented in this encounter Care Teams Educational Administrator Relationship Specialty Start Date End Date Se Smith MD 1 [facility] [address] [place] [phone] PCP - General 02/24/09 02/11/13 documented as of this encounter
--- OUTSIDE RECORDS SUMMARY | 2024-05-20 20:54 | XMS_ITS | Encounter Summary ---
Author Organization [facility] Address [address] [place] [address] Care Team Providers Care Linen Controller Name Role Phone Unavailable Primary Care Provider Unavailabl e Encounter Details Date Type Department Care Team (Late st Contact Info) Description 10/26/2003 11:27 [facility] Hospital Encounter [facility] - Other [address] [place] [address] Se Smith MD 1 [facility] Level [address] [place] [phone] Social History Tobacco Use Types Packs/Day Years [...]
--- OUTSIDE RECORDS SUMMARY | 2024-05-20 20:54 | XMS_ITS | Encounter Summary ---
Author Organization [facility] Address [address] [place] [address] Care Team Providers Care Band Bias Machine Operator Name Role Phone Se Smith MD Primary Care Provider +1- [phone] Encounter Details Date Type Department Care Team (Late st Contact Info) Description 11/26/2005 Office Visit [facility] - Maple conversion [address] [place] [address] Ashley Uribe MD [address] [place] [phone] Social History Tobacco Use Types Packs/Day Years Used Date Smoking Tobacco: Never Assessed Sex and Gender Information Value Date Recorded Sex Assigned at Not on file Gender Identity Not on file Sexual Orientation Not on file documented as of this encounter Progress Notes * Ashley Uribe MD - 12/21/2009 194 EST [facility] - Physician Summary Registration Date/Time: 11/26/2005 19:37 Time Seen: 20:44 . Arrived- By private vehicle. Historian - patient. HISTORY OF PRESENT ILLNESS Chief Complaint- Injury to the right ankle. The injury happened just prior to arrival. The patient sustained an inversion injury while jumping. Occurred at work. Patient is experiencing moderate pain. OF SYSTEMS The patient complains of pain on weight bearing. He complains of swelling. PAST HISTORY See nurses notes. Medications: See nurses notes. Allergies: No known drug allergies. ADDITIONAL NOTES The nursing notes have been reviewed. PHYSICAL EXAM Appearance: Alert. Oriented X3. No acute distress. Vital Signs: Have been reviewed - Skin: Skin intact. Extremities: Right lateral ankle: moderate tenderness and severe swelling of the lateral ligaments.Limited ROM secondary to pain. Neurovascular intact distally. No ligamentous laxity present. No ecchymosis. No signs of infection present in the feet or ankles. Extremities otherwise negative. Gait: Gait not tested due to pain. Neuro, Vascular and Tendons: Vascular status intact. Sensation intact. Motor intact. Neuro: Oriented X 3. LABS, X-RAYS, AND EKG Rt Ankle X-ray: No fracture. Views: 3 view ankle series. Technique: good. The right ankle X-ray wasindependently viewed by me. PROGRESS AND PROCEDURES Patient counseled regarding the patient's test results, diagnosis and need for follow-up. Disposition: Discharged home in stable condition (21:28 ). CLINICAL IMPRESSION Sprained right ankle . INSTRUCTIONS Use crutches. Do not work (until you can walk with your air cast). See instructions for ankle sprain. Purchase an air cast tomorrow and use this as soon as it is comfortable to bear weight. Wear aircast for 10 days and follow up with [facility] in orthopedics. OTC Medications: Motrin IB 200 mg (available over the counter): take 3 orally every 6 hours as needed for pain. Follow-up: [facility], , [place] [address]. Follow up in ten days. (Electronically signed by Ashley Uribe M.D. 11/27/2005 19:59) Care Center - Nursing Summary Registration Date/Time: 11/26/2005 19:37 TRIAGE Initial Assessment Triage time 20:22 . BP: 110 / 78. HR: 76. RR: 16. Temp: 97.8. --2028 Sherice Galvan, . Medications Calcium Supplement. Strattera. ( spertal). ( valtrex). --2028 Sherice Galvan, . Allergies No known drug allergies. --2028 Sherice Galvan, . History Chief Complaint: INJURY TO RIGHT ANKLE. Mechanism of injury: fell (in hole). PAST HX: Negative. History of previous surgery. Elbow surgery. SOCIAL HX: Nonsmoker. No alcohol use. Arrived by private vehicle. Historian: patient. --2028 Sherice Galvan, ( pt states works for [employer], and his ankle bone came out , per the pt it went back in, but was wabbly.). --2042 Claudia Benton L.P.N. PAST HX: Tetanus status: up-to-date. Immunizations: up-to-date. SOCIAL HX: Functional assessment performed: wears glasses. --2042 Claudia Benton L.P.N. PAST HX. PHYSICAL ASSESSMENT Ambulatory toroom. Alert. Oriented X 3. Limited ROM present. Limping gait. Right ankle. Skin is warm. --2043 Clauida Benton L.P.N. NURSING PROGRESS NOTES Progress Cold pack applied. --2028 Sherice Galvan, Extremity elevated. Call light placed in reach. Bed placed in lowest position. Brakes of bed on. Patient ready for evaluation - chart flagged. --2043 Claudia Benton L.P.N. 4 inch jane bandage applied to right ankle. Patient fit with crutches. --2135 Claudia Benton L.P.N. Late entry -. IBUPROFEN 800 mg for right ankle pain given at 2044 PO. Pre-procedure time-out completed: verified identity of patient (name and birthdate). . --2143 Claudia Benton L.P.N. DISPOSITION / DISCHARGE Patient reports pain level on departure as 4/10. Condition at departure: unchanged and stable. No learning barriers present. Discharge instructions reviewed with the patient and deckhand crab boat. Work note given. Patient and deckhand crab boat verbalized understanding. Written instructions provided in Tanzanian. Thepatient was discharged home and accompanied by deckhand crab boat. The patient left the Emergency Departmentambulatory and via private vehicle. Italian Tutor driving. Departure time: 21:44. --2143 Claudia Benton L.P.N. Locked/Released at 11/26/2005 21:44 by Claudia Benton L.P.N. documented in this encounter Plan of Treatment Not on file documented as of this encounter Visit Diagnoses Not on filedocumented in this encounter Care Teams Band Bias Machine Operator Relationship Specialty Start Date End Date Se Smith MD 1 [facility] 1 [place] [address] PCP - General 02/24/09 02/11/13 documented as of this encounter
--- OUTSIDE RECORDS SUMMARY | 2024-05-20 20:54 | XMS_ITS | Encounter Summary ---
Author Organization [facility] Address [address] [place] [address] Care Team Providers Care Sales Negotiator Name Role Phone Unavailable Primary Care Provider Unavailabl e Encounter Details Date Type Department Care Team (Late st Contact Info) Description 07/17/2005 15:16 EDT Hospital Encounter [facility] - Other [address] [place] [address] eS Smith MD [address] [place] [address] 1 [place] [address] Jamshid Mendiola MD [facility] [address] [place] [address] Discharge Disposition: Auto Discharge Social History Tobacco [...] Procedure Name Priority Date/Time Associated Diagnosis Comments GROUP A STREP CULTURE Routine 07/17/2005 14:51 EDT documented in this encounter Results * CULTURE FOR GROUP A BETA STREPTOCOCCUS (07/17/2005 14:51 EDT) Specimen Description Throat [facility] Result NO GROUP A BETA STREPTOCOCCI ISOLATED [facility] Report Status Final [id number] [facility] 07/17/2005 14:5 1 EDT 07/17/2005 19:04 EDT Jamshid Mendiola MD MICROBIOLOGY - GENER AL ORDERABLES [facility] [address] [place] [address] documented in this encounter Visit Diagnoses Not on filedocumented in this encounter
--- OUTSIDE RECORDS SUMMARY | 2024-05-20 20:54 | XMS_ITS | Clinical Summary ---
Author Organization [facility] [place] [address] Care Team Providers Care Shipping Clerk Crating Name Role Phone Polly Bradley Primary Care Provider Encounters Date Type Department Care Team Description 03/19/2024 Transcribe Orders eDH Incoming Referrals [phone] Polly Bradley Tinea corporis from Last 3 Months Social History Tobacco Use Types Packs/Day Years Used Date Smoking Tobacco: Never Assessed Sex and Gender Information Value Date Recorded Sex Assigned at Not on file Gender Identity Not on file Sexual Orientation Not on file Plan of Treatment Upcoming Encounters Date Type Department Care Team (Late st Contact Info) Description 06/08/2024 3:00 PM EDT Office Visit Dermatology at [facility] [address] [place] [address] Sierra Nielson MD [facility] [address] [place] [address] Health Maintenance Due Date Last Done Comments HIV screen 1999 Hepatitis C Screening 1999 Lipid Screening 1999 Hepatitis B vaccine (0-59 yrs) (1) 2000 Tdap adult 2000 Tetanus vaccine 2000 Covid-19 Vaccine (2 - season) 06/21/202305/2022 Influenza (Flu) vaccine (1 o f 1 - Influenza standard series) 06/21/2024 Procedures Procedure Name Priority Date/Time Associated Diagnosis Comments LAB SCAN 03/02/2024 12:00 AM EDT from Last 3 Months Results * Scan Doc: Lab (03/02/2024 12:00 AM EDT) Narrative 03/02/2024 12:00 AM EDT Ordered by an unspecified provider. Scanning Provider MEDIA MGR SCAN EXT O RDR/RSLT from Last 3 Months Care Teams Shipping Clerk Crating Relationship Specialty Start Date End Date Polly Bradley [address] [place], [place] [id number] PCP - General Family Medicine 03/19/24
--- OUTSIDE RECORDS SUMMARY | 2024-05-20 20:54 | XMS_ITS | Encounter Summary ---
Author Organization [facility] Address [address] [place] [address] Care Team Providers Care Push Connector Assembler Name Role Phone Unavailable Primary Care Provider Unavailabl e Encounter Details Date Type Department Care Team (Late st Contact Info) Description 10/30/2002 14:50 EST Hospital Encounter [facility] - Other [address] [place] [address] Se Smith MD 1 [facility] Level [address] [place] [phone] Unknown, Provider, Social History Tobacco Use Types [...]
--- OUTSIDE RECORDS SUMMARY | 2024-05-20 20:54 | XMS_ITS | Encounter Summary ---
Author Organization [facility] Address [address] [place] [address] Care Team Providers Care [employer] Senior Officer Name Role Phone Se Smith MD Primary Care Provider +1- [phone] Encounter Details Date Type Department Care Team (Late st Contact Info) Description 09/26/2004 Office Visit [facility] [address] [place] [address] Markos Lomeli, FLAT BREAKDOWN PROCESSOR [address] [place], [place] [address] Social History Tobacco Use Types Packs/Day Years Used Date Smoking Tobacco: Never Assessed Sex and Gender Information Value Date Recorded Sex Assigned at Not on file Gender Identity Not on file Sexual Orientation Not on file documented as of this encounter Progress Notes * Randy, Conv Fish Worm Grower - 12/23/2009 2022 EST [facility] ??? Physician Summary Registration Date/Time 09/26/2004 16:13 Time Seen (17:24 Sep 26 2004 ). Arrived- By private vehicle. Historian- patient and care-taker. HISTORY OF PRESENT ILLNESS Chief complaint- LOWER EXTREMITY PAIN and SWELLING and PROBLEM IN THELEFT FOOT ; (Lt Great Toe). Isstill present. It was gradual in onset. It is not gone now. The quality is noted to be dull, painand similar to prior episodes. Severity is described as being mild. No radiation. Not relieved by anything- worsened by standing and walking. Symptoms located in the area of the left foot. He has had redness and swelling. The patient has had difficulty walking. No bladder dysfunction, bowel dysfunction, sensory loss or motor loss. (Lt Grt toenail area painful, red, & swollen. Has occured many times. Last was Rt 1 1/2 mo ago.Continually picks nails. ). Patient denies an injury. The patient has had similar symptoms many times previously. The patient was seen recently by a health care provider (1 1/2 months ago). REVIEW OF SYSTEMS No cough, chest pain, difficulty breathing, fever or skin rash. No enlarged lymph nodes, neck pain or back pain. All systems otherwise negative, except as recorded above. PAST HISTORY See nurses notes. Medications: See nurses notes. Allergies: See nurses notes. SOCIAL HISTORY No drug use. No recent travel. Is a local resident. ADDITIONAL NOTES The nursing notes have been reviewed. PHYSICAL EXAM Appearance: Alert. No acute distress. Vital Signs: The vital signs have been reviewed. Eyes: Eyes normal inspection. Back: ROM normal. Skin: Skin warm and dry. Extremities: Lower extremity swelling, warmth, tenderness, erythema and purulent drainage present. No lymphangitis or fluctuance. Extremities exhibit normal ROM. No pedal edema. No calf tenderness. Tip of left great toe (Ingrown toenail with erythema, edema & D/C at nail edge. ). No pedal edema. Upper extremities negative. Neuro, Vascular, and Tendons: No pulse deficit present. Capillary refill not prolonged. Neuro: Oriented X 3. No motor deficit. No sensory deficit. PROGRESS AND PROCEDURES Harsh Course: 17:30. TC to Dr Garcia Will see in office. Call tomorrow. D/W Pt& registered nurses. Will do. Patient counseled regarding the patient's test results, diagnosis and need for follow-up. ED Attending on duty and available for supervision: Della Verdin. Disposition: Condition: good and stable. Discharged home in good condition and stable condition. CLINICAL IMPRESSION Ingrown toenail left great toe. INSTRUCTIONS Elevate injured areas above chest level. Wear stiff soled shoe as needed and until better. Warm soaks to affected area (3-6 times daily for 15-20 minutes at a time). You may walk and bear weight as tolerated. Continue current medications. Call Dr Garcia at [phone]. Tell them Dr Garcia was talked to about this & said to see him. Warnings: Further evaluation is necessary in orderto conduct further tests. It is very important to follow upwith a physician. Prescription Medications: Cephalexin 500mg: take 1 tab orally every 6 hours for 7 days. No refills. Markos Lomeli A.P.R.N. (Electronically signed Markos Lomeli A.P.R.N. 09/27/2004 10:00) Physician's Clinical Report [facility] ??? Nursing Summary Registration Date/Time 09/26/2004 16:13 TRIAGE Initial Assessment BP: 120 / 80 HR: 88 RR: 16 Temp: 98.2 --1651 Sunni Eaton R.N. Medications (LUPRON I.M.MONTHLY). Risperidone: 1mg daily. --1648 Sunni Eaton R.N. Allergies No known drug allergies. --1650 Sunni Eaton R.N. History Chief Complaint: (lt gr. toe nail infected). Pain level now: 12/28. Treatment UNIVERSITY LECTURER: (antibiotics begining of AUG. PT PICKS AT NAILS). PAST HX: (MENTALLY CHALLENGED PYSCHOSES). Arrived byprivate vehicle and accompanied by (weight reduction specialist). Historian: patient. --1650 Sunni Eaton R.N. PHYSICAL ASSESSMENT (LT GREAT TOE NAIL SL INFECTED). --1651 Sunni Eaton R.N. NURSING PROGRESS NOTES Progress (SOAKING LT FOOT IN WARM WATER AND HIBICLENS). Patient ready for evaluation- chart flagged. --1653 Sunni Eaton R.N. (some purelent drainage noted after soak). --1757 Sunni Eaton R.N. DISPOSITION / DISCHARGE Condition at departure: improved. No barriers to learning present. Discharge instructions reviewed with the patient and registered nurses. Provided and reviewed written instructions. Reviewed referral to a machine sprayer. Activity restrictions were reviewed. Patient verbalized understanding (weight reduction specialist). The patient was discharged home and accompanied by (weight reduction specialist). The patient left the Emergency Department ambulatory and via private vehicle. --1758 Evelio Mcgee R.N. Locked/Released at 09/26/2004 18:00 by Sunni Eaton R.N. documented in this encounter Plan of Treatment Not on file documented as of this encounter Visit Diagnoses Not on filedocumented in this encounter Care Teams Army Senior Officer Relationship Specialty Start Date End Date Se Smith MD 1 [facility] Level [address] [place] [address] PCP - General 02/24/09 02/11/13 documented as of this encounter
--- OUTSIDE RECORDS SUMMARY | 2024-05-20 20:54 | XMS_ITS | Encounter Summary ---
Author Organization [facility] Address [address] [place] [address] Care Team Providers Care Pilot Boat Captain Name Role Phone Se Smith MD Primary Care Provider +1- [phone] Encounter Details Date Type Department Care Team (Late st Contact Info) Description 12/28/2005 Office Visit [facility] Primary [facility] - [address] [id number] Haim Hoffman, PATCH DRILLER [address] [place] [phone] Social History Tobacco Use Types Packs/Day Years Used Date Smoking Tobacco: Never Assessed Sex and Gender Information Value Date Recorded Sex Assigned at Not on file Gender Identity Not on file Sexual Orientation Not on file documented as of this encounter Plan of Treatment Not on file documented as of this encounter Visit Diagnoses Not on filedocumented in this encounter Care Teams Pilot Boat Captain Relationship Specialty Start Date End Date Se Smith MD 1 [facility] [address] [place] [phone] PCP - General 02/24/09 02/11/13 documented as of this encounter
--- OUTSIDE RECORDS SUMMARY | 2024-05-20 20:54 | XMS_ITS | Encounter Summary ---
Author Organization [facility] Address [address] [place] [address] Care Team Providers Care Aircraft Log Clerk Name Role Phone Se Smith MD Primary Care Provider +1- [phone] Encounter Details Date Type Department Care Team (Late st Contact Info) Description 03/08/2006 Office Visit [facility] - [address] [address] Se Smith MD [address] [address] Social History Tobacco Use Types [...] on filedocumented in this encounter Care Teams Aircraft Log Clerk Relationship Specialty Start Date End Date Se Smith MD [address] [phone] PCP - General 02/24/09 02/11/13 documented as of this encounter
--- OUTSIDE RECORDS SUMMARY | 2024-05-20 20:54 | XMS_ITS | Encounter Summary ---
Author Organization [facility] Address [address] [place] [address] Care Team Providers Care Film Editor Name Role Phone Unavailable Primary Care Provider Unavailabl e Encounter Details Date Type Department Care Team (Late st Contact Info) Description 11/23/2005 14:54 EST Hospital Encounter [facility] conversion [address] [place] [address] Haim Hoffman, FITNESS TRAINER [address] [place] [phone] Social History Tobacco Use Types Packs/Day Years [...]
--- OUTSIDE RECORDS SUMMARY | 2024-05-20 20:54 | XMS_ITS | Encounter Summary ---
Author Organization [facility] Address [address] [place] [address] Care Team Providers Care Form Grader Name Role Phone Se Smith MD Primary Care Provider +1- [phone] Encounter Details Date Type Department Care Team (Late st Contact Info) Description 01/09/2005 Office Visit [facility] - [place] conversion [address] [place] [address] Jossy Bagley MD [address] [place] [address], [address] [place] [address] Social History Tobacco Use Types Packs/Day Years Used Date Smoking Tobacco: Never Assessed Sex and Gender Information Value Date Recorded Sex Assigned at Not on file Gender Identity Not on file Sexual Orientation Not on file documented as of this encounter Progress Notes * Jossy Bagley - 12/20/2009 1250 EST [facility] ??? Physician Summary Registration Date/Time 01/09/2005 13:27 Time Seen (14:36 ). Arrived- By private vehicle. Historian- patient. HISTORY OF PRESENT ILLNESS Chief Complaint- Injury to the right index finger. Theinjury happened just prior to arrival. He sustained a crush injury (slammed finger in car door. Door sprung open and pt removed finger.). Occurred at home. Patient is experiencing mild pain. No other injury. REVIEW OF SYSTEMS The patient sustained a single laceration (superficial) to the right index finger. No weakness, tingling, numbness or foreign body. PAST HISTORY See nurses notes. The patient's dominant hand is the right. Tetanus immunization status is up-to-date. Medications: Risperdal: 1mg. Allergies: No known drug allergies. SOCIAL HISTORY Nonsmoker. No alcohol or drug use. ADDITIONAL NOTES The nursing notes have been reviewed. PHYSICAL EXAM Appearance: Alert. No acute distress. Vital Signs: The vital signs have been reviewed. Extremities: Tip of right index finger: superficial 1.0 cm laceration. No laceration involving the nail bed of right index finger, right index fingernail avulsion, exposed bone of right index finger or loss of the nail bed of right index finger. No wrist injury. No hand injury. Hand and wrist exam otherwise negative. Extremities otherwise negative. Neuro, Vascular and Tendons: Vascular status intact. Sensation intact. Motor intact. Tendon function intact. PROGRESS AND PROCEDURES Splint Application: Aluminum-foam finger splint applied. Applied by nurse. ED Attending on duty and available for supervision: Concepción Arana. Disposition: Discharged home in stable condition. CLINICAL IMPRESSION Superficial laceration to right index finger. Crush injury to right index finger. INSTRUCTIONS Apply iceintermittently (15-20 minutes at a time 4-6 times daily). Elevate injured areas above chest level. Wear aluminum splint as needed and until better. Warnings: GENERALWARNINGS: Return or contact your physician immediately if your condition worsens or changes unexpectedly, if not improving as expected, or if other problems arise. OTC Medications: Take acetaminophen (Tylenol, Datril, etc.) and ibuprofen (Advil, Nuprin, etc.) according to label instructions. Follow-up: Follow up with your doctor in seven days if not better. Jossy Bagley M.D. (Electronically signed Jossy Bagley M.D. 01/09/2005 18:33) Physician's Clinical Report [facility] ??? Nursing Summary Registration Date/Time 01/09/2005 13:27 TRIAGE Initial Assessment Triage time 13:30 BP: 144 / 80 HR: 84 RR: 16 Temp: 97.2 oral --1333 Josselyn Cesar, Medications Risperdal. --133 Josselyn Cesar, Allergies No known drug allergies. --1333 Josselyn Cesar, History Chief Complaint: INJURY TO THE RIGHT INDEX FINGER. The patient sustained a laceration. PAST HX: Anxiety. Depression. Left upper extremity fracture repair. SOCIAL HX: Nonsmoker. --1333 Josselyn Cesar, Mechanism of injury: a blow (Shut finger in car door.). Pain level now: 6/10. No treatment prior toarrival. --1405 Nichole Castillo, PHYSICAL ASSESSMENT Ambulatory to room. Alert. Appears in no acute distress. Oriented X 3. Right hand: moderate tenderness, mild swelling and laceration (R pointer finger. Sm laceration along nail.). Skin is warm and dry. --1403 Nichole Castillo, NURSING PROGRESS NOTES Progress Patient ready for evaluation- chart flagged. --1403 Nichole Castillo, Wound cleansed with water and Hibiclens (Pt soaking finger.). --1414 Nichole Castillo, Dressing consisting of Band-Aid was applied, following the application of antibiotic ointment. Aluminum-foam splint applied to right index finger by nurse. --1440 Nichole Castillo, DISPOSITION / DISCHARGE Condition at departure: improved. No barriers to learning present. Discharge instructions reviewed with the patient and vulcanizer rubber plate. Patient and vulcanizer rubber plate verbalized understanding. The patient was accompanied by vulcanizer rubber plate. The patient left the Emergency Department ambulatory and via private vehicle. Patient has no belongings. --1448 Nichole Castillo, Josselyn Cesar Nichole Castillo, Locked/Released at 01/09/2005 14:48 by Nichole Castillo, documented in this encounter Plan of Treatment Not on file documented as of this encounter Visit Diagnoses Not on filedocumented in this encounter Care Teams Form Grader Relationship Specialty Start Date End Date Se Smith MD 1 [facility] Level [address] [place] [address] PCP - General 02/24/09 02/11/13 documented as of this encounter
--- OUTSIDE RECORDS SUMMARY | 2024-05-20 20:54 | XMS_ITS | Encounter Summary ---
Author Organization [facility] Address [address] [place] [address] Care Team Providers Care Cream Dumper Name Role Phone Unavailable Primary Care Provider Unavailabl e Encounter Details Date Type Department Care Team (Late st Contact Info) Description 11/26/2005 19:37 EST Hospital Encounter [address] [address] Ashley Uribe MD [address] [place] [phone] Discharge Disposition: Auto Discharge Social History Tobacco [...] Procedure Name Priority Date/Time Associated Diagnosis Comments ANKLE 3 OR MORE VIEWS 11/26/2005 21:13 EST documented in this encounter Results * ANKLE 3 OR MORE VIEWS (11/26/2005 21:13 EST) Anatomical Region Laterality Modality Other 11/26/2005 21:1 3 EST Narrative 05/20/2009 2:04 EDT JUMPED OFF TRUCK SUFFERING INVERSION INJURY, ++ SWELLING, R/O FX RIGHT ANKLE, 3 OR MORE VIEWS: 11/26/05, 2100 CLINICAL HISTORY: Jumped off truck, inversion injury, swelling. ??Rule out fracture. Three views were obtained. There is significant soft tissue swelling, particularly laterally. No fracture is identified and the ankle mortis is intact. [facility] Procedure Note Eder Peres MD - 05/20/2009 JUMPED OFF TRUCK SUFFERING INVERSION INJURY, ++ SWELLING, R/O FX RIGHT ANKLE, 3 OR MORE VIEWS: 11/26/05, 2100 CLINICAL HISTORY: Jumped off truck, inversion injury, swelling. Rule out fracture. Three views were obtained. There is significant soft tissue swelling, particularly laterally. No fracture is identified and the ankle mortis is intact. [facility] Ashley Uribe MD IMG DIAGNOSTIC I MAGING ORDERABLES documented in this encounter Visit Diagnoses Not on filedocumented in this encounter
--- OUTSIDE RECORDS SUMMARY | 2024-05-20 20:54 | XMS_ITS | Encounter Summary ---
Author Organization [facility] Address [address] [place] [address] Care Team Providers Care Waste Specialist Name Role Phone Se Smith MD Primary Care Provider +1- [phone] Encounter Details Date Type Department Care Team (Late st Contact Info) Description 04/07/2005 Office Visit [facility] - [place] conversion [address] [place] [address] Haim Sotelo, MARCIA [address] [phone] Social History Tobacco Use Types Packs/Day Years Used Date Smoking Tobacco: Never Assessed Sex and Gender Information Value Date Recorded Sex Assigned at Not on file Gender Identity Not on file Sexual Orientation Not on file documented as of this encounter Progress Notes * Haim Sotelo - 12/21/2009 0941 EST Department - Physician Summary Registration Date/Time: 04/07/2005 18:39 Time Seen: 19:23 Arrived- By private vehicle. Historian- patient. HISTORY OF PRESENT ILLNESS Chief Complaint- Injury to the right great toe. The injury happened about 3 days Patient is experiencing moderate pain but denies injury to the head or neck. No other injury. REVIEW OF SYSTEMS The patient complains of pain onweight bearing. PAST HISTORY See nurses notes. Medications: See nurses notes. Allergies: See nurses notes. ADDITIONAL NOTES The nursing notes have been reviewed. PHYSICAL EXAM Appearance: Alert. No acute distress. Vital Signs: The vital signs have been reviewed. Skin: Skin intact. Skin warm and dry. Extremities: Right big toe: moderate tenderness and mild swelling of the tibial aspect and nail bed(paronychia noted.). No laceration, abrasion, ecchymosis or deformity. No limitation in movement. No subungual hematoma. No ankle injury. Foot and ankle exam otherwise negative. Extremities otherwisenegative. Gait: Limping gait. Neuro, Vascular and Tendons: Vascular status intact. Sensation intact. Motor intact. Tendon function intact. Neuro: Oriented X 3. PROGRESS AND PROCEDURES E.D. Course: Keflex 500 mg PO. ED Attending on duty and available for supervision: Beatriz Tate. Disposition: Discharged home. Condition: good. Discharged home in good condition. CLINICAL IMPRESSION Paronychia right great toe. INSTRUCTIONS Elevate affected areas above chest level. Warm soaks to affected area (3-6 times daily for 15-20 minutes at a time) until better. Do not work for one (04/09/05). Continue current medications. Prescription Medications: Cephalexin 500mg: take 1 tab orally every 6 hours for 7 days. No refills. OTC Medications: Acetaminophen (available over the counter): take according to label instructions. Motrin (available over the counter): take according to label instructions. Follow-up: Follow up with your doctor Saturday even if well. (Electronically signed by Rosa Mujica 04/08/2005 15:40) Department - Nursing Summary Registration Date/Time: 04/07/2005 18:39 TRIAGE Initial Assessment Triage time 18:40 Acuity: LEVEL 5. BP: 123 / 71 HR: 97 RR: 16 Temp: 37 tympanic Alert. No acute distress. --1844 Eder Kimble R.N. Medications Calcium Supplement : (1200mg). Lupron Depot : 7.5mg. (needs to obtain complete list). --1844 Evelio Christina Allergies No known drug allergies. --1844 Eder Kimble R.N. History Chief Complaint: (R toe pain). Onset- about 3 days ago Pain level now: 12/28. Treatment DIRECTOR OF HOME CARE HOSPICE: None. PAST HX: Anxiety. Fracture repair. Left upper extremity fracture repair. (hormone replacement). SOCIAL HX: Nonsmoker. Denies alcohol use. Functional assessment: no impairments noted. No report ofabuse. Arrived by private vehicle and accompanied by friend. Historian: patient. --1844 Eder Kimble R.N. PHYSICAL ASSESSMENT Alert. Appears in no acute distress. Oriented X 3. Skin intact. Skin is warm and dry. --1845 Evelio Christina NURSING PROGRESS NOTES Progress (Pt ambulatory to fast track with tech. No obvious distress.). --1911 Melody Lucero DISPOSITION / DISCHARGE Condition at departure: stable. No barriers to learning present. Discharge instructions reviewed with the patient. Warnings reviewed. Reviewed medication. Treatments reviewed. Reviewed referrals. Patient verbalized understanding. Written instructions provided in Monegasque. The patient was discharged home and accompanied by engineering recruiter. The patient left the Emergency Department ambulatory and via private vehicle. --1932 Evelio Brumfield R.N., [place] R.N. Locked/Released at 04/08/2005 7:56 by Elaine Oliva R.N. documented in this encounter Plan of Treatment Not on file documented as of this encounter Visit Diagnoses Not on filedocumented in this encounter Care Teams Waste Specialist Relationship Specialty Start Date End Date Se Smith MD 1 [facility] [address] [place] [phone] PCP - General 02/24/09 02/11/13 documented as of this encounter
--- OUTSIDE RECORDS SUMMARY | 2024-05-20 20:54 | XMS_ITS | Encounter Summary ---
Author Organization [facility] Address [address] [place] [address] Care Team Providers Care Firearms Instructor Name Role Phone Se Smith MD Primary Care Provider +1- [phone] Encounter Details Date Type Department Care Team (Late st Contact Info) Description 08/28/2004 Office [address] [facility] [address] [place] [address] Marla Verdin MD [address] [place] [address], [address] [place], [place] [id number] Social History Tobacco Use Types Packs/Day Years Used Date Smoking Tobacco: Never Assessed Sex and Gender Information Value Date Recorded Sex Assigned at Not on file Gender Identity Not on file Sexual Orientation Not on file documented as of this encounter Progress Notes * Marla Verdin - 12/23/2009 1412 EST [facility] ??? Physician Summary Registration Date/Time 08/28/2004 17:08 Time Seen (19:11 ). Arrived- By private vehicle. Historian- patient. HISTORY OF PRESENT ILLNESS Chief complaint- LOWER EXTREMITY PAIN. This started several days and is still present. Symptoms located in the area of the right foot. Patient denies an injury. The patient has had similar symptoms many times previously (ingrown toenails many times. Has never needed nail incised.). The patient was seen recently at this facility (for paronychia, 08/24; it was I&Ded and feels somewhat better.). REVIEW OF SYSTEMS No fever, skin rash or insect bite. PAST HISTORY Medications: Calcium Supplement : (1200 mg). Lupron Depot : 7.5mg (x 1 a month). (respirdol qd) Allergies: No known drug allergies. ADDITIONAL NOTES The nursing notes have been reviewed. PHYSICAL EXAM Vital Signs: The vital signs have been reviewed- blood pressure normal; temperature normal. CLINICAL IMPRESSION Ingrown toenail right great toe, left great toe. INSTRUCTIONS Warm soaks to affected area (3-6 times daily for 15-20 minutes at a time); (3 times a day for 15 minutes (both feet) until pain is gone.). not work for two days. Warnings: Return or contact your physician immediately if your condition worsens or changes unexpectedly, if not improving as expected, or if other problems arise (or if worse). Prescription Medications: Cephalexin 500 mg: take 1 tab orally every 8 hours for 7 days. No refill. Follow-up: Follow up with your doctor Saturday if not better. Follow up with Doctor carlos [phone]) or Dr. Villatoro to discuss having edges of nails removed so problem stops happening. Marla Verdin M.D. (Electronically signed Marla Verdin M.D. 08/28/2004 21:27) Physician's Clinical Report [facility] ??? Nursing Summary Registration Date/Time 08/28/2004 17:08 TRIAGE Initial Assessment Triage time 17:48 BP: 124 / 70 lying R arm manual (reg adult cuff). HR: 80 regular RR: 16 Temp: F 97.5 oral --1758 Georgia MerchantP.N. Medications Amoxicillin/Clavulanate (finished this med on 08/13/04). Calcium Supplement : (1200 mg). Lupron Depot : 7.5mg (x 1 a month). (respirdol qd). --1758 Georgia MerchnatP.N. Allergies No known drug allergies. --1758 Claudia Benton L.P.N. History Chief Complaint: INJURY TO RIGHT FOOT and INJURY TO RIGHT GREAT TOE. This occurred (yesterday or longer.). Mechanism of injury (pt with ? ingrown toenail in rt foot, was here last for left toe infection.). Pain level now: 05/30. (painful when touched). No treatment prior to arrival. PAST HX: Tetanus status: up-to-date. Immunizations: up-to-date. (mental redardation). (psychosis). SOCIAL HX: Nonsmoker. Denies alcohol use. Visual impairment present- wears glasses. Arrived by private vehicle and accompanied by (field nurse case manager.). Historian: (field nurse case manager). Primary physician (md smith called pt told to come here for this problem). --1758 Claudia Benton L.P.N. PHYSICAL ASSESSMENT Alert. Appears anxious. Oriented X 3. Limping gait. Skin is warm. (pt with reddness in rt great toe.). --1758 Claudia Benton L.P.N. NURSING PROGRESS NOTES Progress Extremity elevated. Call light placed in reach. Bed placed in lowest position. Brakes of bed on. Patient ready for evaluation- chart flagged. --1799 Claudia Benton L.P.N. DISPOSITION / DISCHARGE Condition at departure: stable. (pt sent home by md dave did give pt a script for po abx.). --2031 Ashley Merchant L.P.N. Locked/Released at 08/28/2004 20:33 by Claudia Benton L.P.N. documented in this encounter Plan of Treatment Not on file documented as of this encounter Visit Diagnoses Not on filedocumented in this encounter Care Teams Firearms Instructor Relationship Specialty Start Date End Date Se Smith MD 1 [facility] Level [address] [place] [address] PCP - General 02/24/09 02/11/13 documented as of this encounter
--- OUTSIDE RECORDS SUMMARY | 2024-05-20 20:54 | XMS_ITS | Encounter Summary ---
Author Organization [facility] Address [address] [place] [address] Care Team Providers Care Billing Services Manager Name Role Phone Unavailable Primary Care Provider Unavailabl e Encounter Details Date Type Department Care Team (Late st Contact Info) Description 08/24/2004 17:35 EST Hospital Encounter [address] [address] Ashley Uribe MD [address] [place] [phone] Social History Tobacco Use Types Packs/Day Years [...]
--- OUTSIDE RECORDS SUMMARY | 2024-05-20 20:54 | XMS_ITS | Encounter Summary ---
Author Organization Health system Address [address] [place] [address] Care Team Providers Care Ash Worker Name Role Phone Unavailable Primary Care Provider Unavailabl e Encounter Details Date Type Department Care Team (Late st Contact Info) Description 09/26/2004 16:12 EST Hospital Encounter [facility] [address] [place] [address] Markos Lomeli, FRUIT OR NUT PICKER [address] [place] [address] Discharge Disposition: Auto Discharge Social History Tobacco [...]
--- OUTSIDE RECORDS SUMMARY | 2024-05-20 20:54 | XMS_ITS | Encounter Summary ---
Author Organization [facility] Address [address] [place] [address] Care Team Providers Care Dtp Operator Name Role Phone Unavailable Primary Care Provider Unavailabl e Encounter Details Date Type Department Care Team (Late st Contact Info) Description 08/28/2004 17:07 [facility] Hospital Encounter [facility] [address] [place] [address] Marla Verdin MD [address] [place] [address], [address] [place], [place] [id number] Social History Tobacco Use Types Packs/Day Years [...]
--- OUTSIDE RECORDS SUMMARY | 2024-05-20 20:54 | XMS_ITS | Encounter Summary ---
Author Organization [facility] Address [address] [place] [address] Care Team Providers Care Art Psychotherapist Name Role Phone Se Smith MD Primary Care Provider +1- [phone] Encounter Details Date Type Department Care Team (Late st Contact Info) Description 10/30/2002 Results Only [facility] Adult Primary Care - [address] [address] Se Smith MD 1 [facility] [address] [place] [address] Social History Tobacco Use Types [...] Priority Date/Time Associated Diagnosis Comments TESTOSTERONE Routine 10/30/2002 11:57 EST LIPID PROFILE (INCLUDES CHOLESTEROL, TRIGLYCERIDES, HDL, LDL) Routine 10/30/2002 11:57 EST documented in this encounter Results * (ABNORMAL) TESTOSTERONE (10/30/2002 11:57 EST) Testosterone, Total 34(L) 241 - 827 ng/dl [facility] 10/30/2002 11:5 7 EST 10/30/2002 17:21 EST Se Smith MD CHEMISTRY & BLOOD GAS ORDERABLES [facility] [address] [place] [address] * LIPID PROFILE (INCLUDES CHOLESTEROL, TRIGLYCERIDES, HDL, LDL) (10/30/2002 11:57 EST) Cholesterol 155 mg/dl [facility] Comment: Desirable:<200 Borderline:200-239 High Risk:>wg=488 Triglycerides 69 35 - 160 mg/dl [facility] HDL 61 mg/dl [facility] Comment: Highly Desirable:>60 Desirable:35-60 High Risk:<35 LDL, Calculated 80 mg/dl [facility] Comment: Desirable:<130 Borderline:130-159 High Risk:>ie=278 Chol/HDL Ratio 2.5 [facility] 10/30/2002 11:5 7 EST 10/30/2002 17:21 EST Se Smith MD CHEMISTRY & BLOOD GAS ORDERABLES Performing Organization Address [facility] Co de Phone Number [facility] [address] [place] [address] documented in this encounter Visit Diagnoses Not on filedocumented in this encounter Care Teams Art Psychotherapist Relationship Specialty Start Date End Date Se Smith MD 1 [facility] [address] [place] [address] PCP - General 02/24/09 02/11/13 documented as of this encounter
--- OUTSIDE RECORDS SUMMARY | 2024-05-20 20:54 | XMS_ITS | Encounter Summary ---
Author Organization [facility] Address [address] [place] [address] Care Team Providers Care Plant Puller Name Role Phone Unavailable Primary Care Provider Unavailabl e Encounter Details Date Type Department Care Team (Latest Contact Info) Description 04/07/2005 18:39 EDT Hospital Encounter [facility] Emergency Department [facility] [address] [place] [address] Emergency, Default, MD Discharge Disposition: Home or [...]
--- NOTE | 2024-05-20 21:31 | DI.VRAD_ITS ---
PROCEDURE INFORMATION: Exam: XR Left Finger(s) Exam date and time: 05/20/2024 8:40 PM Age: 43 years old Clinical indication: Injury or trauma; Other: Crush injury TECHNIQUE: Imaging protocol: Radiologic exam of the left fingers. Views: Minimum 2 views. COMPARISON: CR XR WRIST LT COMPLETE 10/11/2021 10:14 AM FINDINGS: Bones/joints: Normal. No fracture, dislocation or osseous abnormality. No arthropathic changes. Soft tissues: No swelling. IMPRESSION: Normal extremity. Dictated and Authenticated by: Kale Casey MD. Ordering:JUANA Hunter MD
--- NOTE | 2024-05-20 21:45 | ED.GENADUL_ITS ---
Discharge Plan Disposition Patient Disposition: Home Condition: Stable Discharge Details Clinical Impression: Subungual hematoma of left index finger, Folliculitis Primary Care Provider: Elvia Mike ED Provider: Elsa Gomez Home Meds and New Rx's Prescriptions: New mupirocin 2 % ointment kit 1 applic topical BID 7 Days Qty: 1 0RF Rx Instructions: Apply to the affected area twice a day for the next 7 days Continued propranolol 10 MG tablet 20 mg PO DAILY AM Qty: 180 Rx Instructions: Take 20 mg in the morning and 40 mg at bedtime docusate sodium [Colace] 100 MG capsule 100 mg PO HS quetiapine [Seroquel] 200 MG tablet 400 mg PO HS quetiapine [Seroquel] 300 MG tablet 300 mg PO DAILY AM omeprazole [Prilosec] 20 MG capsule,delayed release(DR/EC) 40 mg PO DAILY albuterol sulfate [ProAir HFA] 200 PUFF HFA aerosol inhaler 115 mcg Inhalation PRN PRN Patient Comments: UNKNOWN DOSE 1-2 PUFFS PRN fluticasone propionate [Flovent HFA] 12 GM HFA aerosol inhaler 115 mcg Inhalation BID ondansetron 4 mg tablet,disintegrating 4 mg PO Q8H PRN (Reason: nausea and vomiting) Qty: 30 0RF metformin 500 mg Tablet 500 mg PO BID cetirizine 10 mg tablet 10 mg PO DAILY Patient Comments: TAKE 1 TABLET BY MOUTH DAILY famotidine 40 mg tablet 40 mg PO DAILY rosuvastatin 5 mg tablet 5 mg PO DAILY Jardiance 10 mg tablet 10 mg PO DAILY Multi-Day Plus Minerals 18 mg iron-400 mcg-25 mcg Tablet 1 tab PO DAILY Discharge Instructions Instructions: Bacterial folliculitis, Bruising Under the Nail Additional Instructions: Warm compresses to your chin, apply the antibiotic ointment twice daily as directed for the next 7 days. Do not pick at or attempt to express any fluid from the area. Wash your hands before touching your face. The pressure was released from the bruising and bleeding underneath your nail. You may have some throbbing to that area for the next couple of days. Keep clean and dry and covered while at work. Ice and elevate your hand while sitting or laying down. Please take Tylenol or Ibuprofen with food every 4-6 hours as needed for pain and swelling. Return to the ER for any signs of infection such as increased redness swelling that is traveling up your finger towards her hand or any concerns. Referrals: Elvia Mike [Primary Care Provider] - 5 days (As needed for a recheck) HPI General Mode of arrival: ambulatory . Date/Time Provider Initiated Documentation: 05/20/24 20:27 . Limitations to Documentation: no limitations . Information obtained by: patient, RN notes reviewed and old records reviewed . HPI Narrative: 43-year-old male presents to the ER with a chief complaint of crush injury to his left index finger. Patient reports that yesterday he was hammering and excellently hammered his left index finger twice. He does have a subungual hematoma noted and some increased pain and pressure. X-ray shows no underlying fracture. He is also concerned about some folliculitis or pimples noted which are around his mouth. He does have 1 that is underneath his chin which is approximately 1 cm in diameter, no fluctuance palpated no drainage noted he reports that he tried to pop it with no success. He has no fever chills he is speaking in full sentences no trismus no other associated symptoms or concerns. Does have a past medical history of ADHD PTSD sleep apnea, obesity migraine and bipolar affective disorder, anxiety and asthma. Related Data Home Medications ?Medication ?Instructions ?Recorded ?Confirmed docusate sodium 100 mg capsule 100 mg PO HS 11/22/13 05/20/24 (Colace) quetiapine 200 mg tablet (Seroquel) 400 mg PO HS 11/22/13 05/20/24 quetiapine 300 mg tablet (Seroquel) 300 mg PO DAILY AM 04/22/14 05/20/24 omeprazole 20 mg capsule,delayed 40 mg PO DAILY 09/17/15 05/20/24 release (Prilosec) propranolol 10 mg tablet 20 mg PO DAILY AM #180 tab-caps 06/26/17 05/20/24 albuterol sulfate 90 mcg/actuation 115 mcg inhalation PRN PRN 11/21/17 05/20/24 aerosol inhaler (ProAir HFA) fluticasone propionate 110 115 mcg inhalation BID 11/21/17 05/20/24 mcg/actuation HFA aerosol inhaler (Flovent HFA) multivit with minerals-iron 18 1 tab PO DAILY 11/23/18 05/20/24 mg-folic ac 400 mcg-vit K 25 mcg tablet (Multi-Day Plus Minerals) ondansetron 4 mg disintegrating 4 mg PO Q8H PRN nausea and 10/19/19 05/20/24 tablet vomiting #30 tabs metformin 500 mg tablet 500 mg PO BID 10/04/20 05/20/24 cetirizine 10 mg tablet 10 mg PO DAILY 08/12/23 05/20/24 empagliflozin 10 mg tablet 10 mg PO DAILY 08/12/23 05/20/24 (Jardiance) famotidine 40 mg tablet 40 mg PO DAILY 08/12/23 05/20/24 rosuvastatin 5 mg tablet 5 mg PO DAILY 08/12/23 05/20/24 mupirocin 2 % ointment topical kit 1 applic topical BID folliculitis 05/20/24 7 days #1 ea Previous Rx's ?Medication ?Instructions ?Recorded ondansetron 4 mg disintegrating 4 mg PO Q8H PRN nausea and 10/19/19 tablet vomiting #30 tabs mupirocin 2 % ointment topical kit 1 applic topical BID folliculitis 05/20/24 7 days #1 ea Allergies Allergy/AdvReac Type Severity Reaction Status Date / Time oxycodone (From Percocet) AdvReac CRANKY Unverified 05/20/24 20:15 environmental Allergy Mild Rhinitis Uncoded 05/20/24 20:15 General Stated Complaint: Orthopedic ABHILASH: 4 Review of Systems All systems reviewed & are unremarkable except as noted in HPI and below Musculoskeletal Musculoskeletal: Reports as per HPI Integumentary/Breasts Skin/Breast: Reports as per HPI, Reports furuncle (joselo-buccal left lateral chin), Reports skin pain, Reports skin swelling and Reports wounds (Left index finger subungal hematoma) Exam [facility] Head: normal to inspection Face and sinus: erythema, no fluctuance and tenderness Face images: 2 1. Approximately 1-1/2 cm in diameter raised area of induration, no fluctuance palpated central area which appears like a pimple no drainage at this time. 2. Maculopapular, appears to be pimple 3. Maculopapular area, appears to be pimple 4. Maculopapular area, appears to be a pimple Mouth: oral mucosae normal, lip normal, tongue normal, oropharynx normal and moist mucous membranes Extrem Left upper extremity: hand Details: abnormal to inspection, normal capillary refill, neuromotor exam normal, swelling Location: of the 2nd digit Location: at the distal phalanx (Swelling around the nailbed), involving the fingernail (Subungual hematoma noted to the proximal third of the nail) and on the dorsal aspect and ecchymosis Course Vital Signs Vital signs: Vital Signs Temperature 37.3 C 05/20/24 20:12 Pulse 86 05/20/24 20:12 Respiratory Rate 16 05/20/24 20:12 Blood Pressure 127/70 05/20/24 20:12 Pulse Oximetry 98 05/20/24 20:12 Temperature 37.3 C 05/20/24 20:12 Temperature Source Temporal Artery Scan 05/20/24 20:12 Pulse 86 05/20/24 20:12 Respiratory Rate 16 05/20/24 20:12 Respiratory Effort Normal, Non-Labored 05/20/24 20:15 Blood Pressure 127/70 05/20/24 20:12 Blood Pressure Position Sitting 05/20/24 20:12 Pulse Oximetry 98 05/20/24 20:12 Oxygen Delivery Method Room Air 05/20/24 20:12 Oxygen Flow Rate 0 05/20/24 20:12 Pain Level 7 05/20/24 20:12 Procedures Nail Trephination Time out: Yes Location (finger): left and index Sterile prep: other (Alcohol swab) Method of drainage: nail cautery Procedure successful: Yes Patient tolerated procedure: well (Mild pain) and no complications (Small puncture performed to proximal nail, bleeding noted, pressure relieved. ) Complications: pain Medical Decision Making 43-year-old male presents to the ER with a chief complaint of crush injury to his left index finger. Patient reports that yesterday he was hammering and excellently hammered his left index finger twice. He does have a subungual hematoma noted and some increased pain and pressure. X-ray shows no underlying fracture. He is also concerned about some folliculitis or pimples noted which are around his mouth. He does have 1 that is underneath his chin which is approximately 1 cm in diameter, no fluctuance palpated no drainage noted he reports that he tried to pop it with no success. He has no fever chills he is speaking in full sentences no trismus no other associated symptoms or concerns. Does have a past medical history of ADHD PTSD sleep apnea, obesity migraine and bipolar affective disorder, anxiety and asthma. Will place bacitracin ointment to the area, I did discuss warm compresses at home with him and follow-up with his PCP. I also instructed him to leave the pimples alone do not try to pop them. Discussed procedure to release the subungual hematoma he verbalizes understanding. Discussed benefits and risks. Cautery pen used to trephinate the nail, see procedure note, bleeding noted, patient did tolerate with mild pain. Dressing applied. Discussed home care and to watch for signs of infection and strict return instructions he verbalized understanding. Prescription sent to pharmacy on file. Patient to follow-up with PCP. This text was generated using [employer] system, please disregard any oddities of phrase or misspellings. Quality:SDOH Health Related Social Needs: 2 No Data to Display PFSH All Active Problems (Updated 05/20/24 @ 22:03 by Elsa Gomez NP) Folliculitis (Acute) Subungual hematoma of left index finger (Acute) Arm and leg pain (Acute) Abdominal pain (Acute) Chest wall pain (Acute) Right varicocele (Acute 10/22/17) Migraine without aura and without status migrainosus, not intractable (Acute 08/22/16) Maxillary pain (Acute 10/04/16) Medical History (Updated 05/20/24 @ 22:03 by Elsa Gomez NP) ADHD PTSD (post-traumatic stress disorder) Obstructive sleep apnea Obesity Migraine Bipolar affective disorder Anxiety Asthma Surgical History (Updated 08/03/21 @ 09:08 by Tatyana Manzano DO) History of surgical removal of pilonidal cyst History of ankle surgery History of elbow surgery History of knee surgery Social History Smoking/Tobacco Use Status: Never Smoking risk assessment performed?: Yes Alcohol Intake: current Alcohol Intake frequency: a few times a month Drug use: Never Substance use type: does not use Do you feel safe at home: Yes Do you feel safe in your relationship?: Yes
[2024-05-20 22:12] VITALS: BP 125/77; PULSE 88; RESP 16; TEMP 36.6; O2SAT 99
[2024-05-20] MEDS: Bacitracin 1 PACKET TP (22:17)
--- NOTE | 2024-05-21 09:51 | NUR.NOTE ---
patient called stating his rx was not at [facility] as it should be from yesterday's visit. Contacted [facility] who had no record. Relayed verbal order to them for Mupirocin 2 % BID for 7 days per Elsa Gomez NP.
== END 2024-05-20 22:14 | disposition home or self-care (01) ==
PROVIDERS: Emergency Provider Registered Nurse Emergency; PCP Nurse Practitioner Family
DX: S60.122A Contusion of left index finger with damage to nail, initial encounter (principal); L73.9 Follicular disorder, unspecified; W22.8XXA Striking against or struck by other objects, initial encounter; Y93.E9 Activity, other interior property and clothing maintenance; Y92.018 Other place in single-family (private) house as the place of occurrence of the external cause
CPT/HCPCS: 11740; 99283; 73140

== ENCOUNTER 2024-06-01 12:50 | Outpatient (REF) | payer MEDICARE, MEDICAID, SELFPAY ==
--- OUTSIDE RECORDS SUMMARY | 2024-06-01 12:56 | XMS_ITS | Encounter Summary ---
Author Organization [facility] Address [address] [place] [address] Care Team Providers Care Airline Customer Service Agent Name Role Phone Se Smith MD Primary Care Provider [phone]- [phone] Reason for Visit * Reason Onset Date Comments Medication Problem 11/11/2009 Citracal not covered by insurance. Wants to try Metamucil Capsule Encounter Details Date Type Department Care Team (Late st Contact Info) Description 11/11/2009 Refill [facility] Adult Primary Care - [address] [phone] Se Smith MD 1 [facility] Level [address] [place] [address] Medication Problem (Citracal not covered [...] documented as of this encounter Care Teams Airline Customer Service Agent Relationship Specialty Start Date End Date Se Smith MD 1 [facility] Level [address] [place] [address] PCP - General 02/24/09 02/11/13 documented as of this encounter
--- OUTSIDE RECORDS SUMMARY | 2024-06-01 12:56 | XMS_ITS | Encounter Summary ---
Author Organization [facility] Address [address] [place] [address] Care Team Providers Care Manuscript Editor Name Role Phone Unknown, Provider Primary Care Provider [phone] Encounter Details Date Type Department Care Team (Late st Contact Info) Description 07/07/2020 Lab Requisition [facility] Pathology & Laboratory Medicine - [facility] [address] [place] [address] Outr Resulting Lab, Provider Social History Tobacco [...] >15.00 See Note mg/L 07/07/2020 17:50 EDT [facility] Comment: Suggest ordering C-Reactive Protein Reference Range: ??Source: [employer] Clinical Practice Recommendations, 2003 ??Low Risk: ? <1.0 mg/L ??Average Risk: ?? 1.0 - 3.0 mg/L ??High Risk: ?>3.0 mg/L ??Indeterminate*: >10.0 mg/L ??*May be an indication of another source of inflammation or infection Blood VENOUS BLOOD / Unknown 07/06/2020 10:05 EDT 07/07/2020 17:32 EDT Provider Outr Resulting Lab CHEMISTRY & BLOOD GAS ORDERABLES [facility] [address] [place] [address] documented in this encounter Visit Diagnoses Not on filedocumented in this encounter Care Teams Manuscript Editor Relationship Specialty Start Date End Date Unknown, Provider, PCP - General 10/09/13 documented as of this encounter
--- OUTSIDE RECORDS SUMMARY | 2024-06-01 12:56 | XMS_ITS | Encounter Summary ---
Author Organization [facility] Address [address] [place] [address] Care Team Providers Care Labor Relations Supervisor Name Role Phone Se Smith MD Primary Care Provider [phone] Reason for Visit * Reason Onset Date Comments Medications Refill 02/10/2010 Herpes 02/10/2010 Encounter Details Date Type Department Care Team (Late st Contact Info) Description 02/10/2010 Telephone [facility] Adult Primary Care - [address] [phone] Se Smith MD 1 [facility] Level [address] [place] [phone] Medications Refill; Herpes Social History Tobacco Use [...] about medication. 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 Can this be called in? Patient is in [place] and it is very difficult for him to come in. Please call Mary to discuss this or let her know when it is done. documented in this encounter Plan of Treatment Not on file documented as of this encounter Visit Diagnoses Not on filedocumented in this encounter Care Teams Labor Relations Supervisor Relationship Specialty Start Date End Date Se Smith MD 1 [facility] [address] [place] [address] PCP - General 02/24/09 02/11/13 documented as of this encounter
--- OUTSIDE RECORDS SUMMARY | 2024-06-01 12:56 | XMS_ITS | Encounter Summary ---
Author Organization [facility] Address [address] [place] [address] Care Team Providers Care Fitter Hand Name Role Phone Unknown, Provider Primary Care Provider [phone] Encounter Details Date Type Department Care Team (Late st Contact Info) Description 10/19/2019 Lab Requisition [facility] Pathology & Laboratory Medicine - [facility] [address] [place] [address] Unknown, Provider, Social History Tobacco Use Types [...] Surface Ag Negative Negative 10/20/2019 11:21 EST [facility] Hep C Antibody Negative Negative 10/20/2019 11:21 EST [facility] Hepatitis A Antibody, IgM Negative Negative 10/20/2019 11:21 EST [facility] Hepatitis B Core Ab, Total Negative Negative 10/20/2019 11:21 EST [facility] Blood VENOUS BLOOD / Unknown 10/19/2019 15:20 EST 10/19/2019 21:22 EST Provider Unknown CHEMISTRY & BLOOD GA S ORDERABLES Performing Organization Address City/State/[facility] Co de Phone Number [facility] [address] [place] [address] documented in this encounter Visit Diagnoses Not on filedocumented in this encounter Care Teams Fitter Hand Relationship Specialty Start Date End Date Unknown, Provider, PCP - General 10/09/13 documented as of this encounter
--- OUTSIDE RECORDS SUMMARY | 2024-06-01 12:56 | XMS_ITS | Encounter Summary ---
Author Organization [facility] Address [address] [place] [address] Care Team Providers Care Director Data Processing Name Role Phone Niles Smith MD Primary Care Provider +1- [phone] Reason for Visit * Reason Comments Suicidal Pt reports that he i s here to see CRISIS. He states that he is feeling suicidal and these feelings started a few minutes ago. Pt has a self inflicted lac to his left hand Encounter Details Date Type Department Care Team (Late st Contact Info) Description 06/13/2009 20:48 EDT - 06/14/2009 1:[address] [facility] Emergency Department - [place] [address] [place] [address] José Ayoub MD Emergency, MD Anny Impulse [...] Everywhere. * DEPRESSION TREATMENT: AFTER YOUR VISIT (TAMAZIGHT) documented in this encounter Medications at Time [...] Emily Jean-Baptiste RN - 06/14/2009 0154 EDT [facility] home pt resides phone number [phone]. * Emily Jean-Baptiste RN - 06/14/2009 0141 EDT Left message with [facility] for pts return to hospital to [...] cutting himself and being increasingly aggressive in residential.). The current episode started this week. The [...] cutting himself and being increasingly aggressive in residential.) and agitation. Negative for confusion. All other [...] 06/13/2009 documented in this encounter Care Teams Director Data Processing Relationship Specialty Start Date End Date Niles Smith MD 1 [facility] Level 1 [place] [address] PCP - General 02/24/09 02/11/13 documented as of this encounter
--- OUTSIDE RECORDS SUMMARY | 2024-06-01 12:56 | XMS_ITS | Encounter Summary ---
Author Organization [facility] Address [address] [place] [address] Care Team Providers Care Cab Station Attendant Name Role Phone Se Smith MD Primary Care Provider +1- [phone] Reason for Visit * Reason Onset Date Comments Anal Itching 11/08/2009 Encounter Details Date Type Department Care Team (Late st Contact Info) Description 11/08/[address] [facility] Adult Primary Care - [address] [address] Se Smith MD 1 [facility] 1 [place] [phone] Anal Itching Social History Tobacco Use Types [...] 11/09/2009 0940 EST Talked with Mary Gupta, window caser for the patient. She is requesting a [...] on filedocumented in this encounter Care Teams Cab Station Attendant Relationship Specialty Start Date End Date Se Smith MD 1 [facility] Level 1 [place] [address] PCP - General 02/24/09 02/11/13 documented as of this encounter
--- OUTSIDE RECORDS SUMMARY | 2024-06-01 12:56 | XMS_ITS | Encounter Summary ---
Author Organization [facility] Address [address] [place] [address] Care Team Providers Care Children'S Minister Name Role Phone Se Smith MD Primary Care Provider +1- [phone] Encounter Details Date Type Department Care Team (Late st Contact Info) Description 10/31/2009 Abstract [facility] Adult Primary Care - [address] [address] Se Smith MD 1 [facility] 1 [place] [address] ADHD (attention deficit hyperactivity disorder); [...] 11/11/2009 added in this encounter Care Teams Children'S Minister Relationship Specialty Start Date End Date Se Smith MD 1 [facility] Level 1 [place] [phone] PCP - General 02/24/09 02/11/13 documented as of this encounter
--- OUTSIDE RECORDS SUMMARY | 2024-06-01 12:56 | XMS_ITS | Encounter Summary ---
Author Organization [facility] Address [address] [place] [address] Care Team Providers Care Director Of Infection Control Name Role Phone Se Smith MD Primary Care Provider +1- [phone] Reason for Visit * Reason Onset Date Comments Medications Refill 02/16/2010 Encounter Details Date Type Department Care Team (Late st Contact Info) Description 02/16/[address] [facility] Adult Primary Care - [address] [phone] Se Smith MD 1 [facility] 1 [place] [phone] Medications Refill Social History Tobacco Use Types [...] 0854 EDT Script was called in to [facility] pharmacy. * Telephone Encounter - Claudette Ulrich [...] documented as of this encounter Care Teams Director Of Infection Control Relationship Specialty Start Date End Date Se Smith MD 1 [facility] Level 1 [place] [address] PCP - General 02/24/09 02/11/13 documented as of this encounter
--- OUTSIDE RECORDS SUMMARY | 2024-06-01 12:56 | XMS_ITS | Encounter Summary ---
Author Organization [facility] Address [address] [place] [address] Care Team Providers Care Machine Design Engineer Name Role Phone Se Smith MD Primary Care Provider +1- [phone] Reason for Visit * Reason Onset Date Comments Other 03/31/2010 letter for tums use Encounter Details Date Type Department Care Team (Late st Contact Info) Description 03/31/2010 Telephone [facility] Adult Primary Care - [address] [address] Se Smith MD 1 [facility] 1 [place] [phone] Other (letter for tums use) Social History [...] - 03/31/2010 1316 EDT Feroz the patient's case finisher with [facility]. Patient is complaining of choudhury burn. He has seen the agency's nurse. They would like to have a Notefor Tums PRN Signed by FARM EQUIPMENT ENGINEER or doctor. They can not administer any medication without a note. Fax to :[phone] documented in this encounter Plan of Treatment Not on file documented as of this encounter Visit Diagnoses Not on filedocumented in this encounter Care Teams Machine Design Engineer Relationship Specialty Start Date End Date Se Smith MD 1 [facility] Level 1 [place] [phone] PCP - General 02/24/09 02/11/13 documented as of this encounter
--- OUTSIDE RECORDS SUMMARY | 2024-06-01 12:56 | XMS_ITS | Clinical Summary ---
Author Organization [facility] Address [address] [place] [address] Care Team Providers Care Solderer Production Line Name Role Phone Unknown, Provider Primary Care Provider [phone] Allergies No known active allergies Medications Medication [...] Advance Directives For more information, please contact: [phone] * Full Code (Latest Code Status on File) Date Activated Date Inactivated Comments 05/24/2009 14:24 06/03/2009 17:31 * Full Code Date Activated Date Inactivated Comments 05/22/2009 12:53 05/24/2009 14:24 * Full Code Date Activated Date Inactivated Comments 05/12/2009 23:41 05/17/2009 15:15 Care Teams Solderer Production Line Relationship Specialty Start Date End Date Unknown, Provider, PCP - General 10/09/13
--- OUTSIDE RECORDS SUMMARY | 2024-06-01 12:56 | XMS_ITS | Referral Summary ---
Author Organization [facility] Address [address] [place] [address] Care Team Providers Care Escrow Agent Name Role Phone Unknown, Provider Primary Care Provider +[phone] Allergies No known active allergies Medications Medication [...] Advance Directives For more information, please contact: [phone] * Full Code (Latest Code Status on File) Date Activated Date Inactivated Comments 05/24/2009 14:24 06/03/2009 17:31 * Full Code Date Activated Date Inactivated Comments 05/22/2009 12:53 05/24/2009 14:24 * Full Code Date Activated Date Inactivated Comments 05/12/2009 23:41 05/17/2009 15:15 Care Teams Escrow Agent Relationship Specialty Start Date End Date Unknown, Provider, PCP - General 10/09/13
--- OUTSIDE RECORDS SUMMARY | 2024-06-01 12:56 | XMS_ITS | Encounter Summary ---
Author Organization [facility] Address [address] [place] [address] Care Team Providers Care Cyber Transport Systems Specialist Name Role Phone Unknown, Provider Primary Care Provider [phone] Encounter Details Date Type Department Care Team (Late st Contact Info) Description 03/31/2020 Lab Requisition [facility] Pathology & Laboratory Medicine - [facility] [address] [place] [address] Outr Resulting Lab, Provider Social History Tobacco [...] Surface Ag Negative Negative 04/01/2020 9:17 EDT [facility] Blood VENOUS BLOOD / Unknown 03/30/2020 12:30 EDT 03/31/2020 16:56 EDT Provider Outr Resulting Lab CHEMISTRY & BLOOD GAS ORDERABLES [facility] [address] [place] [address] documented in this encounter Visit Diagnoses Not on filedocumented in this encounter Care Teams Cyber Transport Systems Specialist Relationship Specialty Start Date End Date Unknown, Provider, PCP - General 10/09/13 documented as of this encounter
--- OUTSIDE RECORDS SUMMARY | 2024-06-01 12:57 | XMS_ITS | Encounter Summary ---
Author Organization [facility] Address [address] [place] [address] Care Team Providers Care Cloth Folder Machine Name Role Phone Unavailable Primary Care Provider Unavailabl e Encounter Details Date Type Department Care Team (Latest Contact Info) Description 03/27/2007 14:32 EDT Hospital Encounter [address] [address] Se Smith MD [address] [place] [phone] Discharge Disposition: Auto Discharge Social History Tobacco [...]
--- OUTSIDE RECORDS SUMMARY | 2024-06-01 12:57 | XMS_ITS | Encounter Summary ---
Author Organization [facility] Address [address] [place] [address] Care Team Providers Care Hvac Estimator Name Role Phone Se Smith MD Primary Care Provider +1- [phone] Encounter Details Date Type Department Care Team (Late st Contact Info) Description 02/01/2008 Office Visit [facility] - Maple conversion [address] [place] [address] Haim Sotelo, MARCIA [address] [phone] Social History Tobacco Use Types [...] been reviewed by the Emergency Department physician public health training assistant. No changes in your current home [...] (first observed pt resting on stretcher , home health care case manager from [facility] states pt herefor eval BRBPR ? hemorrhoids ). --1202 Misti Sprague R.N. (pt seen by Mandeep Weathers. --1213 Misti Sprague R.N.. DISPOSITION / DISCHARGE Condition at departure: improved. Patient reports pain level on departure as 2/10. No learning barriers present. Discharge instructions reviewed with the patient and (home health care case manager ). Reviewed medication (OTC Preparation H or Tucks Medicated pads ). Reviewed referrals (PMD as needed). Patient verbalized understanding. Written instructions provided in Italian. The patient was discharged home and accompanied by home health care case manager . The patient left the Emergency Department via private vehicle. Driving (home health care case manager). --1231 Misti Sprague R.N.. Vidhya Sprague R.N. Locked/Released at 02/01/2008 15:41 by Marti Meehan R.N. documented in this encounter Plan of Treatment Not on file documented as of this encounter Visit Diagnoses Not on filedocumented in this encounter Care Teams Hvac Estimator Relationship Specialty Start Date End Date Se Smith MD 1 [facility] 1 [place] [address] PCP - General 02/24/09 02/11/13 documented as of this encounter
--- OUTSIDE RECORDS SUMMARY | 2024-06-01 12:57 | XMS_ITS | Encounter Summary ---
Author Organization [facility] Address [address] [place] [address] Care Team Providers Care Guitar Player Name Role Phone Unavailable Primary Care Provider Unavailabl e Encounter Details Date Type Department Care Team (Late st Contact Info) Description 02/04/2008 10:56 EDT Hospital Encounter [address] [address] Kale Schuster MD MPH [address] [place] [phone] Social History Tobacco Use Types Packs/Day [...]
--- OUTSIDE RECORDS SUMMARY | 2024-06-01 12:57 | XMS_ITS | Encounter Summary ---
Author Organization [facility] Address [address] [place] [address] Care Team Providers Care Cupola Liner Helper Name Role Phone Niles Smith MD Primary Care Provider +1- [phone] Encounter Details Date Type Department Care Team (Late st Contact Info) Description 06/01/2008 Office Visit [facility] - Maple conversion [address] [place] [address] Angelito Chou MD 111 [facility] Level 1 [place] [phone] Social History Tobacco Use Types Packs/Day Years [...] 06/01/2008 12:59 Time Seen: 1350. Arrived- (from [facility]). Historian- patient and guardian (trust manager). Referred ([facility]). Note (h/o depression). HISTORY OF PRESENT [...] repair, anxious about family situation (brother in intermediate) and about finding placement. Pt denies past [...] drug use. Has social support (lives at [facility]). Has place to stay ([facility]). FAMILY HISTORY Denies family medical history. [...] who agrees withpt being discharged back to [facility].). Disposition: Discharged home in stable condition (to [facility]). CLINICAL IMPRESSION Multiple superficial abrasions to the right forearm (self-inflicted). INSTRUCTIONS Warnings: GENERAL WARNINGS: Return or contact your physician immediately if your condition worsens or changesunexpectedly, if not improving as expected, or if other problems arise. Your Current Medications: Continue current medications. Follow-up: NILES SMITH MD, , [facility], [address] [place] [address]. Follow up as needed. (Electronically signed by [...] to arrival. Pain level now: 03/30. Treatment TILE PRESSER: (crisis called to meet pt). PAST HX: Previous psychiatric treatment and suicide attempts. (with comp field case manager ). Arrived by private vehicle. --1302 Rhonda Kelley R.N.. NURSING PROGRESS NOTES (moble crisis with pt to see kwame). --1314 Rhonda Kelley R.N. Pt. placed in paper scrubs, charge nurse aware of need for sitter.. --1322 Yehuda Astudillo R.N. Pt. sitting on stretcher, crisis and secondary social studies teacher at bedside.. The patientreports no complaints and [...] Patient verbalized understanding. Written instructions provided in Hong Konger. The patient was discharged home and accompanied by prop cutter. The patient left the Emergency Department ambulatory and via private vehicle.Transmission Line Engineer driving. --1636 Luci Watters R.N.. Evelio Bob R.N., R.N. Locked/Released at 06/02/2008 6:11 by Elaine Oliva R.N. documented in this encounter Plan of Treatment Not on file documented as of this encounter Visit Diagnoses Not on filedocumented in this encounter Care Teams Cupola Liner Helper Relationship Specialty Start Date End Date Niles Smith MD 1 [facility] 1 [place] [phone] PCP - General 02/24/09 02/11/13 documented as of this encounter
--- OUTSIDE RECORDS SUMMARY | 2024-06-01 12:57 | XMS_ITS | Encounter Summary ---
Author Organization [facility] Address [address] [place] [address] Care Team Providers Care Financial Officer Name Role Phone Se Smith MD Primary Care Provider +1- [phone] Encounter Details Date Type Department Care Team (Late st Contact Info) Description 08/06/2007 Before PRISM Converted Visit (Maple) [facility] - Maple conversion [address] [place] [address] Nerissa Palma FNP 1 [place], [place] [phone] Social History Tobacco Use Types Packs/Day Years Used Date Smoking Tobacco: Never Assessed Sex and Gender Information Value Date Recorded Sex Assigned at Not on file Gender Identity Not on file Sexual Orientation Not on file documented as of this encounter Progress Notes * Nerissa Goss - 08/29/2009 3291 EST GDU?? PROGRESS/FOLLOWUP NOTE - 08/06/2007 PROBLEM: [...] LEXI Horner A - lfb Job ID: [id number] Document ID: [id number] cc: documented in this encounter Plan of Treatment Not on file documented as of this encounter Visit Diagnoses Not on filedocumented in this encounter Care Teams Financial Officer Relationship Specialty Start Date End Date Se Smith MD 1 [facility] 1 [place] [phone] PCP - General 02/24/09 02/11/13 documented as of this encounter
--- OUTSIDE RECORDS SUMMARY | 2024-06-01 12:57 | XMS_ITS | Encounter Summary ---
Author Organization [facility] Address [address] [place] [address] Care Team Providers Care Maintenance Trainer Name Role Phone Unavailable Primary Care Provider Unavailabl e Encounter Details Date Type Department Care Team (Late st Contact Info) Description 08/16/2007 10:41 EDT Hospital Encounter [address] [address] Alayna Liang MD Reback, Ashley Flores MD [address] [place] [phone] Social History Tobacco Use Types Packs/Day Years [...]
--- OUTSIDE RECORDS SUMMARY | 2024-06-01 12:57 | XMS_ITS | Encounter Summary ---
Author Organization [facility] Address [address] [place] [address] Care Team Providers Care Mat Inspector Name Role Phone Unavailable Primary Care Provider Unavailabl e Encounter Details Date Type Department Care Team (Latest Contact Info) Description 02/01/2008 11:21 EDT - 02/01/2008 11:59 EDT Hospital Encounter [facility] Emergency Department - [facility] [address] [place] [address] Emergency, Default, MD Discharge Disposition: Home or [...]
--- OUTSIDE RECORDS SUMMARY | 2024-06-01 12:57 | XMS_ITS | Encounter Summary ---
Author Organization [facility] Address [address] [place] [address] Care Team Providers Care Cryptologic Support Specialist Name Role Phone Unavailable Primary Care Provider Unavailabl e Encounter Details Date Type Department Care Team (Late st Contact Info) Description 05/07/2008 12:48 EDT Hospital Encounter [facility] [address] [place] [address] Geovanny Garcia MD 111 [facility], Level [address] [place] [address] Discharge Disposition: Auto Discharge Social [...]
--- OUTSIDE RECORDS SUMMARY | 2024-06-01 12:57 | XMS_ITS | Encounter Summary ---
Author Organization [facility] Address [address] [place] [address] Care Team Providers Care Training Administrator Name Role Phone Unavailable Primary Care Provider Unavailabl e Encounter Details Date Type Department Care Team (Latest Contact Info) Description 12/07/2008 10:56 EST - 12/07/2008 11:59 EST Hospital Encounter [address] [address] Miri Smith MD [address] [place] [phone] Discharge Disposition: Auto Discharge Social History [...]
--- OUTSIDE RECORDS SUMMARY | 2024-06-01 12:57 | XMS_ITS | Encounter Summary ---
Author Organization [facility] Address [address] [place] [address] Care Team Providers Care Heel Reducer Name Role Phone Se Smith MD Primary Care Provider +1- [phone] Encounter Details Date Type Department Care Team (Late st Contact Info) Description 12/07/2008 Before PRISM Converted Visit (Maple) [facility] - Maple conversion [address] [place] [address] Miri Smith MD [address] [place] [phone] Social History Tobacco Use Types Packs/Day Years Used Date Smoking Tobacco: Never Assessed Sex and Gender Information Value Date Recorded Sex Assigned at Not on file Gender Identity Not on file Sexual Orientation Not on file documented as of this encounter Progress Notes * Miri Smith MD - 05/14/2009 2320 EDT Primary Care Internal Medicine [address] [place] [phone] PROGRESS/FOLLOWUP NOTE - 12/07/2008 CHIEF COMPLAINT Ear [...] Miri Smith MD - FER Job ID: [id number] Doc ID: [id number] cc: documented in this encounter Plan of Treatment Not on file documented as of this encounter Visit Diagnoses Not on filedocumented in this encounter Care Teams Heel Reducer Relationship Specialty Start Date End Date Se Smith MD 1 [facility] 1 [place] [phone] PCP - General 02/24/09 02/11/13 documented as of this encounter
--- OUTSIDE RECORDS SUMMARY | 2024-06-01 12:57 | XMS_ITS | Encounter Summary ---
Author Organization [facility] Address [address] [place] [address] Care Team Providers Care Product Safety Consultant Name Role Phone Se Smith MD Primary Care Provider +1- [phone] Encounter Details Date Type Department Care Team (Late st Contact Info) Description 02/04/2008 Before PRISM Converted Visit (Maple) [facility] - Maple conversion [address] [place], [place] [address] Lewis Sandoval MD [address] [place], [place] [phone] Social History Tobacco Use Types Packs/Day Years Used Date Smoking Tobacco: Never Assessed Sex and Gender Information Value Date Recorded Sex Assigned at Not on file Gender Identity Not on file Sexual Orientation Not on file documented as of this encounter Progress Notes * Lewis Sandoval - 07/22/2009 0126 EDT Primary Care Internal Medicine [address] [place] [address] PROGRESS/FOLLOWUP NOTE - 02/04/2008 CHIEF COMPLAINT [...] Lewis Sandoval MD - FER Job ID: [id number] Doc ID: [id number] cc: Kale Schuster MD documented in this encounter Plan of Treatment Not on file documented as of this encounter Visit Diagnoses Not on filedocumented in this encounter Care Teams Product Safety Consultant Relationship Specialty Start Date End Date Se Smith MD 1 [facility] Level 1 [place] [address] PCP - General 02/24/09 02/11/13 documented as of this encounter
--- OUTSIDE RECORDS SUMMARY | 2024-06-01 12:57 | XMS_ITS | Encounter Summary ---
Author Organization [facility] Address [address] [place] [address] Care Team Providers Care Juvenile Justice Officer Name Role Phone Unavailable Primary Care Provider Unavailabl e Encounter Details Date Type Department Care Team (Latest Contact Info) Description 04/21/2008 12:33 EDT Hospital Encounter [address] [address] Se Smith MD [address] [place] [phone] Discharge Disposition: Auto Discharge Social History Tobacco [...]
--- OUTSIDE RECORDS SUMMARY | 2024-06-01 12:57 | XMS_ITS | Encounter Summary ---
Author Organization [facility] Address [address] [place] [address] Care Team Providers Care Shoe Cobbler Name Role Phone Unavailable Primary Care Provider Unavailabl e Encounter Details Date Type Department Care Team (Latest Contact Info) Description 01/22/2008 9:41 EDT - 01/22/2008 11:59 EDT Hospital Encounter [address] [address] Se Smith MD [address] [place] [phone] Discharge Disposition: Auto Discharge Social History [...]
--- OUTSIDE RECORDS SUMMARY | 2024-06-01 12:57 | XMS_ITS | Encounter Summary ---
Author Organization [facility] Address [address] [place] [address] Care Team Providers Care Dinner Cook Name Role Phone Unavailable Primary Care Provider Unavailabl e Encounter Details Date Type Department Care Team (Late st Contact Info) Description 01/25/2009 10:07 EDT Hospital Encounter [address] [address] Kale Schuster MD MPH [address] [place] [phone] Social History Tobacco Use Types Packs/Day [...]
--- OUTSIDE RECORDS SUMMARY | 2024-06-01 12:57 | XMS_ITS | Encounter Summary ---
Author Organization [facility] Address [address] [place] [address] Care Team Providers Care Stationary Equipment Mechanic Name Role Phone Unavailable Primary Care Provider Unavailabl e Encounter Details Date Type Department Care Team (Latest Contact Info) Description 09/10/2008 15:52 EST Hospital Encounter [address] [address] Se Smith MD [address] [place] [phone] Unknown, Provider, Discharge Disposition: Auto Discharge Social [...]
--- OUTSIDE RECORDS SUMMARY | 2024-06-01 12:57 | XMS_ITS | Encounter Summary ---
Author Organization [facility] Address [address] [place] [address] Care Team Providers Care Unit Manager Rn Name Role Phone Se Smith MD Primary Care Provider +1- [phone] Encounter Details Date Type Department Care Team (Late st Contact Info) Description 09/03/2007 Before PRISM Converted Visit (Maple) [facility] - Maple conversion [address] [place] [address] Justus Watson MD [facility] [employer] [address] [place], [place] [id number] Social History Tobacco Use Types Packs/Day Years Used Date Smoking Tobacco: Never Assessed Sex and Gender Information Value Date Recorded Sex Assigned at Not on file Gender Identity Not on file Sexual Orientation Not on file documented as of this encounter Progress Notes * Justus Watson - 08/31/2009 1043 EST Primary Care Internal Medicine [address] [place], [place] [id number] PROGRESS/FOLLOWUP NOTE - 09/03/2007 CURRENT PROBLEM LIST [...] period now resolved. Other people in the nursing home also had similar symptoms. See previous notes [...] was completed for the patient for his nursing home. Patient is to followup in the future [...] Gregg MD - Justus [place] [facility] [place]: [id number] Doc ID: [id number] cc: - Justus Watson [place] [facility] [place]: [id number] Doc ID: [id number] cc: documented in this encounter Plan of Treatment Not on file documented as of this encounter Visit Diagnoses Not on filedocumented in this encounter Care Teams Unit Manager Rn Relationship Specialty Start Date End Date Se Smith MD 1 [facility] [address] [place] [address] PCP - General 02/24/09 02/11/13 documented as of this encounter
--- OUTSIDE RECORDS SUMMARY | 2024-06-01 12:57 | XMS_ITS | Encounter Summary ---
Author Organization [facility] Address [address] [place] [address] Care Team Providers Care Mass Communications Instructor Name Role Phone Se Smith MD Primary Care Provider +1- [phone] Encounter Details Date Type Department Care Team (Late st Contact Info) Description 06/15/2007 Office Visit [facility] - Maple conversion [address] [place] [address] Kale March MD Social History Tobacco Use [...] private vehicle and accompanied by (staff from [facility]). Historian: patient. --857 Alyssa Batista R.N.. [...] Discharge instructions reviewed with the patient and finisher polisher. Reviewed wound care and splint care instructions. Reviewed referral to family practice for followup. Patient and finisher polisher verbalized understanding. Written instructions provided in Ethiopian. The patient was discharged home and accompanied by finisher polisher. The patient left the Emergency Department ambulatory and via private vehicle. Mopper driving. Patient has no belongings. --[id number] Lacey Barrow R.N.. Alyssa Lynne Barrow R.N. Locked/Released at 06/15/2007 9:24 by Lacey Barrow R.N. documented in this encounter Plan of Treatment Not on file documented as of this encounter Visit Diagnoses Not on filedocumented in this encounter Care Teams Mass Communications Instructor Relationship Specialty Start Date End Date Se Smith MD 1 [facility] Level [address] [place] [phone] PCP - General 02/24/09 02/11/13 documented as of this encounter
--- OUTSIDE RECORDS SUMMARY | 2024-06-01 12:57 | XMS_ITS | Encounter Summary ---
Author Organization [facility] Address [address] [place] [address] Care Team Providers Care Weapons Mechanic Name Role Phone Unavailable Primary Care Provider Unavailabl e Encounter Details Date Type Department Care Team (Latest Contact Info) Description 10/22/2008 13:05 [facility] Hospital Encounter [address] [address] Se Smith MD [address] [place] [phone] Unknown, Provider, Discharge Disposition: Auto Discharge Social [...]
--- OUTSIDE RECORDS SUMMARY | 2024-06-01 12:57 | XMS_ITS | Encounter Summary ---
Author Organization [facility] Address [address] [place] [address] Care Team Providers Care Steam Pan Sponger Name Role Phone Se Smith MD Primary Care Provider +1- [phone] Encounter Details Date Type Department Care Team (Late st Contact Info) Description 05/20/2008 Before PRISM Converted Visit (Maple) [facility] - Maple conversion [address] [place] [address] Rebecca Dooley. [facility] [address] [address] Social History Tobacco Use Types Packs/Day Years Used Date Smoking Tobacco: Never Assessed Sex and Gender Information Value Date Recorded Sex Assigned at Not on file Gender Identity Not on file Sexual Orientation Not on file documented as of this encounter Progress Notes * Rebecca Dooley, SOCIAL AND HUMAN SERVICES ASSISTANT - 07/22/2009 1159 EDT Primary Care Internal Medicine [address] [place] [phone] PROGRESS/FOLLOWUP NOTE - 05/20/2008 REASON FOR VISIT Sore throat. SUBJECTIVE This is a 27gentleman who is escorted by his rifle case repairer. He complains of having had a sore [...] Dooley APRN - Rebecca Dooley APRN [place] [facility] [facility] [place] [id number] Doc ID: [id number] cc: documented in this encounter Plan of Treatment Not on file documented as of this encounter Visit Diagnoses Not on filedocumented in this encounter Care Teams Steam Pan Sponger Relationship Specialty Start Date End Date Se Smith MD 1 [facility] [address] [place] [phone] PCP - General 02/24/09 02/11/13 documented as of this encounter
--- OUTSIDE RECORDS SUMMARY | 2024-06-01 12:57 | XMS_ITS | Encounter Summary ---
Author Organization [facility] Address [address] [place] [address] Care Team Providers Care Wire Tester Name Role Phone Se Smith MD Primary Care Provider +1- [phone] Encounter Details Date Type Department Care Team (Late st Contact Info) Description 12/22/2008 Before PRISM Converted Visit (Maple) [facility] - Maple conversion [address] [place] [address] Zohra White MD [address] [place] [phone] Social History Tobacco Use Types Packs/Day Years Used Date Smoking Tobacco: Never Assessed Sex and Gender Information Value Date Recorded Sex Assigned at Not on file Gender Identity Not on file Sexual Orientation Not on file documented as of this encounter Progress Notes * Zohra White MD - 04/19/2009 1037 EDT Primary Care Internal Medicine [address] [place] [phone] PROGRESS/FOLLOWUP NOTE - 12/22/2008 PROBLEM: Right ear pain. PROBLEM: Diarrhea. SUBJECTIVE Haja Walker is a 28single male who is accompanied by a director of casework services from [facility]. He comesin with a couple week history [...] sounds as if he lives in a [facility] and other residents have been sickwith similar [...] Zohra White MD - [facility] Job ID: [id number] Doc ID: [id number] cc: documented in this encounter Plan of Treatment Not on file documented as of this encounter Visit Diagnoses Not on filedocumented in this encounter Care Teams Wire Tester Relationship Specialty Start Date End Date Se Smith MD 1 [facility] [address] [place] [phone] PCP - General 02/24/09 02/11/13 documented as of this encounter
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
--- OUTSIDE RECORDS SUMMARY | 2024-06-01 12:57 | XMS_ITS | Encounter Summary ---
Author Organization [facility] Address [address] [place] [address] Care Team Providers Care Remediation Bioanalytics Consultant Name Role Phone Unavailable Primary Care Provider Unavailabl e Encounter Details Date Type Department Care Team (Latest Contact Info) Description 06/01/2008 13:18 EDT Hospital Encounter [facility] Emergency Department - [facility] [address] [place] [address] Emergency, Default, MD Discharge Disposition: Home or [...]
--- OUTSIDE RECORDS SUMMARY | 2024-06-01 12:57 | XMS_ITS | Encounter Summary ---
Author Organization [facility] Address [address] [place] [address] Care Team Providers Care Washhouse Worker Name Role Phone Unavailable Primary Care Provider Unavailabl e Encounter Details Date Type Department Care Team (Late st Contact Info) Description 12/22/2008 9:32 EST Hospital Encounter [address] [address] Zohra White MD [address] [phone] Social History Tobacco Use Types Packs/Day Years [...]
--- OUTSIDE RECORDS SUMMARY | 2024-06-01 12:57 | XMS_ITS | Encounter Summary ---
Author Organization [facility] Address [address] [place] [address] Care Team Providers Care Kieselguhr Regenerator Operator Name Role Phone Se Smith MD Primary Care Provider +1- [phone] Encounter Details Date Type Department Care Team (Late st Contact Info) Description 06/16/2007 Before PRISM Converted Visit (Maple) [facility] conversion [address] [place] [address] Carrie Liao MD [address] [place] [phone] Social History Tobacco Use Types Packs/Day [...] MD, FACS 06/18/2007 14:24 Deshawn Liao MD, [id number] Spaulding, MD, FACS Carrie Liao MD, FACS [phone] -Carrie Liao MD, FACS -cmd Job ID: [id number] Doc ID: [id number] cc: MD Se Persaud MD documented in this encounter Plan of Treatment Not on file documented as of this encounter Visit Diagnoses Not on filedocumented in this encounter Care Teams Kieselguhr Regenerator Operator Relationship Specialty Start Date End Date Se Smith MD 1 [facility] 1 [place] [phone] PCP - General 02/24/09 02/11/13 documented as of this encounter
--- OUTSIDE RECORDS SUMMARY | 2024-06-01 12:57 | XMS_ITS | Encounter Summary ---
Author Organization [facility] Address [address] [place] [address] Care Team Providers Care Quick Print Operator Name Role Phone Unavailable Primary Care Provider Unavailabl e Encounter Details Date Type Department Care Team (Latest Contact Info) Description 11/01/2006 13:03 [facility] Hospital Encounter [address] [address] Se Smith MD [address] [place] [phone] Discharge Disposition: Auto Discharge Social History Tobacco [...]
--- OUTSIDE RECORDS SUMMARY | 2024-06-01 12:57 | XMS_ITS | Encounter Summary ---
Author Organization [facility] Address [address] [place] [address] Care Team Providers Care Securities Adviser Name Role Phone Unavailable Primary Care Provider Unavailabl e Encounter Details Date Type Department Care Team (Latest Contact Info) Description 06/20/2007 14:46 EDT Hospital Encounter [address] [address] Nerissa Palma FNP 1 [place] [address] Discharge Disposition: Auto Discharge Social History Tobacco [...]
--- OUTSIDE RECORDS SUMMARY | 2024-06-01 12:57 | XMS_ITS | Encounter Summary ---
Author Organization [facility] Address [address] [place] [address] Care Team Providers Care Log Operations Coordinator Name Role Phone Unavailable Primary Care Provider Unavailabl e Encounter Details Date Type Department Care Team (Latest Contact Info) Description 03/13/2007 10:33 EDT - 03/13/2007 11:59 EDT Hospital Encounter [address] [address] Se Smith MD [address] [place] [phone] Discharge Disposition: Auto Discharge Social History [...]
--- OUTSIDE RECORDS SUMMARY | 2024-06-01 12:57 | XMS_ITS | Encounter Summary ---
Author Organization [facility] Address [address] [place] [address] Care Team Providers Care Paint Prepper Name Role Phone Unavailable Primary Care Provider Unavailabl e Encounter Details Date Type Department Care Team (Late st Contact Info) Description 02/23/2008 9:54 EDT Hospital Encounter [address] [address] Se Smith MD [address] [place] [phone] Social History Tobacco Use Types Packs/Day Years [...]
--- OUTSIDE RECORDS SUMMARY | 2024-06-01 12:57 | XMS_ITS | Encounter Summary ---
Author Organization [facility] Address [address] [place] [address] Care Team Providers Care Forestry Technical Officer Name Role Phone Unavailable Primary Care Provider Unavailabl e Encounter Details Date Type Department Care Team (Late st Contact Info) Description 10/22/2007 13:20 [facility] Hospital Encounter [address] [address] Deepak Gregg MD [address] [place] [phone] Unknown, Provider, Social History Tobacco Use Types [...]
--- OUTSIDE RECORDS SUMMARY | 2024-06-01 12:57 | XMS_ITS | Encounter Summary ---
Author Organization [facility] Address [address] [place] [address] Care Team Providers Care Taxi Proprietor Name Role Phone Unavailable Primary Care Provider Unavailabl e Encounter Details Date Type Department Care Team (Latest Contact Info) Description 03/24/2008 13:08 EDT Hospital Encounter [address] [address] Se Smith MD [address] [place] [phone] Discharge Disposition: Auto Discharge Social History Tobacco [...]
--- OUTSIDE RECORDS SUMMARY | 2024-06-01 12:57 | XMS_ITS | Encounter Summary ---
Author Organization [facility] Address [address] [place] [address] Care Team Providers Care Environmental Educator Name Role Phone Se Smith MD Primary Care Provider +1- [phone] Encounter Details Date Type Department Care Team (Late st Contact Info) Description 06/28/[address] [facility] - Maple conversion [address] [place] [address] Ben Britton Jr., MANAGER SUSTAINABILITY Social History Tobacco Use Types Packs/Day Years Used Date Smoking Tobacco: Never Assessed Sex and Gender Information Value Date Recorded Sex Assigned at Not on file Gender Identity Not on file Sexual Orientation Not on file documented as of this encounter Progress Notes * Ben Britton Jr., MANAGER SUSTAINABILITY - 12/11/2009 0357 EST [facility] - Physician Summary Registration Date/Time: 06/28/2007 14:14 [...] 06/28/2007 21:19) Addenda for JACQUELINE WALKER VisitID: [id number] Date: 06/28/2007 07/03/2007 22:04 wound culture shows [...] the past that resolved without treatment.). Treatment BRAND STRATEGIST: None. PAST HX: Negative. No infectious disease exposure. (Left elbow fx). FAMILY HX: (Lives in senior care, followed by [facility]). SOCIAL HX: Occasional alcohol use. Nonsmoker. Abuse assessment: The patient was asked Do you feel safe in your home?. No report of abuse. Arrived by private vehicle and accompanied by friend. Historian: patient. --1954 Sophia Castillo L.P.N.. PAST HX: FAMILY HX. [...] present. Discharge instructions reviewedwith the patient and movement assembler. Reviewed medication dosing and course; prescription (s) given to the patient. Patient and movement assembler verbalized understanding. Written instructions provided in Chinese.The patient was discharged home and accompanied by movement assembler. The patient left the Emergency Department ambulatory and via private vehicle. Loan Examiner driving. Patient has no belongings. --1340 Sophia Castillo L.P.N.. Locked/Released at 06/28/2007 16:11 by Sophia Castillo L.P.N. documented in this encounter Plan of Treatment Not on file documented as of this encounter Visit Diagnoses Not on filedocumented in this encounter Care Teams Environmental Educator Relationship Specialty Start Date End Date Se Smith MD 1 [facility] 1 [place] [phone] PCP - General 02/24/09 02/11/13 documented as of this encounter
--- OUTSIDE RECORDS SUMMARY | 2024-06-01 12:57 | XMS_ITS | Encounter Summary ---
Author Organization [facility] Address [address] [place] [address] Care Team Providers Care Clinic Specialist Name Role Phone Unavailable Primary Care Provider Unavailabl e Encounter Details Date Type Department Care Team (Latest Contact Info) Description 06/04/2007 14:05 EDT Hospital Encounter [address] [address] Deepak Gregg MD [address] [place] [phone] Nichole Croft MD [address] [place] [phone] Discharge Disposition: Auto Discharge Social History Tobacco [...]
--- OUTSIDE RECORDS SUMMARY | 2024-06-01 12:57 | XMS_ITS | Encounter Summary ---
Author Organization [facility] [place] Address [address] [place] [address] Care Team Providers Care Supervisor Canvas Products Name Role Phone Unavailable Primary Care Provider Unavailabl e Encounter Details Date Type Department Care Team (Late st Contact Info) Description 12/20/2008 13:14 [facility] Hospital Encounter [address] [address] Kale Schuster MD [facility] [address] [phone] Social History Tobacco Use Types Packs/Day Years [...]
--- OUTSIDE RECORDS SUMMARY | 2024-06-01 12:57 | XMS_ITS | Encounter Summary ---
Author Organization [facility] Address [address] [place] [address] Care Team Providers Care Promotional Advertising Assistant Name Role Phone Se Smith MD Primary Care Provider +1- [phone] Encounter Details Date Type Department Care Team (Late st Contact Info) Description 01/10/2009 Before PRISM Converted Visit (Maple) [facility] - Maple conversion [address] [place] [address] Justus Watson MD FA [employer]SESTA[employer] MAIL [address] [place], [place] [phone] Social History Tobacco Use Types Packs/Day Years Used Date Smoking Tobacco: Never Assessed Sex and Gender Information Value Date Recorded Sex Assigned at Not on file Gender Identity Not on file Sexual Orientation Not on file documented as of this encounter Progress Notes * Justus Watson - 11/23/2009 0301 EST Primary Care Internal Medicine [address] [place] [phone] PROGRESS/FOLLOWUP NOTE - 01/10/2009 CHIEF COMPLAINT Depression/self-harm. HISTORY OF PRESENT ILLNESS Patient is a 28-year-old male with a history of mental delay, behavioral issues, ADHD, and sexual disinhibitions who is currently residing at [facility] through the [facility], which [facility], and for the past several weeks [...] these. Is under 24-hour supervision through the [facility] and has been discussing his feelings and thoughts with therapists as well as case management and will be seeing his psychiatrist for a medication review soon. Patient has no thoughts or feelings of hurting others. His psychiatrist through the [facility] is Dr. Lujan. Patient also today has [...] the exam room with his escort from [facility] present. HEENT: Extraocular eye movements intact. [...] with self-harm. Currently receiving therapy through the [facility] including therapy case management as well [...] Justus Watson MD - ALEX Job ID: [id number] Doc ID: [id number] cc: documented in this encounter Plan of Treatment Not on file documented as of this encounter Visit Diagnoses Not on filedocumented in this encounter Care Teams Promotional Advertising Assistant Relationship Specialty Start Date End Date Se Smith MD 1 [facility] Level 1 [place] [phone] PCP - General 02/24/09 02/11/13 documented as of this encounter
--- OUTSIDE RECORDS SUMMARY | 2024-06-01 12:57 | XMS_ITS | Encounter Summary ---
Author Organization [facility] Address [address] [place] [address] Care Team Providers Care Sheriff Detective Name Role Phone Unavailable Primary Care Provider Unavailabl e Encounter Details Date Type Department Care Team (Latest Contact Info) Description 11/02/2006 10:39 EST - 11/02/2006 11:59 EST Hospital Encounter [facility] - [address] [address] Jud Eng MD [address] [place] [phone] Discharge Disposition: Auto Discharge Social History [...]
--- OUTSIDE RECORDS SUMMARY | 2024-06-01 12:57 | XMS_ITS | Encounter Summary ---
Author Organization [facility] Address [address] [place] [address] Care Team Providers Care Design Tech Name Role Phone Unavailable Primary Care Provider Unavailabl e Encounter Details Date Type Department Care Team (Late st Contact Info) Description 03/26/2008 14:41 EDT Hospital Encounter [address] [address] Mathieu Ortiz MD 1 [place] [phone] Jc North MD [address] [place] [address] Discharge Disposition: Auto Discharge Social History Tobacco [...]
--- OUTSIDE RECORDS SUMMARY | 2024-06-01 12:57 | XMS_ITS | Encounter Summary ---
Author Organization [facility] Address [address] [place] [address] Care Team Providers Care Price Clerk Name Role Phone Unavailable Primary Care Provider Unavailabl e Encounter Details Date Type Department Care Team (Latest Contact Info) Description 05/20/2008 9:50 EDT - 05/20/2008 11:59 EDT Hospital Encounter [facility] - [address] [address] Rebecca Dooley [facility] [address] [address] Discharge Disposition: Auto Discharge Social History Tobacco [...]
--- OUTSIDE RECORDS SUMMARY | 2024-06-01 12:57 | XMS_ITS | Encounter Summary ---
Author Organization [facility] Address [address] [place] [address] Care Team Providers Care Wood Finisher Name Role Phone Unavailable Primary Care Provider Unavailabl e Encounter Details Date Type Department Care Team (Latest Contact Info) Description 11/19/2006 10:58 EST - 11/19/2006 11:59 EST Hospital Encounter [address] [address] Se Smith MD [address] [place] [phone] Discharge Disposition: Auto Discharge Social History [...] Result No Neisseria gonorrhoeae DNA detected by horizontal boring mill operator mediated amplification. [facility] Report Status Final [id number] [facility] Specimen Description Urine [facility] 11/19/2006 11:4 4 EST 11/19/2006 14:01 EST Se Smith MD MICROBIOLOGY - GEN ERAL ORDERABLES Performing Organization Address [facility] Co de Phone Number [facility] [address] [place] [address] * CHLAMYDIA TRACHOMATIS AMPLIFIED PROBE (11/19/2006 11:44 EST) Specimen Description Urine [facility] Result No Chlamydia trachomatis DNA detected by horizontal boring mill operator mediated amplification. [facility] Report Status Final [id number] [facility] 11/19/2006 11:4 4 EST 11/19/2006 14:01 EST Se Smith MD MICROBIOLOGY - GEN ERAL ORDERABLES Performing Organization Address [facility] Co de Phone Number [facility] [address] [place] [address] documented in this encounter Visit Diagnoses Not on filedocumented in this encounter
--- OUTSIDE RECORDS SUMMARY | 2024-06-01 12:57 | XMS_ITS | Encounter Summary ---
Author Organization [facility] Address [address] [place] [address] Care Team Providers Care Brass Polisher Name Role Phone Unavailable Primary Care Provider Unavailabl e Encounter Details Date Type Department Care Team (Latest Contact Info) Description 11/04/2006 10:38 EST - 11/04/2006 11:59 EST Hospital Encounter [facility] - [address] [address] Geovanny Mendes MD [address] [place] [phone] Unknown, Provider, Discharge Disposition: Auto Discharge [...]
--- OUTSIDE RECORDS SUMMARY | 2024-06-01 12:57 | XMS_ITS | Encounter Summary ---
Author Organization [facility] Address [address] [place] [address] Care Team Providers Care Lithopress Operator Name Role Phone Se Smith MD Primary Care Provider +1- [phone] Encounter Details Date Type Department Care Team (Late st Contact Info) Description 04/16/2007 Results Only [facility] Adult Primary Care - [address] [address] Se Smith MD 1 [facility] 1 [place] [phone] Social History Tobacco Use Types [...] BLOOD GAS ORDERABLES [facility] [address] [place] [address] documented in this encounter Visit Diagnoses Not on filedocumented in this encounter Care Teams Lithopress Operator Relationship Specialty Start Date End Date Se Smith MD 1 [facility] 1 [place] [phone] PCP - General 02/24/09 02/11/13 documented as of this encounter
--- OUTSIDE RECORDS SUMMARY | 2024-06-01 12:57 | XMS_ITS | Encounter Summary ---
Author Organization [facility] Address [address] [place] [address] Care Team Providers Care Care Specialist Name Role Phone Se Smith MD Primary Care Provider +1- [phone] Encounter Details Date Type Department Care Team (Late st Contact Info) Description 06/28/2007 Results Only [facility] [address] [address] Ben Britton Jr., NP Social History Tobacco [...] NEGATIVE [facility] Report Status Final [id number] [facility] 06/28/2007 15:5 3 EDT 06/28/2007 17:13 EDT Ben Britton Jr., NP MICROBIOLOGY - GENERAL ORDERABLES [facility] [address] [place] [address] documented in this encounter Visit Diagnoses Not on filedocumented in this encounter Care Teams Care Specialist Relationship Specialty Start Date End Date Se Smith MD 1 [facility] 1 [place] [phone] PCP - General 02/24/09 02/11/13 documented as of this encounter
--- OUTSIDE RECORDS SUMMARY | 2024-06-01 12:57 | XMS_ITS | Encounter Summary ---
Author Organization [facility] Address [address] [place] [address] Care Team Providers Care Dust Collector Ore Crushing Name Role Phone Unavailable Primary Care Provider Unavailabl e Encounter Details Date Type Department Care Team (Late st Contact Info) Description 06/15/2008 9:30 EDT - 06/15/2008 11:59 EDT Hospital Encounter [facility] Perioperative Services- [address] [address] Geovanny Garcia MD [address] [place] [address], Level [address] [place] [phone] Discharge Disposition: Home or Self Care Social [...] SERVICE DATE: SURGEON: Moisés Garcia MD, FACS [facility] TEACHER: PREOPERATIVE DIAGNOSIS Posterior anal fissure and hematochezia. [...] Geovanny Garcia MD, FACS 07/15/2008 11:57 Geovanny Garcia MD, FACS [phone] D: - Geovanny Garcia MD, FACS P - CS Job ID: [id number] Document ID: [id number] cc: Geovanny Garcia MD, FACS Se Smith MD documented in this encounter Plan of Treatment Not on file documented as of this encounter Visit Diagnoses Not on filedocumented in this encounter
--- OUTSIDE RECORDS SUMMARY | 2024-06-01 12:57 | XMS_ITS | Encounter Summary ---
Author Organization [facility] Address [address] [place] [address] Care Team Providers Care Prosthetic Aide Name Role Phone Se Smith MD Primary Care Provider +1- [phone] Encounter Details Date Type Department Care Team (Late st Contact Info) Description 03/27/2007 Before PRISM Converted Visit (Maple) [facility] - Maple conversion [address] [place] [address] Jose Enrique Maguire MD [address] [facility] [address] [place] [phone] Social History Tobacco Use Types Packs/Day Years Used Date Smoking Tobacco: Never Assessed Sex and Gender Information Value Date Recorded Sex Assigned at Not on file Gender Identity Not on file Sexual Orientation Not on file documented as of this encounter Progress Notes * Jose Enrique Maguire MD - 08/28/20092040 EST Primary Care Internal Medicine [address] [place] [address] PROGRESS/FOLLOWUP NOTE - 03/27/2007 CHIEF COMPLAINT [...] and reports that he was seenby a roller shop utility worker two years ago. The patient reports at [...] present to clinic today accompanied by a [facility] bilingual patient support caseworker. Recommendations were discussed with patient and with the bilingual patient support caseworker at patients request. The patient discussed in [...] Enrique Maguire MD - william Job ID: [id number] Doc ID: [id number] cc: - Jose Enrique Maguire MD - william Job ID: [id number] Doc ID: [id number] cc: documented in this encounter Plan of Treatment Not on file documented as of this encounter Visit Diagnoses Not on filedocumented in this encounter Care Teams Prosthetic Aide Relationship Specialty Start Date End Date Se Smith MD 1 [facility] 1 [place] [phone] PCP - General 02/24/09 02/11/13 documented as of this encounter
--- OUTSIDE RECORDS SUMMARY | 2024-06-01 12:57 | XMS_ITS | Encounter Summary ---
Author Organization [facility] Address [address] [place] [address] Care Team Providers Care Ecology Professor Name Role Phone Unavailable Primary Care Provider Unavailabl e Encounter Details Date Type Department Care Team (Latest Contact Info) Description 12/25/2007 10:17 EST - 12/25/2007 11:59 EST Hospital Encounter [address] [address] Se Smith MD [address] [place] [phone] Unknown, Provider, Discharge Disposition: Auto Discharge Social [...]
--- OUTSIDE RECORDS SUMMARY | 2024-06-01 12:57 | XMS_ITS | Encounter Summary ---
Author Organization [facility] Address [address] [place] [address] Care Team Providers Care Educational Fundraising Director Name Role Phone Unavailable Primary Care Provider Unavailabl e Encounter Details Date Type Department Care Team (Late st Contact Info) Description 01/10/2009 15:36 EDT Hospital Encounter [address] [address] Akash Damon MD Weaver, Curtis R, MD [facility] HOUSESTAFF MAIL [address] [place] [address] Discharge Disposition: Auto Discharge Social History Tobacco [...]
--- OUTSIDE RECORDS SUMMARY | 2024-06-01 12:57 | XMS_ITS | Encounter Summary ---
Author Organization [facility] Address [address] [place] [address] Care Team Providers Care Group Practice Pediatrician Name Role Phone Unavailable Primary Care Provider Unavailabl e Encounter Details Date Type Department Care Team (Late st Contact Info) Description 11/27/2007 11:27 [facility] Hospital Encounter [address] [address] Se Smith MD [address] [place] [phone] Social History Tobacco Use Types Packs/Day Years [...]
--- OUTSIDE RECORDS SUMMARY | 2024-06-01 12:57 | XMS_ITS | Encounter Summary ---
Author Organization [facility] Address [address] [place] [address] Care Team Providers Care Financial Manager Name Role Phone Unavailable Primary Care Provider Unavailabl e Encounter Details Date Type Department Care Team (Latest Contact Info) Description 08/06/2007 12:39 EDT Hospital Encounter [address] [address] Nerissa Palma FNP 1 [place] [address] Discharge Disposition: Auto Discharge Social History Tobacco [...]
--- OUTSIDE RECORDS SUMMARY | 2024-06-01 12:57 | XMS_ITS | Encounter Summary ---
Author Organization [facility] Address [address] [place] [address] Care Team Providers Care Material Handling Crew Supervisor Name Role Phone Unavailable Primary Care Provider Unavailabl e Encounter Details Date Type Department Care Team (Late st Contact Info) Description 09/17/2007 10:45 EST Hospital Encounter [address] [address] Se Smith MD [address] [place] [phone] Social History Tobacco Use Types Packs/Day Years [...]
--- OUTSIDE RECORDS SUMMARY | 2024-06-01 12:57 | XMS_ITS | Encounter Summary ---
Author Organization [facility] Address [address] [place] [address] Care Team Providers Care Customer Data Technician Name Role Phone Se Smith MD Primary Care Provider +1- [phone] Encounter Details Date Type Department Care Team (Late st Contact Info) Description 06/20/2007 Before PRISM Converted Visit (Maple) [facility] - Maple conversion [address] [place] [address] Nerissa Palma FNP 1 [place], [place] [address] Social History Tobacco Use Types Packs/Day Years Used Date Smoking Tobacco: Never Assessed Sex and Gender Information Value Date Recorded Sex Assigned at Not on file Gender Identity Not on file Sexual Orientation Not on file documented as of this encounter Progress Notes * Nerissa Goss - 08/26/2009 1315 EST Primary Care Internal Medicine 1 [place], [place] [phone] PROGRESS/FOLLOWUP NOTE - 06/20/2007 PROBLEM: Laceration on [...] was placed on nitroglycerin ointment and an xhkf-vpx-egtgnmo hemorrhoid cream and he needs awritten prescription to stop these for his senior care. Simone does not know when his last [...] staff member who accompanied him from the senior care to talk about treatment of all of [...] discontinue the nitroglycerin ointment and change the wbsc-dxe-soqixmu hemorrhoid cream to as needed. 5. TDAP [...] - LEXI Horner - ryan Job ID: [id number] Doc ID: [id number] cc: documented in this encounter Plan of Treatment Not on file documented as of this encounter Visit Diagnoses Not on filedocumented in this encounter Care Teams Customer Data Technician Relationship Specialty Start Date End Date Se Smith MD 1 [facility] 1 [place] [phone] PCP - General 02/24/09 02/11/13 documented as of this encounter
--- OUTSIDE RECORDS SUMMARY | 2024-06-01 12:57 | XMS_ITS | Encounter Summary ---
Author Organization [facility] Address [address] [place] [address] Care Team Providers Care Terrazzo Roller Name Role Phone Unavailable Primary Care Provider Unavailabl e Encounter Details Date Type Department Care Team (Latest Contact Info) Description 02/27/2007 9:35 EDT - 02/27/2007 11:59 EDT Hospital Encounter [address] [address] Se Smith MD [address] [place] [phone] Discharge Disposition: Auto Discharge Social History [...]
--- OUTSIDE RECORDS SUMMARY | 2024-06-01 12:57 | XMS_ITS | Encounter Summary ---
Author Organization [facility] Address [address] [place] [address] Care Team Providers Care Paint Booth Operator Name Role Phone Se Smith MD Primary Care Provider +1- [phone] Encounter Details Date Type Department Care Team (Late st Contact Info) Description 03/28/2008 Before PRISM Converted Visit (Maple) [facility] - Maple conversion [address] [place], [place] [id number] Jc North MD [address] [place], [place] [address] Social History Tobacco Use Types Packs/Day Years Used Date Smoking Tobacco: Never Assessed Sex and Gender Information Value Date Recorded Sex Assigned at Not on file Gender Identity Not on file Sexual Orientation Not on file documented as of this encounter Progress Notes * Jc North MD - 07/22/2009 0650 EDT Primary Care Internal Medicine [address] [place] [address] [phone] PROGRESS/FOLLOWUP NOTE - 03/28/2008 CHIEF COMPLAINT Rectal bleed. SUBJECTIVE The patient presents today for evaluation of one episode of rectal bleeding he had earlier today after taking a bowel movement. The patient has a long history of intermittent rectal bleeding and as diagnosed with internal and external hemorrhoids in January of 2008 during a visit to the [facility] emergency department. At that time he [...] Porfirio North MD - DAVID Job ID: [id number] Doc ID: [id number] cc: - Jc North MD - david Job ID: [id number] Doc ID: [id number] cc: documented in this encounter Plan of Treatment Not on file documented as of this encounter Visit Diagnoses Not on filedocumented in this encounter Care Teams Paint Booth Operator Relationship Specialty Start Date End Date Se Smith MD 1 [facility] 1 [place] [address] PCP - General 02/24/09 02/11/13 documented as of this encounter
--- OUTSIDE RECORDS SUMMARY | 2024-06-01 12:57 | XMS_ITS | Encounter Summary ---
Author Organization [facility] Address [address] [place] [address] Care Team Providers Care Manager Civil Name Role Phone Unavailable Primary Care Provider Unavailabl e Encounter Details Date Type Department Care Team (Late st Contact Info) Description 06/23/2008 13:09 EDT Hospital Encounter [address] [address] Se Smith MD [address] [place] [phone] Social History Tobacco Use Types Packs/Day Years [...]
--- OUTSIDE RECORDS SUMMARY | 2024-06-01 12:57 | XMS_ITS | Encounter Summary ---
Author Organization [facility] Address [address] [place] [address] Care Team Providers Care Packing Line Operator Name Role Phone Se Smith MD Primary Care Provider +1- [phone] Encounter Details Date Type Department Care Team (Late st Contact Info) Description 09/10/2008 Before PRISM Converted Visit (Maple) [facility] - Maple conversion [address] [place] [address] Jose Enrique Maguire MD [address] [facility] [address] [place] [phone] Social History Tobacco Use Types Packs/Day Years [...] 05/14/2009 0602 EDT Primary Care Internal Medicine [address] [place] [id number] HEALTH MAINTENANCE EXAMINATION - 09/10/2008 REASON FOR [...] SOCIAL HISTORY He presents today with his [facility] certified energy manager. 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 The [...] I filled out a record for the [facility] reflecting this examination, which I returned [...] Jose Enrique Maguire MD - Job ID: [id number] Doc ID: [id number] cc: documented in this encounter Care Teams Packing Line Operator Relationship Specialty Start Date End Date Se Smith MD 1 [facility] 1 [place] [address] PCP - General 02/24/09 02/11/13 documented as of this encounter
--- OUTSIDE RECORDS SUMMARY | 2024-06-01 12:57 | XMS_ITS | Encounter Summary ---
Author Organization [facility] Address [address] [place] [address] Care Team Providers Care Revenue Agent Name Role Phone Se Smith MD Primary Care Provider +1- [phone] Encounter Details Date Type Department Care Team (Late st Contact Info) Description 04/21/2007 Before PRISM Converted Visit (Maple) [facility] - Maple conversion [address] [place] [address] Carrie Liao MD [address] [place] [phone] Social History Tobacco Use Types Packs/Day [...] who is under the care of the [facility] and here with a hydro electric station operator. He had recently been seen in Dr. [...] MD, FACS 04/28/2007 13:04 Deshawn Liao MD, [id number] Spaulding, MD, FACS Carrie Liao MD, FACS [phone] -Carrie Liao MD, FACS -cd Job ID: [id number] Doc ID: [id number] cc: MD Jose Enrique Ortiz MD documented in this encounter Care Teams Revenue Agent Relationship Specialty Start Date End Date Se Smith MD 1 [facility] [place] [facility] 1 [place] [address] PCP - General 02/24/09 02/11/13 documented as of this encounter
--- OUTSIDE RECORDS SUMMARY | 2024-06-01 12:57 | XMS_ITS | Encounter Summary ---
Author Organization [facility] Address [address] [place] [address] Care Team Providers Care Reacher Name Role Phone Unavailable Primary Care Provider Unavailabl e Encounter Details Date Type Department Care Team (Late st Contact Info) Description 07/02/2008 9:05 EDT - 07/02/2008 11:59 EDT Hospital Encounter [address] [address] Geovanny Garcia MD [address] [place] [address] [address] [place] [phone] Discharge Disposition: Auto Discharge Social History Tobacco [...]
--- OUTSIDE RECORDS SUMMARY | 2024-06-01 12:57 | XMS_ITS | Encounter Summary ---
Author Organization [facility] Address [address] [place] [address] Care Team Providers Care Crankshaft Straightener Name Role Phone Se Smith MD Primary Care Provider +1- [phone] Encounter Details Date Type Department Care Team (Late st Contact Info) Description 08/16/2007 Office Visit [facility] - Maple conversion [address] [place] [address] Alayna Liang MD Social History Tobacco Use Types Packs/Day Years Used Date Smoking Tobacco: Never Assessed Sex and Gender Information Value Date Recorded Sex Assigned at Not on file Gender Identity Not on file Sexual Orientation Not on file documented as of this encounter Progress Notes * Alayna Liang - 12/11/2009 0517 EST [facility] - Physician Summary Registration Date/Time: 08/16/2007 10:42 Arrived- By private vehicle. 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 HISTORY OF PRESENT ILLNESS Chief Complaint- SKIN [...] (SEE SHEET)). Pain level now: 01/28. Treatment INTERNAL AUDIT CONSULTANT: (WARM COMPRESSES). PAST HX: (ELBOW SURG). (CHRONIC [...] parent verbalized understanding. Written instructions provided in Colombian. The patient was discharged home and accompanied by parent. The patient left the Emergency Department ambulatory and via private vehicle. Parent driving. Departure time: 12:10. --1210 Claudia Benton L.P.N.. Locked/Released at 08/16/2007 12:10 by Claudia Benton L.P.N. documented in this encounter Plan of Treatment Not on file documented as of this encounter Visit Diagnoses Not on filedocumented in this encounter Care Teams Crankshaft Straightener Relationship Specialty Start Date End Date Se Smith MD 1 [facility] Level 1 [place] [phone] PCP - General 02/24/09 02/11/13 documented as of this encounter
--- OUTSIDE RECORDS SUMMARY | 2024-06-01 12:57 | XMS_ITS | Encounter Summary ---
Author Organization [facility] Address [address] [place] [address] Care Team Providers Care Senior Marketing Manager Name Role Phone Se Smith MD Primary Care Provider +1- [phone] Encounter Details Date Type Department Care Team (Late st Contact Info) Description 06/04/2007 Before PRISM Converted Visit (Maple) [facility] - Maple conversion [address] [place] [address] Nichole Croft MD [address] [place] [phone] Social History Tobacco Use Types Packs/Day Years Used Date Smoking Tobacco: Never Assessed Sex and Gender Information Value Date Recorded Sex Assigned at Not on file Gender Identity Not on file Sexual Orientation Not on file documented as of this encounter Progress Notes * Nichole Croft MD - 08/24/2009 0458 EST Primary Care Internal Medicine [address] [place] [phone] PROGRESS/FOLLOWUP NOTE - 06/04/2007 SUBJECTIVE This is [...] Gregg MD -SISSY Guzmán -mr Job ID: [id number] Doc ID: [id number] cc: - mr Job ID: [id number] Doc ID: [id number] cc: documented in this encounter Plan of Treatment Not on file documented as of this encounter Visit Diagnoses Not on filedocumented in this encounter Care Teams Senior Marketing Manager Relationship Specialty Start Date End Date Se Smtih MD 1 [facility] Level [address] [place] [phone] PCP - General 02/24/09 02/11/13 documented as of this encounter
--- OUTSIDE RECORDS SUMMARY | 2024-06-01 12:57 | XMS_ITS | Encounter Summary ---
Author Organization [facility] Address [address] [place] [address] Care Team Providers Care Title One Teacher Name Role Phone Unavailable Primary Care Provider Unavailabl e Encounter Details Date Type Department Care Team (Latest Contact Info) Description 04/21/2007 9:44 EDT - 04/21/2007 11:59 EDT Hospital Encounter [facility] [address] [place] [address] Carrie Liao MD [address] [place] [phone] Discharge Disposition: Auto Discharge Social History [...]
--- OUTSIDE RECORDS SUMMARY | 2024-06-01 12:57 | XMS_ITS | Encounter Summary ---
Author Organization [facility] Address [address] [place] [address] Care Team Providers Care Publicity Person Name Role Phone Se Smith MD Primary Care Provider +1- [phone] Encounter Details Date Type Department Care Team (Late st Contact Info) Description 07/02/2008 Before PRISM Converted Visit (Maple) [facility] - Maple conversion [address] [place] [address] Geovanny Garcia MD 111 [facility], [address] [place] [phone] Social History Tobacco Use Types Packs/Day Years [...] by Geovanny Garcia MD, FACS 07/15/2008 12:00 Geovanny Garcia MD, FACS [phone] - Geovanny Garcia MD, FACS - Job ID: [id number] Doc ID: [id number] cc: Se Smith MD documented in this encounter Plan of Treatment Not on file documented as of this encounter Visit Diagnoses Not on filedocumented in this encounter Care Teams Publicity Person Relationship Specialty Start Date End Date Se Smith MD 1 [facility] 1 [place] [phone] PCP - General 02/24/09 02/11/13 documented as of this encounter
--- OUTSIDE RECORDS SUMMARY | 2024-06-01 12:57 | XMS_ITS | Encounter Summary ---
Author Organization [facility] Address [address] [place] [address] Care Team Providers Care Tube Roller Name Role Phone Unavailable Primary Care Provider Unavailabl e Encounter Details Date Type Department Care Team (Latest Contact Info) Description 06/16/2007 9:43 EDT - 06/16/2007 11:59 EDT Hospital Encounter [facility] [address] [place] [address] Carrie Liao MD [address] [place] [phone] Discharge Disposition: Auto Discharge Social History [...]
--- OUTSIDE RECORDS SUMMARY | 2024-06-01 12:57 | XMS_ITS | Encounter Summary ---
Author Organization [facility] Address [address] [place] [address] Care Team Providers Care Artist Consultant Name Role Phone Unavailable Primary Care Provider Unavailabl e Encounter Details Date Type Department Care Team (Late st Contact Info) Description 08/20/2008 13:18 EDT Hospital Encounter [address] [address] Se Smith MD [address] [place] [phone] Unknown, Provider, Social History Tobacco Use Types [...]
--- OUTSIDE RECORDS SUMMARY | 2024-06-01 12:57 | XMS_ITS | Encounter Summary ---
Author Organization [facility] Address [address] [place] [address] Care Team Providers Care Marketing Sales Supervisor Name Role Phone Unavailable Primary Care Provider Unavailabl e Encounter Details Date Type Department Care Team (Latest Contact Info) Description 06/28/2007 14:10 EDT Hospital Encounter [address] [address] Alayna Liang MD Discharge Disposition: Auto Discharge [...]
--- OUTSIDE RECORDS SUMMARY | 2024-06-01 12:57 | XMS_ITS | Encounter Summary ---
Author Organization [facility] Address [address] [place] [address] Care Team Providers Care Wreath Machine Operator Name Role Phone Unavailable Primary Care Provider Unavailabl e Encounter Details Date Type Department Care Team (Latest Contact Info) Description 11/22/2008 13:06 [facility] Hospital Encounter [address] [address] Akash Damon MD [place], Heather Todd, [facility] Discharge Disposition: Auto Discharge Social History Tobacco [...]
--- OUTSIDE RECORDS SUMMARY | 2024-06-01 12:57 | XMS_ITS | Encounter Summary ---
Author Organization [facility] Address [address] [place] [address] Care Team Providers Care Pharmaceutical Detailer Name Role Phone Unavailable Primary Care Provider Unavailabl e Encounter Details Date Type Department Care Team (Late st Contact Info) Description 10/31/2006 13:32 EST Hospital Encounter [address] [address] Unknown, Provider, Social History Tobacco Use Types [...]
--- OUTSIDE RECORDS SUMMARY | 2024-06-01 12:57 | XMS_ITS | Encounter Summary ---
Author Organization [facility] Address [address] [place] [address] Care Team Providers Care Silk Screen Repairer Name Role Phone Unavailable Primary Care Provider Unavailabl e Encounter Details Date Type Department Care Team (Late st Contact Info) Description 07/21/2008 13:07 EDT Hospital Encounter [address] [address] Se Smith MD [address] [place] [phone] Social History Tobacco Use Types Packs/Day Years [...]
--- OUTSIDE RECORDS SUMMARY | 2024-06-01 12:57 | XMS_ITS | Encounter Summary ---
Author Organization [facility] Address [address] [place] [address] Care Team Providers Care Photo Editor Name Role Phone Unavailable Primary Care Provider Unavailabl e Encounter Details Date Type Department Care Team (Late st Contact Info) Description 09/03/2007 15:39 EST Hospital Encounter [address] [address] Justus Watson MD [facility] [address] [place] [address] Discharge Disposition: Auto Discharge Social History Tobacco [...]
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
--- OUTSIDE RECORDS SUMMARY | 2024-06-01 12:57 | XMS_ITS | Encounter Summary ---
Author Organization [facility] Address [address] [place] [address] Care Team Providers Care Dog Groomer Name Role Phone Unavailable Primary Care Provider Unavailabl e Encounter Details Date Type Department Care Team (Late st Contact Info) Description 09/20/2008 13:04 [facility] Hospital Encounter [address] [address] Se Smith MD [address] [place] [address] [phone] Social History Tobacco Use Types Packs/Day Years [...]
--- OUTSIDE RECORDS SUMMARY | 2024-06-01 12:57 | XMS_ITS | Encounter Summary ---
Author Organization [facility] Address [address] [place] [address] Care Team Providers Care Audio Technician Name Role Phone Se Smith MD Primary Care Provider +1- [phone] Encounter Details Date Type Department Care Team (Late st Contact Info) Description 05/07/2008 Before PRISM Converted Visit (Maple) [facility] - Maple conversion [address] [place] [address] Geovanny Garcia MD [address] [facility] [address] [place] [phone] Social History Tobacco Use Types Packs/Day Years [...] facility and is here today with a irrigationist designer. PAST MEDICAL HISTORY Positive for some type [...] Options discussed with the patient and his irrigationist designer. Options include nifedipine, Botox, or lateralinternal sphincterotomy. [...] FACS 05/20/2008 10:48 Geovanny Garcia MD, FACS [phone] - Geovanny Garcia MD, FACS - Job ID: [id number] Doc ID: [id number] cc: Se Simth MD documented in this encounter Plan of Treatment Not on file documented as of this encounter Visit Diagnoses Not on filedocumented in this encounter Care Teams Audio Technician Relationship Specialty Start Date End Date Se Smith MD 1 [facility] [address] [place] [phone] PCP - General 02/24/09 02/11/13 documented as of this encounter
--- OUTSIDE RECORDS SUMMARY | 2024-06-01 12:58 | XMS_ITS | Encounter Summary ---
Author Organization [facility] Address [address] [place] [address] Care Team Providers Care Art Professor Name Role Phone Unavailable Primary Care Provider Unavailabl e Encounter Details Date Type Department Care Team (Late st Contact Info) Description 05/24/2006 13:55 EDT Hospital Encounter [address] [address] Se Smith MD [address] [place] [address] [phone] Social History Tobacco Use Types Packs/Day Years [...]
--- OUTSIDE RECORDS SUMMARY | 2024-06-01 12:58 | XMS_ITS | Encounter Summary ---
Author Organization [facility] Address [address] [place] [address] Care Team Providers Care Core Drier Name Role Phone Unavailable Primary Care Provider Unavailabl e Encounter Details Date Type Department Care Team (Late st Contact Info) Description 08/24/2004 17:35 EST Hospital Encounter [address] [address] Ashley Uribe MD [address] [place] [phone] Social History Tobacco Use Types Packs/Day Years [...]
--- OUTSIDE RECORDS SUMMARY | 2024-06-01 12:58 | XMS_ITS | Encounter Summary ---
Author Organization [facility] Address [address] [place] [address] Care Team Providers Care Flatbed Driver Name Role Phone Unavailable Primary Care Provider Unavailabl e Encounter Details Date Type Department Care Team (Late st Contact Info) Description 11/26/2005 19:37 EST Hospital Encounter [address] [address] Ashley Uribe MD [address] [place] [phone] Discharge Disposition: Auto Discharge Social History Tobacco [...] identified and the ankle mortis is intact. [facility] Procedure Note Eder Peres MD - 05/20/2009 JUMPED OFF TRUCK SUFFERING INVERSION INJURY, ++ SWELLING, R/O FX RIGHT ANKLE, 3 OR MORE VIEWS: 11/26/05, 2100 CLINICAL HISTORY: Jumped off truck, inversion injury, swelling. Rule out fracture. Three views were obtained. There is significant soft tissue swelling, particularly laterally. No fracture is identified and the ankle mortis is intact. [facility] Ashley Uribe MD IMG DIAGNOSTIC I MAGING ORDERABLES documented in this encounter Visit Diagnoses Not on filedocumented in this encounter
--- OUTSIDE RECORDS SUMMARY | 2024-06-01 12:58 | XMS_ITS | Encounter Summary ---
Author Organization [facility] Address [address] [place] [address] Care Team Providers Care Roll Bucker Name Role Phone Unavailable Primary Care Provider Unavailabl e Encounter Details Date Type Department Care Team (Late st Contact Info) Description 01/09/2005 13:26 [facility] Hospital Encounter [address] [address] Vernon Arana MD [address] [place] [phone] Social History Tobacco Use Types Packs/Day Years [...]
--- OUTSIDE RECORDS SUMMARY | 2024-06-01 12:58 | XMS_ITS | Encounter Summary ---
Author Organization [facility] Address [address] [place] [address] Care Team Providers Care Supervisor Sawmill Name Role Phone Se Smith MD Primary Care Provider +1- [phone] Encounter Details Date Type Department Care Team (Late st Contact Info) Description 10/16/2006 Before PRISM Converted Visit (Maple) [facility] - Maple conversion [address] [place] [address] Miri Smith MD [address] [place] [phone] Social History Tobacco Use Types Packs/Day Years Used Date Smoking Tobacco: Never Assessed Sex and Gender Information Value Date Recorded Sex Assigned at Not on file Gender Identity Not on file Sexual Orientation Not on file documented as of this encounter Progress Notes * Miri Smith MD - 10/27/2009 1533 EST Primary Care Internal Medicine [address] [place], [place] [phone] PROGRESS/FOLLOWUP NOTE - 10/16/2006 REASON FOR VISIT: [...] given for him to take to his longterm explaining his medical condition and the treatment. Addendum: call received by the pharmacy reporting ofloxacin not covered by his insurance; switched to levofloxacin 750 mg po qd for ten days. Signed by Miri Smith MD 10/25/2006 12:43 Xochilt Baltazar MD Miri Smith MD - Juan Smith MD A [facility] Job ID: [id number] Document ID: [id number] cc: documented in this encounter Plan of Treatment Not on file documented as of this encounter Visit Diagnoses Not on filedocumented in this encounter Care Teams Supervisor Sawmill Relationship Specialty Start Date End Date Se Smith MD 1 [facility] 1 [place] [phone] PCP - General 02/24/09 02/11/13 documented as of this encounter
--- OUTSIDE RECORDS SUMMARY | 2024-06-01 12:58 | XMS_ITS | Encounter Summary ---
Author Organization [facility] Address [address] [place] [address] Care Team Providers Care Seed Sales Manager Name Role Phone Unavailable Primary Care Provider Unavailabl e Encounter Details Date Type Department Care Team (Late st Contact Info) Description 10/26/2003 11:27 [facility] Hospital Encounter [facility] - Other [address] [place] [address] Se Smith MD 1 [facility] Level [address] [place] [phone] Social History Tobacco Use Types Packs/Day Years [...]
--- OUTSIDE RECORDS SUMMARY | 2024-06-01 12:58 | XMS_ITS | Clinical Summary ---
Author Organization [facility] [place] [address] Care Team Providers Care Nursery Manager Name Role Phone Polly Bradley Primary Care Provider Encounters Date Type Department Care Team Description 03/19/2024 Transcribe Orders eDH Incoming Referrals [phone] Polly Bradley Tinea corporis from Last 3 [...] 3:00 PM EDT Office Visit Dermatology at [facility] [address] [place] [phone] Sierra Nielson MD [facility] [place] [address] Health Maintenance Due Date Last Done Comments [...] RDR/RSLT from Last 3 Months Care Teams Nursery Manager Relationship Specialty Start Date End Date Polly Bradley [address] [place], [place] [id number] PCP - General Family Medicine 03/19/24
--- OUTSIDE RECORDS SUMMARY | 2024-06-01 12:58 | XMS_ITS | Encounter Summary ---
Author Organization [facility] Address [address] [place] [address] Care Team Providers Care Sociology Faculty Member Name Role Phone Unavailable Primary Care Provider Unavailabl e Encounter Details Date Type Department Care Team (Late st Contact Info) Description 09/26/2004 16:12 EST Hospital Encounter [facility] [address] [place] [address] Markos Lomeli, FINISH MACHINE TENDER [address] [place] [address] Discharge Disposition: Auto Discharge Social History Tobacco [...]
--- OUTSIDE RECORDS SUMMARY | 2024-06-01 12:58 | XMS_ITS | Encounter Summary ---
Author Organization [facility] Address [address] [place] [address] Care Team Providers Care Research Intern Name Role Phone Unavailable Primary Care Provider Unavailabl e Encounter Details Date Type Department Care Team (Late st Contact Info) Description 05/16/2004 17:26 EDT Hospital Encounter [facility] - Other [address] [place] [address] Se Smith MD 1 [facility] [address] [place] [phone] Social History Tobacco Use Types [...]
--- OUTSIDE RECORDS SUMMARY | 2024-06-01 12:58 | XMS_ITS | Encounter Summary ---
Author Organization [facility] Address [address] [place] [address] Care Team Providers Care Supervisor Blasting Name Role Phone Unavailable Primary Care Provider Unavailabl e Encounter Details Date Type Department Care Team (Latest Contact Info) Description 01/09/2003 12:05 EST Hospital Encounter [facility] Emergency Department - [facility] [address] [place] [address] Emergency, Default, MD Discharge Disposition: Home or [...] & BLOOD G ORDERABLES Performing Organization Address [facility] de Phone Number [facility] [address] [place] [address] * ELECTROLYTES (01/09/2003 15:19 EST) Sodium 138 [...] & BLOOD G ORDERABLES Performing Organization Address [facility] de Phone Number [facility] [address] [place] [address] * CREATININE (01/09/2003 15:19 EST) Creatinine 1.0 0.7 - 1.5 mg/dl [facility] Comment:Slight hemolysis 01/09/2003 15:1 9 EST 01/09/2003 15:21 EST Default Emergency MD HISTORICAL LAB FOR SQ LOAD Performing Organization Address [facility] de Phone Number [facility] [address] [place] [address] * (ABNORMAL) HEMAGRAM & DIFF (01/09/2003 15:19 [...] LAB FOR SQ LOAD Performing Organization Address [facility] de Phone Number [facility] [address] [place] [address] * BUN (01/09/2003 15:19 EST) BUN 19 10 - 26 mg/dl [facility] Comment: Results may be affected due to hemolysis. Slight hemolysis 01/09/2003 15:1 9 EST 01/09/2003 15:21 EST Default Emergency MD CHEMISTRY & BLOOD G ORDERABLES Performing Organization Address [facility] Co de Phone Number [facility] [address] [place] [address] documented in this encounter Visit Diagnoses Not on filedocumented in this encounter
--- OUTSIDE RECORDS SUMMARY | 2024-06-01 12:58 | XMS_ITS | Encounter Summary ---
Author Organization [facility] Address [address] [place] [address] Care Team Providers Care Ceramic Engineer Name Role Phone Unavailable Primary Care Provider Unavailabl e Encounter Details Date Type Department Care Team (Latest Contact Info) Description 10/26/2006 14:04 [facility] [address] [address] Serena Grace MD [address] [place] [phone] Ben Britton Jr., PRODUCTION MACHINE OPERATOR Discharge Disposition: Auto Discharge Social History Tobacco [...]
--- OUTSIDE RECORDS SUMMARY | 2024-06-01 12:58 | XMS_ITS | Encounter Summary ---
Author Organization [facility] Address [address] [place] [address] Care Team Providers Care Supervisor [place] Name Role Phone Unavailable Primary Care Provider Unavailabl e Encounter Details Date Type Department Care Team (Latest Contact Info) Description 07/14/2003 10:20 EDT - 07/14/2003 11:59 EDT Hospital Encounter [facility] Emergency Department - [facility] [address] [place] [address] Emergency, Default, MD Discharge Disposition: Home or [...]
--- OUTSIDE RECORDS SUMMARY | 2024-06-01 12:58 | XMS_ITS | Encounter Summary ---
Author Organization [facility] Address [address] [place] [address] Care Team Providers Care Title One Reading Teacher Name Role Phone Unavailable Primary Care Provider Unavailabl e Encounter Details Date Type Department Care Team (Late st Contact Info) Description 10/27/2004 17:04 [facility] Hospital Encounter [facility] - Other [address] [place] [address] Se Smith MD 1 [facility] Level 1 [place] [phone] Social History Tobacco Use Types Packs/Day Years [...]
--- OUTSIDE RECORDS SUMMARY | 2024-06-01 12:58 | XMS_ITS | Encounter Summary ---
Author Organization [facility] Address [address] [place] [address] Care Team Providers Care Angle Roll Operator Name Role Phone Se Smith MD Primary Care Provider +1- [phone] Encounter Details Date Type Department Care Team (Late st Contact Info) Description 08/28/2004 Office Visit [facility] [address] [place] [address] Marla Verdin MD [address] [place] [address], [address] [place], [place] [address] Social History Tobacco Use Types Packs/Day Years [...] not better. Follow up with Doctor carlos [phone]) or Dr. Villatoro to discuss having edges of nails removed so problem stops happening. Marla Verdin M.D. (Electronically signed Marla Verdin M.D. 08/28/2004 21:27) Physician's Clinical Report Walk-In [facility] ??? Nursing Summary Registration Date/Time 08/28/2004 17:08 TRIAGE Initial Assessment Triage time 17:48 BP: 124 / 70 lying R arm manual (reg adult cuff). HR: 80 regular RR: 16 Temp: F 97.5 oral --1758 Georgia MerchantP.N. Medications Amoxicillin/Clavulanate (finished this med on 08/13/04). Calcium Supplement : (1200 mg). Lupron Depot : 7.5mg (x 1 a month). (respirdol qd). --1758 Georgia MerchantP.N. Allergies No known drug allergies. --1758 Claudia [...] Arrived by private vehicle and accompanied by (catalytic case operator.). Historian: (catalytic case operator). Primary physician (md smith called pt told [...] on filedocumented in this encounter Care Teams Angle Roll Operator Relationship Specialty Start Date End Date Se Smith MD 1 [facility] Level 1 [place] [address] PCP - General 02/24/09 02/11/13 documented as of this encounter
--- OUTSIDE RECORDS SUMMARY | 2024-06-01 12:58 | XMS_ITS | Encounter Summary ---
Author Organization [facility] Address [address] [place] [address] Care Team Providers Care Scrub Tech Name Role Phone Se Smith MD Primary Care Provider +1- [phone] Encounter Details Date Type Department Care Team (Late st Contact Info) Description 07/25/2005 Before PRISM Converted Visit (Maple) [facility] - Maple conversion [address] [place] [address] Rome Munoz MD [address] [place] [address] Social History Tobacco Use Types Packs/Day Years [...] A - mld Job ID: Document ID: [id number] cc: Se Smith MD documented in this encounter Plan of Treatment Not on file documented as of this encounter Visit Diagnoses Not on filedocumented in this encounter Care Teams Scrub Tech Relationship Specialty Start Date End Date Se Smith MD [address] [place] [address] 1 [place] [phone] PCP - General 02/24/09 02/11/13 documented as of this encounter
--- OUTSIDE RECORDS SUMMARY | 2024-06-01 12:58 | XMS_ITS | Encounter Summary ---
Author Organization [facility] Address [address] [place] [address] Care Team Providers Care Asphalt Paving Supervisor Name Role Phone Unavailable Primary Care Provider Unavailabl e Encounter Details Date Type Department Care Team (Late st Contact Info) Description 05/16/2005 15:12 EDT Hospital Encounter [facility] - Other [address] [place] [address] Haim Hoffman, CHICLE GRINDER FEEDER [address] [place] [phone] Social History Tobacco Use Types Packs/Day Years [...]
--- OUTSIDE RECORDS SUMMARY | 2024-06-01 12:58 | XMS_ITS | Encounter Summary ---
Author Organization [facility] Address [address] [place] [address] Care Team Providers Care Direct Care Professional Name Role Phone Se Smith MD Primary Care Provider +1- [phone] Encounter Details Date Type Department Care Team (Late st Contact Info) Description 04/07/2005 Office Visit [facility] - Maple conversion [address] [place] [address] Haim Sotelo, MRACIA [address] [address] Social History Tobacco Use Types [...] days ago Pain level now: 12/28. Treatment ASSEMBLING FABRICATOR: None. PAST HX: Anxiety. Fracture repair. Left [...] Patient verbalized understanding. Written instructions provided in Khmer. The patient was discharged home and accompanied by door person. The patient left the Emergency Department ambulatory and via private vehicle. --1932 Evelio Brumfield R.N., E.[place] R.N. Locked/Released at 04/08/2005 7:56 by Elaine Oliva R.N. documented in this encounter Plan of Treatment Not on file documented as of this encounter Visit Diagnoses Not on filedocumented in this encounter Care Teams Direct Care Professional Relationship Specialty Start Date End Date Se Smith MD 1 [facility] 1 [place] [phone] PCP - General 02/24/09 02/11/13 documented as of this encounter
--- OUTSIDE RECORDS SUMMARY | 2024-06-01 12:58 | XMS_ITS | Encounter Summary ---
Author Organization [facility] Address [address] [place] [address] Care Team Providers Care Digital Sales Planner Name Role Phone Se Smith MD Primary Care Provider +1- [phone] Encounter Details Date Type Department Care Team (Late st Contact Info) Description 08/24/2004 Office Visit [facility] - Maple conversion [address] [place] [address] Ashley Uribe MD [address] [place] [phone] Social History Tobacco Use Types Packs/Day Years [...] By private vehicle. Historian- patient and historian (cyanide case hardener). Evaluation limited by Pt here with cyanide case hardener from [facility] History limited by mental retardation. HISTORY OF [...] Arrived by private vehicle and accompanied by (case management director.). Historian: patient and (with case management director). Primary care physician not notified of patient's [...] the patient. Patient verbalized understanding. (pt and case management director with no further questions.). The patient was discharged home and accompanied by grinder operator tool. The patient left the Emergency Department ambulatory and via private vehicle. Departure time: 20:01 --2001 Ashley Merchant L.P.N. Locked/Released at 08/24/2004 20:02 by Claudia Benton L.P.N. documented in this encounter Plan of Treatment Not on file documented as of this encounter Visit Diagnoses Not on filedocumented in this encounter Care Teams Digital Sales Planner Relationship Specialty Start Date End Date Se Smith MD 1 [facility] 1 [place] [address] PCP - General 02/24/09 02/11/13 documented as of this encounter
--- OUTSIDE RECORDS SUMMARY | 2024-06-01 12:58 | XMS_ITS | Encounter Summary ---
Author Organization [facility] Address [address] [place] [address] Care Team Providers Care Partnership Manager Name Role Phone Se Smith MD Primary Care Provider +1- [phone] Encounter Details Date Type Department Care Team (Late st Contact Info) Description 11/26/2005 Office Visit [facility] - Maple conversion [address] [place] [address] Ashley Uribe MD [address] [place] [phone] Social History Tobacco Use Types Packs/Day Years Used Date Smoking Tobacco: Never Assessed Sex and Gender Information Value Date Recorded Sex Assigned at Not on file Gender Identity Not on file Sexual Orientation Not on file documented as of this encounter Progress Notes * Ashley Uribe MD - 12/21/2009 194 EST [facility] - Physician Summary Registration Date/Time: 11/26/2005 19:37 [...] needed for pain. Follow-up: [facility], , [place] [address]. Follow up in ten days. (Electronically signed [...] gait. Right ankle. Skin is warm. --2043 Claudia Benton L.P.N. NURSING PROGRESS NOTES Progress Cold [...] Discharge instructions reviewed with the patient and russian rubber. Work note given. Patient and russian rubber verbalized understanding. Written instructions provided in Kyrgyz. Thepatient was discharged home and accompanied by russian rubber. The patient left the Emergency Departmentambulatory and via private vehicle. Senior Power Plant Operator driving. Departure time: 21:44. --2143 Claudia Benton L.P.N. Locked/Released at 11/26/2005 21:44 by Claudia Benton L.P.N. documented in this encounter Plan of Treatment Not on file documented as of this encounter Visit Diagnoses Not on filedocumented in this encounter Care Teams Partnership Manager Relationship Specialty Start Date End Date Se Smith MD 1 [facility] 1 [place] [address] PCP - General 02/24/09 02/11/13 documented as of this encounter
--- OUTSIDE RECORDS SUMMARY | 2024-06-01 12:58 | XMS_ITS | Encounter Summary ---
Author Organization [facility] Address [address] [place] [address] Care Team Providers Care Production Control Expert Name Role Phone Se Smith MD Primary Care Provider +1- [phone] Encounter Details Date Type Department Care Team (Late st Contact Info) Description 01/03/2006 Office Visit [facility] Adult Primary Care - [address] [phone] Nerissa Palma FNP [address] [place], [place] [phone] Social History Tobacco Use Types Packs/Day Years Used Date Smoking Tobacco: Never Assessed Sex and Gender Information Value Date Recorded Sex Assigned at Not on file Gender Identity Not on file Sexual Orientation Not on file documented as of this encounter Plan of Treatment Not on file documented as of this encounter Visit Diagnoses Not on filedocumented in this encounter Care Teams Production Control Expert Relationship Specialty Start Date End Date Se Smith MD [address] [phone] PCP - General 02/24/09 02/11/13 documented as of this encounter
--- OUTSIDE RECORDS SUMMARY | 2024-06-01 12:58 | XMS_ITS | Encounter Summary ---
Author Organization [facility] Address [address] [place] [address] Care Team Providers Care Ax Survey Worker Name Role Phone Unavailable Primary Care Provider Unavailabl e Encounter Details Date Type Department Care Team (Late st Contact Info) Description 11/23/2005 14:54 EST Hospital Encounter [facility] [address] [place] [address] Haim Hoffman, FLYING INSTRUCTOR [address] [place] [phone] Social History Tobacco Use Types Packs/Day Years [...]
--- OUTSIDE RECORDS SUMMARY | 2024-06-01 12:58 | XMS_ITS | Encounter Summary ---
Author Organization [facility] Address [address] [place] [address] Care Team Providers Care Report Checker Name Role Phone Se Smith MD Primary Care Provider +1- [phone] Encounter Details Date Type Department Care Team (Late st Contact Info) Description 06/12/2006 Before PRISM Converted Visit (Maple) [facility] - Maple conversion [address] [place] [address] Se Smith MD [address] [place] [phone] Social History Tobacco Use Types Packs/Day Years Used Date Smoking Tobacco: Never Assessed Sex and Gender Information Value Date Recorded Sex Assigned at Not on file Gender Identity Not on file Sexual Orientation Not on file documented as of this encounter Progress Notes * Se Smith MD - 10/14/2009 8284 EST Primary Care Internal Medicine [address] [place] [phone] PROGRESS/FOLLOWUP NOTE - 06/12/2006 #4 ALLERGIC RHINITIS [...] Smith MD P - lfb Job ID: [id number] Document ID: [id number] cc: documented in this encounter Plan of Treatment Not on file documented as of this encounter Visit Diagnoses Not on filedocumented in this encounter Care Teams Report Checker Relationship Specialty Start Date End Date Se Smith MD 1 [facility] 1 [place] [address] PCP - General 02/24/09 02/11/13 documented as of this encounter
--- OUTSIDE RECORDS SUMMARY | 2024-06-01 12:58 | XMS_ITS | Encounter Summary ---
Author Organization [facility] Address [address] [place] [address] Care Team Providers Care Testboard Operator Name Role Phone Unavailable Primary Care Provider Unavailabl e Encounter Details Date Type Department Care Team (Late st Contact Info) Description 09/03/2006 11:15 EST - 09/03/2006 11:59 EST Hospital Encounter [facility] - S [address] [address] Karena Moss MD [address] [address] Discharge Disposition: Auto Discharge Social History Tobacco [...]
--- OUTSIDE RECORDS SUMMARY | 2024-06-01 12:58 | XMS_ITS | Encounter Summary ---
Author Organization [facility] [place] [address] [place] [address] Care Team Providers Care Route Sales Delivery Drivers Supervisor Name Role Phone Polly Bradley Primary Care Provider [phone] Reason for Referral * Consultation (Routine) - Authorized Specialty Diagnoses / Procedures Referred By Romeo bhatt Referred To Contact Dermatology Diagnoses Tinea corporis Polly Bradley [address] [place] [address] [facility] Dermatology [address] [place] [address] Referral ID Status Reason Start Date Expiration Date Visits Requested Visits Authorized [id number] Authorized Consult, Test & Treat PCP Updated and/or Approved 03/19/2024 03/19/2025 6 6 Encounter Details Date Type Department Care Team (Late st Contact Info) Description 03/19/2024 Transcribe Orders eDH Incoming Referrals [phone] Polly Bradley [address] [place], [place] [address] Tinea corporis Social History Tobacco Use Types [...] [address] [place] [address] Sierra Nielson MD [facility] [address] [address] Scheduled Referrals Name Type Priority Associated Diagnoses Order Schedule Referral to Dermatology Outpatient Referral Routine Tinea corporis Ordered: 03/19/2024 documented as of this encounter Visit Diagnoses Diagnosis Tinea corporis Dermatophytosis of the body documented in this encounter Care Teams Route Sales Delivery Drivers Supervisor Relationship Specialty Start Date End Date Polly Bradley [address] [place] [address] PCP - General Family Medicine 03/19/24 documented as of this encounter
--- OUTSIDE RECORDS SUMMARY | 2024-06-01 12:58 | XMS_ITS | Encounter Summary ---
Author Organization [facility] Address [address] [place] [address] Care Team Providers Care Telehealth Nurse Educator Name Role Phone Se Smith MD Primary Care Provider +1- [phone] Encounter Details Date Type Department Care Team (Late st Contact Info) Description 09/02/2006 Before PRISM Converted Visit (Maple) [facility] - Maple conversion [address] [place] [address] Aleks Galo MD [address] [place] [address] Social History Tobacco Use Types Packs/Day Years Used Date Smoking Tobacco: Never Assessed Sex and Gender Information Value Date Recorded Sex Assigned at Not on file Gender Identity Not on file Sexual Orientation Not on file documented as of this encounter Progress Notes * Aleks Galo - 10/14/2009 1505 EST Primary Care Internal Medicine [address] [place] [phone] PROGRESS/FOLLOWUP NOTE - 09/02/2006 SUBJECTIVE: This is a 26-year-old white male who presents to [facility] clinic complaining of episodic dizziness, especially [...] be placed on Lupron injection by the [facility], as per patient and drug and alcohol counselor from [facility]. Heme and lymph: No history of [...] motor skills. Cerebellar examination is also intact. [id number]. Alternating hands intact, and heel-mix intact. Gait [...] The patient is recommended to use Dramamine [id number]-[id number], and the patient is instructed to return [...] MD Clover A - LT Job ID: [id number] Document ID: [id number] cc: documented in this encounter Plan of Treatment Not on file documented as of this encounter Visit Diagnoses Not on filedocumented in this encounter Care Teams Telehealth Nurse Educator Relationship Specialty Start Date End Date Se Smith MD 1 [facility] 1 [place] [phone] PCP - General 02/24/09 02/11/13 documented as of this encounter
--- OUTSIDE RECORDS SUMMARY | 2024-06-01 12:58 | XMS_ITS | Encounter Summary ---
Author Organization [facility] Address [address] [place] [address] Care Team Providers Care Oil Processing Technician Name Role Phone Se Smith MD Primary Care Provider +1- [phone] Encounter Details Date Type Department Care Team (Late st Contact Info) Description 10/30/2002 Results Only [facility] Adult Primary Care - [address] [address] Se Smith MD 1 [facility] 1 [place] [address] Social History Tobacco Use Types [...] BLOOD GAS ORDERABLES [facility] [address] [place] [address] * LIPID PROFILE (INCLUDES CHOLESTEROL, TRIGLYCERIDES, HDL, LDL) (10/30/2002 11:57 EST) Cholesterol 155 mg/dl [facility] Comment: Desirable:<200 Borderline:200-239 High Risk:>gm=[id number] Triglycerides 69 35 - 160 mg/dl [facility] HDL 61 mg/dl [facility] Comment: Highly Desirable:>60 Desirable:35-60 High Risk:<35 LDL, Calculated 80 mg/dl [facility] Comment: Desirable:<130 Borderline:130-159 High Risk:>xr=936 Chol/HDL Ratio 2.5 [facility] 10/30/2002 11:5 7 EST 10/30/2002 17:21 EST Se Smith MD CHEMISTRY & BLOOD GAS ORDERABLES Performing Organization Address [facility] [place] Co de Phone Number [facility] [address] [place] [address] documented in this encounter Visit Diagnoses Not on filedocumented in this encounter Care Teams Oil Processing Technician Relationship Specialty Start Date End Date Se Smith MD 1 [facility] 1 [place] [address] PCP - General 02/24/09 02/11/13 documented as of this encounter
--- OUTSIDE RECORDS SUMMARY | 2024-06-01 12:58 | XMS_ITS | Encounter Summary ---
Author Organization [facility] Address [address] [place] [address] Care Team Providers Care Manager Outpatient Name Role Phone Se Smith MD Primary Care Provider +1- [phone] Encounter Details Date Type Department Care Team (Late st Contact Info) Description 01/28/2006 Office Visit [facility] Adult Primary Care - [address] [address] Se Smith MD [address] [address] Social History Tobacco Use Types [...] on filedocumented in this encounter Care Teams Manager Outpatient Relationship Specialty Start Date End Date Se Smith MD [address] [address] PCP - General 02/24/09 02/11/13 documented as of this encounter
--- OUTSIDE RECORDS SUMMARY | 2024-06-01 12:58 | XMS_ITS | Encounter Summary ---
Author Organization [facility] Address [address] [place] [address] Care Team Providers Care Cultured Marble Products Maker Name Role Phone Unavailable Primary Care Provider Unavailabl e Encounter Details Date Type Department Care Team (Late st Contact Info) Description 10/30/2002 14:50 EST Hospital Encounter [facility] - Other [address] [place] [address] Se Smith MD 1 [facility] Level 1 [place] [phone] Unknown, Provider, Social History Tobacco Use Types [...]
--- OUTSIDE RECORDS SUMMARY | 2024-06-01 12:58 | XMS_ITS | Encounter Summary ---
Author Organization [facility] Address [address] [place] [address] Care Team Providers Care Field Instructor Name Role Phone Se Smith MD Primary Care Provider +1- [phone] Encounter Details Date Type Department Care Team (Late st Contact Info) Description 10/26/2003 Results Only [facility] Adult Primary Care - [address] [address] Se Smith MD [address] [facility] 1 [place] [address] Social History Tobacco Use Types [...] BLOOD GAS ORDERABLES [facility] [address] [place] [address] * LIPID PROFILE (INCLUDES CHOLESTEROL, TRIGLYCERIDES, HDL, LDL) (10/26/2003 9:30 EST) Cholesterol 146 mg/dl [facility] Comment: Desirable:<200 Borderline:200-239 High Risk:>dt=024 Triglycerides 48 35 - 160 mg/dl [facility] HDL 55 mg/dl [facility] Comment: Highly Desirable:>60 Desirable:35-60 High Risk:<35 LDL, Calculated 81 mg/dl [facility] Comment: Desirable:<130 Borderline:130-159 High Risk:>bi=830 Chol/HDL Ratio 2.7 [facility] 10/26/2003 9:30 EST 10/26/2003 15:22 EST Se Smith MD CHEMISTRY & BLOOD GAS ORDERABLES Performing Organization Address City/State/[facility] Co de Phone Number [facility] [address] [place] [address] documented in this encounter Visit Diagnoses Not on filedocumented in this encounter Care Teams Field Instructor Relationship Specialty Start Date End Date Se Smith MD [address] [facility] 1 [place] [address] PCP - General 02/24/09 02/11/13 documented as of this encounter
--- OUTSIDE RECORDS SUMMARY | 2024-06-01 12:58 | XMS_ITS | Encounter Summary ---
Author Organization [facility] Address [address] [place] [address] Care Team Providers Care Order Checker Packer Processer Name Role Phone Unavailable Primary Care Provider Unavailabl e Encounter Details Date Type Department Care Team (Late st Contact Info) Description 07/25/2005 13:08 EDT Hospital Encounter [facility] [address] [place] [address] Rome Munoz MD [address] [place] [address] Social History Tobacco Use Types [...]
--- OUTSIDE RECORDS SUMMARY | 2024-06-01 12:58 | XMS_ITS | Encounter Summary ---
Author Organization [facility] Address [address] [place] [address] Care Team Providers Care Occ Ther Name Role Phone Unavailable Primary Care Provider Unavailabl e Encounter Details Date Type Department Care Team (Latest Contact Info) Description 04/25/2006 12:53 EDT Hospital Encounter [address] [address] Se Smith MD [address] [place] [phone] Discharge Disposition: Auto Discharge Social History Tobacco [...]
--- OUTSIDE RECORDS SUMMARY | 2024-06-01 12:58 | XMS_ITS | Encounter Summary ---
Author Organization [facility] Address [address] [place] [address] Care Team Providers Care Chemicals Distiller Name Role Phone Se Smith MD Primary Care Provider +1- [phone] Encounter Details Date Type Department Care Team (Late st Contact Info) Description 03/08/2006 Office Visit [facility] Adult Primary Care - [address] [address] Se Smith MD [address] [address] Social History Tobacco Use Types [...] on filedocumented in this encounter Care Teams Chemicals Distiller Relationship Specialty Start Date End Date Se Smith MD [address] [address] PCP - General 02/24/09 02/11/13 documented as of this encounter
--- OUTSIDE RECORDS SUMMARY | 2024-06-01 12:58 | XMS_ITS | Encounter Summary ---
Author Organization [facility] Address [address] [place] [address] Care Team Providers Care Reinforced Steel Placing Supervisor Name Role Phone Se Smith MD Primary Care Provider +1- [phone] Encounter Details Date Type Department Care Team (Late st Contact Info) Description 09/07/2005 Office Visit [facility] - [facility] conversion [address] [place] [address] Yong Armenta MD Social History Tobacco Use [...] has had a headache and nausea. Treatment TITLE OFFICER: Recently seen in the office; seen for similar symptoms. SOCIAL HX: Nonsmoker. Denies alcohol use. Residence: retirement Arrived by private vehicle and accompanied by freight team associate. Historian: patient. --2043 Tati Bailon R.N. PHYSICAL [...] Discharge instructions reviewed with the patient and systems testing laboratory technician. Provided and reviewed written instructions. Patient verbalized understanding. Written instructions provided in Sudanese. The patient was discharged home and accompanied by systems testing laboratory technician. The patient left the Emergency Department ambulatory and via private vehicle. Weapons Specialist driving. --2145 Evelio Inman R.N., R.N. Barb Callahan R.N. Locked/Released at 09/08/2005 7:53 by Elaine Oliva R.N. documented in this encounter Plan of Treatment Not on file documented as of this encounter Visit Diagnoses Not on filedocumented in this encounter Care Teams Reinforced Steel Placing Supervisor Relationship Specialty Start Date End Date Se Smith MD 1 [facility] 1 [place] [phone] PCP - General 02/24/09 02/11/13 documented as of this encounter
--- OUTSIDE RECORDS SUMMARY | 2024-06-01 12:58 | XMS_ITS | Encounter Summary ---
Author Organization [facility] Address [address] [place] [address] Care Team Providers Care Philosophy Specialist Name Role Phone Unavailable Primary Care Provider Unavailabl e Encounter Details Date Type Department Care Team (Late st Contact Info) Description 07/17/2005 15:16 EDT Hospital Encounter [facility] - [facility] [address] [place] [address] Se Smith MD [address] [place] [address] 1 [place] [address] Jamshid Mendiola MD [facility] [address] [place] [address] Discharge Disposition: Auto Discharge Social History Tobacco [...] ISOLATED [facility] Report Status Final [id number] [facility] 07/17/2005 14:5 1 EDT 07/17/2005 19:04 EDT Jamshid Mendiola MD MICROBIOLOGY - GENER AL ORDERABLES [facility] [address] [place] [address] documented in this encounter Visit Diagnoses Not on filedocumented in this encounter
--- OUTSIDE RECORDS SUMMARY | 2024-06-01 12:58 | XMS_ITS | Encounter Summary ---
Author Organization [facility] Address [address] [place] [address] Care Team Providers Care Cutter Wet Machine Name Role Phone Se Smith MD Primary Care Provider +1- [phone] Encounter Details Date Type Department Care Team (Late st Contact Info) Description 01/09/2005 Office Visit [facility] - Maple conversion [address] [place] [address] Jossy Bagley MD [address] [place] [address], [address] [place] [address] Social History Tobacco Use Types Packs/Day Years [...] Discharge instructions reviewed with the patient and cigarette lighter repairer. Patient and cigarette lighter repairer verbalized understanding. The patient was accompanied by cigarette lighter repairer. The patient left the Emergency Department ambulatory and via private vehicle. Patient has no belongings. --[id number] Nichole Castillo, Josselyn Cesar Nichole Castillo, Locked/Released at 01/09/2005 14:48 by Nichole Castillo, documented in this encounter Plan of Treatment Not on file documented as of this encounter Visit Diagnoses Not on filedocumented in this encounter Care Teams Cutter Wet Machine Relationship Specialty Start Date End Date Se Smith MD 1 [facility] 1 [place] [address] PCP - General 02/24/09 02/11/13 documented as of this encounter
--- OUTSIDE RECORDS SUMMARY | 2024-06-01 12:58 | XMS_ITS | Encounter Summary ---
Author Organization [facility] Address [address] [place] [address] Care Team Providers Care Handyperson Name Role Phone Unavailable Primary Care Provider Unavailabl e Encounter Details Date Type Department Care Team (Latest Contact Info) Description 09/07/2005 20:39 EST Hospital Encounter [facility] Emergency Department - [facility] [address] [place] [address] Emergency, Default, MD Discharge Disposition: Home or [...]
--- OUTSIDE RECORDS SUMMARY | 2024-06-01 12:58 | XMS_ITS | Encounter Summary ---
Author Organization [facility] Address [address] [place] [address] Care Team Providers Care Precision Grinder Name Role Phone Unavailable Primary Care Provider Unavailabl e Encounter Details Date Type Department Care Team (Late st Contact Info) Description 08/28/2004 17:07 [facility] Hospital Encounter [facility] [address] [place] [address] Marla Verdin MD [address] [place] [address], [address] [place], [place] [phone] Social History Tobacco Use Types Packs/Day Years [...]
--- OUTSIDE RECORDS SUMMARY | 2024-06-01 12:58 | XMS_ITS | Encounter Summary ---
Author Organization [facility] Address [address] [place] [address] Care Team Providers Care Stars Analytical Lead Name Role Phone Unavailable Primary Care Provider Unavailabl e Encounter Details Date Type Department Care Team (Late st Contact Info) Description 09/02/2006 16:06 [facility] Hospital Encounter [facility] - [address] [address] Karena Moss MD [address] [place] [address] Aleks Galo MD [address] [place] [address] Discharge Disposition: Auto Discharge Social [...]
--- OUTSIDE RECORDS SUMMARY | 2024-06-01 12:58 | XMS_ITS | Encounter Summary ---
Author Organization [facility] Address [address] [place] [address] Care Team Providers Care Education Spec Name Role Phone Se Smith MD Primary Care Provider +1- [phone] Encounter Details Date Type Department Care Team (Late st Contact Info) Description 05/16/2004 Results Only [facility] Adult Primary Care - [address] [address] Se Smith MD 1 [facility] 1 [place] [address] Social History Tobacco Use Types [...] BLOOD GAS ORDERABLES [facility] [address] [place] [address] documented in this encounter Visit Diagnoses Not on filedocumented in this encounter Care Teams Education Spec Relationship Specialty Start Date End Date Se Smith MD 1 [facility] 1 [place] [phone] PCP - General 02/24/09 02/11/13 documented as of this encounter
--- OUTSIDE RECORDS SUMMARY | 2024-06-01 12:58 | XMS_ITS | Encounter Summary ---
Author Organization [facility] Address [address] [place] [address] Care Team Providers Care Manufacturing Baker Name Role Phone Unavailable Primary Care Provider Unavailabl e Encounter Details Date Type Department Care Team (Latest Contact Info) Description 04/01/2006 10:02 EDT - 04/01/2006 11:59 EDT Hospital Encounter [address] [address] Se Smith MD [address] [place] [phone] Discharge Disposition: Auto Discharge Social History [...] & BLOOD GAS ORDERABLES Performing Organization Address [facility] de Phone Number [facility] [address] [place] [address] * GLUCOSE, SERUM (04/01/2006 13:16 EDT) Glucose, Serum 82 70 - 100 mg/dl [facility] 04/01/2006 13:1 6 EDT 04/01/2006 13:23 EDT Se Smith MD CHEMISTRY & BLOOD GAS ORDERABLES Performing Organization Address [facility] de Phone Number [facility] [address] [place] [address] * LIPID PROFILE (INCLUDES CHOLESTEROL, TRIGLYCERIDES, HDL, LDL) (04/01/2006 13:16 EDT) Cholesterol 132 mg/dl [facility] Comment: Desirable:<200 Borderline:200-239 High Risk:>pq=484 Triglycerides 68 35 - 160 mg/dl [facility] HDL 65 mg/dl [facility] Comment: Highly Desirable:>60 Desirable:35-60 High Risk:<35 LDL, Calculated 53 mg/dl [facility] Comment: Desirable:<130 Borderline:130-159 High Risk:>sc=122 Chol/HDL Ratio 2.0 [facility] Fasting? No [facility] 04/01/2006 13:1 6 EDT 04/01/2006 13:23 EDT Se Smith MD CHEMISTRY & BLOOD GAS ORDERABLES Performing Organization Address [facility] de Phone Number [facility] [address] [place] [address] * (ABNORMAL) LH (04/01/2006 13:16 EDT) LH 0.1(L) 2 - 9 mIU/ml [facility] 04/01/2006 13:1 6 EDT 04/01/2006 13:23 EDT Se Smith MD CHEMISTRY & BLOOD GAS ORDERABLES Performing Organization Address [facility] Co de Phone Number [facility] [address] [place] [address] * HEMAGRAM (04/01/2006 13:16 EDT) WBC 4.80 [...] & PF4 O RDERABLES Performing Organization Address City/[facility]/ZIP Co de Phone Number [facility] [address] [place] [address] * TESTS ADDED BY PHONE (04/01/2006 13:16 EDT) Tests to be added SGL [facility] Diagnosis Code SAME [facility] 04/01/2006 13:1 6 EDT 04/01/2006 13:23 EDT Se Smith MD CHEMISTRY & BLOOD GAS ORDERABLES Performing Organization Address City/State/[facility] Co de Phone Number [facility] [address] [place] [address] documented in this encounter Visit Diagnoses Not on filedocumented in this encounter
--- OUTSIDE RECORDS SUMMARY | 2024-06-01 12:58 | XMS_ITS | Encounter Summary ---
Author Organization [facility] Address [address] [place] [address] Care Team Providers Care Crayon Sawyer Name Role Phone Unavailable Primary Care Provider Unavailabl e Encounter Details Date Type Department Care Team (Latest Contact Info) Description 07/13/2006 13:56 EDT Hospital Encounter [address] [address] Mariela Sosa MD Discharge Disposition: Auto Discharge [...]
--- OUTSIDE RECORDS SUMMARY | 2024-06-01 12:58 | XMS_ITS | Encounter Summary ---
Author Organization [facility] Address [address] [place] [address] Care Team Providers Care Network Control Supervisor Name Role Phone Se Smith MD Primary Care Provider +1- [phone] Encounter Details Date Type Department Care Team (Late st Contact Info) Description 10/27/2004 Results Only [facility] Adult Primary Care - [address] [address] Se Smith MD 1 [facility] 1 [place] [address] Social History Tobacco Use Types [...] & BLOOD GAS ORDERABLES Performing Organization Address [facility] de Phone Number [facility] [address] [place] [address] * LIPID PROFILE (INCLUDES CHOLESTEROL, TRIGLYCERIDES, HDL, LDL) (10/27/2004 10:47 EST) Cholesterol 116 mg/dl [facility] Comment: Desirable:<200 Borderline:200-239 High Risk:>ff=379 Triglycerides 41 35 - 160 mg/dl [facility] HDL 52 mg/dl [facility] Comment: Highly Desirable:>60 Desirable:35-60 High Risk:<35 LDL, Calculated 56 mg/dl [facility] Comment: Desirable:<130 Borderline:130-159 High Risk:>oe=368 Chol/HDL Ratio 2.2 [facility] Fasting? No [facility] 10/27/2004 10:4 7 EST 10/27/2004 13:00 EST Se Smith MD CHEMISTRY & BLOOD GAS ORDERABLES Performing Organization Address [facility] de Phone Number [facility] [address] [place] [address] * (ABNORMAL) LH (10/27/2004 10:47 EST) LH <0.1(L) 2 - 9 mIU/ml [facility] 10/27/2004 10:4 7 EST 10/27/2004 13:00 EST Se Smith MD CHEMISTRY & BLOOD GAS ORDERABLES Performing Organization Address [facility] Co de Phone Number [facility] [address] [place] [address] * HCG (10/27/2004 10:47 EST) HCG <4 <4 mIU/ml [facility] Comment: Reference Range: Positive = >10 Borderline = 4-10 recommend repeat. Negative = <4 10/27/2004 10:4 7 EST 10/27/2004 13:00 EST Se Smith MD CHEMISTRY & BLOOD GAS ORDERABLES Performing Organization Address City/State/[facility] Co de Phone Number [facility] [address] [place] [address] documented in this encounter Visit Diagnoses Not on filedocumented in this encounter Care Teams Network Control Supervisor Relationship Specialty Start Date End Date Se Smith MD 1 [facility] 1 [place] [address] PCP - General 02/24/09 02/11/13 documented as of this encounter
--- OUTSIDE RECORDS SUMMARY | 2024-06-01 12:58 | XMS_ITS | Encounter Summary ---
Author Organization [facility] Address [address] [place] [address] Care Team Providers Care Education Diagnostician Name Role Phone Unavailable Primary Care Provider Unavailabl e Encounter Details Date Type Department Care Team (Latest Contact Info) Description 09/23/2006 13:54 EST Hospital Encounter [address] [address] Se Smith MD [address] [place] [phone] Aleks Galo MD [address] [place] [address] [address] [place] [address] Discharge Disposition: Auto Discharge Social [...]
--- OUTSIDE RECORDS SUMMARY | 2024-06-01 12:58 | XMS_ITS | Encounter Summary ---
Author Organization [facility] Address [address] [place] [address] Care Team Providers Care Masonry Teacher Name Role Phone Se Smith MD Primary Care Provider +1- [phone] Encounter Details Date Type Department Care Team (Late st Contact Info) Description 01/09/2006 Office Visit [facility] Adult Primary Care - [address] [address] Se Smith MD [address] [address] Social History Tobacco Use Types [...] on filedocumented in this encounter Care Teams Masonry Teacher Relationship Specialty Start Date End Date Se Smith MD [address] [phone] PCP - General 02/24/09 02/11/13 documented as of this encounter
--- OUTSIDE RECORDS SUMMARY | 2024-06-01 12:58 | XMS_ITS | Encounter Summary ---
Author Organization [facility] Address [address] [place] [address] Care Team Providers Care Solar Energy System Installer Name Role Phone Se Smith MD Primary Care Provider +1- [phone] Encounter Details Date Type Department Care Team (Late st Contact Info) Description 07/06/2005 Before PRISM Converted Visit (Maple) [facility] - Maple conversion [address] [place] [address] Thaddeus Colon MD Social History Tobacco Use [...] - kmb Job ID: Tape Document ID: [id number] cc: Se Smtih MD documented in this encounter Plan of Treatment Not on file documented as of this encounter Visit Diagnoses Not on filedocumented in this encounter Care Teams Solar Energy System Installer Relationship Specialty Start Date End Date Se Smith MD 1 [facility] 1 [place] [address] PCP - General 02/24/09 02/11/13 documented as of this encounter
--- OUTSIDE RECORDS SUMMARY | 2024-06-01 12:58 | XMS_ITS | Encounter Summary ---
Author Organization [facility] Address [address] [place] [address] Care Team Providers Care Enzyme Chemist Name Role Phone Unavailable Primary Care Provider Unavailabl e Encounter Details Date Type Department Care Team (Latest Contact Info) Description 06/19/2006 12:33 EDT Hospital Encounter [facility] [address] [place] [address] Inder Mathias MD Discharge Disposition: Auto Discharge [...]
--- OUTSIDE RECORDS SUMMARY | 2024-06-01 12:58 | XMS_ITS | Encounter Summary ---
Author Organization [facility] Address [address] [place] [address] Care Team Providers Care Coal Or Ore Controller Name Role Phone Unavailable Primary Care Provider Unavailabl e Encounter Details Date Type Department Care Team (Latest Contact Info) Description 09/24/2006 10:01 EST - 09/24/2006 11:59 EST Hospital Encounter [address] [address] Se Smith MD [address] [place] [phone] Aleks Galo MD [address] [place] [address] [address] [place] [address] Discharge Disposition: Auto Discharge Social History [...]
--- OUTSIDE RECORDS SUMMARY | 2024-06-01 12:58 | XMS_ITS | Encounter Summary ---
Author Organization [facility] Address [address] [place] [address] Care Team Providers Care Perinatal Tech Name Role Phone Se Smith MD Primary Care Provider +1- [phone] Encounter Details Date Type Department Care Team (Late st Contact Info) Description 09/24/2006 Results Only [facility] Pulmonology & Critical Care - [facility] [address] [place] [address] Aleks Galo MD [address] [place] [address] Social History Tobacco Use Types Packs/Day Years [...] & BLOOD G ORDERABLES Performing Organization Address [facility] de Phone Number [facility] [address] [place] [address] * GLUCOSE, SERUM (09/24/2006 10:06 EST) Glucose, Serum 95 70 - 100 mg/dl [facility] 09/24/2006 10:0 6 EST 09/24/2006 10:17 EST Aleks Galo MD CHEMISTRY & BLOOD G ORDERABLES Performing Organization Address [facility] Phone Number [facility] [address] [address] * HIV ANTIBODY (MIKALA) (09/24/2006 10:06 EST) HIV 1/2 Antibody NONREACT. NR [facility] 09/24/2006 10:0 6 EST 09/24/2006 10:17 EST Aleks Glao MD IMMUNOLOGY AND SERO LOGY ORDERABLES Performing Organization Address [facility] Phone Number [facility] [address] [address] documented in this encounter Visit Diagnoses Not on filedocumented in this encounter Care Teams Perinatal Tech Relationship Specialty Start Date End Date Se Smith MD 1 [facility] 1 [place] [address] PCP - General 02/24/09 02/11/13 documented as of this encounter
--- OUTSIDE RECORDS SUMMARY | 2024-06-01 12:58 | XMS_ITS | Encounter Summary ---
Author Organization [facility] Address [address] [place] [address] Care Team Providers Care Kitchen Hand Name Role Phone Unavailable Primary Care Provider Unavailabl e Encounter Details Date Type Department Care Team (Latest Contact Info) Description 04/07/2005 18:39 EDT Hospital Encounter [facility] Emergency Department - [facility] [address] [place] [address] Emergency, Default, MD Discharge Disposition: Home or [...]
--- OUTSIDE RECORDS SUMMARY | 2024-06-01 12:58 | XMS_ITS | Encounter Summary ---
[place] [address] Care Team Providers Care Operations Expert Name Role Phone Unavailable Primary Care Provider Unavailabl e Encounter Details Date Type Department Care Team (Late st Contact Info) Description 11/29/2021 Interpretation Only [address] [address] Sam Hedrick, DPM [address] [place] [address] Social History Tobacco Use Types Packs/Day Years [...] 3:00 PM EDT Office Visit Dermatology at [facility] [address] [place] [address] Sierra Nielson MD [facility] [place] [address] documented as of this encounter Procedures Procedure Name Priority Date/Time Associated Diagnosis Comments XR FOOT MIN 3 VIEWS BILAT Routine 11/29/2021 11:03 AM EST documented in this encounter Results * XR Foot Min 3 views Bilat (Generic) (11/29/2021 11:03 AM EST) PT CLASS O DH RAD ADMITDTTM DH RAD PT LISSET GALICIA MD INFO [id number]^W BAILEY^SAM^ P RAD EXAM DESC [id number]^XR RIGHT [...] who have questions please contact the health floor care technician that requested your imaging first. ? Narrative [...] patients who have questions please contactthe health floor care technician that requested your imaging first. Sam Hedrick DPM IMG DX ORDERABLES documented in this encounter Visit Diagnoses Not on filedocumented in this encounter
--- OUTSIDE RECORDS SUMMARY | 2024-06-01 12:58 | XMS_ITS | Encounter Summary ---
Author Organization [facility] Address [address] [place] [address] Care Team Providers Care Equipment Operator/Laborer/Supervisor Name Role Phone Unavailable Primary Care Provider Unavailabl e Encounter Details Date Type Department Care Team (Latest Contact Info) Description 10/16/2006 11:20 EST - 10/16/2006 11:59 EST Hospital Encounter [address] [address] Miri Smith MD [address] [place] [phone] Discharge Disposition: Auto Discharge Social History [...]
--- OUTSIDE RECORDS SUMMARY | 2024-06-01 12:58 | XMS_ITS | Encounter Summary ---
Author Organization [facility] Address [address] [place] [address] Care Team Providers Care Rabbit Breeder Name Role Phone Se Smith MD Primary Care Provider +1- [phone] Encounter Details Date Type Department Care Team (Late st Contact Info) Description 12/28/2005 Office Visit [facility] Adult Primary Care - [address] [phone] Haim Hoffman, SOFTWARE INSTALLER [address] [place] [phone] Social History Tobacco Use Types Packs/Day Years Used Date Smoking Tobacco: Never Assessed Sex and Gender Information Value Date Recorded Sex Assigned at Not on file Gender Identity Not on file Sexual Orientation Not on file documented as of this encounter Plan of Treatment Not on file documented as of this encounter Visit Diagnoses Not on filedocumented in this encounter Care Teams Rabbit Breeder Relationship Specialty Start Date End Date Se Smith MD 1 [facility] 1 [place] [phone] PCP - General 02/24/09 02/11/13 documented as of this encounter
--- OUTSIDE RECORDS SUMMARY | 2024-06-01 12:58 | XMS_ITS | Encounter Summary ---
Author Organization [facility] Address [address] [place] [address] Care Team Providers Care Metal Mover Name Role Phone Unavailable Primary Care Provider Unavailabl e Encounter Details Date Type Department Care Team (Latest Contact Info) Description 06/12/2006 11:12 EDT - 06/12/2006 11:59 EDT Hospital Encounter [address] [address] Se Smith MD [address] [place] [phone] Discharge Disposition: Auto Discharge Social History [...]
--- OUTSIDE RECORDS SUMMARY | 2024-06-01 12:58 | XMS_ITS | Encounter Summary ---
Author Organization [facility] Address [address] [place] [address] Care Team Providers Care Physician Relations Manager Name Role Phone Se Smith MD Primary Care Provider +1- [phone] Encounter Details Date Type Department Care Team (Late st Contact Info) Description 09/26/2004 Office Visit [facility] - [place] [address] [place] [address] Markos Lomeli, CROP INSURANCE CLAIMS ADJUSTER [address] [place], [place] [address] Social History Tobacco Use Types Packs/Day Years Used Date Smoking Tobacco: Never Assessed Sex and Gender Information Value Date Recorded Sex Assigned at Not on file Gender Identity Not on file Sexual Orientation Not on file documented as of this encounter Progress Notes * Radny, Conv Loading Dock Hand - 12/23/2009 9327 EST [facility] ??? Physician Summary [...] see in office. Call tomorrow. D/W Pt& licensed staff mft. Will do. Patient counseled regarding the patient's [...] Continue current medications. Call Dr Garcia at [phone]. Tell them Dr Garcia was talked to [...] nail infected). Pain level now: 12/28. Treatment RECYCLING WORKER: (antibiotics begining of AUG. PT PICKS AT NAILS). PAST HX: (MENTALLY CHALLENGED PYSCHOSES). Arrived byprivate vehicle and accompanied by (in service educator). Historian: patient. --1650 Sunni Eaton R.N. PHYSICAL [...] Discharge instructions reviewed with the patient and licensed staff mft. Provided and reviewed written instructions. Reviewed referral to a journeyman apprentice electricians. Activity restrictions were reviewed. Patient verbalized understanding (in service educator). The patient was discharged home and accompanied by (in service educator). The patient left the Emergency Department ambulatory and via private vehicle. --1758 Evelio Mcgee R.N. Locked/Released at 09/26/2004 18:00 by Sunni Eaton R.N. documented in this encounter Plan of Treatment Not on file documented as of this encounter Visit Diagnoses Not on filedocumented in this encounter Care Teams Physician Relations Manager Relationship Specialty Start Date End Date Se Smith MD 1 [facility] Level [address] [place] [address] PCP - General 02/24/09 02/11/13 documented as of this encounter
[2024-06-01 17:52] LABS: ALT 32 U/L (16-63); AST 19 U/L (15-37); Albumin 4.2 g/dL (3.4-5.0); Alkaline Phosphatase 161 U/L (46-116); Anion Gap 9.4 mmol/L (3-11); BUN 18 mg/dL (7-18); Bilirubin, Total 0.74 mg/dL (0.2-1.0); CO2 26.6 mmol/L (21.0-32.0); CREATININE 1.1 mg/dL (0.70-1.30); Calcium 9.6 mg/dL (8.5-10.1); Chloride 99 mmol/L (98-107); Estimated GFR 85.95 (mL/min/1.73m2); Glucose 296 mg/dL (74-106); Potassium 4.3 mmol/L (3.5-5.1); Sodium 135 mmol/L (136-145); Total Protein 8.5 g/dL (6.4-8.2)
== END 2024-06-01 12:51 | disposition home or self-care (01) ==
LOC: NCHCN 12:50
PROVIDERS: PCP Nurse Practitioner Family; Visit Provider Nurse Practitioner Family
DX: I10 Essential (primary) hypertension (principal)
CPT/HCPCS: 80053

== ENCOUNTER 2024-07-09 11:05 | Outpatient (CLI) | payer MEDICARE, MEDICAID, SELFPAY ==
[2024-07-09 12:36] LABS: Abs Immature Grans 0.05 10^3/uL (0.0-0.06); Absolute Basophil Count 0.03 10^3/uL (0.0-0.2); Absolute Lymphocyte Count 0.84 10^3/uL (1.2-3.4); Absolute Monocyte Count 0.61 10^3/uL (0.1-0.8); Basophils % 0.8 %; HCT 51.5 % (40.0-50.0); HGB 17.1 g/dL (13.5-17.5); Immature Grans % 1.4 %; Lymphocytes % 23.8 %; MCH 30.1 pg (27.0-33.0); MCHC 33.2 % (32.0-36.0); MCV 91 fL (80-95); Monocytes % 17.3 %; Neutrophils % 56.7 %; Platelet Count 190 10^3/uL (130-400); RBC 5.68 10^6/uL (4.36-5.78); RDW 12.7 % (11.8-14.1); RDW-SD 42.2 fL; WBC 3.53 10^3/uL (4.4-10.8)
[2024-07-09 12:51] LABS: ALT 50 U/L (16-63); AST 36 U/L (15-37); Albumin 4.3 g/dL (3.4-5.0); Alkaline Phosphatase 109 U/L (46-116); Anion Gap 9.8 mmol/L (3-11); BUN 16 mg/dL (7-18); Bilirubin, Total 0.88 mg/dL (0.2-1.0); CO2 27.2 mmol/L (21.0-32.0); CREATININE 1.2 mg/dL (0.70-1.30); Calcium 9.9 mg/dL (8.5-10.1); Chloride 100 mmol/L (98-107); Estimated GFR 77.43 (mL/min/1.73m2); Glucose 129 mg/dL (74-106); Lipase 28 U/L (16-77); Potassium 3.7 mmol/L (3.5-5.1); Sodium 137 mmol/L (136-145); Total Protein 8.5 g/dL (6.4-8.2)
== END 2024-07-09 11:06 | disposition home or self-care (01) ==
LOC: LOS 11:06
PROVIDERS: PCP Nurse Practitioner Family; Referring Provider Nurse Practitioner Family; Visit Provider Nurse Practitioner Family
DX: R10.9 Unspecified abdominal pain (principal)
CPT/HCPCS: 36415; 80053; 83690; 85025

== ENCOUNTER 2024-07-10 00:26 | Outpatient (CLI) | payer MEDICARE, MEDICAID, SELFPAY ==
--- OUTSIDE RECORDS SUMMARY | 2024-07-10 00:29 | XMS_ITS | Encounter Summary ---
Author Organization [facility] Address [address] [place] [address] Care Team Providers Care Cancer Spec Name Role Phone Unknown, Provider Primary Care Provider [phone] Encounter Details Date Type Department Care Team (Late st Contact Info) Description 03/31/2020 Lab Requisition [facility] Pathology & Laboratory Medicine - [facility] [address] [place] [address] Outr Resulting Lab, Provider Social History Tobacco [...] Surface Ag Negative Negative 04/01/2020 9:17 EDT [facility] Blood VENOUS BLOOD / Unknown 03/30/2020 12:30 EDT 03/31/2020 16:56 EDT Provider Outr Resulting Lab CHEMISTRY & BLOOD GAS ORDERABLES [facility] [address] [place] [address] documented in this encounter Visit Diagnoses Not on filedocumented in this encounter Care Teams Cancer Spec Relationship Specialty Start Date End Date Unknown, Provider, PCP - General 10/09/13 documented as of this encounter
--- OUTSIDE RECORDS SUMMARY | 2024-07-10 00:29 | XMS_ITS | Referral Summary ---
Author Organization [facility] Address [address] [place] [address] Care Team Providers Care Zinc Plating Machine Operator Name Role Phone Unknown, Provider Primary Care Provider [phone] Allergies No known active allergies Medications Medication [...] Advance Directives For more information, please contact: [phone] * Full Code (Latest Code Status on File) Date Activated Date Inactivated Comments 05/24/2009 14:24 06/03/2009 17:31 * Full Code Date Activated Date Inactivated Comments 05/22/2009 12:53 05/24/2009 14:24 * Full Code Date Activated Date Inactivated Comments 05/12/2009 23:41 05/17/2009 15:15 Care Teams Zinc Plating Machine Operator Relationship Specialty Start Date End Date Unknown, Provider, PCP - General 10/09/13
--- OUTSIDE RECORDS SUMMARY | 2024-07-10 00:29 | XMS_ITS | Encounter Summary ---
Author Organization [facility] Address [address] [place] [address] Care Team Providers Care Clip On Sunglasses Assembler Name Role Phone Unknown, Provider Primary Care Provider [phone] Encounter Details Date Type Department Care Team (Late st Contact Info) Description 07/07/2020 Lab Requisition [facility] Pathology & Laboratory Medicine - [facility] [address] [place] [address] Outr Resulting Lab, Provider Social History Tobacco [...] >15.00 See Note mg/L 07/07/2020 17:50 EDT [facility] Comment: Suggest ordering C-Reactive Protein Reference Range: ??Source: The [place] [employer] Clinical Practice Recommendations, 2003 ??Low Risk: ? <1.0 mg/L ??Average Risk: ?? 1.0 - 3.0 mg/L ??High Risk: ?>3.0 mg/L ??Indeterminate*: >10.0 mg/L ??*May be an indication of another source of inflammation or infection Blood VENOUS BLOOD / Unknown 07/06/2020 10:05 EDT 07/07/2020 17:32 EDT Provider Outr Resulting Lab CHEMISTRY & BLOOD GAS ORDERABLES [facility] [address] [place] [address] documented in this encounter Visit Diagnoses Not on filedocumented in this encounter Care Teams Clip On Sunglasses Assembler Relationship Specialty Start Date End Date Unknown, Provider, PCP - General 10/09/13 documented as of this encounter
--- OUTSIDE RECORDS SUMMARY | 2024-07-10 00:29 | XMS_ITS | Encounter Summary ---
Author Organization [facility] Address [address] [place] [address] Care Team Providers Care Developmental Mathematics Instructor Name Role Phone Se Smith MD Primary Care Provider [phone]- [phone] Reason for Visit * Reason Onset Date Comments Other 03/31/2010 letter for tums use Encounter Details Date Type Department Care Team (Late st Contact Info) Description 03/31/2010 Telephone [facility] Adult Primary Care - [address] [address] Se Smith MD 1 [facility] 1 [place] [phone] Other (letter for tums use) Social History [...] - 03/31/2010 1316 EDT Feroz the patient's caser up with [facility]. Patient is complaining of choudhury burn. He has seen the agency's nurse. They would like to have a Notefor Tums PRN Signed by B2B SALES MANAGER or doctor. They can not administer any medication without a note. Fax to :[phone] documented in this encounter Plan of Treatment Not on file documented as of this encounter Visit Diagnoses Not on filedocumented in this encounter Care Teams Developmental Mathematics Instructor Relationship Specialty Start Date End Date Se Smith MD 1 [facility] Level [address] [place] [phone] PCP - General 02/24/09 02/11/13 documented as of this encounter
--- OUTSIDE RECORDS SUMMARY | 2024-07-10 00:29 | XMS_ITS | Encounter Summary ---
Author Organization [facility] Address [address] [place] [address] Care Team Providers Care Senior Tech Manufacturing Engineering Name Role Phone Se Smith MD Primary Care Provider [phone]- [phone] Reason for Visit * Reason Onset Date Comments Anal Itching 11/08/2009 Encounter Details Date Type Department Care Team (Late st Contact Info) Description 11/08/2009 Telephone [facility] Adult Primary Care - [address] [address] Se Smith MD 1 [facility] 1 [place] [phone] Anal Itching Social History Tobacco Use Types [...] 0940 EST Talked with Mary Gupta, case operator for the patient. She is requesting a [...] name of caregiver. * Telephone Encounter - Eraline Ruth - 11/08/2009 1448 EST Is having [...] filedocumented in this encounter Care Teams Senior Tech Manufacturing Engineering Relationship Specialty Start Date End Date Se Smith MD 1 [facility] Level [address] [place] [address] PCP - General 02/24/09 02/11/13 documented as of this encounter
--- OUTSIDE RECORDS SUMMARY | 2024-07-10 00:29 | XMS_ITS | Encounter Summary ---
Author Organization [facility] Address [address] [place] [address] Care Team Providers Care Rehabilitation Teacher Name Role Phone Unknown, Provider Primary Care Provider [phone] Encounter Details Date Type Department Care Team (Late st Contact Info) Description 10/19/2019 Lab Requisition [facility] Pathology & Laboratory Medicine - [facility] [address] [place] [address] Unknown, Provider, Social History Tobacco Use Types [...] Surface Ag Negative Negative 10/20/2019 11:21 EST [facility] Hep C Antibody Negative Negative 10/20/2019 11:21 EST [facility] Hepatitis A Antibody, IgM Negative Negative 10/20/2019 11:21 EST [facility] Hepatitis B Core Ab, Total Negative Negative 10/20/2019 11:21 EST [facility] Blood VENOUS BLOOD / Unknown 10/19/2019 15:20 EST 10/19/2019 21:22 EST Provider Unknown CHEMISTRY & BLOOD GA S ORDERABLES Performing Organization Address City/State/[facility] Co de Phone Number [facility] [address] [place] [address] documented in this encounter Visit Diagnoses Not on filedocumented in this encounter Care Teams Rehabilitation Teacher Relationship Specialty Start Date End Date Unknown, Provider, PCP - General 10/09/13 documented as of this encounter
--- OUTSIDE RECORDS SUMMARY | 2024-07-10 00:29 | XMS_ITS | Encounter Summary ---
Author Organization [facility] Address [address] [place] [address] Care Team Providers Care Library Consultant Name Role Phone Se Smith MD Primary Care Provider [phone]- [phone] Reason for Visit * Reason Onset Date Comments Medication Problem 11/11/2009 Citracal not covered by insurance. Wants to try Metamucil Capsule Encounter Details Date Type Department Care Team (Late st Contact Info) Description 11/11/2009 Refill [facility] Adult Primary Care - [place] [address] [place] [address] Se Smith MD 1 [facility] Level [address] [place] [address] Medication Problem (Citracal not covered [...] documented as of this encounter Care Teams Library Consultant Relationship Specialty Start Date End Date Se Smith MD 1 [facility] Level [address] [place] [address] PCP - General 02/24/09 02/11/13 documented as of this encounter
--- OUTSIDE RECORDS SUMMARY | 2024-07-10 00:29 | XMS_ITS | Encounter Summary ---
Author Organization [facility] Address [address] [place] [address] Care Team Providers Care Tetryl Dissolver Operator Name Role Phone Se Smith MD Primary Care Provider +1- [phone] Reason for Visit * Reason Onset Date Comments Medications Refill 02/10/2010 Herpes 02/10/2010 Encounter Details Date Type Department Care Team (Late st Contact Info) Description 02/10/2010 Telephone [facility] Adult Primary Care - [address] [phone] Se Smith MD 1 [facility] Level [address] [place] [phone] Medications Refill; Herpes Social History Tobacco Use [...] this be called in? Patient is in [place] and it is very difficult for him to come in. Please call Mary to discuss this or let her know when it is done. documented in this encounter Plan of Treatment Not on file documented as of this encounter Visit Diagnoses Not on filedocumented in this encounter Care Teams Tetryl Dissolver Operator Relationship Specialty Start Date End Date Se Smith MD 1 [facility] 1 [place] [phone] PCP - General 02/24/09 02/11/13 documented as of this encounter
--- OUTSIDE RECORDS SUMMARY | 2024-07-10 00:29 | XMS_ITS | Clinical Summary ---
Author Organization [facility] Address [address] [place] [address] Care Team Providers Care County Administrator Name Role Phone Unknown, Provider Primary Care Provider [phone] Allergies No known active allergies Medications Medication [...] Advance Directives For more information, please contact: [phone] * Full Code (Latest Code Status on File) Date Activated Date Inactivated Comments 05/24/2009 14:24 06/03/2009 17:31 * Full Code Date Activated Date Inactivated Comments 05/22/2009 12:53 05/24/2009 14:24 * Full Code Date Activated Date Inactivated Comments 05/12/2009 23:41 05/17/2009 15:15 Care Teams County Administrator Relationship Specialty Start Date End Date Unknown, Provider, PCP - General 10/09/13
--- OUTSIDE RECORDS SUMMARY | 2024-07-10 00:29 | XMS_ITS | Encounter Summary ---
Author Organization [facility] Address [address] [place] [address] Care Team Providers Care Edge Cutting Machine Operator Name Role Phone Se Smith MD Primary Care Provider +1- [phone] Reason for Visit * Reason Onset Date Comments Medications Refill 02/16/2010 Encounter Details Date Type Department Care Team (Late st Contact Info) Description 02/16/2010 Refill [facility] Adult Primary Care - [address] [phone] Se Smith MD 1 [facility] 1 [place] [phone] Medications Refill Social History Tobacco Use Types [...] 0854 EDT Script was called in to [facility] pharmacy. * Telephone Encounter - Claudette Ulrich [...] documented as of this encounter Care Teams Edge Cutting Machine Operator Relationship Specialty Start Date End Date Se Smith MD 1 [facility] Level [address] [place] [address] PCP - General 02/24/09 02/11/13 documented as of this encounter
--- OUTSIDE RECORDS SUMMARY | 2024-07-10 00:29 | XMS_ITS | Encounter Summary ---
Author Organization [facility] Address [address] [place] [address] Care Team Providers Care Artificial Marble Worker Name Role Phone Se Smith MD Primary Care Provider +1- [phone] Encounter Details Date Type Department Care Team (Late st Contact Info) Description 10/31/2009 Abstract [facility] Adult Primary Care - [address] [address] Se Smith MD 1 [facility] 1 [place] [address] ADHD (attention deficit hyperactivity disorder); [...] 11/11/2009 added in this encounter Care Teams Artificial Marble Worker Relationship Specialty Start Date End Date Se Smith MD 1 [facility] Level [address] [place] [phone] PCP - General 02/24/09 02/11/13 documented as of this encounter
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
--- OUTSIDE RECORDS SUMMARY | 2024-07-10 00:29 | XMS_ITS | Encounter Summary ---
Author Organization [facility] Address [address] [place] [address] Care Team Providers Care Managing Jeweler Name Role Phone Niles Smith MD Primary Care Provider +1- [phone] Reason for Visit * Reason Comments Suicidal Pt reports that he i s here to see CRISIS. He states that he is feeling suicidal and these feelings started a few minutes ago. Pt has a self inflicted lac to his left hand Encounter Details Date Type Department Care Team (Late st Contact Info) Description 06/13/2009 20:48 EDT - 06/14/2009 1:55 EDT Emergency [facility] Emergency Department - Main [place] [address] [place] [address] José Ayoub MD Emergency, MD Anny Impulse [...] Everywhere. * DEPRESSION TREATMENT: AFTER YOUR VISIT (SWAZI) documented in this encounter Medications at Time [...] Emily Jean-Baptiste RN - 06/14/2009 0154 EDT [facility] home pt resides phone number [phone]. * Emily Jean-Baptiste RN - 06/14/2009 0141 EDT Left message with [facility] for pts return to hospital to receive [...] cutting himself and being increasingly aggressive in longterm.). The current episode started this week. The [...] cutting himself and being increasingly aggressive in longterm.) and agitation. Negative for confusion. All other [...] 06/13/2009 documented in this encounter Care Teams Managing Jeweler Relationship Specialty Start Date End Date Niles Smith MD 1 [facility] Level [address] [place] [phone] PCP - General 02/24/09 02/11/13 documented as of this encounter
--- OUTSIDE RECORDS SUMMARY | 2024-07-10 00:30 | XMS_ITS | Encounter Summary ---
Author Organization [facility] Address [address] [place] [address] Care Team Providers Care Garment Looper Name Role Phone Unavailable Primary Care Provider Unavailabl e Encounter Details Date Type Department Care Team (Latest Contact Info) Description 04/21/2008 12:33 EDT Hospital Encounter [address] [address] Se Smith MD [address] [place] [phone] Discharge Disposition: Auto Discharge Social History Tobacco [...]
--- OUTSIDE RECORDS SUMMARY | 2024-07-10 00:30 | XMS_ITS | Encounter Summary ---
Author Organization [facility] Address [address] [place] [address] Care Team Providers Care Bleacher Lard Name Role Phone Unavailable Primary Care Provider Unavailabl e Encounter Details Date Type Department Care Team (Late st Contact Info) Description 09/03/2007 15:39 EST Hospital Encounter [address] [address] Justus Watson MD [facility] [address] [place] [address] Discharge Disposition: Auto Discharge Social History Tobacco [...]
--- OUTSIDE RECORDS SUMMARY | 2024-07-10 00:30 | XMS_ITS | Encounter Summary ---
Author Organization [facility] Address [address] [place] [address] Care Team Providers Care Unit Trust Manager Name Role Phone Unavailable Primary Care Provider Unavailabl e Encounter Details Date Type Department Care Team (Latest Contact Info) Description 11/19/2006 10:58 EST - 11/19/2006 11:59 EST Hospital Encounter [address] [address] Se Smith MD [address] [place] [phone] Discharge Disposition: Auto Discharge Social History [...] Result No Neisseria gonorrhoeae DNA detected by secretary board of commissioners mediated amplification. [facility] Report Status Final [id number] [facility] Specimen Description Urine [facility] 11/19/2006 11:4 4 EST 11/19/2006 14:01 EST Se Smith MD MICROBIOLOGY - GEN ERAL ORDERABLES Performing Organization Address [facility] Co de Phone Number [facility] [address] [place] [address] * CHLAMYDIA TRACHOMATIS AMPLIFIED PROBE (11/19/2006 11:44 EST) Specimen Description Urine [facility] Result No Chlamydia trachomatis DNA detected by secretary board of commissioners mediated amplification. [facility] Report Status Final [id number] [facility] 11/19/2006 11:4 4 EST 11/19/2006 14:01 EST Se Smith MD MICROBIOLOGY - GEN ERAL ORDERABLES Performing Organization Address [facility] Co de Phone Number [facility] [address] [place] [address] documented in this encounter Visit Diagnoses Not on filedocumented in this encounter
--- OUTSIDE RECORDS SUMMARY | 2024-07-10 00:30 | XMS_ITS | Encounter Summary ---
Author Organization [facility] Address [address] [place] [address] Care Team Providers Care Ditcher Name Role Phone Unavailable Primary Care Provider Unavailabl e Encounter Details Date Type Department Care Team (Latest Contact Info) Description 11/01/2006 13:03 [facility] Hospital Encounter [address] [address] Se Smith MD [address] [place] [phone] Discharge Disposition: Auto Discharge Social History Tobacco [...]
--- OUTSIDE RECORDS SUMMARY | 2024-07-10 00:30 | XMS_ITS | Encounter Summary ---
Author Organization [facility] Address [address] [place] [address] Care Team Providers Care Bar Waiter/Waitress Name Role Phone Se Smith MD Primary Care Provider +1- [phone] Encounter Details Date Type Department Care Team (Late st Contact Info) Description 06/28/2007 Office Visit [facility] - Maple conversion [address] [place] [address] Ben Britton Jr., WARRANT CLERK Social History Tobacco Use Types Packs/Day Years Used Date Smoking Tobacco: Never Assessed Sex and Gender Information Value Date Recorded Sex Assigned at Not on file Gender Identity Not on file Sexual Orientation Not on file documented as of this encounter Progress Notes * Ben Britton Jr., WARRANT CLERK - 12/11/2009 0357 EST [facility] - Physician Summary Registration Date/Time: [...] 06/28/2007 21:19) Addenda for JACQUELINE WALKER VisitID: [id number] Date: 06/28/2007 07/03/2007 22:04 wound culture shows [...] the past that resolved without treatment.). Treatment REPAIRER SWITCHGEAR: None. PAST HX: Negative. No infectious disease exposure. (Left elbow fx). FAMILY HX: (Lives in senior care, followed by [facility]). SOCIAL HX: Occasional alcohol use. Nonsmoker. Abuse assessment: The patient was asked Do you feel safe in your home?. No report of abuse. Arrived by private vehicle and accompanied by friend. Historian: patient. --[id number] Sophia Castillo L.P.N.. PAST HX: FAMILY HX. [...] present. Discharge instructions reviewedwith the patient and wire rope sales representative. Reviewed medication dosing and course; prescription (s) given to the patient. Patient and wire rope sales representative verbalized understanding. Written instructions provided in Bolivian.The patient was discharged home and accompanied by wire rope sales representative. The patient left the Emergency Department ambulatory and via private vehicle. Chief Cook driving. Patient has no belongings. --6030 Sophia Castillo L.P.N.. Locked/Released at 06/28/2007 16:11 by Sophia Castillo L.P.N. documented in this encounter Plan of Treatment Not on file documented as of this encounter Visit Diagnoses Not on filedocumented in this encounter Care Teams Bar Waiter/Waitress Relationship Specialty Start Date End Date Se Smith MD 1 [facility] 1 [place] [phone] PCP - General 02/24/09 02/11/13 documented as of this encounter
--- OUTSIDE RECORDS SUMMARY | 2024-07-10 00:30 | XMS_ITS | Encounter Summary ---
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 He had recently been seen in Dr. [...] MD, FACS 04/28/2007 13:04 Deshawn Liao MD, [id number] Spaulding, MD, FACS Carrie Liao MD, FACS [phone] -Carrie Liao MD, FACS -cd Job ID: [id number] Doc ID: [id number] cc: MD Jose Enrique Ortiz MD documented in this encounter Care Teams Hat Cone Inspector Relationship Specialty Start Date End Date Se Smith MD 1 [facility] 1 [place] [address] PCP - General 02/24/09 02/11/13 documented as of this encounter
--- OUTSIDE RECORDS SUMMARY | 2024-07-10 00:30 | XMS_ITS | Encounter Summary ---
Author Organization [facility] Address [address] [place] [address] Care Team Providers Care Batch And Furnace Operator Name Role Phone Unavailable Primary Care Provider Unavailabl e Encounter Details Date Type Department Care Team (Latest Contact Info) Description 02/27/2007 9:35 EDT - 02/27/2007 11:59 EDT Hospital Encounter [address] [address] Se Smith MD [address] [place] [phone] Discharge Disposition: Auto Discharge Social History [...]
--- OUTSIDE RECORDS SUMMARY | 2024-07-10 00:30 | XMS_ITS | Encounter Summary ---
Author Organization [facility] Address [address] [place] [address] Care Team Providers Care Sales Teacher Name Role Phone Se Smith MD Primary Care Provider +1- [phone] Encounter Details Date Type Department Care Team (Late st Contact Info) Description 09/24/2006 Results Only [facility] Pulmonology & Critical [facility] - [facility] [address] [place] [address] Aleks Galo MD [address] [place] [address] Social History Tobacco Use Types Packs/Day Years [...] & BLOOD G ORDERABLES Performing Organization Address [facility] de Phone Number [facility] [address] [place] [address] * GLUCOSE, SERUM (09/24/2006 10:06 EST) Glucose, Serum 95 70 - 100 mg/dl [facility] 09/24/2006 10:0 6 EST 09/24/2006 10:17 EST Aleks Galo MD CHEMISTRY & BLOOD G ORDERABLES Performing Organization Address [facility] Phone Number [facility] [address] [address] * HIV ANTIBODY (MIKALA) (09/24/2006 10:06 EST) HIV 1/2 Antibody NONREACT. NR [facility] 09/24/2006 10:0 6 EST 09/24/2006 10:17 EST Aleks Galo MD IMMUNOLOGY AND SERO LOGY ORDERABLES Performing Organization Address [facility] Phone Number NARA [address] [address] documented in this encounter Visit Diagnoses Not on filedocumented in this encounter Care Teams Sales Teacher Relationship Specialty Start Date End Date Se Smith MD 1 [facility] 1 [place] [address] PCP - General 02/24/09 02/11/13 documented as of this encounter
--- OUTSIDE RECORDS SUMMARY | 2024-07-10 00:30 | XMS_ITS | Encounter Summary ---
Author Organization [facility] Address [address] [place] [address] Care Team Providers Care Commercial Carpet Installer Name Role Phone Se Smith MD Primary Care Provider +1- [phone] Encounter Details Date Type Department Care Team (Late st Contact Info) Description 07/02/2008 Before PRISM Converted Visit (Maple) [facility] - Maple conversion [address] [place] [address] Geovanny Garcia MD 111 [facility], Level [address] [place] [phone] Social History Tobacco Use Types Packs/Day Years [...] FACS 07/15/2008 12:00 Geovanny Garcia MD, FACS [phone] - Geovanny Garcia MD, FACS - Job ID: [id number] Doc ID: [id number] cc: Se Smith MD documented in this encounter Plan of Treatment Not on file documented as of this encounter Visit Diagnoses Not on filedocumented in this encounter Care Teams Commercial Carpet Installer Relationship Specialty Start Date End Date Se Smith MD 1 [facility] 1 [place] [address] PCP - General 02/24/09 02/11/13 documented as of this encounter
--- OUTSIDE RECORDS SUMMARY | 2024-07-10 00:30 | XMS_ITS | Encounter Summary ---
Author Organization [facility] Address [address] [place] [address] Care Team Providers Care Slubber Hand Name Role Phone Se Smith MD Primary Care Provider +1- [phone] Encounter Details Date Type Department Care Team (Late st Contact Info) Description 09/10/2008 Before PRISM Converted Visit (Maple) 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 The [...] I filled out a record for the [facility] reflecting this examination, which I returned to the patient. The patient was discussed in full with Dr Se Smith. discussed the patient with the resident/fellow at the time of the visit. I agree with the findings and the plan of care. Signed by Se Smith MD 10/21/2008 15:22 Jose Enrique Maguire MD Se Smith MD - Jose Enrique Maguire MD - Job ID: [id number] Doc ID: [id number] cc: documented in this encounter Care Teams Slubber Hand Relationship Specialty Start Date End Date Se Smith MD 1 [facility] 1 [place] [address] PCP - General 02/24/09 02/11/13 documented as of this encounter
--- OUTSIDE RECORDS SUMMARY | 2024-07-10 00:30 | XMS_ITS | Encounter Summary ---
Author Organization [facility] Address [address] [place] [address] Care Team Providers Care Business Continuity Analyst Name Role Phone Se Smith MD Primary Care Provider +1- [phone] Encounter Details Date Type Department Care Team (Late st Contact Info) Description 12/07/2008 Before PRISM Converted Visit (Maple) [facility] - Maple conversion [address] [place] [address] Miri Smith MD [address] [place] [phone] Social History Tobacco Use Types Packs/Day Years Used Date Smoking Tobacco: Never Assessed Sex and Gender Information Value Date Recorded Sex Assigned at Not on file Gender Identity Not on file Sexual Orientation Not on file documented as of this encounter Progress Notes * Miri Smith MD - 05/14/2009 2320 EDT Primary Care Internal Medicine [address] [place] [phone] PROGRESS/FOLLOWUP NOTE - 12/07/2008 CHIEF COMPLAINT Ear [...] Miri Smith MD - FER Job ID: [id number] Doc ID: [id number] cc: documented in this encounter Plan of Treatment Not on file documented as of this encounter Visit Diagnoses Not on filedocumented in this encounter Care Teams Business Continuity Analyst Relationship Specialty Start Date End Date Se Smith MD 1 [facility] 1 [place] [phone] PCP - General 02/24/09 02/11/13 documented as of this encounter
--- OUTSIDE RECORDS SUMMARY | 2024-07-10 00:30 | XMS_ITS | Encounter Summary ---
Author Organization [facility] Address [address] [place] [address] Care Team Providers Care Servomechanism Assembler Name Role Phone Se Smith MD Primary Care Provider +1- [phone] Encounter Details Date Type Department Care Team (Late st Contact Info) Description 02/04/2008 Before PRISM Converted Visit (Maple) [facility] - Maple conversion [address] [place], [place] [address] Lewis Sandoval MD [address] [place], [place] [address] Social History Tobacco Use Types Packs/Day Years Used Date Smoking Tobacco: Never Assessed Sex and Gender Information Value Date Recorded Sex Assigned at Not on file Gender Identity Not on file Sexual Orientation Not on file documented as of this encounter Progress Notes * Lewis Sandoval - 07/22/2009 0126 EDT Primary Care Internal Medicine [address] [place] [address] PROGRESS/FOLLOWUP NOTE - 02/04/2008 CHIEF COMPLAINT [...] Lewis Sandoval MD - FER Job ID: [id number] Doc ID: [id number] cc: Kale Schuster MD documented in this encounter Plan of Treatment Not on file documented as of this encounter Visit Diagnoses Not on filedocumented in this encounter Care Teams Servomechanism Assembler Relationship Specialty Start Date End Date Se Smith MD 1 [facility] Level 1 [place] [address] PCP - General 02/24/09 02/11/13 documented as of this encounter
--- OUTSIDE RECORDS SUMMARY | 2024-07-10 00:30 | XMS_ITS | Encounter Summary ---
Author Organization [facility] Address [address] [place] [address] Care Team Providers Care Child Daycare Worker Name Role Phone Unavailable Primary Care Provider Unavailabl e Encounter Details Date Type Department Care Team (Late st Contact Info) Description 01/25/2009 10:07 EDT Hospital Encounter [address] [address] Kale Schuster MD MPH [address] [place] [phone] Social History Tobacco Use Types Packs/Day [...]
--- OUTSIDE RECORDS SUMMARY | 2024-07-10 00:30 | XMS_ITS | Encounter Summary ---
Author Organization [facility] Address [address] [place] [address] Care Team Providers Care Numerical Control Router Operator Name Role Phone Unavailable Primary Care Provider Unavailabl e Encounter Details Date Type Department Care Team (Latest Contact Info) Description 03/24/2008 13:08 EDT Hospital Encounter [address] [address] Se Smith MD [address] [place] [phone] Discharge Disposition: Auto Discharge Social History Tobacco [...]
--- OUTSIDE RECORDS SUMMARY | 2024-07-10 00:30 | XMS_ITS | Encounter Summary ---
Author Organization [facility] Address [address] [place] [address] Care Team Providers Care Traffic Superintendent Name Role Phone Unavailable Primary Care Provider Unavailabl e Encounter Details Date Type Department Care Team (Late st Contact Info) Description 11/27/2007 11:27 [facility] Hospital Encounter [address] [address] Se Smith MD [address] [place] [phone] Social History Tobacco Use Types Packs/Day Years [...]
--- OUTSIDE RECORDS SUMMARY | 2024-07-10 00:30 | XMS_ITS | Encounter Summary ---
Author Organization [facility] Address [address] [place] [address] Care Team Providers Care Director Of Catering Name Role Phone Unavailable Primary Care Provider Unavailabl e Encounter Details Date Type Department Care Team (Late st Contact Info) Description 09/17/2007 10:45 EST Hospital Encounter [address] [address] Se Smith MD [address] [place] [phone] Social History Tobacco Use Types Packs/Day Years [...]
--- OUTSIDE RECORDS SUMMARY | 2024-07-10 00:30 | XMS_ITS | Encounter Summary ---
Author Organization [facility] Address [address] [place] [address] Care Team Providers Care Real Estate Processor Name Role Phone Unavailable Primary Care Provider Unavailabl e Encounter Details Date Type Department Care Team (Latest Contact Info) Description 10/26/2006 14:04 [facility] Hospital Encounter [address] [address] Serena Grace MD [address] [place] [phone] Ben Britton Jr., LAWYER PROBATE Discharge Disposition: Auto Discharge Social History Tobacco [...]
--- OUTSIDE RECORDS SUMMARY | 2024-07-10 00:30 | XMS_ITS | Encounter Summary ---
Author Organization [facility] Address [address] [place] [address] Care Team Providers Care Waffle Machine Operator Name Role Phone Se Smith MD Primary Care Provider +1- [phone] Encounter Details Date Type Department Care Team (Late st Contact Info) Description 04/16/2007 Results Only [facility] Adult Primary Care - [address] [address] Se Smith MD 1 [facility] 1 [place] [phone] Social History Tobacco Use Types [...] BLOOD GAS ORDERABLES [facility] [address] [place] [address] documented in this encounter Visit Diagnoses Not on filedocumented in this encounter Care Teams Waffle Machine Operator Relationship Specialty Start Date End Date Se Smith MD 1 [facility] 1 [place] [phone] PCP - General 02/24/09 02/11/13 documented as of this encounter
--- OUTSIDE RECORDS SUMMARY | 2024-07-10 00:30 | XMS_ITS | Encounter Summary ---
Author Organization [facility] Address [address] [place] [address] Care Team Providers Care Clay Grinder Name Role Phone Unavailable Primary Care Provider Unavailabl e Encounter Details Date Type Department Care Team (Latest Contact Info) Description 05/20/2008 9:50 EDT - 05/20/2008 11:59 EDT Hospital Encounter [facility] - [address] [address] Rebecca Dooley [facility] [address] [address] Discharge Disposition: Auto Discharge Social History Tobacco [...]
--- OUTSIDE RECORDS SUMMARY | 2024-07-10 00:30 | XMS_ITS | Encounter Summary ---
Author Organization [facility] Address [address] [place] [address] Care Team Providers Care Waste Disposal Leakage Tester Name Role Phone Unavailable Primary Care Provider Unavailabl e Encounter Details Date Type Department Care Team (Latest Contact Info) Description 06/16/2007 9:43 EDT - 06/16/2007 11:59 EDT Hospital Encounter [facility] [address] [place] [address] Carrie Liao MD [address] [place] [phone] Discharge Disposition: Auto Discharge Social History [...]
--- OUTSIDE RECORDS SUMMARY | 2024-07-10 00:30 | XMS_ITS | Encounter Summary ---
Author Organization [facility] Address [address] [place] [address] Care Team Providers Care Videographer Name Role Phone Unavailable Primary Care Provider Unavailabl e Encounter Details Date Type Department Care Team (Late st Contact Info) Description 03/26/2008 14:41 EDT Hospital Encounter [address] [address] Mathieu Ortiz MD 1 [place] [phone] Jc North MD [address] [place] [address] Discharge Disposition: Auto Discharge Social History Tobacco [...]
--- OUTSIDE RECORDS SUMMARY | 2024-07-10 00:30 | XMS_ITS | Encounter Summary ---
Author Organization [facility] Address [address] [place] [address] Care Team Providers Care Disbursing Agent Name Role Phone Unavailable Primary Care Provider Unavailabl e Encounter Details Date Type Department Care Team (Latest Contact Info) Description 04/21/2007 9:44 EDT - 04/21/2007 11:59 EDT Hospital Encounter [facility] [address] [place] [address] Carrie Liao MD [address] [place] [phone] Discharge Disposition: Auto Discharge Social History [...]
--- OUTSIDE RECORDS SUMMARY | 2024-07-10 00:30 | XMS_ITS | Encounter Summary ---
Author Organization [facility] Address [address] [place] [address] Care Team Providers Care College Sports Coach Name Role Phone Se Smith MD Primary Care Provider +1- [phone] Encounter Details Date Type Department Care Team (Late st Contact Info) Description 06/04/2007 Before PRISM Converted Visit (Maple) [facility] - Maple conversion [address] [place] [address] Nichole Croft MD [address] [place] [phone] Social History Tobacco Use Types Packs/Day Years Used Date Smoking Tobacco: Never Assessed Sex and Gender Information Value Date Recorded Sex Assigned at Not on file Gender Identity Not on file Sexual Orientation Not on file documented as of this encounter Progress Notes * Nichole Croft MD - 08/24/2009 0458 EST Primary Care Internal Medicine [address] [place] [phone] PROGRESS/FOLLOWUP NOTE - 06/04/2007 SUBJECTIVE This is [...] Gregg MD -SISSY Guzmán -mr Job ID: [id number] Doc ID: [id number] cc: - mr Job ID: [id number] Doc ID: [id number] cc: documented in this encounter Plan of Treatment Not on file documented as of this encounter Visit Diagnoses Not on filedocumented in this encounter Care Teams College Sports Coach Relationship Specialty Start Date End Date Se Smith MD 1 [facility] Level 1 [place] [phone] PCP - General 02/24/09 02/11/13 documented as of this encounter
--- OUTSIDE RECORDS SUMMARY | 2024-07-10 00:30 | XMS_ITS | Encounter Summary ---
Author Organization [facility] Address [address] [place] [address] Care Team Providers Care Dynamics Ax Technical Architect Name Role Phone Unavailable Primary Care Provider Unavailabl e Encounter Details Date Type Department Care Team (Late st Contact Info) Description 07/21/2008 13:07 EDT Hospital Encounter [address] [address] Se Smith MD [address] [place] [phone] Social History Tobacco Use Types Packs/Day Years [...]
--- OUTSIDE RECORDS SUMMARY | 2024-07-10 00:30 | XMS_ITS | Encounter Summary ---
Author Organization [facility] Address [address] [place] [address] Care Team Providers Care Manager Ccu Name Role Phone Unavailable Primary Care Provider Unavailabl e Encounter Details Date Type Department Care Team (Late st Contact Info) Description 10/31/2006 13:32 EST Hospital Encounter [address] [address] Unknown, Provider, Social History Tobacco Use Types [...]
--- OUTSIDE RECORDS SUMMARY | 2024-07-10 00:30 | XMS_ITS | Encounter Summary ---
Author Organization [facility] Address [address] [place] [address] Care Team Providers Care Foreign Student Adviser Name Role Phone Unavailable Primary Care Provider Unavailabl e Encounter Details Date Type Department Care Team (Latest Contact Info) Description 10/16/2006 11:20 EST - 10/16/2006 11:59 EST Hospital Encounter [address] [address] Miri Smith MD [address] [place] [phone] Discharge Disposition: Auto Discharge Social History [...]
--- OUTSIDE RECORDS SUMMARY | 2024-07-10 00:30 | XMS_ITS | Encounter Summary ---
Author Organization [facility] Address [address] [place] [address] Care Team Providers Care Two Way Radio Technician Name Role Phone Unavailable Primary Care Provider Unavailabl e Encounter Details Date Type Department Care Team (Latest Contact Info) Description 06/20/2007 14:46 EDT Hospital Encounter [address] [address] Nerissa Palma FNP 1 [place] [address] Discharge Disposition: Auto Discharge Social History Tobacco [...]
--- OUTSIDE RECORDS SUMMARY | 2024-07-10 00:30 | XMS_ITS | Encounter Summary ---
Author Organization [facility] Address [address] [place] [address] Care Team Providers Care Livestock Agent Name Role Phone Unavailable Primary Care Provider Unavailabl e Encounter Details Date Type Department Care Team (Latest Contact Info) Description 06/28/2007 14:10 EDT Hospital Encounter [address] [address] Alayna Liang MD Discharge Disposition: Auto Discharge [...]
--- OUTSIDE RECORDS SUMMARY | 2024-07-10 00:30 | XMS_ITS | Encounter Summary ---
Author Organization [facility] Address [address] [place] [address] Care Team Providers Care Route Process Administrator Name Role Phone Niles Smith MD Primary Care Provider +1- [phone] Encounter Details Date Type Department Care Team (Late st Contact Info) Description 06/01/2008 Office Visit [facility] - Maple conversion [address] [place] [address] Angelito Chou MD [address] [place] [address], Level 1 [place] [phone] Social History Tobacco Use Types Packs/Day Years [...] 06/01/2008 12:59 Time Seen: 1350. Arrived- (from [facility]). 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 Referred ([facility]). Note (h/o depression). HISTORY OF PRESENT [...] repair, anxious about family situation (brother in retirement) and about finding placement. Pt denies past [...] Has social support (lives at [facility]). Has place to stay ([facility]). FAMILY HISTORY Denies family medical history. [...] withpt being discharged back to [facility].). Disposition: Discharged home in stable condition (to [facility]). CLINICAL IMPRESSION Multiple superficial abrasions to the right forearm (self-inflicted). INSTRUCTIONS Warnings: GENERAL WARNINGS: Return or contact your physician immediately if your condition worsens or changesunexpectedly, if not improving as expected, or if other problems arise. Your Current Medications: Continue current medications. Follow-up: NILES SIMTH MD, , [facility], [address] [place] [address]. Follow up as needed. (Electronically signed by [...] to arrival. Pain level now: 03/30. Treatment CONCRETE HOPPER OPERATOR: (crisis called to meet pt). PAST HX: Previous psychiatric treatment and suicide attempts. (with caseworker protective services ). Arrived by private vehicle. --1302 Rhonda Kelley R.N.. NURSING PROGRESS NOTES (moble crisis with pt to see kwame). --1314 Rhonda Kelley R.N. Pt. placed in paper scrubs, charge nurse aware of need for sitter.. --1322 Yehuda Astudillo R.N. Pt. sitting on stretcher, crisis and social security benefits interviewer at bedside.. The patientreports no complaints and [...] Patient verbalized understanding. Written instructions provided in Belgian. The patient was discharged home and accompanied by recruitment manager. The patient left the Emergency Department ambulatory and via private vehicle.College Physics Instructor driving. --1636 Luci Watters R.N.. Evelio Bob R.N., R.N. Locked/Released at 06/02/2008 6:11 by Elaine Oliva R.N. documented in this encounter Plan of Treatment Not on file documented as of this encounter Visit Diagnoses Not on filedocumented in this encounter Care Teams Route Process Administrator Relationship Specialty Start Date End Date Niles Smith MD 1 [facility] 1 [place] [phone] PCP - General 02/24/09 02/11/13 documented as of this encounter
--- OUTSIDE RECORDS SUMMARY | 2024-07-10 00:30 | XMS_ITS | Encounter Summary ---
Author Organization [facility] Address [address] [place] [address] Care Team Providers Care Film Historian Name Role Phone Unavailable Primary Care Provider Unavailabl e Encounter Details Date Type Department Care Team (Latest Contact Info) Description 03/27/2007 14:32 EDT Hospital Encounter [address] [address] Se Smith MD [address] [place] [phone] Discharge Disposition: Auto Discharge Social History Tobacco [...]
--- OUTSIDE RECORDS SUMMARY | 2024-07-10 00:30 | XMS_ITS | Encounter Summary ---
Author Organization [facility] Address [address] [place] [address] Care Team Providers Care Equipment Oiler Name Role Phone Se Smith MD Primary Care Provider +1- [phone] Encounter Details Date Type Department Care Team (Late st Contact Info) Description 12/22/2008 Before PRISM Converted Visit (Maple) [facility] - Maple conversion [address] [place] [address] Zohra White MD [address] [place] [phone] Social History Tobacco Use Types Packs/Day Years Used Date Smoking Tobacco: Never Assessed Sex and Gender Information Value Date Recorded Sex Assigned at Not on file Gender Identity Not on file Sexual Orientation Not on file documented as of this encounter Progress Notes * Zohra White MD - 04/19/2009 1037 EDT Primary Care Internal Medicine [address] [place] [phone] PROGRESS/FOLLOWUP NOTE - 12/22/2008 PROBLEM: Right ear pain. PROBLEM: Diarrhea. SUBJECTIVE Haja Walker is a 28single male who is accompanied by a manager rn case from [facility]. He comesin with a couple week [...] sounds as if he lives in a fpc and other residents have been sickwith similar [...] Zohra White MD - FER Job ID: [id number] Doc ID: [id number] cc: documented in this encounter Plan of Treatment Not on file documented as of this encounter Visit Diagnoses Not on filedocumented in this encounter Care Teams Equipment Oiler Relationship Specialty Start Date End Date Se Smith MD 1 [facility] Level 1 [place] [phone] PCP - General 02/24/09 02/11/13 documented as of this encounter
--- OUTSIDE RECORDS SUMMARY | 2024-07-10 00:30 | XMS_ITS | Encounter Summary ---
Author Organization [facility] Address [address] [place] [address] Care Team Providers Care Geospatial Specialist Name Role Phone Unavailable Primary Care Provider Unavailabl e Encounter Details Date Type Department Care Team (Late st Contact Info) Description 01/10/2009 15:36 EDT Hospital Encounter [address] [address] Akash Damon MD Weaver, Curtis R, MD [facility] MA[facility] [address] [place] [address] Discharge Disposition: Auto Discharge Social History Tobacco [...]
--- OUTSIDE RECORDS SUMMARY | 2024-07-10 00:30 | XMS_ITS | Encounter Summary ---
Author Organization [facility] Address [address] [place] [address] Care Team Providers Care Strip Machine Operator Name Role Phone Unavailable Primary Care Provider Unavailabl e Encounter Details Date Type Department Care Team (Late st Contact Info) Description 09/03/2006 11:15 EST - 09/03/2006 11:59 EST Hospital Encounter [facility] [address] [address] Karena Moss MD [address] [address] Discharge Disposition: Auto Discharge Social History Tobacco [...]
--- OUTSIDE RECORDS SUMMARY | 2024-07-10 00:30 | XMS_ITS | Encounter Summary ---
Author Organization [facility] Address [address] [place] [address] Care Team Providers Care Airborne Sensor Specialist Name Role Phone Unavailable Primary Care Provider Unavailabl e Encounter Details Date Type Department Care Team (Latest Contact Info) Description 11/22/2008 13:06 [facility] Hospital Encounter [address] [address] Akash Damon MD Leinwohl, Heather Todd, [facility] Discharge Disposition: Auto Discharge Social History Tobacco [...]
--- OUTSIDE RECORDS SUMMARY | 2024-07-10 00:30 | XMS_ITS | Encounter Summary ---
Author Organization [facility] Address [address] [place] [address] Care Team Providers Care Training Mgr Name Role Phone Unavailable Primary Care Provider Unavailabl e Encounter Details Date Type Department Care Team (Latest Contact Info) Description 08/06/2007 12:39 EDT Hospital Encounter [address] [address] Nerisas Palma FNP 1 [place] [address] Discharge Disposition: Auto Discharge Social History Tobacco [...]
--- OUTSIDE RECORDS SUMMARY | 2024-07-10 00:30 | XMS_ITS | Encounter Summary ---
Author Organization [facility] Address [address] [place] [address] Care Team Providers Care Manufacturing Baker Name Role Phone Se Smith MD Primary Care Provider +1- [phone] Encounter Details Date Type Department Care Team (Late st Contact Info) Description 05/07/2008 Before PRISM Converted Visit (Maple) [facility] - Maple conversion [address] [place] [address] Geovanny Garcia MD 111 [facility], [facility] 5 [place] [phone] Social History Tobacco Use Types Packs/Day Years [...] facility and is here today with a a&p mechanic. PAST MEDICAL HISTORY Positive for some type [...] Options discussed with the patient and his a&p mechanic. Options include nifedipine, Botox, or lateralinternal sphincterotomy. [...] FACS 05/20/2008 10:48 Geovanny Garcia MD, FACS [phone] - Geovanny Garcia MD, FACS - Job ID: [id number] Doc ID: [id number] cc: Se Smith MD documented in this encounter Plan of Treatment Not on file documented as of this encounter Visit Diagnoses Not on filedocumented in this encounter Care Teams Manufacturing Baker Relationship Specialty Start Date End Date Se Smith MD 1 [facility] 1 [place] [phone] PCP - General 02/24/09 02/11/13 documented as of this encounter
--- OUTSIDE RECORDS SUMMARY | 2024-07-10 00:30 | XMS_ITS | Encounter Summary ---
Author Organization [facility] Address [address] [place] [address] Care Team Providers Care Sueding And Buffing Machine Operator Name Role Phone Unavailable Primary Care Provider Unavailabl e Encounter Details Date Type Department Care Team (Late st Contact Info) Description 06/23/2008 13:09 EDT Hospital Encounter [address] [address] Se Smith MD [address] [place] [phone] Social History Tobacco Use Types Packs/Day Years [...]
--- OUTSIDE RECORDS SUMMARY | 2024-07-10 00:30 | XMS_ITS | Encounter Summary ---
Author Organization [facility] Address [address] [place] [address] Care Team Providers Care Nutritionists Name Role Phone Unavailable Primary Care Provider Unavailabl e Encounter Details Date Type Department Care Team (Late st Contact Info) Description 12/20/2008 13:14 [facility] Hospital Encounter [address] [address] Kale Schuster MD [facility] [address] [phone] Social History Tobacco Use Types Packs/Day Years [...]
--- OUTSIDE RECORDS SUMMARY | 2024-07-10 00:30 | XMS_ITS | Encounter Summary ---
Author Organization [facility] Address [address] [place] [address] Care Team Providers Care Miniature Train Driver Name Role Phone Unavailable Primary Care Provider Unavailabl e Encounter Details Date Type Department Care Team (Latest Contact Info) Description 12/07/2008 10:56 EST - 12/07/2008 11:59 EST Hospital Encounter [address] [address] Miri Smith MD [address] [place] [phone] Discharge Disposition: Auto Discharge Social History [...]
--- OUTSIDE RECORDS SUMMARY | 2024-07-10 00:30 | XMS_ITS | Encounter Summary ---
Author Organization [facility] Address [address] [place] [address] Care Team Providers Care Senior Drafter Name Role Phone Unavailable Primary Care Provider Unavailabl e Encounter Details Date Type Department Care Team (Late st Contact Info) Description 06/15/2008 9:30 EDT - 06/15/2008 11:59 EDT Hospital Encounter [facility] Perioperative Services- [address] [address] Geovanny Garcia MD [address] [place] [address], Level 5 [place] [phone] Discharge Disposition: Home or Self Care Social [...] SERVICE DATE: SURGEON: Moisés Garcia MD, FACS DIRECTOR OF MANAGED SERVICES: PREOPERATIVE DIAGNOSIS Posterior anal fissure and hematochezia. [...] FACS 07/15/2008 11:57 Geovanny Garcia MD, FACS [phone] D: - Geovanny Garcia MD, FACS P - CS Job ID: [id number] Document ID: [id number] cc: Geovanny Garcia MD, FACS Se Smith MD documented in this encounter Plan of Treatment Not on file documented as of this encounter Visit Diagnoses Not on filedocumented in this encounter
--- OUTSIDE RECORDS SUMMARY | 2024-07-10 00:30 | XMS_ITS | Encounter Summary ---
Author Organization [facility] Address [address] [place] [address] Care Team Providers Care Panel Machine Tender Name Role Phone Unavailable Primary Care Provider Unavailabl e Encounter Details Date Type Department Care Team (Latest Contact Info) Description 12/25/2007 10:17 EST - 12/25/2007 11:59 EST Hospital Encounter [address] [address] Se Smith MD [address] [place] [phone] Unknown, Provider, Discharge Disposition: Auto Discharge Social [...]
--- OUTSIDE RECORDS SUMMARY | 2024-07-10 00:30 | XMS_ITS | Encounter Summary ---
Author Organization [facility] Address [address] [place] [address] Care Team Providers Care Clipper Counters Name Role Phone Unavailable Primary Care Provider Unavailabl e Encounter Details Date Type Department Care Team (Latest Contact Info) Description 09/24/2006 10:01 EST - 09/24/2006 11:59 EST Hospital Encounter [address] [address] Se Smith MD [address] [place] [phone] Aleks Galo MD [address] [place] [address] [address] [place] [phone] Discharge Disposition: Auto Discharge Social History [...]
--- OUTSIDE RECORDS SUMMARY | 2024-07-10 00:30 | XMS_ITS | Encounter Summary ---
Author Organization [facility] Address [address] [place] [address] Care Team Providers Care Staple Side Laster Name Role Phone Se Smith MD Primary Care Provider +1- [phone] Encounter Details Date Type Department Care Team (Late st Contact Info) Description 06/20/2007 Before PRISM Converted Visit (Maple) [facility] - Maple conversion [address] [place] [address] Nerissa Palma FNP 1 [place], [place] [address] Social History Tobacco Use Types Packs/Day Years Used Date Smoking Tobacco: Never Assessed Sex and Gender Information Value Date Recorded Sex Assigned at Not on file Gender Identity Not on file Sexual Orientation Not on file documented as of this encounter Progress Notes * Nerissa Goss - 08/26/2009 1315 EST Primary Care Internal Medicine 1 [place], [place] [phone] PROGRESS/FOLLOWUP NOTE - 06/20/2007 PROBLEM: Laceration on [...] was placed on nitroglycerin ointment and an erhn-nbz-dzuxlkb hemorrhoid cream and he needs awritten prescription to stop these for his [facility]. Simone does not know when his last [...] staff member who accompanied him from the [facility] to talk about treatment of all of [...] discontinue the nitroglycerin ointment and change the iiio-iwx-sguahzs hemorrhoid cream to as needed. 5. TDAP [...] - LEXI Horner - ryan Job ID: [id number] Doc ID: [id number] cc: documented in this encounter Plan of Treatment Not on file documented as of this encounter Visit Diagnoses Not on filedocumented in this encounter Care Teams Staple Side Laster Relationship Specialty Start Date End Date Se Smith MD 1 [facility] 1 [place] [address] PCP - General 02/24/09 02/11/13 documented as of this encounter
--- OUTSIDE RECORDS SUMMARY | 2024-07-10 00:30 | XMS_ITS | Encounter Summary ---
Author Organization [facility] Address [address] [place] [address] Care Team Providers Care Customer Support Representative Name Role Phone Unavailable Primary Care Provider Unavailabl e Encounter Details Date Type Department Care Team (Late st Contact Info) Description 10/22/2007 13:20 [facility] Hospital Encounter [address] [address] Deepak Gregg MD [address] [place] [phone] Unknown, Provider, Social History Tobacco Use Types [...]
--- OUTSIDE RECORDS SUMMARY | 2024-07-10 00:30 | XMS_ITS | Encounter Summary ---
Author Organization [facility] Address [address] [place] [address] Care Team Providers Care Medical Records Coder Name Role Phone Unavailable Primary Care Provider Unavailabl e Encounter Details Date Type Department Care Team (Latest Contact Info) Description 06/04/2007 14:05 EDT Hospital Encounter [address] [address] Deepak Gregg MD [address] [place] [phone] Nichole Croft MD [address] [place] [phone] Discharge Disposition: Auto Discharge Social History Tobacco [...]
--- OUTSIDE RECORDS SUMMARY | 2024-07-10 00:30 | XMS_ITS | Encounter Summary ---
Author Organization [facility] Address [address] [place] [address] Care Team Providers Care Education And Development Manager Name Role Phone Se Smith MD Primary Care Provider +1- [phone] Encounter Details Date Type Department Care Team (Late st Contact Info) Description 08/06/2007 Before PRISM Converted Visit (Maple) [facility] - Maple conversion [address] [place] [address] Nerissa Palma FNP 1 [place], [place] [phone] Social History Tobacco Use Types Packs/Day Years Used Date Smoking Tobacco: Never Assessed Sex and Gender Information Value Date Recorded Sex Assigned at Not on file Gender Identity Not on file Sexual Orientation Not on file documented as of this encounter Progress Notes * Nerissa Goss - 08/29/2009 5637 EST GDU?? PROGRESS/FOLLOWUP NOTE - 08/06/2007 PROBLEM: [...] LEXI Horner A - lfb Job ID: [id number] Document ID: [id number] cc: documented in this encounter Plan of Treatment Not on file documented as of this encounter Visit Diagnoses Not on filedocumented in this encounter Care Teams Education And Development Manager Relationship Specialty Start Date End Date Se Smith MD 1 [facility] 1 [place] [phone] PCP - General 02/24/09 02/11/13 documented as of this encounter
--- OUTSIDE RECORDS SUMMARY | 2024-07-10 00:30 | XMS_ITS | Encounter Summary ---
Author Organization [facility] Address [address] [place] [address] Care Team Providers Care Can Feeder Name Role Phone Unavailable Primary Care Provider Unavailabl e Encounter Details Date Type Department Care Team (Late st Contact Info) Description 09/20/2008 13:04 [facility] Hospital Encounter [address] [address] Se Smith MD [address] [place] [phone] Social History Tobacco Use Types Packs/Day Years [...]
--- OUTSIDE RECORDS SUMMARY | 2024-07-10 00:30 | XMS_ITS | Encounter Summary ---
Author Organization [facility] Address [address] [place] [address] Care Team Providers Care Railroad Car Painter Name Role Phone Unavailable Primary Care Provider Unavailabl e Encounter Details Date Type Department Care Team (Late st Contact Info) Description 12/22/2008 9:32 EST Hospital Encounter [address] [address] Zohra White MD [address] [phone] Social History Tobacco Use Types Packs/Day Years [...]
--- OUTSIDE RECORDS SUMMARY | 2024-07-10 00:30 | XMS_ITS | Encounter Summary ---
Author Organization [facility] Address [address] [place] [address] Care Team Providers Care Curriculum Facilitator Name Role Phone Unavailable Primary Care Provider Unavailabl e Encounter Details Date Type Department Care Team (Late st Contact Info) Description 08/16/2007 10:41 EDT Hospital Encounter [address] [address] Alayna Liang MD Reback, Ashley Flores MD [address] [place] [phone] Social History Tobacco Use Types Packs/Day Years [...]
--- OUTSIDE RECORDS SUMMARY | 2024-07-10 00:30 | XMS_ITS | Encounter Summary ---
Author Organization [facility] Address [address] [place] [address] Care Team Providers Care Crane Helper Name Role Phone Unavailable Primary Care Provider Unavailabl e Encounter Details Date Type Department Care Team (Latest Contact Info) Description 11/04/2006 10:38 EST - 11/04/2006 11:59 EST Hospital Encounter [facility] - [address] [address] Geovanny Mendes MD [address] [place] [phone] Unknown, Provider, Discharge Disposition: Auto Discharge Social [...]
--- OUTSIDE RECORDS SUMMARY | 2024-07-10 00:30 | XMS_ITS | Encounter Summary ---
Author Organization [facility] Address [address] [place] [address] Care Team Providers Care District Scout Executive Name Role Phone Se Smith MD Primary Care Provider +1- [phone] Encounter Details Date Type Department Care Team (Late st Contact Info) Description 03/28/2008 Before PRISM Converted Visit (Maple) [facility] - Maple conversion [address] [place], [place] [address] Jc North MD [address] [place], [place] [address] Social History Tobacco Use Types Packs/Day Years Used Date Smoking Tobacco: Never Assessed Sex and Gender Information Value Date Recorded Sex Assigned at Not on file Gender Identity Not on file Sexual Orientation Not on file documented as of this encounter Progress Notes * Jc North MD - 07/22/2009 0650 EDT Primary Care Internal Medicine [address] [place] [id number] PROGRESS/FOLLOWUP NOTE - 03/28/2008 CHIEF COMPLAINT Rectal bleed. SUBJECTIVE The patient presents today for evaluation of one episode of rectal bleeding he had earlier today after taking a bowel movement. The patient has a long history of intermittent rectal bleeding and as diagnosed with internal and external hemorrhoids in January of 2008 during a visit to the [facility] emergency department. At that time he was [...] Porfirio North MD - DAVID Job ID: [id number] Doc ID: [id number] cc: - Jc North MD - david Job ID: [id number] Doc ID: [id number] cc: documented in this encounter Plan of Treatment Not on file documented as of this encounter Visit Diagnoses Not on filedocumented in this encounter Care Teams District Scout Executive Relationship Specialty Start Date End Date Se Smith MD 1 [facility] 1 [place] [phone] PCP - General 02/24/09 02/11/13 documented as of this encounter
--- OUTSIDE RECORDS SUMMARY | 2024-07-10 00:30 | XMS_ITS | Encounter Summary ---
Author Organization [facility] Address [address] [place] [address] Care Team Providers Care Computer Networking Instructor Adjunct Name Role Phone Se Smith MD Primary Care Provider +1- [phone] Encounter Details Date Type Department Care Team (Late st Contact Info) Description 05/20/2008 Before PRISM Converted Visit (Maple) [facility] - Maple conversion [address] [place] [address] Rebecca Dooley. [facility] [address] [address] Social History Tobacco Use Types Packs/Day Years Used Date Smoking Tobacco: Never Assessed Sex and Gender Information Value Date Recorded Sex Assigned at Not on file Gender Identity Not on file Sexual Orientation Not on file documented as of this encounter Progress Notes * Rebecca Dooley, MACHINE STONECUTTER - 07/22/2009 1159 EDT Primary Care Internal Medicine [address] [place] [phone] PROGRESS/FOLLOWUP NOTE - 05/20/2008 REASON FOR VISIT Sore throat. SUBJECTIVE This is a 27gentleman who is escorted by his pillowcase cutter. He complains of having had a sore [...] Dooley APRN - Rebecca Dooley APRN - [facility] Job ID: [id number] Doc ID: [id number] cc: documented in this encounter Plan of Treatment Not on file documented as of this encounter Visit Diagnoses Not on filedocumented in this encounter Care Teams Computer Networking Instructor Adjunct Relationship Specialty Start Date End Date Se Smith MD 1 [facility] 1 [place] [phone] PCP - General 02/24/09 02/11/13 documented as of this encounter
--- OUTSIDE RECORDS SUMMARY | 2024-07-10 00:30 | XMS_ITS | Encounter Summary ---
Author Organization [facility] Address [address] [place] [address] Care Team Providers Care Glazing Department Supervisor Name Role Phone Unavailable Primary Care Provider Unavailabl e Encounter Details Date Type Department Care Team (Latest Contact Info) Description 09/10/2008 15:52 EST Hospital Encounter [address] [address] Se Smith MD [address] [place] [phone] Unknown, Provider, Discharge Disposition: Auto Discharge Social [...]
--- OUTSIDE RECORDS SUMMARY | 2024-07-10 00:30 | XMS_ITS | Encounter Summary ---
Author Organization [facility] Address [address] [place] [address] Care Team Providers Care Sugar Reprocess Operator Head Name Role Phone Unavailable Primary Care Provider Unavailabl e Encounter Details Date Type Department Care Team (Late st Contact Info) Description 07/02/2008 9:05 EDT - 07/02/2008 11:59 EDT Hospital Encounter [address] [address] Geovanny Garcia MD [address] [place] [address] [address] 5 [place] [phone] Discharge Disposition: Auto Discharge Social History Tobacco [...]
--- OUTSIDE RECORDS SUMMARY | 2024-07-10 00:30 | XMS_ITS | Encounter Summary ---
Author Organization [facility] Address [address] [place] [address] Care Team Providers Care Handle Sewer Name Role Phone Unavailable Primary Care Provider Unavailabl e Encounter Details Date Type Department Care Team (Latest Contact Info) Description 06/01/2008 13:18 EDT Hospital Encounter [facility] Emergency Department - [facility] [address] [place] [address] Emergency, Default, MD Discharge Disposition: Home or [...]
--- OUTSIDE RECORDS SUMMARY | 2024-07-10 00:30 | XMS_ITS | Encounter Summary ---
Author Organization [facility] Address [address] [place] [address] Care Team Providers Care Insurance Inspector Name Role Phone Se Smith MD Primary Care Provider +1- [phone] Encounter Details Date Type Department Care Team (Late st Contact Info) Description 06/16/2007 Before PRISM Converted Visit (Maple) [facility] - Maple conversion [address] [place] [address] Carrie Liao MD [address] [place] [phone] Social History Tobacco Use Types Packs/Day [...] MD, FACS 06/18/2007 14:24 Deshawn Liao MD, [id number] Spaulding, MD, FACS Carrie Liao MD, FACS [phone] -Carrie Liao MD, FACS -cmd Job ID: [id number] Doc ID: [id number] cc: MD Se Persaud MD documented in this encounter Plan of Treatment Not on file documented as of this encounter Visit Diagnoses Not on filedocumented in this encounter Care Teams Insurance Inspector Relationship Specialty Start Date End Date Se Smith MD 1 [facility] 1 [place] [phone] PCP - General 02/24/09 02/11/13 documented as of this encounter
--- OUTSIDE RECORDS SUMMARY | 2024-07-10 00:30 | XMS_ITS | Encounter Summary ---
Author Organization [facility] Address [address] [place] [address] Care Team Providers Care Sausage Stuffer Name Role Phone Unavailable Primary Care Provider Unavailabl e Encounter Details Date Type Department Care Team (Latest Contact Info) Description 01/22/2008 9:41 EDT - 01/22/2008 11:59 EDT Hospital Encounter [address] [address] Se Smith MD [address] [place] [phone] Discharge Disposition: Auto Discharge Social History [...]
--- OUTSIDE RECORDS SUMMARY | 2024-07-10 00:30 | XMS_ITS | Encounter Summary ---
Author Organization [facility] Address [address] [place] [address] Care Team Providers Care Insurance Sales Producer Name Role Phone Unavailable Primary Care Provider Unavailabl e Encounter Details Date Type Department Care Team (Latest Contact Info) Description 09/23/2006 13:54 EST Hospital Encounter [address] [address] Se Smith MD [address] [place] [phone] Aleks Galo MD [address] [place] [address] [address] [place] [address] Discharge Disposition: Auto Discharge Social [...]
--- OUTSIDE RECORDS SUMMARY | 2024-07-10 00:30 | XMS_ITS | Encounter Summary ---
Author Organization [facility] Address [address] [place] [address] Care Team Providers Care Pizzamaker Name Role Phone Se Smith MD Primary Care Provider +1- [phone] Encounter Details Date Type Department Care Team (Late st Contact Info) Description 02/01/2008 Office Visit [facility] - Maple conversion [address] [place] [address] Haim Sotelo, MARCIA [address] [phone] Social History Tobacco Use Types [...] been reviewed by the Emergency Department physician mental health assistant. No changes in your current home [...] (first observed pt resting on stretcher , nurse outreach case manager from [facility] states pt herefor eval BRBPR ? hemorrhoids ). --1202 Misti Sprague R.N. (pt seen by Mandeep Weathers. --1213 Misti Sprague R.N.. DISPOSITION / DISCHARGE Condition at departure: improved. Patient reports pain level on departure as 2/10. No learning barriers present. Discharge instructions reviewed with the patient and (nurse outreach case manager ). Reviewed medication (OTC Preparation H or Tucks Medicated pads ). Reviewed referrals (PMD as needed). Patient verbalized understanding. Written instructions provided in Citizen [place]. The patient was discharged home and accompanied by nurse outreach case manager . The patient left the Emergency Department via private vehicle. Driving (nurse outreach case manager). --1231 Misti Sprague R.N.. Vidhya Sprague R.N. Locked/Released at 02/01/2008 15:41 by Marti Meehan R.N. documented in this encounter Plan of Treatment Not on file documented as of this encounter Visit Diagnoses Not on filedocumented in this encounter Care Teams Pizzamaker Relationship Specialty Start Date End Date Se Smith MD [address] [facility] 1 [place] [phone] PCP - General 02/24/09 02/11/13 documented as of this encounter
--- OUTSIDE RECORDS SUMMARY | 2024-07-10 00:30 | XMS_ITS | Encounter Summary ---
Author Organization [facility] Address [address] [place] [address] Care Team Providers Care Tankman Name Role Phone Se Smith MD Primary Care Provider +1- [phone] Encounter Details Date Type Department Care Team (Late st Contact Info) Description 08/16/2007 Office Visit [facility] - Maple conversion [address] [place] [address] Alayna Liang MD Social History Tobacco Use [...] Arrived- By private vehicle. 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 HISTORY OF PRESENT ILLNESS Chief Complaint- SKIN [...] (SEE SHEET)). Pain level now: 01/28. Treatment CLINICAL LABORATORY AIDES TEACHER: (WARM COMPRESSES). PAST HX: (ELBOW SURG). (CHRONIC [...] parent verbalized understanding. Written instructions provided in Citizen [...] on filedocumented in this encounter Care Teams Tankman Relationship Specialty Start Date End Date Se Smith MD 1 [facility] Level 1 [place] [phone] PCP - General 02/24/09 02/11/13 documented as of this encounter
--- OUTSIDE RECORDS SUMMARY | 2024-07-10 00:30 | XMS_ITS | Encounter Summary ---
Author Organization [facility] Address [address] [place] [address] Care Team Providers Care Produce Shipper Name Role Phone Unavailable Primary Care Provider Unavailabl e Encounter Details Date Type Department Care Team (Late st Contact Info) Description 02/04/2008 10:56 EDT Hospital Encounter [address] [address] Kale Schuster MD MPH [address] [place] [phone] Social History Tobacco Use Types Packs/Day [...]
--- OUTSIDE RECORDS SUMMARY | 2024-07-10 00:30 | XMS_ITS | Encounter Summary ---
Author Organization [facility] Address [address] [place] [address] Care Team Providers Care Header Operator Name Role Phone Unavailable Primary Care Provider Unavailabl e Encounter Details Date Type Department Care Team (Latest Contact Info) Description 03/13/2007 10:33 EDT - 03/13/2007 11:59 EDT Hospital Encounter [address] [address] Se Smith MD [address] [place] [phone] Discharge Disposition: Auto Discharge Social History [...]
--- OUTSIDE RECORDS SUMMARY | 2024-07-10 00:30 | XMS_ITS | Encounter Summary ---
Author Organization [facility] Address [address] [place] [address] Care Team Providers Care Auto Parts Professional Name Role Phone Se Smith MD Primary Care Provider +1- [phone] Encounter Details Date Type Department Care Team (Late st Contact Info) Description 10/16/2006 Before PRISM Converted Visit (Maple) [facility] - Maple conversion [address] [place] [address] Miri Smith MD [address] [place] [phone] Social History Tobacco Use Types Packs/Day Years Used Date Smoking Tobacco: Never Assessed Sex and Gender Information Value Date Recorded Sex Assigned at Not on file Gender Identity Not on file Sexual Orientation Not on file documented as of this encounter Progress Notes * Miri Smith MD - 10/27/2009 1533 EST Primary Care Internal Medicine 1 [place], [place] [address] PROGRESS/FOLLOWUP NOTE - 10/16/2006 REASON FOR VISIT: [...] Smith MD - Juan Smith MD [facility] Job ID: [id number] Document ID: [id number] cc: documented in this encounter Plan of Treatment Not on file documented as of this encounter Visit Diagnoses Not on filedocumented in this encounter Care Teams Auto Parts Professional Relationship Specialty Start Date End Date Se Smith MD 1 [facility] [place] [facility] 1 [place] [phone] PCP - General 02/24/09 02/11/13 documented as of this encounter
--- OUTSIDE RECORDS SUMMARY | 2024-07-10 00:30 | XMS_ITS | Encounter Summary ---
Author Organization [facility] Address [address] [place] [address] Care Team Providers Care Senior Instructor Name Role Phone Unavailable Primary Care Provider Unavailabl e Encounter Details Date Type Department Care Team (Late st Contact Info) Description 08/20/2008 13:18 EDT Hospital Encounter [address] [address] Se Smith MD [address] [place] [phone] Unknown, Provider, Social History Tobacco Use Types [...]
--- OUTSIDE RECORDS SUMMARY | 2024-07-10 00:30 | XMS_ITS | Encounter Summary ---
Author Organization [facility] Address [address] [place] [address] Care Team Providers Care Stoker Erector Name Role Phone Se Smith MD Primary Care Provider +1- [phone] Encounter Details Date Type Department Care Team (Late st Contact Info) Description 03/27/2007 Before PRISM Converted Visit (Maple) [facility] - Maple conversion [address] [place] [address] Jose Enrique Maguire MD [address] [facility] [address] [place] [phone] Social History Tobacco Use Types Packs/Day Years Used Date Smoking Tobacco: Never Assessed Sex and Gender Information Value Date Recorded Sex Assigned at Not on file Gender Identity Not on file Sexual Orientation Not on file documented as of this encounter Progress Notes * Jose Enrique Maguire MD - 08/28/20092040 EST Primary Care Internal Medicine [address] [place] [address] PROGRESS/FOLLOWUP NOTE - 03/27/2007 CHIEF COMPLAINT [...] and reports that he was seenby a outside plant engineer two years ago. The patient reports at [...] present to clinic today accompanied by a [facility] mental health case manager. Recommendations were discussed with patient and with the mental health case manager at patients request. The patient discussed in [...] Enrique Maguire MD - william Job ID: [id number] Doc ID: [id number] cc: - Jose Enrique Maguire MD - william Job ID: [id number] Doc ID: [id number] cc: documented in this encounter Plan of Treatment Not on file documented as of this encounter Visit Diagnoses Not on filedocumented in this encounter Care Teams Stoker Erector Relationship Specialty Start Date End Date Se Smith MD 1 [facility] 1 [place] [phone] PCP - General 02/24/09 02/11/13 documented as of this encounter
--- OUTSIDE RECORDS SUMMARY | 2024-07-10 00:30 | XMS_ITS | Encounter Summary ---
Author Organization [facility] Address [address] [place] [address] Care Team Providers Care Medical Billing Coordinator Name Role Phone Se Smith MD Primary Care Provider +1- [phone] Encounter Details Date Type Department Care Team (Late st Contact Info) Description 06/15/2007 Office Visit [facility] - Maple conversion [address] [place] [address] Kale March MD Social History Tobacco Use [...] private vehicle and accompanied by (staff from [facility]). Historian: patient. --857 Alyssa Batista R.N.. [...] Discharge instructions reviewed with the patient and sprayer machine. Reviewed wound care and splint care instructions. Reviewed referral to family practice for followup. Patient and sprayer machine verbalized understanding. Written instructions provided in Chinese. The patient was discharged home and accompanied by sprayer machine. The patient left the Emergency Department ambulatory and via private vehicle. Production Support Supervisor driving. Patient has no belongings. --0924 Lacey Barrow R.N.. Alyssa Lynne Barrow R.N. Locked/Released at 06/15/2007 9:24 by Lacey Barrow R.N. documented in this encounter Plan of Treatment Not on file documented as of this encounter Visit Diagnoses Not on filedocumented in this encounter Care Teams Medical Billing Coordinator Relationship Specialty Start Date End Date Se Smith MD 1 [facility] Level 1 [place] [phone] PCP - General 02/24/09 02/11/13 documented as of this encounter
--- OUTSIDE RECORDS SUMMARY | 2024-07-10 00:30 | XMS_ITS | Encounter Summary ---
Author Organization [facility] Address [address] [place] [address] Care Team Providers Care Doper Name Role Phone Unavailable Primary Care Provider Unavailabl e Encounter Details Date Type Department Care Team (Late st Contact Info) Description 05/07/2008 12:48 EDT Hospital Encounter [facility] [address] [place] [address] Geovanny Garcia MD 111 [facility], Level [address] [place] [phone] Discharge Disposition: Auto Discharge Social [...]
--- OUTSIDE RECORDS SUMMARY | 2024-07-10 00:30 | XMS_ITS | Encounter Summary ---
Author Organization [facility] Address [address] [place] [address] Care Team Providers Care Delicatessen Clerk Name Role Phone Unavailable Primary Care Provider Unavailabl e Encounter Details Date Type Department Care Team (Latest Contact Info) Description 02/01/2008 11:21 EDT - 02/01/2008 11:59 EDT Hospital Encounter [facility] Emergency Department - [facility] [address] [place] [address] Emergency, Default, MD Discharge Disposition: Home or [...]
--- OUTSIDE RECORDS SUMMARY | 2024-07-10 00:30 | XMS_ITS | Encounter Summary ---
Author Organization [facility] Address [address] [place] [address] Care Team Providers Care Dish Machine Operator Name Role Phone Se Smith MD Primary Care Provider +1- [phone] Encounter Details Date Type Department Care Team (Late st Contact Info) Description 06/28/2007 Results Only [facility] [address] [address] Ben Britton Jr., NP Social History Tobacco [...] NEGATIVE [facility] Report Status Final [id number] [facility] 06/28/2007 15:5 3 EDT 06/28/2007 17:13 EDT Ben Britton Jr., NP MICROBIOLOGY - GENERAL ORDERABLES [facility] [address] [place] [address] documented in this encounter Visit Diagnoses Not on filedocumented in this encounter Care Teams Dish Machine Operator Relationship Specialty Start Date End Date Se Smith MD 1 [facility] [place] [facility] 1 [place] [phone] PCP - General 02/24/09 02/11/13 documented as of this encounter
--- OUTSIDE RECORDS SUMMARY | 2024-07-10 00:30 | XMS_ITS | Encounter Summary ---
Author Organization [facility] Address [address] [place] [address] Care Team Providers Care Production Control Specialist Name Role Phone Unavailable Primary Care Provider Unavailabl e Encounter Details Date Type Department Care Team (Latest Contact Info) Description 11/02/2006 10:39 EST - 11/02/2006 11:59 EST Hospital Encounter [facility] - [address] [address] Jud Eng MD [address] [place] [phone] Discharge Disposition: Auto Discharge Social History [...]
--- OUTSIDE RECORDS SUMMARY | 2024-07-10 00:30 | XMS_ITS | Encounter Summary ---
Author Organization [facility] Address [address] [place] [address] Care Team Providers Care Care Transition Coordinator Name Role Phone Unavailable Primary Care Provider Unavailabl e Encounter Details Date Type Department Care Team (Latest Contact Info) Description 10/22/2008 13:05 [facility] Hospital Encounter [address] [address] Se Smith MD [address] [place] [phone] Unknown, Provider, Discharge Disposition: Auto Discharge Social [...]
--- OUTSIDE RECORDS SUMMARY | 2024-07-10 00:30 | XMS_ITS | Encounter Summary ---
Author Organization [facility] Address [address] [place] [address] Care Team Providers Care Medical Billing Assistant Name Role Phone Se Smith MD Primary Care Provider +1- [phone] Encounter Details Date Type Department Care Team (Late st Contact Info) Description 09/03/2007 Before PRISM Converted Visit (Maple) [facility] - Maple conversion [address] [place] [address] Justus Watson MD [facility] [employer] [address] [place], [place] [phone] Social History Tobacco Use Types Packs/Day Years Used Date Smoking Tobacco: Never Assessed Sex and Gender Information Value Date Recorded Sex Assigned at Not on file Gender Identity Not on file Sexual Orientation Not on file documented as of this encounter Progress Notes * Justus Watson - 08/31/2009 1043 EST Primary Care Internal Medicine 1 [place], [place] [phone] PROGRESS/FOLLOWUP NOTE - 09/03/2007 CURRENT PROBLEM LIST [...] period now resolved. Other people in the fci also had similar symptoms. See previous notes [...] was completed for the patient for his fci. Patient is to followup in the future [...] Gregg MD - Justus Watson MD - [facility] Job ID: [id number] Doc ID: [id number] cc: - Justus Watson MD - [facility] Job ID: [id number] Doc ID: [id number] cc: documented in this encounter Plan of Treatment Not on file documented as of this encounter Visit Diagnoses Not on filedocumented in this encounter Care Teams Medical Billing Assistant Relationship Specialty Start Date End Date Se Smith MD 1 [facility] 1 [place] [phone] PCP - General 02/24/09 02/11/13 documented as of this encounter
--- OUTSIDE RECORDS SUMMARY | 2024-07-10 00:30 | XMS_ITS | Encounter Summary ---
Author Organization [facility] Address [address] [place] [address] Care Team Providers Care Ambulette Driver Name Role Phone Unavailable Primary Care Provider Unavailabl e Encounter Details Date Type Department Care Team (Late st Contact Info) Description 02/23/2008 9:54 EDT Hospital Encounter [address] [address] Se Smith MD [address] [place] [phone] Social History Tobacco Use Types Packs/Day Years [...]
--- OUTSIDE RECORDS SUMMARY | 2024-07-10 00:30 | XMS_ITS | Encounter Summary ---
Author Organization [facility] Address [address] [place] [address] Care Team Providers Care Manager Social Name Role Phone Se Smith MD Primary Care Provider +1- [phone] Encounter Details Date Type Department Care Team (Late st Contact Info) Description 01/10/2009 Before PRISM Converted Visit (Maple) [facility] - Maple conversion [address] [place] [address] Justus Watson MD FA [employer] [address] [place], [place] [phone] Social History Tobacco Use Types Packs/Day Years Used Date Smoking Tobacco: Never Assessed Sex and Gender Information Value Date Recorded Sex Assigned at Not on file Gender Identity Not on file Sexual Orientation Not on file documented as of this encounter Progress Notes * Justus Watson - 11/23/2009 0301 EST Primary Care Internal Medicine [address] [place] [phone] PROGRESS/FOLLOWUP NOTE - 01/10/2009 CHIEF COMPLAINT Depression/self-harm. HISTORY OF PRESENT ILLNESS Patient is a 28-year-old male with a history of mental delay, behavioral issues, ADHD, and sexual disinhibitions who is currently residing at [facility] through the [facility], which [facility], and for the past several weeks has [...] these. Is under 24-hour supervision through the [facility] and has been discussing his feelings and thoughts with therapists as well as case management and will be seeing his psychiatrist for a medication review soon. Patient has no thoughts or feelings of hurting others. His psychiatrist through the [facility] is Dr. Lujan. Patient also today [...] the exam room with his escort from [facility] present. HEENT: Extraocular eye movements intact. [...] with self-harm. Currently receiving therapy through the [facility] including therapy case management as well [...] Justus Watson MD - [facility] Job ID: [id number] Doc ID: [id number] cc: documented in this encounter Plan of Treatment Not on file documented as of this encounter Visit Diagnoses Not on filedocumented in this encounter Care Teams Manager Social Relationship Specialty Start Date End Date eS Smith MD 1 [facility] Level 1 [place] [phone] PCP - General 02/24/09 02/11/13 documented as of this encounter
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
--- OUTSIDE RECORDS SUMMARY | 2024-07-10 00:31 | XMS_ITS | Encounter Summary ---
Author Organization [facility] Address [address] [place] [address] Care Team Providers Care Skill Labor Name Role Phone Unavailable Primary Care Provider Unavailabl e Encounter Details Date Type Department Care Team (Latest Contact Info) Description 06/12/2006 11:12 EDT - 06/12/2006 11:59 EDT Hospital Encounter [address] [address] Se Smith MD [address] [place] [phone] Discharge Disposition: Auto Discharge Social History [...]
--- OUTSIDE RECORDS SUMMARY | 2024-07-10 00:31 | XMS_ITS | Encounter Summary ---
Author Organization [facility] Address [address] [place] [address] Care Team Providers Care Principal Technical Specialist Name Role Phone Unavailable Primary Care Provider Unavailabl e Encounter Details Date Type Department Care Team (Late st Contact Info) Description 07/25/2005 13:08 EDT Hospital Encounter [facility] [address] [place] [address] Rome Munoz MD [address] [place] [address] Social History Tobacco Use Types [...]
--- OUTSIDE RECORDS SUMMARY | 2024-07-10 00:31 | XMS_ITS | Encounter Summary ---
Author Organization [facility] Address [address] [place] [address] Care Team Providers Care Concrete Inspector Name Role Phone Unavailable Primary Care Provider Unavailabl e Encounter Details Date Type Department Care Team (Latest Contact Info) Description 06/19/2006 12:33 EDT Hospital Encounter [facility] [address] [place] [address] Inder Mathias MD Discharge Disposition: Auto Discharge [...]
--- OUTSIDE RECORDS SUMMARY | 2024-07-10 00:31 | XMS_ITS | Encounter Summary ---
Author Organization [facility] Address [address] [place] [address] Care Team Providers Care Heat Treater Helper Name Role Phone Se Smith MD Primary Care Provider +1- [phone] Encounter Details Date Type Department Care Team (Late st Contact Info) Description 09/02/2006 Before PRISM Converted Visit (Maple) [facility] - Maple conversion [address] [place] [address] Aleks Galo MD [address] [place] [address] Social History Tobacco Use Types Packs/Day Years Used Date Smoking Tobacco: Never Assessed Sex and Gender Information Value Date Recorded Sex Assigned at Not on file Gender Identity Not on file Sexual Orientation Not on file documented as of this encounter Progress Notes * Aleks Galo - 10/14/2009 1505 EST Primary Care Internal Medicine [address] [place] [id number] PROGRESS/FOLLOWUP NOTE - 09/02/2006 SUBJECTIVE: This is a 26-year-old white male who presents to [facility] clinic complaining of episodic dizziness, especially when [...] be placed on Lupron injection by the [facility], as per patient and pool installer from [facility]. Heme and lymph: No history of anemia. [...] motor skills. Cerebellar examination is also intact. Kxarmn-tuzm-rxifwvrzybke. Alternating hands intact, and heel-mix intact. Gait [...] The patient is recommended to use Dramamine efhz-jzp-iovegvq, and the patient is instructed to return [...] MD [facility] - LT Job ID: [id number] Document ID: [id number] cc: documented in this encounter Plan of Treatment Not on file documented as of this encounter Visit Diagnoses Not on filedocumented in this encounter Care Teams Heat Treater Helper Relationship Specialty Start Date End Date Se Smith MD 1 [facility] 1 [place] [phone] PCP - General 02/24/09 02/11/13 documented as of this encounter
--- OUTSIDE RECORDS SUMMARY | 2024-07-10 00:31 | XMS_ITS | Encounter Summary ---
Author Organization [facility] Address [address] [place] [address] Care Team Providers Care Passenger Service Representative Name Role Phone Unavailable Primary Care Provider Unavailabl e Encounter Details Date Type Department Care Team (Late st Contact Info) Description 08/28/2004 17:07 [facility] Hospital Encounter [facility] [address] [place] [address] Marla Verdin MD [address] [place] [address], [address] [place], [place] [phone] Social History Tobacco Use Types Packs/Day Years [...]
--- OUTSIDE RECORDS SUMMARY | 2024-07-10 00:31 | XMS_ITS | Encounter Summary ---
Author Organization [facility] Address [address] [place] [address] Care Team Providers Care Optical Manager Name Role Phone Unavailable Primary Care Provider Unavailabl e Encounter Details Date Type Department Care Team (Late st Contact Info) Description 05/24/2006 13:55 EDT Hospital Encounter [address] [address] Se Smith MD [address] [place] [phone] Social History Tobacco Use Types Packs/Day Years [...]
--- OUTSIDE RECORDS SUMMARY | 2024-07-10 00:31 | XMS_ITS | Encounter Summary ---
Author Organization [facility] Address [address] [place] [address] Care Team Providers Care Home Health Manager Name Role Phone Se Smith MD Primary Care Provider +1- [phone] Encounter Details Date Type Department Care Team (Late st Contact Info) Description 08/28/2004 Office Visit [facility] conversion [address] [place] [address] Marla Verdin MD [address] [place] [address], [address] [place], [place] [phone] Social History Tobacco Use Types Packs/Day Years [...] not better. Follow up with Doctor carlos [phone]) or Dr. Villatoro to discuss having edges of nails removed so problem stops happening. Marla Verdin M.D. (Electronically signed Marla Verdin M.D. 08/28/2004 21:27) Physician's Clinical Report Walk-In [facility] ??? Nursing Summary Registration Date/Time [...] Arrived by private vehicle and accompanied by (bilingual patient support caseworker.). Historian: (bilingual patient support caseworker). Primary physician (md smith called pt told to come here for this problem). --1758 Claudia Benton L.P.N. PHYSICAL ASSESSMENT Alert. Appears anxious. Oriented X 3. Limping gait. Skin is warm. (pt with reddness in rt great toe.). --1758 Caludia Benton L.P.N. NURSING PROGRESS NOTES Progress Extremity [...] on filedocumented in this encounter Care Teams Home Health Manager Relationship Specialty Start Date End Date Se Smith MD 1 [facility] Level [address] [place] [phone] PCP - General 02/24/09 02/11/13 documented as of this encounter
--- OUTSIDE RECORDS SUMMARY | 2024-07-10 00:31 | XMS_ITS | Encounter Summary ---
Author Organization [facility] Address [address] [place] [address] Care Team Providers Care Chief Arson Division Name Role Phone Unavailable Primary Care Provider Unavailabl e Encounter Details Date Type Department Care Team (Latest Contact Info) Description 04/25/2006 12:53 EDT Hospital Encounter [address] [address] Se Smith MD [address] [place] [phone] Discharge Disposition: Auto Discharge Social History Tobacco [...]
--- OUTSIDE RECORDS SUMMARY | 2024-07-10 00:31 | XMS_ITS | Encounter Summary ---
Author Organization [facility] Address [address] [place] [address] Care Team Providers Care Electric Vehicle Electrician Name Role Phone Se Smith MD Primary Care Provider +1- [phone] Encounter Details Date Type Department Care Team (Late st Contact Info) Description 09/07/2005 Office Visit [facility] - Maple conversion [address] [place] [address] Yong Armenta MD Social History Tobacco Use [...] has had a headache and nausea. Treatment FISH AND WILDLIFE TECHNICIAN: Recently seen in the office; seen for similar symptoms. SOCIAL HX: Nonsmoker. Denies alcohol use. Residence: senior living Arrived by private vehicle and accompanied by urgent care nurse practitioner. Historian: patient. --2043 Tati Bailon R.N. PHYSICAL [...] Discharge instructions reviewed with the patient and electric blanket wirer. Provided and reviewed written instructions. Patient verbalized understanding. Written instructions provided in Spanish. The patient was discharged home and accompanied by electric blanket wirer. The patient left the Emergency Department ambulatory and via private vehicle. Rewinder Operator driving. --2145 Evelio Inman R.N., R.N. Barb Callahan R.N. Locked/Released at 09/08/2005 7:53 by Elaine Oliva R.N. documented in this encounter Plan of Treatment Not on file documented as of this encounter Visit Diagnoses Not on filedocumented in this encounter Care Teams Electric Vehicle Electrician Relationship Specialty Start Date End Date Se Smith MD 1 [facility] Level [address] [place] [phone] PCP - General 02/24/09 02/11/13 documented as of this encounter
--- OUTSIDE RECORDS SUMMARY | 2024-07-10 00:31 | XMS_ITS | Encounter Summary ---
Author Organization [facility] [place] [address] Care Team Providers Care Mapping Pilot Name Role Phone Polly Bradley Primary Care Provider Reason for Visit * Reason Onset Date Comments Prior Authorization 06/11/2024 Clobetasol P ropionate 0.05% ointment Encounter Details Date Type Department Care Team (Late st Contact Info) Description 06/11/2024 Telephone Dermatology at [facility] [address] [place] [phone] Miri Eugene CCMA Prior Authorization (Clobetasol Propionate 0.05% ointment) Social History Tobacco Use Types Packs/Day Years Used Date Smoking Tobacco: Never Assessed Sex and Gender Information Value Date Recorded Sex Assigned at Not on file Gender Identity Not on file Sexual Orientation Not on file documented as of this encounter Miscellaneous Notes * Telephone Encounter - Norbert Denson CMA - 06/15/2024 10:03 AM EDT Images from the original note were not included. Submitted Date: Submitted Date: 06/11/2024 PA Outcome: PA Denial [place] [address] DENIED: Clobetasol Propionate 0.05% ointment Case/Reference #: n/a Additional Information from Insurance: * Telephone Encounter - Miri Eugene CCMA - 06/11/2024 10:44 AM EDT Images from the original note were not included. PA Submitted Submitted Date: Date Submitted: 06/11/2024 Medication Prior Authorization Patient: Haja Walker Patient : 1980 Insurance Company: [employer] Medicare Sent via: Percentil Armstrong: [id number] Physician: Sierra Nielson Medication Requested: clobetasoL (Temovate) 0.05 % Ointment Frequency/Sig: Apply to spots on arms twice a day for 2 weeks, then Saturday, Saturday, Saturday for maintenance. 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] Prior medications trialed in this patient: Medication: Tacrolimus Approx Dates: Outcome/Adverse Reactions: Inadequate response Medication: Pimecrolimus Approx Dates: Outcome/Adverse Reactions: Inadequate response Medication: anti-fungal cream Approx Dates: Outcome/Adverse Reactions: Inadequate response Additional Notes: Sierra Nielson MD Resident Dermatology Progress Notes Signed Encounter Date: 06/08/2024 DEPARTMENT OF DERMATOLOGY Medical Dermatology Clinic Note Provider: Sierra Nielson MD Patient's preferred name Simone Preferred contact method for results []Phone []myD-H []Letter Detailed phone message OK? Y Are there any other people with whom we may discuss your care? Wilian March Past Medical History Date, location, treatment Melanoma N Dysplastic nevi N SCC N BCC N AKs N UV Exposure & Protection N Other relevant past medical history Diabetes Depression Asthma Family History Details Melanoma N NMSC N Other relevant family history Social History Occupation: Hobbies: Other: Single Pre-Procedure Questions Details Allergy to lidocaine, epinephrine, Dermabond, chlorhexidine, or adhesives N Bleeding disorder or blood thinners N Implanted devices (Pacemaker, defibrillator, deep brain stimulator, cochlear implant) N History of Present Illness: Haja Walker is a 43 y.o. Patient is referred to the clinic at the request of Polly Bradley for tinea or the arms and hands. He reports trying an anti-fungal cream for 10 days that did not completely clear them. This is effecting his ability to work. Review of Systems: General: Feeling well. Skin: No other skin concerns. Medications: Reviewed in eD-H Allergies: Reviewed in eD-H Skin Examination: Focused skin examination of the BL arms and hands was normal with the exception of the findings below. Assessment/Plan #. Granuloma annulare Annular pink plaques on the extensor surfaces of the BL arms and dorsal hands. DDX: Generalized GA vs sarcoidosis (-) upper respiratory symptoms A1C >15 in February Triglycerides 149 -Advised is a benign granulomatous inflammatory disorder of the dermis or subcutis. Its cause is unknown. Small dermal papules may present in isolation or coalesce to form smooth annular plaques, often on extremities. -the lesions usually resolve over a 2 year course -various treatments have been used including topical steroids,ILK, Tacrolimus/Pimecrolimus and systemic treatments in severe GA Plan: Rx Clobetasol 0.5% ointment BID to the affected area for 2 weeks then take one week off and repeat as needed till lesion resolve; advised to avoid apply to normal surrounding skin to avoid skin atrophy - Letter sent for patient's work documented in this encounter Plan of Treatment Upcoming Encounters Date Type Department Care Team (Late st Contact Info) Description 08/11/2024 10:20 AM EDT Office Visit Dermatology at [address] [address] Sierra Nielson MD [facility] [address] [place] [address] documented as of this encounter Visit Diagnoses Not on filedocumented in this encounter Care Teams Mapping Pilot Relationship Specialty Start Date End Date Polly Bradley [address] [place] [address] PCP - General Family Medicine 03/19/24 documented as of this encounter
--- OUTSIDE RECORDS SUMMARY | 2024-07-10 00:31 | XMS_ITS | Encounter Summary ---
Author Organization [facility] Address [address] [place] [address] Care Team Providers Care Automatic Pilot Mechanic Name Role Phone Unavailable Primary Care Provider Unavailabl e Encounter Details Date Type Department Care Team (Latest Contact Info) Description 07/14/2003 10:20 EDT - 07/14/2003 11:59 EDT Hospital Encounter [facility] Emergency Department - [facility] [address] [place] [address] Emergency, Default, MD Discharge Disposition: Home or [...]
--- OUTSIDE RECORDS SUMMARY | 2024-07-10 00:31 | XMS_ITS | Encounter Summary ---
Author Organization [facility] Address [address] [place] [address] Care Team Providers Care Division Service Manager Name Role Phone Unavailable Primary Care Provider Unavailabl e Encounter Details Date Type Department Care Team (Late st Contact Info) Description 09/02/2006 16:06 [facility] Hospital Encounter [facility] - [address] [address] Karena Moss MD [address] [place] [address] Aleks Galo MD [address] [place] [address] Discharge Disposition: Auto Discharge Social [...]
--- OUTSIDE RECORDS SUMMARY | 2024-07-10 00:31 | XMS_ITS | Encounter Summary ---
Author Organization [facility] Address [facility] [place] [place] [address] Care Team Providers Care Sr. Payroll Processor Name Role Phone Polly Bradley Primary Care Provider +1- [phone] Reason for Visit * Consultation (Routine) - Authorized Specialty Diagnoses / Procedures Referred By Romeo bhatt Referred To Contact Dermatology Diagnoses Tinea corporis Polly Bradley [address] [place] [address] [facility] [address] [place] [address] Referral ID Status Reason Start Date Expiration Date Visits Requested Visits Authorized [id number] Authorized Consult, Test & Treat PCP Updated and/or Approved 03/19/2024 03/19/2025 6 6 Encounter Details Date Type Department Care Team (Late st Contact Info) Description 06/08/2024 3:00 PM EDT Office Visit Dermatology at [facility] [address] [place] [phone] Sierra Nielson MD [facility] [place] [address] Granuloma annulare Social History Tobacco Use Types Packs/Day Years Used Date Smoking Tobacco: Never Assessed Sex and Gender Information Value Date Recorded Sex Assigned at Not on file Gender Identity Not on file Sexual Orientation Not on file documented as of this encounter Progress Notes * Sierra Nielson MD - 06/08/2024 3:00 PM EDT Images from the original note were not included. DEPARTMENT OF DERMATOLOGY Medical Dermatology Clinic Note [...] atrophy - Letter sent for patient's work Figure 1 Figure 2 Figure 3 Figure 4 Photo(s) taken and charted with patient's verbal consent. Other: N/A RTC: 2 months for GA FUV []Note routed to medical office secretary []Recall placed in scheduling system [x]Appointment scheduled at checkout Scribe attestation: Eder Hussein has performed the documentation for this encounter in the presence of and acting as a scribe for Sierra Nielson MD. I performed the above scribed service and agree with the accuracy of the documentation in this encounter. Reviewed and signed by: Sierra iNelson MD Dermatology [facility] Patient seen and evaluated with staff admittance attendant: Brendan Abraham MD Department of Dermatology [facility] * Brendan Abraham MD - 06/08/2024 3:00 PM EDT I directly supervised Sierra Nielson MD in the care of this Dermatology patient in person. I saw and evaluated this patient with Sierra Nielson MD. Sierra Nielson MD presented the history and physical exam details to me, then we saw the patient together, and I confirmed these findings. I agree with details as written. My physical examinationconfirms Sierra Nielson MD's findings. The assessment and plan were formulated in discussion with me at the time of visit, and I agree with them as documented. Brendan Abraham MD Staff Help Desk Support Department of Dermatology [facility] documented in this encounter Plan of Treatment Upcoming Encounters Date Type Department Care Team (Late st Contact Info) Description 08/11/2024 10:20 AM EDT Office Visit Dermatology at [facility] [place] [facility] [address] [place] [address] Sierra Nielson MD [facility] [place] [address] documented as of this encounter Visit Diagnoses Diagnosis Granuloma annulare Other specified erythematous condition documented in this encounter Care Teams Sr. Payroll Processor Relationship Specialty Start Date End Date Polly Bradley [address] [place] [address] PCP - General Family Medicine 03/19/24 documented as of this encounter
--- OUTSIDE RECORDS SUMMARY | 2024-07-10 00:31 | XMS_ITS | Encounter Summary ---
Author Organization [facility] Address [address] [place] [address] Care Team Providers Care Sales Order Coordinator Name Role Phone Unavailable Primary Care Provider Unavailabl e Encounter Details Date Type Department Care Team (Late st Contact Info) Description 01/09/2005 13:26 [facility] Hospital Encounter [address] [address] Vernon Arana MD 0 [place] [phone] Social History Tobacco Use Types Packs/Day Years [...]
--- OUTSIDE RECORDS SUMMARY | 2024-07-10 00:31 | XMS_ITS | Encounter Summary ---
Author Organization [facility] Address [address] [place] [address] Care Team Providers Care System Planning Engineer Name Role Phone Se Smith MD Primary Care Provider +1- [phone] Encounter Details Date Type Department Care Team (Late st Contact Info) Description 10/27/2004 Results Only [facility] Adult Primary Care - [address] [address] Se Smith MD 1 [facility] 1 [place] [address] Social History Tobacco Use Types [...] & BLOOD GAS ORDERABLES Performing Organization Address [facility] de Phone Number [facility] [address] [place] [address] * LIPID PROFILE (INCLUDES CHOLESTEROL, TRIGLYCERIDES, HDL, LDL) (10/27/2004 10:47 EST) Cholesterol 116 mg/dl [facility] Comment: Desirable:<200 Borderline:200-239 High Risk:>[id number] Triglycerides 41 35 - 160 mg/dl [facility] HDL 52 mg/dl [facility] Comment: Highly Desirable:>60 Desirable:35-60 High Risk:<35 LDL, Calculated 56 mg/dl [facility] Comment: Desirable:<130 Borderline:130-159 High Risk:>[id number] Chol/HDL Ratio 2.2 [facility] Fasting? No [facility] 10/27/2004 10:4 7 EST 10/27/2004 13:00 EST Se Smith MD CHEMISTRY & BLOOD GAS ORDERABLES Performing Organization Address [facility] de Phone Number [facility] [address] [place] [address] * (ABNORMAL) LH (10/27/2004 10:47 EST) LH <0.1(L) 2 - 9 mIU/ml [facility] 10/27/2004 10:4 7 EST 10/27/2004 13:00 EST Se Smith MD CHEMISTRY & BLOOD GAS ORDERABLES Performing Organization Address [facility] Co de Phone Number [facility] [address] [place] [address] * HCG (10/27/2004 10:47 EST) HCG <4 <4 mIU/ml [facility] Comment: Reference Range: Positive = >10 Borderline = 4-10 recommend repeat. Negative = <4 10/27/2004 10:4 7 EST 10/27/2004 13:00 EST Se Smith MD CHEMISTRY & BLOOD GAS ORDERABLES Performing Organization Address City/State/[facility] Co de Phone Number [facility] [address] [place] [address] documented in this encounter Visit Diagnoses Not on filedocumented in this encounter Care Teams System Planning Engineer Relationship Specialty Start Date End Date Se Smith MD 1 [facility] 1 [place] [address] PCP - General 02/24/09 02/11/13 documented as of this encounter
--- OUTSIDE RECORDS SUMMARY | 2024-07-10 00:31 | XMS_ITS | Encounter Summary ---
Author Organization [facility] Address [address] [place] [address] Care Team Providers Care Award Clerk Name Role Phone Unavailable Primary Care Provider Unavailabl e Encounter Details Date Type Department Care Team (Late st Contact Info) Description 07/17/2005 15:16 EDT Hospital Encounter [facility] - Other [address] [place] [address] Se Smith MD [address] [place] [address] 1 [place] [address] Jamshid Mendiola MD [facility] [address] [place] [address] Discharge Disposition: Auto Discharge Social History Tobacco [...] ISOLATED [facility] Report Status Final [id number] [facility] 07/17/2005 14:5 1 EDT 07/17/2005 19:04 EDT Jamshid Mendiola MD MICROBIOLOGY - GENER AL ORDERABLES [facility] [address] [place] [address] documented in this encounter Visit Diagnoses Not on filedocumented in this encounter
--- OUTSIDE RECORDS SUMMARY | 2024-07-10 00:31 | XMS_ITS | Encounter Summary ---
Author Organization [facility] Address [address] [place] [address] Care Team Providers Care Gallery Intern Name Role Phone Se Smith MD Primary Care Provider +1- [phone] Encounter Details Date Type Department Care Team (Late st Contact Info) Description 07/25/2005 Before PRISM Converted Visit (Maple) [facility] - Maple conversion [address] [place] [address] Rome Munoz MD [address] [place] [address] Social History Tobacco Use Types Packs/Day Years [...] A - mld Job ID: Document ID: [id number] cc: Se Smith MD documented in this encounter Plan of Treatment Not on file documented as of this encounter Visit Diagnoses Not on filedocumented in this encounter Care Teams Gallery Intern Relationship Specialty Start Date End Date Se Smith MD [address] [place] [address] 1 [place] [phone] PCP - General 02/24/09 02/11/13 documented as of this encounter
--- OUTSIDE RECORDS SUMMARY | 2024-07-10 00:31 | XMS_ITS | Encounter Summary ---
Author Organization [facility] Address [address] [place] [address] Care Team Providers Care Plastics Spreading Machine Operator Name Role Phone Se Smith MD Primary Care Provider +1- [phone] Encounter Details Date Type Department Care Team (Late st Contact Info) Description 01/28/2006 Office Visit [facility] Adult Primary Care - [address] [address] Se Smith MD [address] [address] Social History Tobacco Use Types [...] on filedocumented in this encounter Care Teams Plastics Spreading Machine Operator Relationship Specialty Start Date End Date Se Smith MD [address] [address] PCP - General 02/24/09 02/11/13 documented as of this encounter
--- OUTSIDE RECORDS SUMMARY | 2024-07-10 00:31 | XMS_ITS | Encounter Summary ---
Author Organization [facility] Address [address] [place] [address] Care Team Providers Care Skin Diver Name Role Phone Unavailable Primary Care Provider Unavailabl e Encounter Details Date Type Department Care Team (Latest Contact Info) Description 01/09/2003 12:05 EST Hospital Encounter [facility] Emergency Department - [facility] [address] [place] [address] Emergency, Default, MD Discharge Disposition: Home or [...] & BLOOD G ORDERABLES Performing Organization Address [facility] de Phone Number [facility] [address] [place] [address] * ELECTROLYTES (01/09/2003 15:19 EST) Sodium 138 [...] & BLOOD G ORDERABLES Performing Organization Address [facility] de Phone Number [facility] [address] [place] [address] * CREATININE (01/09/2003 15:19 EST) Creatinine 1.0 0.7 - 1.5 mg/dl [facility] Comment:Slight hemolysis 01/09/2003 15:1 9 EST 01/09/2003 15:21 EST Default Emergency MD HISTORICAL LAB FOR SQ LOAD Performing Organization Address [facility] de Phone Number [facility] [address] [place] [address] * (ABNORMAL) HEMAGRAM & DIFF (01/09/2003 15:19 [...] LAB Type of Diff: Automated [facility] 01/09/2003 15:1 9 EST 01/09/2003 15:21 EST Default Emergency HISTORICAL LAB FOR SQ LOAD Performing Organization Address [facility] de Phone Number [facility] [address] [place] [address] * BUN (01/09/2003 15:19 EST) BUN 19 10 - 26 mg/dl [facility] Comment: Results may be affected due to hemolysis. Slight hemolysis 01/09/2003 15:1 9 EST 01/09/2003 15:21 EST Default Emergency MD CHEMISTRY & BLOOD G ORDERABLES Performing Organization Address [facility] Co de Phone Number [facility] [address] [place] [address] documented in this encounter Visit Diagnoses Not on filedocumented in this encounter
--- OUTSIDE RECORDS SUMMARY | 2024-07-10 00:31 | XMS_ITS | Encounter Summary ---
Author Organization [facility] Address [address] [place] [address] Care Team Providers Care Paper Folding Machine Operator Name Role Phone Se Smith MD Primary Care Provider +1- [phone] Encounter Details Date Type Department Care Team (Late st Contact Info) Description 11/26/2005 Office Visit [facility] - Maple conversion [address] [place] [address] Ashley Uribe MD [address] [place] [phone] Social History Tobacco Use Types Packs/Day Years Used Date Smoking Tobacco: Never Assessed Sex and Gender Information Value Date Recorded Sex Assigned at Not on file Gender Identity Not on file Sexual Orientation Not on file documented as of this encounter Progress Notes * Ashley Uribe MD - 12/21/2009 194 EST [facility] - Physician Summary Registration Date/Time: 11/26/2005 19:37 [...] needed for pain. Follow-up: [facility], , [place] [address]. Follow up in ten days. (Electronically signed [...] Discharge instructions reviewed with the patient and building economist. Work note given. Patient and building economist verbalized understanding. Written instructions provided in Pry[place]. Thepatient was discharged home and accompanied by building economist. The patient left the Emergency Departmentambulatory and via private vehicle. Fixed Income Portfolio Manager driving. Departure time: 21:44. --[id number] Claudia Benton L.P.N. Locked/Released at 11/26/2005 21:44 by Claudia Benton L.P.N. documented in this encounter Plan of Treatment Not on file documented as of this encounter Visit Diagnoses Not on filedocumented in this encounter Care Teams Paper Folding Machine Operator Relationship Specialty Start Date End Date Se Smith MD 1 [facility] 1 [place] [address] PCP - General 02/24/09 02/11/13 documented as of this encounter
--- OUTSIDE RECORDS SUMMARY | 2024-07-10 00:31 | XMS_ITS | Encounter Summary ---
Author Organization [facility] Address [address] [place] [address] Care Team Providers Care Equipment Operator Name Role Phone Unavailable Primary Care Provider Unavailabl e Encounter Details Date Type Department Care Team (Late st Contact Info) Description 11/26/2005 19:37 EST Hospital Encounter [address] [address] Ashley Uribe MD 0 [place] [phone] Discharge Disposition: Auto Discharge Social History Tobacco [...] identified and the ankle mortis is intact. [facility] Procedure Note Eder Peres MD - 05/20/2009 JUMPED OFF TRUCK SUFFERING INVERSION INJURY, ++ SWELLING, R/O FX RIGHT ANKLE, 3 OR MORE VIEWS: 11/26/05, 2100 CLINICAL HISTORY: Jumped off truck, inversion injury, swelling. Rule out fracture. Three views were obtained. There is significant soft tissue swelling, particularly laterally. No fracture is identified and the ankle mortis is intact. [facility] Ashley Uribe MD IMG DIAGNOSTIC I MAGING ORDERABLES documented in this encounter Visit Diagnoses Not on filedocumented in this encounter
--- OUTSIDE RECORDS SUMMARY | 2024-07-10 00:31 | XMS_ITS | Encounter Summary ---
Author Organization [facility] Address [address] [place] [address] Care Team Providers Care Line Service Technician Name Role Phone Se Smith MD Primary Care Provider +1- [phone] Encounter Details Date Type Department Care Team (Late st Contact Info) Description 06/12/2006 Before PRISM Converted Visit (Maple) [facility] - Maple conversion [address] [place] [address] Se Smith MD [address] [place] [phone] Social History Tobacco Use Types Packs/Day Years Used Date Smoking Tobacco: Never Assessed Sex and Gender Information Value Date Recorded Sex Assigned at Not on file Gender Identity Not on file Sexual Orientation Not on file documented as of this encounter Progress Notes * Se Smith MD - 10/14/2009 9438 EST Primary Care Internal Medicine [address] [place] [phone] PROGRESS/FOLLOWUP NOTE - 06/12/2006 #4 ALLERGIC RHINITIS [...] Smith MD P - lfb Job ID: [id number] Document ID: [id number] cc: documented in this encounter Plan of Treatment Not on file documented as of this encounter Visit Diagnoses Not on filedocumented in this encounter Care Teams Line Service Technician Relationship Specialty Start Date End Date Se Smith MD 1 [facility] 1 [place] [address] PCP - General 02/24/09 02/11/13 documented as of this encounter
--- OUTSIDE RECORDS SUMMARY | 2024-07-10 00:31 | XMS_ITS | Encounter Summary ---
Author Organization [facility] Address [address] [facility] [place] [address] Care Team Providers Care Svp Of Digital Name Role Phone Polly Bradley Primary Care Provider Reason for Referral * Consultation (Routine) - Authorized Specialty Diagnoses / Procedures Referred By Romeo bhatt Referred To Contact Dermatology Diagnoses Tinea corporis Polly Bradley [address] [place] [address] [facility] Dermatology [address] [place] [address] Referral ID Status Reason Start Date Expiration Date Visits Requested Visits Authorized [id number] Authorized Consult, Test & Treat PCP Updated and/or Approved 03/19/2024 03/19/2025 6 6 Encounter Details Date Type Department Care Team (Late st Contact Info) Description 03/19/2024 Transcribe Orders eDH Incoming Referrals [phone] Polly Bradley [address] [place], [place] [address] Tinea corporis Social History Tobacco Use Types [...] 10:20 AM EDT Office Visit Dermatology at [facility] [address] [place] [address] Sierra Nielson MD [facility] [address] TE[place] [address] Scheduled Referrals Name Type Priority Associated Diagnoses Order Schedule Referral to Dermatology Outpatient Referral Routine Tinea corporis Ordered: 03/19/2024 documented as of this encounter Visit Diagnoses Diagnosis Tinea corporis Dermatophytosis of the body documented in this encounter Care Teams Svp Of Digital Relationship Specialty Start Date End Date Polly Bradley [address] [place] [address] PCP - General Family Medicine 03/19/24 documented as of this encounter
--- OUTSIDE RECORDS SUMMARY | 2024-07-10 00:31 | XMS_ITS | Encounter Summary ---
Author Organization [facility] Address [address] [place] [address] Care Team Providers Care Steeping Press Tender Name Role Phone Unavailable Primary Care Provider Unavailabl e Encounter Details Date Type Department Care Team (Late st Contact Info) Description 05/16/2004 17:26 EDT Hospital Encounter [facility] - Other [address] [place] [address] Se Smith MD 1 [facility] Level 1 [place] [address] Social History Tobacco Use Types [...]
--- OUTSIDE RECORDS SUMMARY | 2024-07-10 00:31 | XMS_ITS | Encounter Summary ---
Author Organization [facility] Address [facility] [place] [address] Care Team Providers Care Stock Letterer Name Role Phone Unavailable Primary Care Provider Unavailabl e Encounter Details Date Type Department Care Team (Late st Contact Info) Description 11/29/2021 Interpretation Only [facility] [address] [place] [phone] Sam Hedrick, DPM [address] [place] [address] Social History Tobacco Use Types Packs/Day Years [...] 10:20 AM EDT Office Visit Dermatology at [facility] [address] [place] [address] Sierra Nielson MD [facility] [place] [address] documented as of this encounter Procedures Procedure Name Priority Date/Time Associated Diagnosis Comments XR FOOT MIN 3 VIEWS BILAT Routine 11/29/2021 11:03 AM EST documented in this encounter Results * XR Foot Min 3 views Bilat (Generic) (11/29/2021 11:03 AM EST) PT CLASS O RAD ADMITDTTM RAD PT RAD INFO [id number]^W BAILEY^SAM^ P RAD EXAM DESC [id number]^XR RIGHT [...] who have questions please contact the health cna caregiver that requested your imaging first. ? Electronically signed by: Jabier Gonsales MD, [facility] ([phone]), at 11/29/2021 11:22 AM Narrative 11/29/2021 11:22 AM EST EXAMINATION: XR [...] patients who have questions please contactthe health cna caregiver that requested your imaging first. Sam Hedrick DPM IMG DX ORDERABLES documented in this encounter Visit Diagnoses Not on filedocumented in this encounter
--- OUTSIDE RECORDS SUMMARY | 2024-07-10 00:31 | XMS_ITS | Clinical Summary ---
Author Organization [facility] Address [facility] [place] [address] Care Team Providers Care Refinery Technician Name Role Phone Polly Bradley Primary Care Provider Medications Medication Sig Dispensed Refills Start Date End Date Status clobetasoL (Temovate) 0.05 % OintmentIndications:Gr anuloma annulare Apply to spots on arms twice a day for 2 weeks, then Saturday, Saturday, Saturday for maintenance. 60 g 5 06/08/2024 Active betamethasone dipropionate (Maxivate) 0.05 % CreamIndications:Granu megan annulare Apply twice a day for 2 weeks to the arms and hands. Then only for maintenance. 30 g 06/18/2024 Active Encounters Date Type Department Care Team Description 06/17/2024 Telephone Dermatology at [facility] [address] [place] [address] Sierra Nielson MD 06/11/2024 Telephone Dermatology at [facility] [address] [place] [address] Miri Eugene [facility] Prior Authorization (Clobetasol Propionate 0.05% ointment) 06/08/2024 3:00 PM EDT Office Visit Dermatology at [facility] [address] [place] [address] Sierra Nielson MD Granuloma annularerick 06/08/2024 Travel from Last 3 Months Social History Tobacco Use Types Packs/Day Years Used Date Smoking Tobacco: Never Assessed Sex and Gender Information Value Date Recorded Sex Assigned at Not on file Gender Identity Not on file Sexual Orientation Not on file Plan of Treatment Upcoming Encounters Date Type Department Care Team (Late st Contact Info) Description 08/11/2024 10:20 AM EDT Office Visit Dermatology at [address] [place] [address] Sierra Nielson MD [facility] [place] [address] Health Maintenance Due Date Last Done Comments HIV screen 1999 Hepatitis C Screening 1999 Lipid Screening 1999 Hepatitis B vaccine (0-59 yrs) (1) 2000 Tdap adult 2000 Tetanus vaccine 2000 Covid-19 Vaccine ( - season) 06/21/202405/2022 Influenza (Flu) vaccine (1 o f 1 - Influenza standard series) 06/21/2024 Care Teams Refinery Technician Relationship Specialty Start Date End Date Polly Bradley [address] [place] [address] PCP - General Family Medicine 03/19/24
--- OUTSIDE RECORDS SUMMARY | 2024-07-10 00:31 | XMS_ITS | Encounter Summary ---
Author Organization [facility] Address [address] [place] [address] Care Team Providers Care Tree Marker Name Role Phone Se Smith MD Primary Care Provider +1- [phone] Encounter Details Date Type Department Care Team (Late st Contact Info) Description 01/03/2006 Office Visit [facility] Primary Care - [address] [phone] Nerissa Palma FNP 1 [place], [place] [phone] Social History Tobacco Use Types Packs/Day Years Used Date Smoking Tobacco: Never Assessed Sex and Gender Information Value Date Recorded Sex Assigned at Not on file Gender Identity Not on file Sexual Orientation Not on file documented as of this encounter Plan of Treatment Not on file documented as of this encounter Visit Diagnoses Not on filedocumented in this encounter Care Teams Tree Marker Relationship Specialty Start Date End Date Se Smith MD [address] [phone] PCP - General 02/24/09 02/11/13 documented as of this encounter
--- OUTSIDE RECORDS SUMMARY | 2024-07-10 00:31 | XMS_ITS | Encounter Summary ---
Author Organization [facility] [place] [address] Care Team Providers Care Prop And Scenery Maker Name Role Phone Polly Bradley Primary Care Provider Encounter Details Date Type Department Care Team (Late st Contact Info) Description 06/17/2024 Telephone Dermatology at [facility] [address] [place] [address] Sierra Nielson MD [facility] [address] TEJA [place] [address] Social History Tobacco Use Types Packs/Day Years Used Date Smoking Tobacco: Never Assessed Sex and Gender Information Value Date Recorded Sex Assigned at Not on file Gender Identity Not on file Sexual Orientation Not on file documented as of this encounter Miscellaneous Notes * Telephone Encounter - Mary Barnes - 06/17/2024 10:27 AM EDT The pharmacy called for Haja Walker and they are asking if Betamethasone could be prescribed due to the denial of the clobetasol? documented in this encounter Plan of Treatment Upcoming Encounters Date Type Department Care Team (Late st Contact Info) Description 08/11/2024 10:20 AM EDT Office Visit Dermatology at [facility] [address] [place] [address] Sierra Nielson MD [facility] [address] TEJA [place] [address] documented as of this encounter Visit Diagnoses Diagnosis Granuloma annulare Other specified erythematous condition documented in this encounter Care Teams Prop And Scenery Maker Relationship Specialty Start Date End Date Polly Bradley [address] [place] [address] PCP - General Family Medicine 03/19/24 documented as of this encounter
--- OUTSIDE RECORDS SUMMARY | 2024-07-10 00:31 | XMS_ITS | Encounter Summary ---
Author Organization [facility] Address [address] [place] [address] Care Team Providers Care Nurse Receptionist Name Role Phone Se Smith MD Primary Care Provider +1- [phone] Encounter Details Date Type Department Care Team (Late st Contact Info) Description 08/24/2004 Office Visit [facility] [address] [place] [address] Ashley Uribe MD [address] [place] [address] Social History Tobacco Use Types Packs/Day Years [...] By private vehicle. Historian- patient and historian (hospice case manager). Evaluation limited by Pt here with hospice case manager from [facility] History limited by mental retardation. HISTORY OF [...] Arrived by private vehicle and accompanied by (human services case manager.). Historian: patient and (with human services case manager). Primary care physician not notified [...] the patient. Patient verbalized understanding. (pt and human services case manager with no further questions.). The patient was discharged home and accompanied by weatherization field technician. The patient left the Emergency Department ambulatory and via private vehicle. Departure time: 20:01 --2001 Ashley Merchant L.P.N. Locked/Released at 08/24/2004 20:02 by Claudia Benton L.P.N. documented in this encounter Plan of Treatment Not on file documented as of this encounter Visit Diagnoses Not on filedocumented in this encounter Care Teams Nurse Receptionist Relationship Specialty Start Date End Date Se Smith MD 1 [facility] 1 [place] [address] PCP - General 02/24/09 02/11/13 documented as of this encounter
--- OUTSIDE RECORDS SUMMARY | 2024-07-10 00:31 | XMS_ITS | Encounter Summary ---
Author Organization [facility] Address [address] [place] [address] Care Team Providers Care Club Former Name Role Phone Se Smith MD Primary Care Provider +1- [phone] Encounter Details Date Type Department Care Team (Late st Contact Info) Description 10/30/2002 Results Only [facility] Adult Primary Care - [address] [address] Se Smith MD 1 [facility] 1 [place] [address] Social History Tobacco Use Types [...] BLOOD GAS ORDERABLES [facility] [address] [place] [address] * LIPID PROFILE (INCLUDES CHOLESTEROL, TRIGLYCERIDES, HDL, LDL) (10/30/2002 11:57 EST) Cholesterol 155 mg/dl [facility] Comment: Desirable:<200 Borderline:200-239 High Risk:>do=767 Triglycerides 69 35 - 160 mg/dl [facility] HDL 61 mg/dl [facility] Comment: Highly Desirable:>60 Desirable:35-60 High Risk:<35 LDL, Calculated 80 mg/dl [facility] Comment: Desirable:<130 Borderline:130-159 High Risk:>un=671 Chol/HDL Ratio 2.5 [facility] 10/30/2002 11:5 7 EST 10/30/2002 17:21 EST Se Smith MD CHEMISTRY & BLOOD GAS ORDERABLES Performing Organization Address [facility] Co de Phone Number [facility] [address] [place] [address] documented in this encounter Visit Diagnoses Not on filedocumented in this encounter Care Teams Club Former Relationship Specialty Start Date End Date Se Smith MD 1 [facility] 1 [place] [address] PCP - General 02/24/09 02/11/13 documented as of this encounter
--- OUTSIDE RECORDS SUMMARY | 2024-07-10 00:31 | XMS_ITS | Encounter Summary ---
Author Organization [facility] Address [address] [place] [address] Care Team Providers Care Dope Pourer Name Role Phone Unavailable Primary Care Provider Unavailabl e Encounter Details Date Type Department Care Team (Late st Contact Info) Description 10/30/2002 14:50 EST Hospital Encounter [facility] - Other [address] [place] [address] Se Smith MD 1 [facility] Level 1 [place] [phone] Unknown, Provider, Social History Tobacco Use Types [...]
--- OUTSIDE RECORDS SUMMARY | 2024-07-10 00:31 | XMS_ITS | Encounter Summary ---
Author Organization [facility] Address [address] [place] [address] Care Team Providers Care Roof Fitter Name Role Phone Se Smith MD Primary Care Provider +1- [phone] Encounter Details Date Type Department Care Team (Late st Contact Info) Description 09/26/2004 Office Visit [facility] - Maple conversion [address] [place] [address] Markos Lomeli, ORDER DISPATCHER CHIEF [address] [place], [place] [address] Social History Tobacco Use Types Packs/Day Years Used Date Smoking Tobacco: Never Assessed Sex and Gender Information Value Date Recorded Sex Assigned at Not on file Gender Identity Not on file Sexual Orientation Not on file documented as of this encounter Progress Notes * Randy, Conv Accounting System Expert - 12/23/2009 9897 EST [facility] ??? Physician Summary [...] see in office. Call tomorrow. D/W Pt& sander hand. Will do. Patient counseled regarding the patient's [...] Continue current medications. Call Dr Garcia at [phone]. Tell them Dr Garcia was talked to [...] nail infected). Pain level now: 12/28. Treatment LMFT: (antibiotics begining of AUG. PT PICKS AT NAILS). PAST HX: (MENTALLY CHALLENGED PYSCHOSES). Arrived byprivate vehicle and accompanied by (tattoo identifier). Historian: patient. --1650 Sunni Eaton R.N. PHYSICAL [...] Discharge instructions reviewed with the patient and sander hand. Provided and reviewed written instructions. Reviewed referral to a grants director. Activity restrictions were reviewed. Patient verbalized understanding (tattoo identifier). The patient was discharged home and accompanied by (tattoo identifier). The patient left the Emergency Department ambulatory and via private vehicle. --[id number] Evelio Mcgee R.N. Locked/Released at 09/26/2004 18:00 by Sunni Eaton R.N. documented in this encounter Plan of Treatment Not on file documented as of this encounter Visit Diagnoses Not on filedocumented in this encounter Care Teams Roof Fitter Relationship Specialty Start Date End Date Se Smith MD 1 [facility] Level 1 [place] [address] PCP - General 02/24/09 02/11/13 documented as of this encounter
--- OUTSIDE RECORDS SUMMARY | 2024-07-10 00:31 | XMS_ITS | Encounter Summary ---
Author Organization [facility] Address [address] [place] [address] Care Team Providers Care Process Analyst Name Role Phone Se Smith MD Primary Care Provider +1- [phone] Encounter Details Date Type Department Care Team (Late st Contact Info) Description 12/28/2005 Office Visit [facility] Adult Primary Care - [address] [phone] Haim Hoffman, ALTO SINGER [address] [place] [phone] Social History Tobacco Use Types Packs/Day Years Used Date Smoking Tobacco: Never Assessed Sex and Gender Information Value Date Recorded Sex Assigned at Not on file Gender Identity Not on file Sexual Orientation Not on file documented as of this encounter Plan of Treatment Not on file documented as of this encounter Visit Diagnoses Not on filedocumented in this encounter Care Teams Process Analyst Relationship Specialty Start Date End Date Se Smith MD 1 [facility] 1 [place] [phone] PCP - General 02/24/09 02/11/13 documented as of this encounter
--- OUTSIDE RECORDS SUMMARY | 2024-07-10 00:31 | XMS_ITS | Encounter Summary ---
Author Organization [facility] Address [address] [place] [address] Care Team Providers Care Career Technical Education Teacher Name Role Phone Unavailable Primary Care Provider Unavailabl e Encounter Details Date Type Department Care Team (Latest Contact Info) Description 09/07/2005 20:39 EST Hospital Encounter [facility] Emergency Department - [facility] [address] [place] [address] Emergency, Default, MD Discharge Disposition: Home or [...]
--- OUTSIDE RECORDS SUMMARY | 2024-07-10 00:31 | XMS_ITS | Encounter Summary ---
Author Organization [facility] Address [address] [place] [address] Care Team Providers Care Ballet Company Artistic Director Name Role Phone Unavailable Primary Care Provider Unavailabl e Encounter Details Date Type Department Care Team (Late st Contact Info) Description 10/27/2004 17:04 [facility] Hospital Encounter [facility] - Other [address] [place] [address] Se Smith MD 1 [facility] Level 1 [place] [phone] Social History Tobacco Use Types Packs/Day Years [...]
--- OUTSIDE RECORDS SUMMARY | 2024-07-10 00:31 | XMS_ITS | Encounter Summary ---
Author Organization [facility] Address [address] [place] [address] Care Team Providers Care Falsework Builder Name Role Phone Unavailable Primary Care Provider Unavailabl e Encounter Details Date Type Department Care Team (Latest Contact Info) Description 04/07/2005 18:39 EDT Hospital Encounter [facility] Emergency Department - [facility] [address] [place] [address] Emergency, Default, MD Discharge Disposition: Home or [...]
--- OUTSIDE RECORDS SUMMARY | 2024-07-10 00:31 | XMS_ITS | Encounter Summary ---
Author Organization [facility] Address [address] [place] [address] Care Team Providers Care Can Line Operator Name Role Phone Unavailable Primary Care Provider Unavailabl e Encounter Details Date Type Department Care Team (Late st Contact Info) Description 08/24/2004 17:35 EST Hospital Encounter [address] [address] Ashley Uribe MD [address] [place] [phone] Social History Tobacco Use Types Packs/Day Years [...]
--- OUTSIDE RECORDS SUMMARY | 2024-07-10 00:31 | XMS_ITS | Encounter Summary ---
Author Organization [facility] Address [address] [place] [address] Care Team Providers Care Bilingual Branch Manager Name Role Phone Unavailable Primary Care Provider Unavailabl e Encounter Details Date Type Department Care Team (Late st Contact Info) Description 10/26/2003 11:27 [facility] Hospital Encounter [facility] - Other [address] [place] [address] Se Smith MD 1 [facility] Level 1 [place] [phone] Social History Tobacco Use Types Packs/Day Years [...]
--- OUTSIDE RECORDS SUMMARY | 2024-07-10 00:31 | XMS_ITS | Encounter Summary ---
Author Organization [facility] Address [address] [place] [address] Care Team Providers Care Glass Washer And Carrier Name Role Phone Se Smith MD Primary Care Provider +1- [phone] Encounter Details Date Type Department Care Team (Late st Contact Info) Description 01/09/2006 Office Visit [facility] Adult Primary Care - [address] [address] Se Smith MD [address] [address] Social History Tobacco Use Types [...] on filedocumented in this encounter Care Teams Glass Washer And Carrier Relationship Specialty Start Date End Date Se Smith MD [address] [address] PCP - General 02/24/09 02/11/13 documented as of this encounter
--- OUTSIDE RECORDS SUMMARY | 2024-07-10 00:31 | XMS_ITS | Encounter Summary ---
Author Organization [facility] Address [address] [place] [address] Care Team Providers Care Laminating Machine Tender Name Role Phone Unavailable Primary Care Provider Unavailabl e Encounter Details Date Type Department Care Team (Latest Contact Info) Description 07/13/2006 13:56 EDT Hospital Encounter [address] [address] Mariela Sosa MD Discharge Disposition: Auto Discharge [...]
--- OUTSIDE RECORDS SUMMARY | 2024-07-10 00:31 | XMS_ITS | Encounter Summary ---
Author Organization [facility] Address [address] [place] [address] Care Team Providers Care Microbiology Lab Manager Name Role Phone Se Smith MD Primary Care Provider +1- [phone] Encounter Details Date Type Department Care Team (Late st Contact Info) Description 10/26/2003 Results Only [facility] Adult Primary Care - [address] [address] Se Smith MD 1 [facility] 1 [place] [address] Social History Tobacco Use Types [...] BLOOD GAS ORDERABLES [facility] [address] [place] [address] * LIPID PROFILE (INCLUDES CHOLESTEROL, TRIGLYCERIDES, HDL, LDL) (10/26/2003 9:30 EST) Cholesterol 146 mg/dl [facility] Comment: Desirable:<200 Borderline:200-239 High Risk:>fu=640 Triglycerides 48 35 - 160 mg/dl [facility] HDL 55 mg/dl [facility] Comment: Highly Desirable:>60 Desirable:35-60 High Risk:<35 LDL, Calculated 81 mg/dl [facility] Comment: Desirable:<130 Borderline:130-159 High Risk:>fv=577 Chol/HDL Ratio 2.7 [facility] 10/26/2003 9:30 EST 10/26/2003 15:22 EST Se Smith MD CHEMISTRY & BLOOD GAS ORDERABLES Performing Organization Address City/State/[facility] Co de Phone Number [facility] [address] [place] [address] documented in this encounter Visit Diagnoses Not on filedocumented in this encounter Care Teams Microbiology Lab Manager Relationship Specialty Start Date End Date Se Smith MD 1 [facility] 1 [place] [address] PCP - General 02/24/09 02/11/13 documented as of this encounter
--- OUTSIDE RECORDS SUMMARY | 2024-07-10 00:31 | XMS_ITS | Encounter Summary ---
Author Organization [facility] Address [address] [place] [address] Care Team Providers Care Powder Mixer Name Role Phone Unavailable Primary Care Provider Unavailabl e Encounter Details Date Type Department Care Team (Late st Contact Info) Description 09/26/2004 16:12 EST Hospital Encounter [facility] [address] [place] [address] Markos Lomeli, APPLIANCE COUNSELOR [address] [place] [address] Discharge Disposition: Auto Discharge Social History Tobacco [...]
--- OUTSIDE RECORDS SUMMARY | 2024-07-10 00:31 | XMS_ITS | Encounter Summary ---
Author Organization [facility] Address [facility] [place] [address] Care Team Providers Care Project Controls Scheduler Name Role Phone Polly Bradley Primary Care Provider Encounter Details Date Type Department Care Team (Latest Contact Info) Description 06/08/2024 Travel Social History Tobacco Use Types Packs/Day Years [...] 10:20 AM EDT Office Visit Dermatology at [facility] [address] [place] [address] Sierra Nielson MD [facility] [place] [address] documented as of this encounter Visit Diagnoses Not on filedocumented in this encounter Care Teams Project Controls Scheduler Relationship Specialty Start Date End Date Polly Bradley [address] [place] [address] PCP - General Family Medicine 03/19/24 documented as of this encounter
--- OUTSIDE RECORDS SUMMARY | 2024-07-10 00:31 | XMS_ITS | Encounter Summary ---
Author Organization [facility] Address [address] [place] [address] Care Team Providers Care Ic Designer Standard Cells Name Role Phone Unavailable Primary Care Provider Unavailabl e Encounter Details Date Type Department Care Team (Late st Contact Info) Description 05/16/2005 15:12 EDT Hospital Encounter [facility] - Other [address] [place] [address] Haim Hoffman, BONDERIZER [address] [place] [id number] Social History Tobacco Use Types Packs/Day Years [...]
--- OUTSIDE RECORDS SUMMARY | 2024-07-10 00:31 | XMS_ITS | Encounter Summary ---
Author Organization [facility] Address [address] [place] [address] Care Team Providers Care Machine Maintenance Servicer Name Role Phone Se Smith MD Primary Care Provider +1- [phone] Encounter Details Date Type Department Care Team (Late st Contact Info) Description 07/06/2005 Before PRISM Converted Visit (Maple) [facility] - Maple conversion [address] [place] [address] Thaddeus Colon MD Social History Tobacco Use [...] - kmb Job ID: Tape Document ID: [id number] cc: Se Smith MD documented in this encounter Plan of Treatment Not on file documented as of this encounter Visit Diagnoses Not on filedocumented in this encounter Care Teams Machine Maintenance Servicer Relationship Specialty Start Date End Date Se Smith MD 1 [facility] [address] [place] [address] PCP - General 02/24/09 02/11/13 documented as of this encounter
--- OUTSIDE RECORDS SUMMARY | 2024-07-10 00:31 | XMS_ITS | Encounter Summary ---
Author Organization [facility] Address [address] [place] [address] Care Team Providers Care Title One Kindergarten Teacher Name Role Phone Se Smith MD Primary Care Provider +1- [phone] Encounter Details Date Type Department Care Team (Late st Contact Info) Description 04/07/2005 Office Visit [facility] - Maple conversion [address] [place] [address] Haim Sotelo, MARCIA [address] [phone] Social History Tobacco Use Types [...] days ago Pain level now: 12/28. Treatment REAL ESTATE ACCOUNTANT: None. PAST HX: Anxiety. Fracture repair. Left [...] Patient verbalized understanding. Written instructions provided in Bulgarian. The patient was discharged home and accompanied by day camp unit leader. The patient left the Emergency Department ambulatory and via private vehicle. --1932 Evelio Brumfield R.N., [place] R.N. Locked/Released at 04/08/2005 7:56 by Elaine Oliva R.N. documented in this encounter Plan of Treatment Not on file documented as of this encounter Visit Diagnoses Not on filedocumented in this encounter Care Teams Title One Kindergarten Teacher Relationship Specialty Start Date End Date Se Smith MD 1 [facility] 1 [place] [phone] PCP - General 02/24/09 02/11/13 documented as of this encounter
--- OUTSIDE RECORDS SUMMARY | 2024-07-10 00:31 | XMS_ITS | Encounter Summary ---
Author Organization [facility] Address [address] [place] [address] Care Team Providers Care Smoking Pipe Liner Name Role Phone Unavailable Primary Care Provider Unavailabl e Encounter Details Date Type Department Care Team (Latest Contact Info) Description 04/01/2006 10:02 EDT - 04/01/2006 11:59 EDT Hospital Encounter [address] [address] Se Smith MD [address] [place] [phone] Discharge Disposition: Auto Discharge Social History [...] & BLOOD GAS ORDERABLES Performing Organization Address [facility] de Phone Number [facility] [address] [place] [address] * GLUCOSE, SERUM (04/01/2006 13:16 EDT) Glucose, Serum 82 70 - 100 mg/dl [facility] 04/01/2006 13:1 6 EDT 04/01/2006 13:23 EDT Se Smith MD CHEMISTRY & BLOOD GAS ORDERABLES Performing Organization Address [facility] de Phone Number [facility] [address] [place] [address] * LIPID PROFILE (INCLUDES CHOLESTEROL, TRIGLYCERIDES, HDL, LDL) (04/01/2006 13:16 EDT) Cholesterol 132 mg/dl [facility] Comment: Desirable:<200 Borderline:200-239 High Risk:>wv=106 Triglycerides 68 35 - 160 mg/dl [facility] HDL 65 mg/dl [facility] Comment: Highly Desirable:>60 Desirable:35-60 High Risk:<35 LDL, Calculated 53 mg/dl [facility] Comment: Desirable:<130 Borderline:130-159 High Risk:>lt=647 Chol/HDL Ratio 2.0 [facility] Fasting? No [facility] 04/01/2006 13:1 6 EDT 04/01/2006 13:23 EDT Se Smith MD CHEMISTRY & BLOOD GAS ORDERABLES Performing Organization Address [facility] de Phone Number [facility] [address] [place] [address] * (ABNORMAL) LH (04/01/2006 13:16 EDT) LH 0.1(L) 2 - 9 mIU/ml [facility] 04/01/2006 13:1 6 EDT 04/01/2006 13:23 EDT Se Smith MD CHEMISTRY & BLOOD GAS ORDERABLES Performing Organization Address [facility] Co de Phone Number [facility] [address] [place] [address] * HEMAGRAM (04/01/2006 13:16 EDT) WBC 4.80 [...] & PF4 O RDERABLES Performing Organization Address City/[facility]/ZIP Co de Phone Number [facility] [address] [place] [address] * TESTS ADDED BY PHONE (04/01/2006 13:16 EDT) Tests to be added [facility] Diagnosis Code SAME [facility] 04/01/2006 13:1 6 EDT 04/01/2006 13:23 EDT Se Smith MD CHEMISTRY & BLOOD GAS ORDERABLES Performing Organization Address City/State/[facility] Co de Phone Number [facility] [address] [place] [address] documented in this encounter Visit Diagnoses Not on filedocumented in this encounter
--- OUTSIDE RECORDS SUMMARY | 2024-07-10 00:31 | XMS_ITS | Encounter Summary ---
Author Organization [facility] Address [address] [place] [address] Care Team Providers Care Cartoon Designer Name Role Phone Se Smith MD Primary Care Provider +1- [phone] Encounter Details Date Type Department Care Team (Late st Contact Info) Description 01/09/2005 Office Visit [facility] - Maple conversion [address] [place] [address] Jossy Bagley MD [address] [place] [address], [address] [place] [address] Social History Tobacco Use Types Packs/Day Years [...] Discharge instructions reviewed with the patient and cloth desizing range tender. Patient and cloth desizing range tender verbalized understanding. The patient was accompanied by cloth desizing range tender. The patient left the Emergency Department ambulatory and via private vehicle. Patient has no belongings. --[id number] Nichole Castillo, Josselyn Cesar Nichole Castillo, Locked/Released at 01/09/2005 14:48 by Nichole Castillo, documented in this encounter Plan of Treatment Not on file documented as of this encounter Visit Diagnoses Not on filedocumented in this encounter Care Teams Cartoon Designer Relationship Specialty Start Date End Date Se Smith MD 1 [facility] Level [address] [place] [address] PCP - General 02/24/09 02/11/13 documented as of this encounter
--- OUTSIDE RECORDS SUMMARY | 2024-07-10 00:31 | XMS_ITS | Encounter Summary ---
Author Organization [facility] Address [address] [place] [address] Care Team Providers Care Graphics Manager Name Role Phone Unavailable Primary Care Provider Unavailabl e Encounter Details Date Type Department Care Team (Late st Contact Info) Description 11/23/2005 14:54 EST Hospital Encounter [facility] conversion [address] [place] [address] Haim Hoffman, SEWING TECHNIQUES DEMONSTRATOR [address] [place] [phone] Social History Tobacco Use Types Packs/Day Years [...]
--- OUTSIDE RECORDS SUMMARY | 2024-07-10 00:31 | XMS_ITS | Encounter Summary ---
Author Organization [facility] Address [address] [place] [address] Care Team Providers Care Clinical Abstractor Name Role Phone Se Smith MD Primary Care Provider +1- [phone] Encounter Details Date Type Department Care Team (Late st Contact Info) Description 03/08/2006 Office Visit [facility] Adult Primary Care - [address] [address] Se Smith MD [address] [address] Social History Tobacco Use Types [...] on filedocumented in this encounter Care Teams Clinical Abstractor Relationship Specialty Start Date End Date Se Smith MD [address] [phone] PCP - General 02/24/09 02/11/13 documented as of this encounter
--- OUTSIDE RECORDS SUMMARY | 2024-07-10 00:31 | XMS_ITS | Encounter Summary ---
Author Organization [facility] Address [address] [place] [address] Care Team Providers Care Office Clerk Name Role Phone Se Smith MD Primary Care Provider +1- [phone] Encounter Details Date Type Department Care Team (Late st Contact Info) Description 05/16/2004 Results Only [facility] Adult Primary Care - [address] [address] Se Smith MD 1 [facility] [address] [place] [address] Social History Tobacco Use Types [...] BLOOD GAS ORDERABLES [facility] [address] [place] [address] documented in this encounter Visit Diagnoses Not on filedocumented in this encounter Care Teams Office Clerk Relationship Specialty Start Date End Date Se Smith MD 1 [facility] [address] [place] [phone] PCP - General 02/24/09 02/11/13 documented as of this encounter
--- NOTE | 2024-07-10 06:45 | DI.US_ITS ---
Exam(s) US ABDOMEN LIMITED EXAM: US ABDOMEN LIMITED CLINICAL HISTORY: evaluate cholecystitis,ABD PAIN,R10.9 TECHNIQUE: Ultrasound abdomen performed using standard protocol. COMPARISON: CT CT ABDOMEN PELVIS W from 11/17/2022 FINDINGS: LIVER: Normal size. Normalechogenicity. No focal liver lesions are seen.. GALLBLADDER: No evidence of cholelithiasis. No evidence of wall thickening. No pericholecystic fluid identified. VERAS'S SIGN: Negative. BILIARY SYSTEM: No intrahepatic or extrahepatic biliary ductal dilation. RIGHT KIDNEY: Normal size. No evidence of renal calculi. No evidence of hydronephrosis. No suspicious renal mass. No cyst identified. PANCREAS: Normal where visualized. ABDOMINAL AORTA AND IVC: Visualized portions normal caliber. ASCITES: None seen. IMPRESSION: Normal sonographic appearance of the right upper quadrant. DATA REPOSITORY:
== END 2024-07-10 00:46 ==
LOC: DI 00:27
PROVIDERS: PCP Nurse Practitioner Family; Visit Provider Nurse Practitioner Family
DX: R10.9 Unspecified abdominal pain (principal)
CPT/HCPCS: 76705

== ENCOUNTER 2025-04-09 17:17 | Outpatient (REF) | payer MEDICARE, MEDICAID, SELFPAY | END 2025-04-09 17:18 | disposition home or self-care (01) | LOC: NCHCN 17:17 | PROVIDERS: Visit Provider Nurse Practitioner Family | DX: E11.9 Type 2 diabetes mellitus without complications (principal) | CPT/HCPCS: 82043; 82570 ==